=== PATIENT | male | born 1970 | race Caucasian/White ===

== ENCOUNTER 2018-08-03 10:09 | Emergency (ER) | payer OTHER ==
[~2018-08-03] VITALS: Ht 175.3 cm; Wt 86.2 kg
--- OUTSIDE RECORDS SUMMARY | ~2018-08-03 | XMS | Encounter Summary ---
Demographics + + + | Address | [address] | | | [place] [address] | + + + | Home Phone | | + + + | Preferred Language | Unknown | + + + | Marital Status | Single | + + + | Jain Affiliation | Unknown | + + + | Race | Unknown | + + + | Ethnic Group | Unknown | + + + Author + + + | Author | [facility] | | | and [place] | + + + | Organization | [facility] | | | and [place] | + + + | Address | Unknown | + + + | Phone | Unavailable | + + + Support + + +---------+ + | Name | Relationship | Address | Phone | + + +---------+ + | FaithJonathan | ECON | Unknown | | + + +---------+ + Care Team Providers + +------+ + | Care Motion Study Analyst Name | Role | Phone | + +------+ + | No Physician | PCP | Unavailable | + +------+ + Reason for Visit + + + | Reason | Comments | + + + | Pleuritic Chest Pain | | | (Adult) | | + + + Encounter Details +--------+ + + + + | Date | Type | Department | Care Team | Description | +--------+ + + + + | 05/06/ | Emergency | [facility] | Behzad Mcmillan | Cough in adult | | 2018 - | | [facility] | Brett Lee MD | patient (Primary Dx) | | | | CENTER [address] | [address] | | | 05/07/ | | [place] | [place] | | | 2017 | | [address] | [address] | | | | | [phone] | | | +--------+ + + + [...] + + + as of this encounter Last Filed Vital Signs + + + + | Vital Sign | Reading | Time Taken | + + + + | Blood Pressure | 128/65 | 05/07/2018 0000 PDT | + + + + | Pulse | 99 | 05/07/2018 PDT | + + + + | Temperature | 36.6 C (97.9 F) | 05/06/2018 2220 PDT | + + + + | Respiratory Rate | 12 | 05/07/2018 PDT | + + + + | Oxygen Saturation | 98% | 05/07/2018 PDT | + + + + | Inhaled Oxygen | - | - | | Concentration | | | + + + + | Weight | - | - | + + + + | Height | - | - | + + + + | Body Mass Index | - | - | + + + + in this encounter Discharge Instructions Behzad Mcmillan MD - 05/06/2018Please follow-up with your primary care zakiyai anAde Return for severe symptoms symptoms.in this encounter Medications at Time of Discharge + + + +---------+ + + | Medication | Sig. | Disp. | Refills | Start | End Date [...] | + + + +---------+ + + as of this encounter Plan of Treatment Not on fileas of this encounter Procedures + +--------+ + + + | Procedure Name | Priori | Date/Time | Associated Diagnosis | Comments | | | ty | | | | + +--------+ + + + | XR CHEST PA AND | STAT | 05/06/2018 | | Results for this | | LATERAL | | 2338 PDT | | procedure are in the | | | | | | results section. | + +--------+ + + + in this encounter Results XR Chest PA and Lateral (05/06/2018 2338) + + + | Narrative | Performed At | + + + | XR CHEST PA AND LATERAL 05/06/2018 11:38 PM HISTORY: Shortness of | [facility] | | breath. COMPARISON: None. Findings: Heart size is within | | | normal limits. Aorta is normal. Mediastinum is unremarkable. Central | | | pulmonary vasculature is normal. The bilateral lungs are clear with | | | no evidence for pleural effusion or pneumothorax. There is mild | | | spondylosis. IMPRESSION - No acute findings. Dictated and | | | Signed by: Deangelo Hernández MD Electronically signed: 05/07/2018 10:01 | | | PM | | + + + + + | Procedure Note | + + | Wolfgang, Rad Results In - 05/07/2018 2204 PDT XR CHEST PA AND LATERAL 05/06/2018 11:38 PM | | | | HISTORY: Shortness of breath. | | | | COMPARISON: None. | | | | Findings: | | Heart size is within normal limits. Aorta is normal. Mediastinum is | | unremarkable. Central pulmonary vasculature is normal. The bilateral lungs are | | clear with no evidence for pleural effusion or pneumothorax. There is mild | | spondylosis. | | | | IMPRESSION - | | No acute findings. | | | | Dictated and Signed by: Deangelo Hernández MD | | Electronically signed: 05/07/2018 10:01 PM | + + + +---------+ + + | Performing | Address | City/State/Zipcode | Phone Number | | Organization | | | | + +---------+ + + | [facility] | | | | + +---------+ + + in this encounter Visit Diagnoses + + | Diagnosis | + + | Cough in adult patient - Primary | + + Administered Medications + + + +---------+------+------+ | Medication Order | MAR | Action | Dose | Rate | Site | | | Action | Date | | | | + + + +---------+------+------+ | albuterol (PROVENTIL) 90 | Dispense | | 2 puffs | | | | mcg/puff inhaler (ED prepack) 2 | to Home | 8 23:58 | | | | | puff 2 puff, Inhalation, ONCE, | | PDT | | | | | 05/06/18 at 2350, For 1 dose, | | | | | | | Inhale 2 puffs every 6 hours as | | | | | | | directed. Shake Well. Dispense | | | | | | | for home use. | | | | | | + + + +---------+------+------+ +---+---+ | | | +---+---+ + +-------+ +--------+---+---+ | albuterol 2.5 mg/3 mL nebulizer | Given | | 2.5 mg | | | | solution 2.5 mg 2.5 mg, | | 8 23:08 | | | | | Nebulization, RT Once, Sat | | PDT | | | | | 05/06/18 at 2300, For 1 dose, RT | | | | | | | will administer. | | | | | | + +-------+ +--------+---+---+ +---+---+ | | | +---+---+ + +-------+ +-------+---+---+ | albuterol-ipratropium (DUONEB) | Given | | 3 mLs | | | | 2.5-0.5 mg/3 mL nebulizer | | 8 23:08 | | | | | solution 3 mL 3 mL, | | PDT | | | | | Nebulization, RT Once, Sat | | | | | | | 05/06/18 at 2300, For 1 dose | | | | | | + +-------+ +-------+---+---+ +---+---+ | | | +---+---+ + +-------+ +-------+---+---+ | dexamethasone (DECADRON) 10 | Given | | 10 mg | | | | mg/mL injection for oral use 10 | | 8 23:57 | | | | | mg 10 mg, Oral, ONCE, Sat | | PDT | | | | | 05/06/18 at 2350, For 1 dose, Use | | | | | | | dexamethasone 10 mg/mL vial for | | | | | | | inject for this oral dose | | | | | | + +-------+ +-------+---+---+ +---+---+ | | | +---+---+ in this encounter"
--- OUTSIDE RECORDS SUMMARY | ~2018-08-03 | XMS | Clinical Summary ---
Demographics + + + | Address | [address] | | | [place] [address] | + + + | Home Phone | | + + + | Preferred Language | Unknown | + + + | Marital Status | Single | + + + | Catholic Affiliation | Unknown | + + + | Race | Unknown | + + + | Ethnic Group | Unknown | + + + Author + + + | Author | [facility] | | | and [place] | + + + | Organization | [facility] | | | and [place] | + + + | Address | Unknown | + + + | Phone | Unavailable | + + + Support + + +---------+ + | Name | Relationship | Address | Phone | + + +---------+ + | Jonathan Cuevas | ECON | Unknown | | + + +---------+ + Care Team Providers + +------+ + | Care Hand Paint Mixer Name | Role | Phone | + +------+ + | No, Physician | PP | Unavailable | + +------+ + Allergies No Known Allergies Current Medications + + + +---------+------+------+-------+ | Prescription | Sig. | Disp. | [...] | + + + +---------+------+------+-------+ Active Problems Not on file Encounters +--------+ + + + + | Date | Type | Specialty | Care Team | Description | +--------+ + + + + | 05/06/ | Emergency | | Behzad Mcmillan | Cough in adult | | 2018 - | | | Brett Lee MD | patient (Primary Dx) | | | | | | | | 05/07/ | | | | | | 2017 | | | | | +--------+ + + + + from Last 3 Months Social History + +-------+ +--------+------+ | Tobacco [...] | Blood Pressure | 128/65 | 05/07/2018 PDT | + + + + | Pulse | 99 | 05/07/2018 PDT | + + + + | Temperature | 36.6 C (97.9 F) | 05/06/20180 PDT | + + + + | [...] Vaccine: Influenza | | | | | (#1) | 8 | | | + + + + [...] + + from Last 3 Months Results XR Chest PA and Lateral (05/06/20188) + + + | Narrative | Performed [...] + | Wolfgang, Rad Results In - 05/07/20182203 PDT XR CHEST PA AND LATERAL 05/06/2018 [...] | | | + +---------+ + + from Last 3 Months Insurance +-------+--------+ +------+-------+---------+ | Payer | Susani | Subscriber | Type | Phone | Address | | | t Plan | ID | | | | | | / | | | | | | | Group | | | | | +-------+--------+ +------+-------+---------+ | UMR | UMR | [id number] | PPO | | | | | PPO | | | | | +-------+--------+ +------+-------+---------+ + +--------+ +--------+ + + | Guarantor Name | Accoun | Relation to | Date | Phone | Billing Address | | | t Type | Patient | of | | | | | | | | | | + +--------+ +--------+ + + | FELIPE KEANE | Person | Self [birth year] Home: | [address] | | | al[birth year]Fam | | 1969 | [phone] | | | [place] | | | [phone] | [place] | | | | | | | [address] | + +--------+ +--------+ + +"
--- OUTSIDE RECORDS SUMMARY | ~2018-08-03 | XMS | Encounter Summary ---
Demographics + + + | Address | [address] | | | [place] [address] | + + + | Home Phone | | + + + | Preferred Language | Unknown | + + + | Marital Status | Single | + + + | Jehovah'S Witness Affiliation | Unknown | + + + | Race | Unknown | + + + | Ethnic Group | Unknown | + + + Author + + + | Author | [facility] | | | and [place] | + + + | Organization | [facility] | | | and [...] Team Providers + +------+ + | Care District Administrative Assistant Name | Role | Phone | + [...] + + | 05/06/ | Emergency | [facility] | Behzad Mcmillan | Cough in adult | | 2018 - | | [facility] | Brett Lee MD | patient (Primary Dx) | | | | CENTER [address] | [address] | | | 05/07/ | | [place] | [place] | | | 2017 | | [address] | [address] | | | | | [phone] | | | +--------+ + + + [...]
--- OUTSIDE RECORDS SUMMARY | ~2018-08-03 | XMS | Clinical Summary ---
Demographics + + + | Address | [address] | | | [place] [address] | + + + | Home Phone | | + + + | Preferred Language | Unknown | + + + | Marital Status | Single | + + + | Congregation Affiliation | Unknown | + + + | Race | Unknown | + + + | Ethnic Group | Unknown | + + + Author + + + | Author | [facility] | | | and [place] | + + + | Organization | [facility] | | | [...] Team Providers + +------+ + | Care Closer On Name | Role | Phone | + [...] +-------+--------+ +------+-------+---------+ | UMR | UMR | [id number] | PPO | | | | | [...] | | | | | | | [phone] | + +--------+ +--------+ + +"
--- OUTSIDE RECORDS SUMMARY | ~2018-08-03 | XMS | Clinical Summary ---
Demographics + + + | Address | [address] | | | [place] [address] | + + + | Home Phone | | + + + | Preferred Language | Unknown | + + + | Marital Status | Unknown | + + + | Yarsani Affiliation | Unknown | + + + | Race | Unknown | + + + | Ethnic Group | Unknown | + + + Author + + + | Author | [facility] | + + + | Organization | [facility] | + + + | Address | Unknown | + + + | Phone | Unavailable | + + + Support +--------+ +---------+ + | Name | Relationship | Address | Phone | +--------+ +---------+ + | No,One | ECON | Unknown | | +--------+ +---------+ + Care Team Providers + +------+ + | Care Director Teen Post Name | Role | Phone | + +------+ + | Liyah Weldon MD | PP | | + +------+ + Allergies No Known Allergies Current Medications + + +--------+---------+------+------+-------+ | Prescription | Sig. | Disp. | Refills | Star | End | Statu | | | | | | t | Date | s | | | | | | Date | | | + + +--------+---------+------+------+-------+ | fish oil omega-3 | Take 3 g by mouth | | | | | Activ | | fatty acids 1000 MG | daily. | | | | | e | | capsule | | | | | | | + + +--------+---------+------+------+-------+ | carvedilol (COREG) | Take 1 tablet by | 180 | 3 | 07/1 | | Activ | | 25 MG tablet | mouth 2 (two) times | tablet | | 7/20 | | e | | | daily. | | | 17 | | | + + +--------+---------+------+------+-------+ | lisinopril | Take 1 tablet by | 90 | 3 | 05/14 | | Activ | | (ZESTRIL) 10 MG | mouth daily. | tablet | | 7/20 | | e | | tablet | | | | 17 | | | + + +--------+---------+------+------+-------+ | spironolactone | Take 1 tablet by | 90 | 3 | 05/14 | | Activ | | (ALDACTONE) 25 MG | mouth daily. | tablet | | 7/20 | | e | | tablet | | | | 17 | | | + + +--------+---------+------+------+-------+ Active Problems + + + | Problem | Noted Date | + + + | Dilated cardiomyopathy [...] | | glu: 87 | + + Family History [...] + + | Father | | | [place] x 2, open heart surgery | | | | (Age | | | | | 64) | | + +------+ + + | Mother | | | DMII, Hyperlipiemia,CVA | | | | (Age | | | | | 72) | | + +------+ + + Social History + + + +--------+------+ | Tobacco Use | Types | Packs/Day | Years | Date | | | | | Used | | + + + +--------+------+ | Current Some Day | Cigarettes | 1 | 12 | | | Smoker | | | | | + + + +--------+------+ + +------+---+---+ | Smokeless Tobacco: | Chew [...] + + + | Blood Pressure | 128/66 | 05/30/2017 10:51 AM PDT | + + + + | Pulse | 78 | 05/30/2017 10:51 AM PDT | + + + + | Temperature | 36.9 C (98.4 F) | 12/12/2015 10:06 AM PST | + + + + | Respiratory Rate | 16 | 09/30/2016 1:35 PM PST | + + + + | Oxygen Saturation | 98% | 05/30/2017 10:51 AM PDT | + + + + | Inhaled Oxygen | - | - | | Concentration | | | + + + + | Weight | 89.9 kg (198 lb 3.2 | 05/30/2017 10:51 AM PDT | | | oz) | | + + + + | Height | 172.7 cm (5' 8") | 05/30/2017 10:51 AM PDT | + + + + | Body Mass Index | 30.14 | 05/30/2017 10:51 AM PDT | + + + + Plan [...] Not on filefrom Last 3 Months Insurance +---------+--------+ +------+-------+ + | Payer | Benefi | Subscriber | Type | Phone | Address | | | t Plan | ID | | | | | | / | | | | | | | Group | | | | | +---------+--------+ +------+-------+ + | PREMERA | PREMER | [id number] | | | [address] [address] | | | A BLUE | 3 | | | [place], [place] | | | CARD | | | | [phone] | +---------+--------+ +------+-------+ + + +--------+ +--------+ + + | Guarantor Name | Accoun | Relation to | Date | Phone | Billing Address | | | t Type | Patient | of | | | | | | | | | | + +--------+ +--------+ + + | FELIPE KEANE | Person | Self | [birth year] | Home: | [address] | | | al/Fam | | 1970 | [phone] [place], | | | [place] | | | [address] | [place] [phone] | + +--------+ +--------+ + +
--- OUTSIDE RECORDS SUMMARY | ~2018-08-03 | XMS | Clinical Summary ---
Demographics + + + | Address | [address] | | | [place] [address] | + + + | Home Phone | | + + + | Preferred Language | Unknown | + + + | Marital Status | Unknown | + + + | Islam Affiliation | Unknown | + + + | Race | Unknown | + + + | Ethnic Group | Unknown | + + + Author + + + | Author | [facility] | + + + | Organization | [facility] | + + + | Address | Unknown | + + + | Phone | Unavailable | + + + Support +--------+ +---------+ + | Name | Relationship | Address | Phone | +--------+ +---------+ + | No,One | ECON | Unknown | | +--------+ +---------+ + Care Team Providers + +------+ + | Care Agriculture Engineer Name | Role | Phone | [...] + + | Father | | | [place] x 2, open heart surgery | | [...] +------+-------+ + | PREMERA | PREMER | [id number] | | | [address] [address] | | | A BLUE | 3 | | | [place], [place] | | | CARD | | | | [phone] | +---------+--------+ +------+-------+ + + +--------+ +--------+ [...] [place] | | | [address] | [place] [address] | + +--------+ +--------+ + +
--- NOTE | 2018-08-03 21:10 | EKG ---
[facility] [address] [facility] [place], [place] [address] Signed Normal sinus rhythm Left bundle branch block Abnormal ECG No previous ECGs available Confirmed by FREDDIE SOLANO DO ([id number]) on 08/03/2018 9:10:47 PM Electronically Signed By: FREDDIE SOLANO DO 08/03/182109 PATIENT NAME: KEANEFELIPE LENNOX Electrocardiogram DATE OF : 68 PHYSICIAN: FREDDIE SOLANO DO REPORT #: [id number] REPORT IS CONFIDENTIAL AND NOT TO BE RELEASED WITHOUT AUTHORIZATION
== END 2018-08-03 11:10 | disposition short-term general hospital (02) ==
LOC: ED 10:09
DX: I63.9 Cerebral infarction, unspecified (principal); I20.0 Unstable angina; I11.0 Hypertensive heart disease with heart failure; I50.9 Heart failure, unspecified; F17.200 Nicotine dependence, unspecified, uncomplicated
CPT/HCPCS: 71045; 80053; 84484; 85025; 93005; 93010; 99285; G0480

== ENCOUNTER 2019-03-06 14:47 | Inpatient (IN) | payer OTHER ==
[~2019-03-06] VITALS: Ht 175.3 cm; Wt 92.9 kg
--- OUTSIDE RECORDS SUMMARY | ~2019-03-06 | XMS | Encounter Summary ---
Demographics + + + | Address | [address] | | | [place] [address] | + + + | Home Phone | | + + + | Preferred Language | Unknown | + + + | Marital Status | Unknown | + + + | Alevism Affiliation | Unknown | + + + | Race | Unknown | + + + | Ethnic Group | Unknown | + + + Author + + + | Author | [facility] | + + + | Organization | [facility] | + + + | Address | Unknown | + + + | Phone | Unavailable | + + + Support + + +---------+ + | Name | Relationship | Address | Phone | + + +---------+ + | Contact,No | ECON | Unknown | | + + +---------+ + Care Team Providers + +------+ + | Care Printing Estimator Name | Role | Phone | + +------+ + | Cassidy Khan MD | PCP | | + +------+ + Encounter Details +--------+ + + + + | Date | Type | Department | Care Team | Description | +--------+ + + + + | 01/16/ | Telephone | [facility] | Kim Landrum MA | | | 2018 | | Cardiology Tr[facility] | | | | | | [address] [facility] [address] | | | | | | [facility] [address] | | | | | | [place] [address] | | | | | | [phone] | | | +--------+ + + + + Social History + + + +--------+ + | Tobacco Use | Types | Packs/Day | Years | Date | | | | | Used | | + + + +--------+ + | Former Smoker | Cigarettes | 1 | 12 | Quit: 09/14/2018 | + + + +--------+ + + +------+---+---+ | Smokeless Tobacco: | Chew | | | | Former User | | | | + +------+---+---+ + + +---------+ + | Alcohol Use | Drinks/We | oz/Week | Comments | | | ek | | | + + +---------+ + | Yes | 24 Cans | 14.4 | beer | | | of beer | | | + + +---------+ + + + + | Sex Assigned at | Date Recorded | | | | + + + | Not on file | | + + + as of this encounter Plan of Treatment +--------+---------+ + + + | Date | Type | Specialty | Care Team | Description | +--------+---------+ + + + | 04/05/ | Office | Cardiology | Shelby Donato DO | | | 2018 | Visit | | [address] | | | | | | [place] | | | | | | [address] | | | | | | | | +--------+---------+ + + + as of this encounter Visit Diagnoses Not on filein this encounter"
--- OUTSIDE RECORDS SUMMARY | ~2019-03-06 | XMS | Clinical Summary ---
Demographics + + + | Address | [address] | | | [place] [address] | + + + | Home Phone | | + + + | Preferred Language | Unknown | + + + | Marital Status | Unknown | + + + | Roman Catholic Affiliation | Unknown | + + + | Race | Unknown | + + + | Ethnic Group | Unknown | + + + Author + + + | Author | [facility] [facility] | + + + | Organization | [facility] | + + + | Address | Unknown | + + + | Phone | Unavailable | + + + Support + + +---------+ + | Name | Relationship | Address | Phone | + + +---------+ + | Contact,No | ECON | Unknown | | + + +---------+ + Care Team Providers + +------+ + | Care Casing Machine Operator Name | Role | Phone | + +------+ + | Cassidy Khan MD | PP | | + +------+ + Allergies No Known Allergies Current Medications + + +--------+---------+------+------+-------+ | Prescription | Sig. | Disp. | Refills | Star | End | Statu | | | | | | t | Date | s | | | | | | Date | | | + + +--------+---------+------+------+-------+ | atorvastatin | Take 1 tablet by | 30 | 11 | 11/14 | 11/14 | Activ | | (LIPITOR) 10 MG | mouth nightly. | tablet | | 0/20 | 0/20 | e | | tablet | | | | 19 | 20 | | + + +--------+---------+------+------+-------+ | carvedilol (COREG) | Take 1 tablet by | 180 | 3 | 01/1 | 11/14 | Activ | | 25 MG tablet | mouth 2 (two) times | tablet | | 0/20 | 0/20 | e | | | daily. | | | 19 | 20 | | + + +--------+---------+------+------+-------+ | spironolactone | Take 0.5 tablets by | 45 | 3 | / | 11/14 | Activ | | (ALDACTONE) 25 MG | mouth daily. | tablet | | 0/20 | 0/20 | e | | tablet | | | | 19 | 20 | | + + +--------+---------+------+------+-------+ | lisinopril | Take 2 tablets by | 60 | 11 | 02/0 | 02/0 | Activ | | (ZESTRIL) 20 MG | mouth daily. | tablet | | /20 | 720 | e | | tablet | | | | 19 | 20 | | + + +--------+---------+------+------+-------+ | furosemide (LASIX) | Take 1 tablet by | 30 | 11 | 04/ | 04 | Activ | | 20 MG tablet | mouth daily. | tablet | | 1/20 | 0/20 | e | | | | | | 19 | 20 | | + + +--------+---------+------+------+-------+ | | Take 1 tablet by | 90 | 11 | / | 04/ | Activ | | isosorbide-hydrALAZI | mouth 3 (three) | tablet | | 12/03 | 0/20 | e | | NE (BIDIL) 20-37.5 | times daily. | | | 19 | 20 | | | MG per tablet | | | | | | | + + +--------+---------+------+------+-------+ Active Problems + + + | Problem | Noted Date | + + + | Chronic combined systolic and diastolic heart failure (HCC) | 11/24/2018 | + + + | Mixed hyperlipidemia | 11/23/2018 | + + + | TIA (transient ischemic attack) | 09/21/2018 | + + + | ETOH abuse | 09/21/2018 | + + + | Tobacco abuse | 09/21/2018 | + + + | Dilated cardiomyopathy (HCC) | 11/24/2015 | + + + + + | Last Assessment & Plan: Cardiomyopathy/4-chamber enlargement, | | LVEDd 63mm, LVEF 30%. 45yo WM, with a nonischemic | | dilated cardiomyopathy, history of heart failure. He continues | | to be relatively active, gainfully employed. He's doing | | relatively well, he does admit exertional shortness of breath and | | fatigue, but there is no edema, no orthopnea or PND. He is | | unaware of any chest discomfort or palpitations. He had been | | ordered an Echo but not done as he never received a call. Labs | | reviewed. Tolerating medications. Today we increased his | | carvedilol to 25 mg BID. Again we strongly encouraged him to | | abstain from alcohol and also to quit smoking . If there is no | | improvement in his LVEF, he may be a candidate for biventricular | | ICD, he does have a left bundle branch block and a prolonged | | QRS.Hx CABG: noHx PCI/stent: noHx Pacemaker/ICD: noLast Cath, | | 12/12/2015: coronaries NML, right dominant.Last Echo, 09/24/2015: | | LVEDd 63mm, LVEF 30%, bi-Atrial enlargement, mild RVE with | | impaired systolic function, mild MR, mild TR.Last Stress Test: | | naECG, 11/24/2015: sinus tachycardia, 115bpm, bi-Atrial | | enlargement, LBBB (QRS 156msec). | + + + + + | Essential hypertension | 11/24/2015 | + + + + + | Last Assessment & Plan: Hypertension, controlled, we'll be | | making changes in his medications for his cardiomyopathy. Labs | | reviewed with patient.Lab, 06/29/2016: K: 4.8, BUN/Cr: 10/0.9, | | glu: 87 | + + Encounters +--------+ + + + + | Date | Type | Specialty | Care Team | Description | +--------+ + + + + | 02/22/ | Office | | Shelby Donato DO | Essential | | 2019 | Visit | | | hypertension | | | | | | (Primary Dx); | | | | | | Dilated | | | | | | cardiomyopathy | | | | | | (HCC); ETOH abuse; | | | | | | Tobacco abuse; Mixed | | | | | | hyperlipidemia; | | | | | | Chronic combined | | | | | | systolic and | | | | | | diastolic heart | | | | | | failure (HCC); LBBB | | | | | | (left bundle branch | | | | | | block) | +--------+ + + + + | 01/18/ | Office | | Stephanie Hernandez | Dilated | | 2018 | Visit | | NITHIN Sanchez | cardiomyopathy (HCC) | | | | | | (Primary Dx); | | | | | | Chronic combined | | | | | | systolic and | | | | | | diastolic heart | | | | | | failure (HCC); | | | | | | Essential | | | | | | hypertension; Mixed | | | | | | hyperlipidemia; TIA | | | | | | (transient ischemic | | | | | | attack); ETOH abuse; | | | | | | Tobacco abuse | +--------+ + + + + | 01/16/ | Telephone | | Kim Landrum MA | | | 2018 | | | | | +--------+ + + + + | 01/01/ | Documentati | | Mary Lou Johnston | Labs Only (BMP) | | 2019 | on Only | | MANDI Santa | | +--------+ + + + + | 12/21/ | Office | | Stephanie Hernandez | Chronic combined | | 2019 | Visit | | NITHIN Sanchez | systolic and | | | | | | diastolic heart | | | | | | failure (HCC) | | | | | | (Primary Dx); | | | | | | Dilated | | | | | | cardiomyopathy | | | | | | (HCC); Essential | | | | | | hypertension; Mixed | | | | | | hyperlipidemia; TIA | | | | | | (transient ischemic | | | | | | attack); ETOH abuse; | | | | | | Tobacco abuse | +--------+ + + + + | 12/13/ | Telephone | | Kim Landrum MA | | | 2019 | | | | | +--------+ + + + + from Last 3 Months Family History + + +------+ + | Medical History | Relation | Name | Comments | + + +------+ + | Heart disease | Father | | | + + +------+ + | High cholesterol | Mother | | | + + +------+ + | Hypertension | Mother | | | + + +------+ + | Stroke | Mother | | | + + +------+ + + +------+ + + | Relation | Name | Status | Comments | + +------+ + + | Brother | | | | + +------+ + + | Father | | | MD x 2, open heart surgery | | | | (Age | | | | | 64) | | + +------+ + + | Mother | | | DMII, Hyperlipiemia,CVA | | | | (Age | | | | | 72) | | + +------+ + + Social History + + + +--------+ + | Tobacco Use | Types | Packs/Day | Years | Date | | | | | Used | | + + + +--------+ + | Former Smoker | Cigarettes | 1 | 12 | Quit: 09/14/2018 | + + + +--------+ + + +------+---+---+ | Smokeless Tobacco: | Chew | | | | Current User | | | | + +------+---+---+ + + | Tobacco Cessation: Counseling Given: Yes | + + + + +---------+ + | Alcohol Use [...] on file | | + + + Last Filed Vital Signs + + + + | Vital Sign | Reading | Time Taken | + + + + | Blood Pressure | 140/72 | 02/22/2019 2:48 PM PDT | + + + + | Pulse | 73 | 02/22/2019 2:48 PM PDT | + + + + | Temperature | 36.9 C (98.4 F) | 12/12/2015 10:06 AM PST | + + + + | Respiratory Rate | 18 | 01/18/2019 3:24 PM PST | + + + + | Oxygen Saturation | 97% | 02/22/2019 2:48 PM PDT | + + + + | Inhaled Oxygen | - | - | | Concentration | | | + + + + | Weight | 94.8 kg (209 lb) | 02/22/2019 2:48 PM PDT | + + + + | Height | 172.7 cm (5' 8") | 02/22/2019 2:48 PM PDT | + + + + | Body Mass Index | 31.78 | 02/22/2019 2:48 PM PDT | + + + + Plan of Treatment +--------+---------+ + + + | Date | Type | Specialty | Care Team | Description | +--------+---------+ + + + | 04/05/ | Office | | Shelby Donato DO | | | 2019 | Visit | | [address] | | | | | | [place] | | | | | | [address] | | | | | | | | +--------+---------+ + + + + + + + + | Health Maintenance | Due Date | Last Done | Comments | + + + + + | Vaccine: | | | | | Dtap/Tdap/Td (1 - | 8 | | | | Tdap) | | | | + + + + + | Vaccine: | | | | | Pneumococcal 19-64 | 8 | | | | (PPSV23 only) Medium | | | | | Risk (1 of 1 - | | | | | PPSV23) | | | | + + + + + | Vaccine: Influenza | | | | | (Season Ended) | 9 | | | + + + + + Procedures + +--------+ + + + | Procedure Name | Priori | Date/Time | Associated Diagnosis | Comments | | | ty | | | | + +--------+ + + + | EKG STANDARD 12 LEAD | Routin | 02/22/2019 | Essential | Results for this | | | e | 2:56 PM | hypertension | procedure are in the | | | | PDT | | results section. | + +--------+ + + + | BASIC METABOLIC | Routin | 12/28/2018 | | Results for this | | PANEL | e | 3:15 PM | | procedure are in the | | | | PST | | results section. | + +--------+ + + + from Last 3 Months Results EKG STANDARD 12 LEAD (02/22/2019 2:56 PM) + + + + + | Component | Value | Ref Range | Performed At | + + + + + | Ventricular Rate | 75 | BPM | [facility] | + + + + + | Atrial Rate | 75 | BPM | [facility] | + + + + + | P-R Interval | 166 | ms | [facility] | + + + + + | QRS Duration | 160 | ms | [facility] | + + + + + | Q-T Interval | 420 | ms | [facility] | + + + + + | QTC Calculation | 469 | ms | [facility] | | (Tory) | | | | + + + + + | Calculated P [place] | 39 | degrees | [facility] | + + + + + | Calculated R [place] | 63 | degrees | [facility] | + + + + + | Calculated T [place] | -130 | degrees | [facility] | + + + + + | Diagnosis | Please refer to | | [facility] | | | Providers office visit | | | | | note for Providers | | | | | Interpretation.Confirmed | | | | | by [facility] Read Only, | | | | | [facility] ([id number]), | | | | | desk editor Pepito Snyder | | | | | ([id number]) on 02/22/2019 | | | | | 3:18:23 PM | | | + + + + + + + + + + | Performing | Address | City/State/Zipcode | Phone Number | | Organization | | | | + + + + + | [facility] | [address] | [place] [address] | | + + + + + Basic metabolic panel (12/28/2018 3:15 PM) + +-------+ + + | Component | Value | Ref Range | Performed At | + +-------+ + + | GLUCOSE | 78 | 70 - 100 mg/dL | [facility] | | | | | [facility] | + +-------+ + + | BUN | 19 | 6 - 23 mg/dL | [facility] | | | | | [facility] | + +-------+ + + | CREATININE | 1.15 | 0.60 - 1.35 mg/dL | [facility] | | | | | [facility] | + +-------+ + + | BUN/CREAT | 16.5 | 6.0 - 28.6 | [facility] | | | | | [facility] | + +-------+ + + | CALCIUM | 9.4 | 8.5 - 10.3 mg/dL | [facility] | | | | | [facility] | + +-------+ + + | SODIUM | 135 | 132 - 143 mmol/L | [facility] | | | | | [facility] | + +-------+ + + | POTASSIUM | 4.5 | 3.6 - 5.1 mmol/L | [facility] | | | | | [facility] | + +-------+ + + | CHLORIDE | 101 | 95 - 112 mmol/L | [facility] | | | | | [facility] | + +-------+ + + | CO2 | 21 | 19 - 31 mmol/L | [facility] | | | | | [facility] | + +-------+ + + | ANION GAP AGAP | 17.5 | 7 - 21 mmol/L | [facility] | | | | | [facility] | + +-------+ + + | EGFR | 68 | 60 mg/dL | [facility] | | | | | LAB[facility]AT[facility] | + +-------+ + + + + | Specimen | + + | Blood | + + + + + + + | Performing | Address | City/State/Zipcode | Phone Number | | Organization | | | | + + + + + | [facility] | [address] | [place] [address] | | | LABORATORY | 13 | | | + + + + + from Last 3 Months Insurance + +--------+ +------+-------+---------+ | Payer | Benefi | Subscriber | Type | Phone | Address | | | t Plan | ID | | | | | | / | | | | | | | Group | | | | | + +--------+ +------+-------+---------+ | [employer] | UNITED | [id number] | | | | | | | | | | | | | HEALTH | | | | | | | CARE - | | | | | | | UMR | | | | | + +--------+ +------+-------+---------+ + +--------+ +--------+ + + | Guarantor Name | Accoun | Relation to | Date | Phone | Billing Address | | | t Type | Patient | of | | | | | | | | | | + +--------+ +--------+ + + | MARTINEZ KEANE | Person | Self [birth year] Home: | [address] | | | al/Fam | | 1970 | [phone] | [address] [place] | | | [place] | | [phone] | [phone] | + +--------+ +--------+ + +
--- OUTSIDE RECORDS SUMMARY | ~2019-03-06 | XMS | Encounter Summary ---
Demographics + + + | Address | [address] | | | [place] [address] | + + + | Home Phone | | + + + | Preferred Language | Unknown | + + + | Marital Status | Unknown | + + + | Zoroastrian Affiliation | Unknown | + + + | Race | Unknown | + + + | Ethnic Group | Unknown | + + + Author + + + | Author | [facility] [employer] [facility] | + + + | Organization | [facility] | + + + | Address | Unknown | + + + | Phone | Unavailable | + + + Support + + +---------+ + | Name | Relationship | Address | Phone | + + +---------+ + | Contact,No | ECON | Unknown | | + + +---------+ + Care Team Providers + +------+ + | Care Package Sorter Name | Role | Phone | + [...] | | | | | | [address] [facility] [address] | | | | | | [facility] [address] | | | | | | [place] [address] | | | | | | [phone] | | | +--------+ + + + [...] [place] | | | | | | [address] | | | | | | | | +--------+---------+ + + + as of this encounter Visit Diagnoses Not on filein this encounter"
--- OUTSIDE RECORDS SUMMARY | ~2019-03-06 | XMS | Clinical Summary ---
Demographics + + + | Address | [address] | | | [place] [address] | + + + | Home Phone | | + + + | Preferred Language | Unknown | + + + | Marital Status | Single | + + + | Faith Affiliation | Unknown | + + + | Race | Unknown | + + + | Ethnic Group | Unknown | + + + Author + + + | Author | [facility] | | | and [place] | + + + | Organization | [facility] | | | and [place] | + + + | Address | Unknown | + + + | Phone | Unavailable | + + + Care Team Providers + +------+ + | Care Stunt Woman Name | Role | Phone | + +------+ + | Mavis Physician | ROSA | Unavailable | + +------+ + Allergies No Known [...] lungs every 4 | Inhaler | | /20 | | e | | | hours [...] Noted Date | + + + | Left arm weakness | 08/03/2018 | + + + | Numbness and tingling in left arm | 08/03/2018 | + + + Social History + +-------+ [...] recent travel history available. | + + Last Filed Vital Signs + + + + | Vital Sign | Reading | Time Taken | + + + + | Blood Pressure | 154/92 | 08/03/2018 1217 PDT | + + + + | Pulse | 83 | 08/03/20181328 PDT | + + + + | Temperature | 36.6 C (97.9 F) | 05/06/20182219 PDT | + + + + | Respiratory Rate | 18 | 08/03/20181328 PDT | + + + + | Oxygen Saturation | 96% | 08/03/20181328 PDT | + + + + | Inhaled Oxygen | - | - | | Concentration | | | + + + + | Weight | 90.7 kg (200 lb) | 08/03/2018 1215 PDT | + + + + | Height | - | - | + + + + | Body Mass Index | - | - | + + + + Plan of Treatment + + + + + | Health Maintenance | Due Date | Last Done | Comments | + + + + + | Vaccine: | | | | | Dtap/Tdap/Td (1 - | 8 | | | | Tdap) | | | | + + + + + | Vaccine: Influenza | 09/01/201 | | | | (Season Ended) | 9 | | | + + + + + Results Not on filefrom Last 3 [...] +-------+--------+ +--------+-------+---------+------+ | UMR | UMR | [id number] | 11/14/19 | | | PPO | [...] Person | Self | [birth year] | [address] | | | taylor/Kristofer | | 1970 | [phone] | [address] [place] | | | [place] | | | [address] (Home) | [phone] | + +--------+ +--------+ + + Advance Directives Patient has advance care planning documents on file. For more information, please contact:[facility] [place] [address]"
--- OUTSIDE RECORDS SUMMARY | ~2019-03-06 | XMS | Encounter Summary ---
Demographics + + + | Address | [address] | | | [place] [address] | + + + | Home Phone | | + + + | Preferred Language | Unknown | + + + | Marital Status | Unknown | + + + | Taoism Affiliation | Unknown | + + + | Race | Unknown | + + + | Ethnic Group | Unknown | + + + Author + + + | Author | [facility] [employer] [facility] | + + + | Organization | [facility] | + + + | Address | Unknown | + + + | Phone | Unavailable | + + + Support + + +---------+ + | Name | Relationship | Address | Phone | + + +---------+ + | Contact,No | ECON | Unknown | | + + +---------+ + Care Team Providers + +------+ + | Care Size Maker Name | Role | Phone | + +------+ + | Liyah Weldon MD | PCP | | + +------+ + Encounter Details +--------+ + + + + | Date | Type | Department | Care Team | Description | +--------+ + + + + | 12/13/ | Telephone | [facility] | Kim Landrum MA | | | 2018 | | Cardiology [facility] | | | | | | [address] [facility] [address] | | | | | | [facility] [address] | | | | | | [place] [address] | | | | | | [phone] | | | +--------+ + + + [...] [place] | | | | | | [address] | | | | | | | | +--------+---------+ + + + as of this encounter Visit Diagnoses Not on filein this encounter"
--- OUTSIDE RECORDS SUMMARY | ~2019-03-06 | XMS | Encounter Summary ---
Demographics + + + | Address | [address] | | | [place] [address] | + + + | Home Phone | | + + + | Preferred Language | Unknown | + + + | Marital Status | Unknown | + + + | Evangelical Affiliation | Unknown | + + + | Race | Unknown | + + + | Ethnic Group | Unknown | + + + Author + + + | Author | [facility] [employer] [facility] | + + + | Organization | [facility] | + + + | Address | Unknown | + + + | Phone | Unavailable | + + + Support + + +---------+ + | Name | Relationship | Address | Phone | + + +---------+ + | Contact,No | ECON | Unknown | | + + +---------+ + Care Team Providers + +------+ + | Care Line Assembler Aircraft Name | Role | Phone | + [...] | | | | | | [address] [facility] [address] | | | | | | [facility] [address] | | | | | | [place] [address] | | | | | | [phone] | | | +--------+ + + + [...] [place] | | | | | | [address] | | | | | | | | +--------+---------+ + + + as of this encounter Visit Diagnoses Not on filein this encounter"
--- OUTSIDE RECORDS SUMMARY | ~2019-03-06 | XMS | Encounter Summary ---
Demographics + + + | Address | [address] | | | [place] [address] | + + + | Home Phone [...] + + + | Author | [email or web address] | + + + | Organization | [facility] | + + + | Address | Unknown | + + + | Phone | Unavailable | + + + Support + + +---------+ + | Name | Relationship | Address | Phone | + + +---------+ + | Contact,No | ECON | Unknown | | + + +---------+ + Care Team Providers + +------+ + | Care Horse Shoer Name | Role | Phone | + +------+ + | Cassidy Khan MD | PCP | | + +------+ + Reason for Visit + + + | Reason | Comments | + + + | Follow-up | 4 week | + + + Encounter Details +--------+---------+ + + + | Date | Type | Department | Care Team | Description | +--------+---------+ + + + | 01/18/ | Office | [facility] | Stephanie Hernandez | Dilated | | 2019 | Visit | Cardiology Riccardo | [address] | cardiomyopathy (HCC) | | | | [address] | [place] | (Primary Dx); | | | | [facility] [address] | [place] [address] | Chronic combined | | | | [place] [address] | [phone] | systolic and | | | | [phone] | | diastolic heart | | | | | | failure (HCC); | | | | | | Essential | | | | | | hypertension; Mixed | | | | | | hyperlipidemia; TIA | | | | | | (transient ischemic | | | | | | attack); ETOH abuse; | | | | | | Tobacco abuse | +--------+---------+ + + + Social History + + [...] + + + | Blood Pressure | 148/84 | 01/18/2019 3:24 PM PST | + + + + | Pulse | 77 | 01/18/2019 3:24 PM PST | + + + + | Temperature | - | - | + + + + | Respiratory Rate | 18 | 01/18/2019 3:24 PM PST | + + + + | Oxygen Saturation | 98% | 01/18/2019 3:24 PM PST | + + + + | Inhaled Oxygen | - | - | | Concentration | | | + + + + | Weight | 98.6 kg (217 lb 4.8 | 01/18/2019 3:24 PM PST | | | oz) | | + + + + | Height | 175.3 cm (5' 9") | 01/18/2019 3:24 PM PST | + + + + | Body Mass Index | 32.09 | 01/18/2019 3:24 PM PST | + + + + in this encounter Instructions Patient Instructions - Stephanie Hernandez ARNP - 01/18/2019 3:30 PM PSTI have increased your Lisinopril to 40 mg daily, so take two of 20 mg pills at once , or 20 mg twice a day i f feel it make you dizzy Continue to take spironolactone half of 25 mg pill , so 12.5 mg, and make sure cook pickled meat new prescription Continue to take Atorvastatin 10 mg at night for now Take carvedilol 25 mg twice a day as you have been Take Magnesium Oxide 250mg -400 mg and can buy over the counter for leg cramps and stop ta trevor potassium . I have ordered you fasting labs to be done at [facility] in 4 weeks, and you will see Dr. Fr smith February [address] Khan to find out what help is available that will work for you to help stop drinki ng in this encounter Progress Notes Stephanie Hernandez ARNP - 01/18/2019 3:30 PM PSTFormatting of this note may be differen t from the original. Date of visit: 01/18/2019 Primary Care Physician: Cassidy Khan CHIEF COMPLAINT: Chief Complaint Patient presents with Follow-up 4 week HISTORY OF PRESENT ILLNESS: Mr. Martinez Xiong is a 48-year-old man here today to follow-up on his response to lisinopril 4 0 mg which I had increased when I saw him last in 12/21/2018 for increased cardiomyopathy He is a previous patient of Dr. Oneal Rowe, now retired and was last seen by him in [facility] 2015. He has a history of nonischemic dilated cardiopathy cardiomyopathy and heart failure with low EF of 30 percent , hypertension, lipidemia, suffers from alcohol abuse, and is a current smoker. His last angiogram was in November 2015 and showed normal coronaries. His current and previous testing and procedures are detailed below. His previous hospitalizations are for transient ischemic attack in July 2018, alconbrett sissyalbert treated twice in urgent care in February 2018 for upper respiratory infection, and also randi ated at [facility] in the emergency room for cough and difficulty breathing in April 2018, an d notes previously reviewed. I have been working with him since September 2018 to optimize his medications for cardiomy opathy, have started him on atorvastatin for poorly controlled lipids, and have been encoura ging him to get help to quit drinking. Though he has done a good job on decreasing his drink ing, he is finding it difficult to quit on his own. He reports since he saw me last, he has not had any hospitalization or emergency room visit s, and now chewing tobacco , about a tin per week, instead of smoking, and has decreased alc ohol from 80 oz of 8% ABV beer daily to 40 oz of 8% ABV beer, which has increased since I sa w him last. He reports AA did not work for him in the past, and not sure about counseling for alcohol dependence. He finally brought his medication bottles to the clinic today, and I discovered that he i s still only taking lisinopril 20 mg daily, and not 40 mg daily, but is taking all of his ot her medications as ordered. He reports he has had no further signs or symptoms of transient ischemic attack or stroke since he saw me last, and denies any dizziness or lightheadedness, or syncope. He also den ies any chest pain or palpitations. 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 REVIEW OF SYSTEMS: Negative except for pertinent items noted in HPI. Constitutional: Denies fatigue or unexplained weight loss. Appetite is good. Weight is st able. Denies night sweats fevers or chills HENT: Denies nosebleeds. Denies hearing problems. Denies dysphagia Eyes: Denies visual disturbance or double vision. Denies history of cataracts or glaucoma or macular degeneration. Respiratory/Sleep:: Frequent URIs, intermittent cough, denies shortness of breath. Toxic l dennis exposure from smoking, and job as a operations welder Denies hemoptysis or excessive sputum produc tion. Denies snoring, orthopnea, PND. Cardiovascular: Denies chest pain and leg swelling, has palpitations if he has been drinkin g heavily Denies leg swelling. Denies history of rheumatic fever. Denies claudication . Gastrointestinal: Symptoms of gastroesophageal reflux disease, aggravated by smoking and he steven alcohol consumption . Denies nausea, vomiting, and blood in stool. Genitourinary: Denies hematuria. Denies history of benign prostatic hypertrophy Musculoskeletal: Bad left hip injured in high school , hand pain, Denies myalgias, back pa in Skin: Denies color change. Denies rash or lesions Neurological:TIA 07/2018 w/ left arm weakness and tingling( [place])-symptoms resolved . Denies history of stroke.Denies history of seizures. Denies dizziness, syncope and numbne ss. Denies focal motor or sensory deficits Hematological: Does not bruise/bleed easily. Denies history of cancer Endocrine: Denies diabetes or thyroid disease. Denies excessive thirst or hunger. Psychiatric/Behavioral: The patient denies any history of depression or anxiety or other ps ychiatric illness. Vaccines: current on flu vaccine: 11/2018 and tetanus . Not Current on pneumonia vaccine . Habits/Social : current Smoker 1/2 ppd x 12 years, now chewing tobacco 1 tin per week, . Previously chewed tobacco 17 years. . Drinks 1servings of caffeine daily . Denies illicit drug use. Drink (25 oz) of 8% ABV beer per day,used to drink 80 oz, Exercises with Active job , works as a operations welder , 8-10 hrs , 5 days per week, single . Outpatient Medications Prior to Visit Medication Sig Dispense Refill atorvastatin (LIPITOR) 10 MG tablet Take 1 tablet by mouth nightly. 30 tablet 11 carvedilol (COREG) 25 MG tablet Take 1 tablet by mouth 2 (two) times daily. 180 tablet 3 lisinopril (ZESTRIL) 20 MG tablet Take 2 tablets by mouth daily. 60 tablet 11 spironolactone (ALDACTONE) 25 MG tablet Take 0.5 tablets by mouth daily. 45 tablet 3 No facility-administered medications prior to visit. PHYSICAL EXAM: Wt Readings from Last 3 Encounters: 01/18/19 98.6 kg (217 lb 4.8 oz) 12/21/18 96.3 kg (212 lb 4.8 oz) 11/23/18 94.9 kg (209 lb 3.2 oz) Temp Readings from Last 3 Encounters: 12/12/15 98.4 F (36.9 C) (Temporal) BP Readings from Last 3 Encounters: 01/18/19 148/84 12/21/18 148/86 11/23/18 142/82 Pulse Readings from Last 3 Encounters: 01/18/19 77 12/21/18 75 11/23/18 76 GENERAL: Well developed, well nourished, in no distress. Appears approximately stated age . Face flushed HEENT: Normocephalic, atraumatic. EYES: PERRL, EOM normal. MOUTH: Oral mucosae moist, dentition adequate, no lesions noted NECK: No JVD, lymphadenopathy, thyromegaly. Carotid pulses are 2+ bilaterally without br uits LUNGS: Lungs clear to auscultation, no crackles ,no rales, rhonchi noted, respirations unl abored. HEART: Nondisplaced PMI, regular rate and rhythm, S1, S2 normal. 1/6 systolic murmur LLSB, no rubs or gallops noted.. ABDOMEN: Soft, nontender, no organomegaly, masses or bruits. Bowel sounds are normal in a ll 4 quadrants. The abdominal aortic pulsation is not palpable. EXTREMITIES: No edema. Radial pulses 2+ bilaterally. Femoral pulses are 2+ bilaterally wi thout bruits. DP and PT pulses are 2+ bilaterally. No clubbing. SKIN: Warm and dry, capillary refill is normal, no lesions. NEUROLOGIC: Awake, alert and oriented x 3. No focal motor or sensory deficits. PSYCHIATRIC: Appropriate, affect appears normal DATA: Blood tests: Lab Results Component Value Date WBC 5.36 12/12/2015 RBC 5.20 12/12/2015 HGB 15.7 12/12/2015 HCT 46.9 12/12/2015 PLT 274 12/12/2015 Lab Results Component Value Date NA 135 12/28/2018 K 4.5 12/28/2018 CL 101 12/28/2018 CO2 21 12/28/2018 ANIONGAP 17.5 12/28/2018 GLUF 78 12/28/2018 BUN 19 12/28/2018 CREATININE 1.15 12/28/2018 BCR 16.5 12/28/2018 CA 9.4 12/28/2018 EGFR 68 12/28/2018 Lab Results Component Value Date CHOL 158 11/28/2015 TRIG 55 11/28/2015 LDL 87 11/28/2015 GLUF 78 12/28/2018 No results found for: BNP, CKTOTAL, TSH, CRP No results found for: METF, NMETFX, TFNMFX, [id number], [id number], TOTEPI CARDIAC IMAGING/PROCEDURES: Last Cath, 12/12/2015: coronaries NML, right dominant. ECHO: Last Echo: 10/24/2018: ([facility]) sinus rhythm. Technically adequate study. EF 30 percent. Ma rkedly dilated LV. LV wall thickness normal. Mild diastolic dysfunction. Septal and inferi or wall akinesia. Regional wall motion abnormalities: basal anteroseptal - severely hypoki netic; mid anteroseptal - severely hypokinetic; basal inferoseptal - dyskinetic; mid infe roseptal - dyskinetic; basal inferior - akinetic; mid inferior - severely hypokinetic; l ateral - mildly hypokinetic; basal inferolateral - mildly hypokinetic; mid inferolateral - mildly hypokinetic; remaining left ventricular segments are moderately hypokinetic. Mi ld RVE, RV systolic function normal. Normal size atria. Aortic valve trileaflet, mild aort ic sclerosis without stenosis, trace AI. Mitral valve normal, mild to moderate MR, no lluu l valve prolapse. Trace TR. No pulmonary pressures secondary to poor TR signal. Pulmonic valve normal, no pericardial effusion. IVC small <1.5 cm, CVP 0-5. Aortic root, ascending aorta, and aortic arch are normal. No mass, no clot, no ASD, no VSD Echo: 06/03/2017: ([facility]): Sinus rhythm. Technically adequate study. EF 30-35 percent. Mild ly dilated LV, LV wall thickness normal, moderate to severe global hypokinesis of LV contrac tility. ( Akinetic anteroseptal and septal segments. Hypokinetic inferior and inferoseptal segments.) Mild diastolic dysfunction. RV normal in size and function. Moderate left atria l enlargement. RA WNL. Aortic valve trileaflet, mildly thickened, no significant aortic re gurgitation, no aortic stenosis. Mitral valve normal, trace MR. Tricuspid valve normal. N o pulmonary pressures due to absence of adequate TR jet. No pericardial or pleural effusion . IVC WNL, CVP 5-10. Aortic root, ascending aorta are within normal dimension Echo, 09/24/2015: LVEDd 63mm, LVEF 30%, bi-Atrial enlargement, mild RVE with impaired syst olic function, mild MR, mild TR. NON CARDIAC TESTING CTA head and Neck : 08/03/2018: [place] : No evidence of acute intracranial disease. Th e intracranial and cervical arterial systems are widely patent. Mild to moderate cerebral a trophy. Bronchial wall thickening and imaged lungs, potentially infectious or inflammatory. Scoliosis reversal of cervical lordosis and degenerative disc disease Chest x-ray: 08/03/2018: heart size WNL. Aorta normal.Mediastinum unremarkable. Central p ulmonary vasculature normal. Bilateral lungs clear with no evidence of pleural effusion or pneumothorax. Mild spondylosis. EKG/EVENT MONITOR EK2015: Sinus tachycardia, bi atrial enlargement, left bundle branch block, 66 bpm , WA 180 ms, QRS 166 ms, QTC 452 ms EK05/30: Normal sinus rhythm, chronic left bundle-branch block. Rate 66 bpm, WA 18 0 ms, QRS 166 ms, QTC 452 ms, tracing personally reviewed by me EK08/03/2018: ([place]): Normal sinus rhythm, stable left bundle branch block, low vo ltage QRS to limb leads, V5, V6. Rate 94 bpm, WA 172 ms, QRS 166 ms, QTC 510 ms, tracing pe rsonally reviewed by me EK09/21/2018: Normal sinus rhythm with PAC, stable left bundle branch block, prolonged QT interval Low voltage QRS to limb leads, V4, V5, V6. Rate 83 bpm, WA 170 ms, QRS 160 ms, Q TC 507 ms tracing personally reviewed by me, and similar morphology to previous EKG's LABS: Labs: 11/28: Cholesterol 158, triglycerides 55, HDL 60, LDL 87, VLDL 11, ratio 2.6, no n-HDL cholesterol 98, sodium 137, potassium 4.2, chloride 106, glucose 105, BUN 15, creatini ne 0.91, GFR 90, AST 33, ALT 46, alk phos 44, total bilirubin 0.4 Labs 2015: Sodium 132, potassium 4.8, chloride 100, glucose 87, BUN 10, creatinine 0. 85, GFR 97 Labs: 08/03/2018: Troponin I 0.01 INR 0.91, CMP: Sodium 132, potassium 3.9, chloride 99, CO2 19, glucose 106, BUN 9, creatinine 1.06, GFR >60, albumin 4.1, AST 71, ALT 111, alk phos 5 3,. CBC: WBC 7.5, RBC 4.11, hemoglobin 14, hematocrit 40.6, platelets 168 Labs: 09/27/2018:: Lipids: ( no statin) Cholesterol 225, triglycerides 116, HDL 53, LDL 149 , VLDL 23, ratio 4.2, non-HDL cholesterol 172. 11.5% 10 yr CVD risk BMP: sodium 137, potass ium 4.2, chloride 103, glucose 89, BUN 12, creatinine 0.85, GFR 96 magnesium 2 Labs: 12/28/2018: BMP: Sodium 135, potassium 4.5, chloride 101, glucose 78, BUN 19, creatini ne 1.15, GFR 68, BUN creatinine ratio 16.5 ASSESSMENT & PLAN: He was here today to follow-up on his response to lisinopril 40 mg,which I had increased when I saw him last in 12/21/2018 for increased cardiomyopathy He has problems as detailed below. I discovered today that he had not increased his lisinopril to 40 mg, but is still taking 20 mg daily, and I have asked him to increase his dose to 40 mg as previously discussed. He had been tolerating atorvastatin well one I saw him last, but is been having some leg cramps, and is wondering if related to atorvastatin. He had been taking idvx-hay-ckbiatj po tassium on his own for leg cramps, and I had advised him to stop doing this, as he is on lis inopril and spironolactone, and his potassium was 4.5 on labs drawn in December. His BMP is detailed above, and shows normal electrolytes and renal function with GFR of 6 8, but was performed on lisinopril 20 mg, and not 40 mg. I have advised him to take magnesium 250-400 mg daily for leg cramps. I have also ordere d a repeat CMP and lipid panel to be done in one month, and may need to stop his atorvastati n if liver enzymes are elevated, or if he is more symptomatic. I have asked for copies of t he labs to be sent to his PCP, Dr. Khan. He remains asymptomatic, and has good activity tolerance with his very physical job. His blood pressure is better controlled today now that he is back on his medications, but still mildly elevated. I have again increased his lisinopril to 40 mg daily for hypertension and cardiomyopathy , and continued carvedilol 25 mg bid for hypertension,heart failure, and cardiomyopathy,, a nd spironolactone 12.5 mg daily for heart failure and cardiomyopathy, and atorvastatin 10 mg daily for his hyperlipidemia. I have told him he can take lisinopril 20 mg bid, or 40 mg all at once. I have again encouraged him to get help to quit drinking alcohol, such as [facility], or make an appointment with his PCP Dr. Khan, to see what options are available to [facility] locally. He does not think AA works for him, so may benefit from counseling for alcohol dependenc e. 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 Given his low EF, and history of transient ischemic attack, he may benefit from being on anticoagulation, but I am reluctant to start this given his alcoholism, as he would be at a high risk of bleeding. He will see Dr. 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 1. Dilated cardiomyopathy (HCC) 2. Chronic combined systolic and diastolic heart failure (HCC) 3. Essential hypertension 4. Mixed hyperlipidemia 5. TIA (transient ischemic attack) 6. ETOH abuse 7. Tobacco abuse Orders Placed This Encounter Procedures Comprehensive metabolic panel Lipid panel The following portions of the patient's history were personally reviewed by me and updated as appropriate: EKG tracings, other specialty provider and PCP notes,any Hospital admission and discharge summaries, any ER records , current and previous cardiac testing and procedure reports and data, Allergies, current medications.labs. Medication bottles brought to the clinic today Family history, past medical history, past social history, past surgical history. Problem list. NITHIN Cook [facility] 01/18/2019in this encounter Plan of Treatment +--------+---------+ + + + | Date | Type | Specialty | Care Team | Description | +--------+---------+ + + + | 04/05/ | Office | Cardiology | Shelby Donato DO | | | 2018 | Visit | | [address] | | | | | | [place] | | | | | | [id number] | | | | | | | | +--------+---------+ + + + + +--------+ + + | Name | Priori | Associated Diagnoses | Order Schedule | | | ty | | | + +--------+ + + | Comprehensive metabolic panel | Routin | Essential | Expected: | | | e | hypertension Mixed | 02/18/2019, Expires: | | | | hyperlipidemia | 07/21/2020 | + +--------+ + + | Lipid panel | Routin | Mixed | Expected: | | | e | hyperlipidemia | 02/18/2019, Expires: | | | | | 07/21/2020 | + +--------+ + + as of this encounter Visit Diagnoses + + | Diagnosis | + + | Dilated cardiomyopathy (HCC) - Primary | + + | Other primary cardiomyopathies | + + | Chronic combined systolic and diastolic heart failure (HCC) | + + | Chronic combined systolic and diastolic heart failure | + + | Essential hypertension | + + | Unspecified essential hypertension | + + | Mixed hyperlipidemia | + + | TIA (transient ischemic attack) | + + | Unspecified transient cerebral ischemia | + + | ETOH abuse | + + | Alcohol abuse, unspecified | + + | Tobacco abuse | + + | Tobacco use disorder | + +
--- OUTSIDE RECORDS SUMMARY | ~2019-03-06 | XMS | Encounter Summary ---
Demographics + + + | Address | [address] | | | [place] [address] | + + + | Home Phone | | + + + | Preferred Language | Unknown | + + + | Marital Status | Unknown | + + + | Jehovah'S Witness Affiliation | Unknown | + + + | Race | Unknown | + + + | Ethnic Group | Unknown | + + + Author + + + | Author | [facility] | + + + | Organization | [facility] | + + + | Address | Unknown | + + + | Phone | Unavailable | + + + Support + + +---------+ + | Name | Relationship | Address | Phone | + + +---------+ + | Contact,No | ECON | Unknown | | + + +---------+ + Care Team Providers + +------+ + | Care Personnel Scheduler Name | Role | Phone | + +------+ + | Cassidy Khan MD | PCP | | + +------+ + Reason for Visit + + + | Reason | Comments | + + + | Establish Care | NEW PATIENT | + + + Encounter Details +--------+---------+ + + + | Date | Type | Department | Care Team | Description | +--------+---------+ + + + | 02/22/ | Office | [facility] | Shelby Donato DO | Essential | | 2019 | Visit | Cardiology Riccardo | [address] | hypertension | | | | [address] | [place] | (Primary Dx); | | | | [facility] [address] | [phone] | Dilated | | | | [place] [address] | | cardiomyopathy | | | | [phone] | | ([facility]); ETOH abuse; | | | | | [...] | | | | | block) | +--------+---------+ + + + Social History [...] + + + | Respiratory Rate | - | - | + + + + | Oxygen [...] PM PDT | + + + + in this encounter Progress Notes Shelby Donato DO - 02/22/2019 3:00 PM PDTFormatting of this note may be different from aric vásquez. [facility] Cardiology Cardiology Consult Note Reason for Consultation: establish care Requesting Physician: Liyah Weldon History Obtained From: patient HISTORY OF PRESENT ILLNESS: Cardiac Problem List 1. Nonischemic cardiomyopathy EF 30%- likely related to alcohol use -Angiogram in 2016 demonstrated normal coronaries 2. Hypertension 3. Hyperlipidemia 4. TIA 5. LBBB Non Cardiac Problem List 6. Tobacco habituation 7. Alcoholism The patient is a 48-year-old male with the above past medical histories who presents to the cardiology office to establish care. He was previously followed by Dr. Rowe and more recen mohiniy by Stephanie Mccrary. He has a history of nonischemic cardiomyopathy with an ejection fraction of 30% likely related to heavy alcohol use. The patient had an angiogram in 2016 w [facility] demonstrated normal epicardial coronary vessels. He also has a history of a left bundl e branch block, hypertension, hyperlipidemia. He was last seen by Stephanie Sanchez on 01/18/2019, at that time his lisinopril was increased to 40 mg by mouth daily. He was encouraged to stop d rinking alcohol. Since his last visit, he has been doing okay. He tolerated the increased dose of lisinopri l well. 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 Over the last week, he has noticed some intermittent lower extremity swelling. It does not occur every day. Last Tuesday, he reports that his legs and feet got so swollen t hat he almost had to leave work. He denies any shortness of breath or orthopnea. He contin ues to drink alcohol daily 40 ounces of an 8% ABV beer daily. He was previously drinking 80 ounces per day. He denies any recent episodes of palpitations. About 3 weeks ago, he expe rienced an episode of presyncope. He was walking from his living room to his kitchen to get a drink and suddenly fell to the floor. He denies losing consciousness but reports that he felt dizzy for about 20 minutes afterwards. He denied any palpitations or chest pains duri ng this episode. Review of Systems Constitutional: Negative for fatigue. HENT: Negative for nosebleeds. Eyes: Negative for visual disturbance. Respiratory: Negative for cough and shortness of breath. Cardiovascular: see HPI Gastrointestinal: Negative for nausea, vomiting, abdominal pain and blood in stool. Genitourinary: Negative for hematuria or dysuria. Musculoskeletal: Negative for myalgias, back pain and arthralgias. Skin: Negative for color change. Neurological: Negative for syncope and numbness. Hematological: Does not bruise/bleed easily. Psychiatric/Behavioral: The patient is not nervous/anxious. PAST MEDICAL & SURGICAL HISTORY Past Medical History Diagnosis Date Cardiomyopathy (HCC) CHF (congestive heart failure) (HCC) Hypertension Past Surgical History Procedure Laterality Date ANGIOGRAM VASECTOMY WISDOM TOOTH EXTRACTION MEDICATIONS Home Medications Outpatient Encounter Prescriptions as of 02/22/2019 Medication Sig Dispense Refill atorvastatin (LIPITOR) 10 MG tablet Take 1 tablet by mouth nightly. 30 tablet 11 carvedilol (COREG) 25 MG tablet Take 1 tablet by mouth 2 (two) times daily. 180 tablet 3 lisinopril (ZESTRIL) 20 MG tablet Take 2 tablets by mouth daily. 60 tablet 11 spironolactone (ALDACTONE) 25 MG tablet Take 0.5 tablets by mouth daily. 45 tablet 3 furosemide (LASIX) 20 MG tablet Take 1 tablet by mouth daily. 30 tablet 11 isosorbide-hydrALAZINE (BIDIL) 20-37.5 MG per tablet Take 1 tablet by mouth 3 (three) t imes daily. 90 tablet 11 No facility-administered encounter medications on file as of 02/22/2019. 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 Social History Main Topics Smoking status: Former Smoker Packs/day: 1.00 Years: 12.00 Types: Cigarettes Quit date: 09/14/2018 Smokeless tobacco: Current User Types: Chew Alcohol use 14.4 oz/week 24 Cans of beer per week Comment: beer Drug use: No Comment: marijuana, meth,cocaine Sexual activity: Not on file Other Topics Concern Not on file Social History Narrative No narrative on file PHYSICAL EXAM Vital Signs: BP 140/72 (BP Location: Left upper arm, Patient Position: Sitting) | Pulse 73 | Ht 1.727 m (5' 8") | Wt 94.8 kg (209 lb) | SpO2 97% | BMI 31.78 kg/m Physical Exam GENERAL: Well developed, well nourished, in no distress. Appears approximately stated age . HEENT: Normocephalic, atraumatic. EYES: PERRL, sclerae anicteric, no xanthelsasmas NECK: No JVD, lymphadenopathy, thyromegaly, bruits. Carotid pulses are 2+ bilaterally LUNGS: Clear bilaterally, with no rales, rhonchi or wheezing noted, respirations unlabored HEART: Nondisplaced PMI, regular rate and rhythm, S1, S2 normal. No murmurs, rubs or gall ops noted. ABDOMEN: Soft, nontender, no organomegaly, masses or bruits. Bowel sounds are normal in a ll 4 quadrants. EXTREMITIES: No edema. Radial pulses 2+ bilaterally. DP and PT pulses are 2+ bilaterally. SKIN: Warm and dry, capillary refill is normal, no lesions. NEUROLOGIC: Awake, alert and oriented x 3. No focal motor deficits. PSYCHIATRIC: Appropriate, affect appears normal DATA Results for MARTINEZ KEANE ( ) as of 02/22/2019 15:01 Ref. Range 12/28/2018 15:15 SODIUM Latest Ref Range: 132 - 143 mmol/L 135 POTASSIUM Latest Ref Range: 3.6 - 5.1 mmol/L 4.5 CHLORIDE Latest Ref Range: 95 - 112 mmol/L 101 CO2 Latest Ref Range: 19 - 31 mmol/L 21 ANION GAP AGAP Latest Ref Range: 7 - 21 mmol/L 17.5 GLUCOSE Latest Ref Range: 70 - 100 mg/dL 78 BUN Latest Ref Range: 6 - 23 mg/dL 19 CREATININE Latest Ref Range: 0.60 - 1.35 mg/dL 1.15 BUN/CREAT Latest Ref Range: 6.0 - 28.6 16.5 CALCIUM Latest Ref Range: 8.5 - 10.3 mg/dL 9.4 EGFR Latest Ref Range: 60 mg/dL 68 Labs: 08/03/2018: Troponin I 0.01 INR 0.91, [...] 12, creatinine 0.85, GFR 96 magnesium 2 EKG: EK2015: Sinus tachycardia, bi atrial enlargement, left bundle branch block, 66 bpm , CA 180 ms, QRS 166 ms, QTC 452 ms EK05/30: Normal sinus rhythm, chronic left bundle-branch block. Rate 66 bpm, CA 18 0 ms, QRS 166 ms, QTC 452 ms, tracing personally reviewed by me EK08/03/2018: (Coirne Pool): Normal sinus rhythm, stable left bundle branch block, low vo ltage QRS to limb leads, V5, V6. Rate 94 bpm, CA 172 ms, QRS 166 ms, QTC 510 ms, tracing pe rsonally reviewed by me EK09/21/2018: Normal sinus rhythm with PAC, stable left bundle branch block, prolonged QT interval Low voltage QRS to limb leads, V4, V5, V6. Rate 83 bpm, CA 170 ms, QRS 160 ms, Q TC 507 ms tracing personally reviewed by me, and similar morphology to previous EKG's Last Echo: Last Echo: 10/24/2018: ([facility]) sinus rhythm. Technically adequate study. EF 30 percent. Ma rkedly dilated LV. LV wall thickness normal. Mild diastolic dysfunction. Septal and inferi or wall akinesia. Echo: 06/03/2017: ([facility]): Sinus rhythm. Technically adequate study. EF 30-35 percent. Mild ly dilated LV, LV wall thickness normal, moderate to severe global hypokinesis of LV contrac tility. ( Akinetic anteroseptal and septal segments. Hypokinetic inferior and inferoseptal segments. Echo, 09/24/2015: LVEDd 63mm, LVEF 30%, bi-Atrial enlargement, mild RVE with impaired systo lic function, mild MR, mild TR. Last stress test: Last cath: Last Cath, 12/12/2015: coronaries NML, right dominant. Carotid US: AAA screening: Lower extremity US: OTHERS: ASSESSMENT & PLAN 1. Nonischemic cardiomyopathy EF 30%- likely related to alcohol use -Angiogram in 2016 demonstrated normal coronaries 2. Hypertension 3. Hyperlipidemia 4. TIA 5. LBBB 6. Tobacco habituation 7. Alcoholism -The patient is a 48-year-old male who presents to establish care for the above past medica l histories. He has a history of nonischemic cardiomyopathy likely alcohol related. His ej ection fraction is 30%. Ischemic evaluation with angiography in 2016 demonstrated normal co ronaries. He also has an underlying left bundle branch block which may in part be contribut ing to his depressed ejection fraction. We discussed at length that alcohol is cardiotoxic a nd that he needs to stop drinking to give his heart the best chance at recovery. 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 He is unsure if his insurance will cover new medications such as Entresto. - Continue lisinopril 40mg po daily, spironolactone 12.5mg po daily, carvedilol 25mg po bid - Add lasix 20mg po PRN LE swelling - Add isosorbide/hydralazine 20/37.5mg po tid - Continue lipitor 10mg po daily - Follow up in 4 weeks Thank you for allowing me to participate in the care of this patient. Primary Care Physician: Cassidy Donato DO 02/22/2019in this encounter Plan of Treatment +--------+---------+ + + + | Date | Type | Specialty | Care Team | Description | +--------+---------+ + + + | 04/05/ | Office | Cardiology | Shelby Donato DO | | | 2018 | Visit | | [address] | | | | | | [place] | | | | | | [id number] | | | | | | | | +--------+---------+ + + + as of this encounter Procedures + +--------+ [...] + + + in this encounter Results EK STANDARD 12 LEAD (02/22/2019 2:56 PM) + + + + + | Component | Value | Ref Range | Performed At | + + + + + | Ventricular Rate | 75 | BPM | [facility] | + + + + + [...] | ms | [facility] | | (Bezet) | | | | + + + + + | Calculated P [place] | 39 | degrees | [facility] | + + + + + | Calculated R [place] | 63 | degrees | [facility] | + + + + + | Calculated T [place] | -130 | degrees | [facility] | + + + + + | Diagnosis | Please refer to | | [facility] | | | Providers office visit | | | | | note for Providers | | | | | Interpretation.Confirmed | | | | | by [facility] [place] Read Only, | | | | | [facility] [place] ([id number]), | | | | | editor managing newspaper Pepito Snyder | | | | | ([id number]) on 02/22/2019 | | | | | 3:18:23 PM | | | + + + + + + + + + + | Performing | Address | City/State/Zipcode | Phone Number | | Organization | | | | + + + + + | [facility] | [address] | [place] [address] | | + + + + + in this encounter Visit Diagnoses + + | Diagnosis | + + | Essential hypertension - Primary | + + | Unspecified essential hypertension | + + | Dilated cardiomyopathy (HCC) | + + | Other primary cardiomyopathies | + + | ETOH abuse | + + | Alcohol abuse, unspecified | + + | Tobacco abuse | + + | Tobacco use disorder | + + | Mixed hyperlipidemia | + + | Chronic combined systolic and diastolic heart failure (HCC) | + + | Chronic combined systolic and diastolic heart failure | + + | LBBB (left bundle branch block) | + + | Other left bundle branch block | + +
--- OUTSIDE RECORDS SUMMARY | ~2019-03-06 | XMS | Clinical Summary ---
Demographics + + + | Address | [address] | | | [place] [address] | + + + | Home Phone | | + + + | Preferred Language | Unknown | + + + | Marital Status | Unknown | + + + | Cheondoism Affiliation | Unknown | + + + | Race | Unknown | + + + | Ethnic Group | Unknown | + + + Author + + + | Author | [facility] | + + + | Organization | [facility] | + + + | Address | Unknown | + + + | Phone | Unavailable | + + + Support + + +---------+ + | Name | Relationship | Address | Phone | + + +---------+ + | Contact,No | ECON | Unknown | | + + +---------+ + Care Team Providers + +------+ + | Care Superintendent Schools Name | Role | Phone | + [...] + + | Father | | | CT x 2, open heart surgery | | [...] | 2019 | Visit | | [address] | | | | | | [place] | | | | | | [address] | | | | | | | [...] + + + + | Calculated P [place] | 39 | degrees | [facility] | + + + + + | Calculated R [place] | 63 | degrees | [facility] | + + + + + | Calculated T [place] | -130 | degrees | [facility] | + + + + + | Diagnosis | Please refer to | | [facility] | | | Providers office visit | | | | | note for Providers | | | | | Interpretation.Confirmed | | | | | by [facility] [place] Read Only, | | | | | [facility] [place] ([id number]), | | | | | digital editor Pepito Snyder | | | | | ([id number]) on 02/22/2019 | | | | | 3:18:23 PM | | | + + + + + + + + + + | Performing | Address | City/State/Zipcode | Phone Number | | Organization | | | | + + + + + | [facility] | [address] | [place] [address] | | + + + + + [...] | [address] | [place] [address] | | | LABORATORY | 13 | [...] +------+-------+---------+ | [employer] | [place] | [phone] | | | | | | | [...] | adore | | | [phone] | [phone] | + +--------+ +--------+ + +
--- OUTSIDE RECORDS SUMMARY | ~2019-03-06 | XMS | Encounter Summary ---
Demographics + + + | Address | [address] | | | [place] [address] | + + + | Home Phone [...] + + + | Author | [employer] | + + + | Organization | [facility] | + + + | Address | Unknown | + + + | Phone | Unavailable | + + + Support + + +---------+ + | Name | Relationship | Address | Phone | + + +---------+ + | Contact,No | ECON | Unknown | | + + +---------+ + Care Team Providers + +------+ + | Care Supervisor Packing Room Name | Role | Phone | + +------+ + | Cassidy Khan MD | PCP | | + +------+ + Reason for Visit + + + | Reason | Comments | + + + | Follow-up | 1 month | + + + Encounter Details +--------+---------+ + + + | Date | Type | Department | Care Team | Description | +--------+---------+ + + + | 12/21/ | Office | [facility] | Stephanie Hernandez | Chronic combined | | 2019 | Visit | Cardiology Riccardo | NITHIN Sanchez [address] | systolic and | | | | [address] | Josefina Powell F | diastolic heart | | | | [address] | [place] [address] | failure (HCC) | | | | [place] [address] | [phone] | (Primary Dx); | | | | [phone] | | Dilated | | | | [...] + + + | Blood Pressure | 148/86 | 12/21/2018 2:36 PM PST | + + + + | Pulse | 75 | 12/21/2018 2:36 PM PST | + + + + | Temperature | - | - | + + + + | Respiratory Rate | 18 | 12/21/2018 2:36 PM PST | + + + + | Oxygen Saturation | 98% | 12/21/2018 2:36 PM PST | + + + + | Inhaled Oxygen | - | - | | Concentration | | | + + + + | Weight | 96.3 kg (212 lb 4.8 | 12/21/2018 2:36 PM PST | | | oz) | | + + + + | Height | 175.3 cm (5' 9") | 12/21/2018 2:36 PM PST | + + + + | Body Mass Index | 31.35 | 12/21/2018 2:36 PM PST | + + + + in this encounter Instructions Patient Instructions - Stephanie Hernandez ARNP - 12/21/2018 2:30 PM PSTAlways bring you r medication bottles to all clinic visits I need to see If you are on the new medications I ordered for you Get labs done today or tomorrow I have increased your Lisinopril to 40 mg daily, so take two 20 mg pills Continue to work on decreasing drinking , and see what options available to help see me back in 1 month Call us 1 week before to see what you need to remember for appointment in this encounter Progress Notes Stephanie Hernandez ARNP - 12/21/2018 2:30 PM PSTFormatting of this note may be differen t from the original. Date of visit: 12/22/2018 Primary Care Physician: Cassidy Khan CHIEF COMPLAINT: Chief Complaint Patient presents with Follow-up 1 month HISTORY OF PRESENT ILLNESS: Mr. Martinez Xiong is a 48-year-old man here today to follow-up on his response to lisinopril 2 0 mg, and atorvastatin which I had started when I saw him last in November 23. He is a previous patient of Dr. Oneal Rowe, now retired and was last seen by him in [facility]. When I saw him last 09/21/2018, it was to follow-up after he was admitted for transient is chemic attack in [place]. He has a history of nonischemic dilated cardiopathy cardiomyopathy and heart failure with low EF of 30 percent , hypertension, lipidemia, suffers from alcohol abuse, and is a current smoker.His last angiogram was in November 2015 and showed normal coronaries. His current and previous testing and procedures are detailed below. His previous hospitalizations are for transient ischemic attack in July 2018, monica hernandez treated twice in urgent care in February 2018 for upper respiratory infection, and also randi ated at [place] in the emergency room for cough and difficulty breathing in April 2018, an d notes previously reviewed. I saw him last on November 23, 2018 when I followed up with him about his Echo which show ed ongoing cardiomyopathy, and I suggested he establish with a primary care provider, gerardo orourke his lisinopril to 20 mg daily for his cardiomyopathy, started him on atorvastatin 10 mg d aily for his hyperlipidemia was encouraged him to get help to stop drinking. He reports since he saw me last, he has not had any hospitalization or emergency room visit s, and now chewing tobacco , about a tin per week, instead of smoking, and has decreased alc ohol from 80 oz of 8% ABV beer daily to one 25 oz bottle of 8% ABV, and 1 lite beer. He reports AA did not work for him in the past, and not sure about counseling for alcohol dependence. He reports he tolerated lisinopril 20 mg daily, and Atorvastatin 10 mg daily without any s robin effects. 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 He reports he has had no further signs or symptoms of transient ischemic attack or stroke since he saw me last, and denies any dizziness or lightheadedness, or syncope. He also den ies any chest pain or palpitations. He did not get the labs done that I had ordered to check renal function with increased dos e of lisinopril, and again did not bring medication bottles to the clinic, but verified with pharmacy dispensing records. He reports that he is taking all of his medications as ordere d He has now established with new PCP, Dr.Gwen Khan, and reports he did bring his medication bottles in to her. 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 [...] exposure from smoking, and job as a welder [employer] Denies hemoptysis or excessive sputum produc tion. [...] 07/2018 w/ left arm weakness and tingling( [place])-symptoms resolved . Denies history of stroke.Denies history of seizures. Denies dizziness, syncope and numbne ss. Denies focal motor or sensory deficits Hematological: Does not bruise/bleed easily. Denies history of cancer Endocrine: Denies diabetes or thyroid disease. Denies excessive thirst or hunger. Psychiatric/Behavioral: The patient denies any history of depression or anxiety or other ps ychiatric illness. Vaccines: current on flu vaccine: 11/2018m and tetnus . Not Current on pneumonia vaccine . Habits/Social : current Smoker 1/2 ppd x 12 years, now chewing tobacco 1 tin per week, . Previously chewed tobacco 17 years. . Drinks 1servings of caffeine daily . Denies illicit drug use. Drink (25 oz) of 8% ABV beer per day,used to drink 80 oz, Exercises with Active job , works as a welder [employer] , 8-10 hrs , 5 days per week, single . Outpatient Medications Prior to Visit Medication Sig Dispense Refill atorvastatin (LIPITOR) 10 MG tablet Take 1 tablet by mouth nightly. 30 tablet 11 carvedilol (COREG) 25 MG tablet Take 1 tablet by mouth 2 (two) times daily. 180 tablet 3 spironolactone (ALDACTONE) 25 MG tablet Take 0.5 tablets by mouth daily. 45 tablet 3 lisinopril (ZESTRIL) 20 MG tablet Take 1 tablet by mouth daily. 90 tablet 3 No facility-administered medications prior to visit. PHYSICAL EXAM: Wt Readings from Last 3 Encounters: 12/21/18 96.3 kg (212 lb 4.8 oz) 11/23/18 94.9 kg (209 lb 3.2 oz) 09/21/18 95.3 kg (210 lb 3.2 oz) Temp Readings from Last 3 Encounters: 12/12/15 98.4 F (36.9 C) (Temporal) BP Readings from Last 3 Encounters: 12/21/18 148/86 11/23/18 142/82 09/21/18 160/90 Pulse Readings from Last 3 Encounters: 12/21/18 75 11/23/18 76 09/21/18 83 GENERAL: Well developed, well nourished, in no [...] 12/12/2015 Lab Results Component Value Date NA 134 (L) 12/12/2015 K 4.5 12/12/2015 CL 101 12/12/2015 CO2 22 (L) 12/12/2015 ANIONGAP 15 12/12/2015 GLUF 91 12/12/2015 BUN 15 12/12/2015 CREATININE 1.0 12/12/2015 BCR 15 12/12/2015 CA 8.7 12/12/2015 EGFR >60 12/12/2015 Lab Results Component Value Date CHOL 158 11/28/2015 TRIG 55 11/28/2015 LDL 87 11/28/2015 GLUF 91 12/12/2015 No results found for: BNP, CKTOTAL, TSH, CRP No results found for: METF, NMETFX, TFNMFX, [id number], [id number], TOTEPI CARDIAC IMAGING/PROCEDURES: Last Cath, 12/12/2015: coronaries [...] valve normal, mild to moderate MR, no lulu l valve prolapse. Trace TR. No pulmonary [...] TESTING CTA head and Neck : 08/03/2018: [place] : No evidence of acute intracranial disease. [...] left bundle branch block, 66 bpm , CT 180 ms, QRS 166 ms, QTC 452 ms EK05/30: Normal sinus rhythm, chronic left bundle-branch block. Rate 66 bpm, CT 18 0 ms, QRS 166 ms, QTC 452 ms, tracing personally reviewed by me EK08/03/2018: ([place]): Normal sinus rhythm, stable left bundle branch block, low vo ltage QRS to limb leads, V5, V6. Rate 94 bpm, CT 172 ms, QRS 166 ms, QTC 510 ms, tracing pe rsonally reviewed by me EK09/21/2018: Normal sinus rhythm with PAC, stable left bundle branch block, prolonged QT interval Low voltage QRS to limb leads, V4, V5, V6. Rate 83 bpm, CT 170 ms, QRS 160 ms, Q TC [...] hematocrit 40.6, platelets 168 Labs: 09/27/2018:: Lipids: Cholesterol 225, triglycerides 116, HDL 53, LDL 149, VLDL 23, ra leanna 4.2, non-HDL cholesterol 172. 11.5% 10 yr CVD risk BMP: sodium 137, potassium 4.2, chlo ride 103, glucose 89, BUN 12, creatinine 0.85, GFR 96 magnesium 2 ASSESSMENT & PLAN: He was here today to follow-up on his response to lisinopril 20 mg, and atorvastatin whic h I had started when I saw him last in November 23 for increased cardiomyopathy and hyperlipi demia. He has problems as detailed below. He has tolerated both lisinopril and atorvastatin well, and remains asymptomatic, and has good activity tolerance with his very physical job. His blood pressure is better controlle d today now that he is back on his medications, but still mildly elevated. I have increased his lisinopril to 40 mg daily for hypertension and cardiomyopathy, and c ontinued carvedilol 25 mg bid for hypertension,heart failure, and cardiomyopathy,, and spir onolactone 12.5 mg daily for heart failure and cardiomyopathy, and atorvastatin 10 mg rafael y for his hyperlipidemia. I have told him he can start with 30 mg daily of lisinopril for 1 week , and then increase to 40 mg, but he prefers to just take two 20 mg pills, as does not like splitting pills, an d just bites them in half. I have suggested a pill splitter or a knife as a better option fo r him. I have again encouraged him to get help to quit drinking alcohol, such as [facility], or to contact his insurance company for programs that they cover to help with substan ce abuse. He does not think AA works for him, so may benefit from counseling for alcohol de pendence. I will likely refer him to electrophysiology once optimized on medications if EF still lo w, to see if he may be a candidate for EKG MONITOR-D, as he has wide QRS of 160 ms. Given his low EF, and history of transient ischemic attack, he may benefit from being on anticoagulation, but I am reluctant to start this given his alcoholism, as he would be at a high risk of bleeding. I have asked he get BMP I previously ordered done today or tomorrow to evaluate his farida al function and potassium with increased dose of lisinopril and being on spironolactone. I will follow-up with him in one month, and then he will see Dr. Shelby Donato to jhonny cohn with her as his primary geographic information systems manager in February. I have again asked him to bring his medications to all future clinic visits. 1. Chronic combined systolic and diastolic heart failure (HCC) 2. Dilated cardiomyopathy (HCC) 3. Essential hypertension 4. Mixed hyperlipidemia 5. TIA (transient ischemic attack) 6. ETOH abuse 7. Tobacco abuse No orders of the defined types were placed in this encounter. The following portions of the patient's history were personally reviewed by me and updated as appropriate: EKG tracings, other specialty provider and PCP notes,any Hospital admission and discharge summaries, any ER records , current and previous cardiac testing and procedure reports and data, Allergies, current medications.labs Family history, past medical history, past social history, past surgical history. Problem list. NITHIN Cook [facility] Cardiology 12/22/2018in this encounter Plan of Treatment +--------+---------+ + + + | Date | Type | Specialty | Care Team | Description | +--------+---------+ + + + | 04/05/ | Office | Cardiology | Shelby Donato DO | | | 2019 | Visit | | [address] | | | | | | [place] [facility] | | | | | | [address] | | | | | | | | +--------+---------+ + + + as of this encounter Visit Diagnoses + + | Diagnosis | + + | Chronic combined systolic and diastolic heart failure (HCC) - Primary | + + | Chronic combined systolic and diastolic heart failure | + + | Dilated cardiomyopathy (HCC) | + + | Other primary cardiomyopathies | + + | Essential hypertension | [...]
--- OUTSIDE RECORDS SUMMARY | ~2019-03-06 | XMS | Encounter Summary ---
Demographics + + + | Address | [address] | | | [place] [address] | + + + | Home Phone | | + + + | Preferred Language | Unknown | + + + | Marital Status | Unknown | + + + | Pentecostal Affiliation | Unknown | + + + | Race | Unknown | + + + | Ethnic Group | Unknown | + + + Author + + + | Author | [employer] | + + + | Organization | [facility] | + + + | Address | Unknown | + + + | Phone | Unavailable | + + + Support + + +---------+ + | Name | Relationship | Address | Phone | + + +---------+ + | Contact,No | ECON | Unknown | | + + +---------+ + Care Team Providers + +------+ + | Care Hemming And Tacking Machine Operator Name | Role | Phone | + +------+ + | Liyah Weldon MD | PCP | | + +------+ + Encounter Details +--------+ + + + + | Date | Type | Department | Care Team | Description | +--------+ + + + + | 12/13/ | Telephone | [facility] | Kim Landrum MA | | | 2018 | | Cardiology Trisha | | | | | | [address] [facility] [address] | | | | | | [facility] [address] | | | | | | [place] [address] | | | | | | [phone] | | | +--------+ + + + [...] [place] | | | | | | [address] | | | | | | | | +--------+---------+ + + + as of this encounter Visit Diagnoses Not on filein this encounter"
--- OUTSIDE RECORDS SUMMARY | ~2019-03-06 | XMS | Clinical Summary ---
Demographics + + + | Address | [address] | | | [place] [address] | + + + | Home Phone | | + + + | Preferred Language | Unknown | + + + | Marital Status | Unknown | + + + | Scientology Affiliation | Unknown | + + + | Race | Unknown | + + + | Ethnic Group | Unknown | + + + Author + + + | Author | [employer] | + + + | Organization | [facility] | + + + | Address | Unknown | + + + | Phone | Unavailable | + + + Support + + +---------+ + | Name | Relationship | Address | Phone | + + +---------+ + | Contact,No | ECON | Unknown | | + + +---------+ + Care Team Providers + +------+ + | Care Slime Plant Operator Name | Role | Phone | [...] + + | Father | | | [place] x 2, open heart surgery | | [...] [place] | | | | | | [address] | | | | | | | [...] + + + + | Calculated P [place] | 39 | degrees | [facility] | + + + + + | Calculated R [place] | 63 | degrees | [facility] | + + + + + | Calculated T [place] | -130 | degrees | [facility] | + + + + + | Diagnosis | Please refer to | | [facility] E[facility] | | | Providers office visit | | | | | note for Providers | | | | | Interpretation.Confirmed | | | | | by [facility] [employer] Read Only, | | | | | [facility] Josefina ([id number]), | | | | | communications editor Pepito Snyder | | | | | ([phone]) on 02/22/2019 | | | | | 3:18:23 PM | | | + + + + + + + + + + | Performing | Address | City/State/Zipcode | Phone Number | | Organization | | | | + + + + + | [facility] | [address] | [place] [address] | | + + + + + [...] | [address] | [place] [address] | | | LABORATORY | 13 | [...] +------+-------+---------+ | [facility] | [place] | [id number] | | | | | | | [...] | adore | | | [address] | [address] | + +--------+ +--------+ + +
--- OUTSIDE RECORDS SUMMARY | ~2019-03-06 | XMS | Encounter Summary ---
Demographics + + + | Address | [address] | | | [place] [address] | + + + | Home Phone | | + + + | Preferred Language | Unknown | + + + | Marital Status | Unknown | + + + | Rastafarian Affiliation | Unknown | + + + | Race | Unknown | + + + | Ethnic Group | Unknown | + + + Author + + + | Author | [employer] | + + + | Organization | [facility] | + + + | Address | Unknown | + + + | Phone | Unavailable | + + + Support + + +---------+ + | Name | Relationship | Address | Phone | + + +---------+ + | Contact,No | ECON | Unknown | | + + +---------+ + Care Team Providers + +------+ + | Care Ore Miner Name | Role | Phone | + [...] | (Primary Dx); | | | | [facility] [address] | [place] [address] | Chronic combined | | | | [place] [address] | [phone] | systolic and | | | | [phone] | | diastolic heart | | | [...] , so 12.5 mg, and make sure picker / packer new prescription Continue to take Atorvastatin 10 mg at night for now Take carvedilol 25 mg twice a day as you have been Take Magnesium Oxide 250mg -400 mg and can buy over the counter for leg cramps and stop ta trevor potassium . I have ordered you fasting labs to be done at [facility] in 4 weeks, and you will see [...] and was last seen by him in [facility] 2015. 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 [...] left bundle branch block, 66 bpm , IN 180 ms, QRS 166 ms, QTC 452 ms EK05/30: Normal sinus rhythm, chronic left bundle-branch block. Rate 66 bpm, IN 18 0 ms, QRS 166 ms, QTC 452 ms, tracing personally reviewed by me EK08/03/2018: ([place]): Normal sinus rhythm, stable left bundle branch block, low vo ltage QRS to limb leads, V5, V6. Rate 94 bpm, IN 172 ms, QRS 166 ms, QTC 510 ms, tracing pe rsonally reviewed by me EK09/21/2018: Normal sinus rhythm with PAC, stable left bundle branch block, prolonged QT interval Low voltage QRS to limb leads, V4, V5, V6. Rate 83 bpm, IN 170 ms, QRS 160 ms, Q TC [...] related to atorvastatin. He had been taking ywho-hyn-gjxftfs po tassium on his own for leg [...] to see what options are available to [facility] locally. He does not think AA works for him, so may benefit from counseling for alcohol dependenc e. I will likely refer him to electrophysiology once optimized on medications if EF still lo w, to see if he may be a candidate for SENIOR ELECTRICAL DESIGNER-D, as he has wide QRS of 160 ms. Given his low EF, and history of transient ischemic attack, he may benefit from being on anticoagulation, but I am reluctant to start this given his alcoholism, as he would be at a high risk of bleeding. He will see Dr. Shelby Donato February 22 to establish with her as his primary java programmer analyst [place], I have reminded him to [...] past surgical history. Problem list. NITHIN Cook [facility] Cardiology 01/18/2019in this encounter Plan of Treatment +--------+---------+ + + + | Date | Type | Specialty | Care Team | Description | +--------+---------+ + + + | 04/05/ | Office | Cardiology | Shelby Donato DO | | | 2018 | Visit | | [address] | | | | | | [place] | | | | | | [id number] | | | | | | | [...]
--- OUTSIDE RECORDS SUMMARY | ~2019-03-06 | XMS | Encounter Summary ---
Demographics + + + | Address | [address] | | | [place] [address] | + + + | Home Phone | | + + + | Preferred Language | Unknown | + + + | Marital Status | Unknown | + + + | Pentecostalism Affiliation | Unknown | + + + | Race | Unknown | + + + | Ethnic Group | Unknown | + + + Author + + + | Author | [facility] | + + + | Organization | [facility] | + + + | Address | Unknown | + + + | Phone | Unavailable | + + + Support + + +---------+ + | Name | Relationship | Address | Phone | + + +---------+ + | Contact,No | ECON | Unknown | | + + +---------+ + Care Team Providers + +------+ + | Care Shot Lighter Name | Role | Phone | + [...] | (Primary Dx); | | | | [facility] [address] | [id number] | Dilated | | | | [place] [address] | | cardiomyopathy | | | | [phone] | | ([facility]); ETOH abuse; | | | | | [...] note may be different from aric vásquez. [facility] Cardiology Consult Note Reason for Consultation: [...] patient had an angiogram in 2016 w [facility] demonstrated normal epicardial coronary vessels. He also [...] well. 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 Rate 66 bpm, PA 18 0 ms, QRS 166 ms, QTC 452 ms, tracing personally reviewed by me EK08/03/2018: ([place]): Normal sinus rhythm, stable left bundle branch block, low vo ltage QRS to limb leads, V5, V6. Rate 94 bpm, PA 172 ms, QRS 166 ms, QTC 510 ms, tracing pe rsonally reviewed by me EK09/21/2018: Normal sinus rhythm with PAC, stable left bundle branch block, prolonged QT interval Low voltage QRS to limb leads, V4, V5, V6. Rate 83 bpm, PA 170 ms, QRS 160 ms, Q TC [...] will refer to EP for consideration of PRODUCTION OR PLANT ENGINEER. He is unsure if his insurance will [...] [place] | | | | | | [id number] | | | | | | | [...] + + + + | Calculated P [place] | 39 | degrees | [facility] | + + + + + | Calculated R [place] | 63 | degrees | [facility] | + + + + + | Calculated T [place] | -130 | degrees | [facility] | + + + + + | Diagnosis | Please refer to | | [facility] | | | Providers office visit | | | | | note for Providers | | | | | Interpretation.Confirmed | | | | | by [facility] [place] Read Only, | | | | | [facility] Joesfina ([id number]), | | | | | editor magazine Pepito Snyder | | | | | ([id number]) on 02/22/2019 | | | | | 3:18:23 PM | | | + + + + + + + + + + | Performing | Address | City/State/Zipcode | Phone Number | | Organization | | | | + + + + + | [facility] | [address] | [place] [address] | | + + + + + [...]
--- OUTSIDE RECORDS SUMMARY | ~2019-03-06 | XMS | Encounter Summary ---
Demographics + + + | Address | [address] | | | [place] [address] | + + + | Home Phone [...] + + + | Author | [employer] | + + + | Organization | [facility] | + + + | Address | Unknown | + + + | Phone | Unavailable | + + + Support + + +---------+ + | Name | Relationship | Address | Phone | + + +---------+ + | Contact,No | ECON | Unknown | | + + +---------+ + Care Team Providers + +------+ + | Care Cullet Trucker Name | Role | Phone | + [...] | | | [address] | [place] [address] | failure (HCC) | | | | [place] [address] | [phone] | (Primary Dx); | | | | [phone] | | Dilated | | | | [...] and was last seen by him in [facility]. When I saw him last 09/21/2018, it was to follow-up after he was admitted for transient is chemic attack in [place]. He has a history of nonischemic dilated [...] respiratory infection, and also randi ated at [place] in the emergency room for cough and difficulty breathing in April 2018, an d notes previously reviewed. 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 [...] 07/2018 w/ left arm weakness and tingling( [place])-symptoms resolved . 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 [...] left bundle branch block, 66 bpm , LA 180 ms, QRS 166 ms, QTC 452 ms EK05/30: Normal sinus rhythm, chronic left bundle-branch block. Rate 66 bpm, LA 18 0 ms, QRS 166 ms, QTC 452 ms, tracing personally reviewed by me EK08/03/2018: ([place]): Normal sinus rhythm, stable left bundle branch block, low vo ltage QRS to limb leads, V5, V6. Rate 94 bpm, LA 172 ms, QRS 166 ms, QTC 510 ms, tracing pe rsonally reviewed by me EK09/21/2018: Normal sinus rhythm with PAC, stable left bundle branch block, prolonged QT interval Low voltage QRS to limb leads, V4, V5, V6. Rate 83 bpm, LA 170 ms, QRS 160 ms, Q TC [...] if he may be a candidate for PILOT PLANT TECHNICIAN-D, as he has wide QRS of 160 [...] jhonny cohn with her as his primary water operator in February. I have again asked him [...] past surgical history. Problem list. NITHIN Cook [facility] Cardiology 12/22/2018in this encounter Plan of Treatment +--------+---------+ + + + | Date | Type | Specialty | Care Team | Description | +--------+---------+ + + + | 04/05/ | Office | Cardiology | Shelby Donato DO | | | 2019 | Visit | | [address] | | | | | | [place] [facility] | | | | | | [address] | | | | | | | [...]
--- OUTSIDE RECORDS SUMMARY | ~2019-03-06 | XMS | Encounter Summary ---
Demographics + + + | Address | [address] | | | [place] [address] | + + + | Home Phone | | + + + | Preferred Language | Unknown | + + + | Marital Status | Unknown | + + + | Shinto Affiliation | Unknown | + + + | Race | Unknown | + + + | Ethnic Group | Unknown | + + + Author + + + | Author | [employer] | + + + | Organization | [facility] | + + + | Address | Unknown | + + + | Phone | Unavailable | + + + Support + + +---------+ + | Name | Relationship | Address | Phone | + + +---------+ + | Contact,No | ECON | Unknown | | + + +---------+ + Care Team Providers + +------+ + | Care Deputy Clerk Name | Role | Phone | + [...] | | | [address] | [place] [address] | failure (HCC) | | | | [place] [address] | [phone] | (Primary Dx); | | | | [phone] | | Dilated | | | | [...] and was last seen by him in [facility]2015. When I saw him last 09/21/2018, it was to follow-up after he was admitted for transient is chemic attack in [place]. 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 [...] 07/2018 w/ left arm weakness and tingling( [place])-symptoms resolved . 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 [...] left bundle branch block, 66 bpm , [place] 180 ms, QRS 166 ms, QTC 452 ms EK05/30: Normal sinus rhythm, chronic left bundle-branch block. Rate 66 bpm, VT 18 0 ms, QRS 166 ms, QTC 452 ms, tracing personally reviewed by me EK08/03/2018: ([place]): Normal sinus rhythm, stable left bundle branch block, low vo ltage QRS to limb leads, V5, V6. Rate 94 bpm, VT 172 ms, QRS 166 ms, QTC 510 ms, tracing pe rsonally reviewed by me EK09/21/2018: Normal sinus rhythm with PAC, stable left bundle branch block, prolonged QT interval Low voltage QRS to limb leads, V4, V5, V6. Rate 83 bpm, VT 170 ms, QRS 160 ms, Q TC [...] if he may be a candidate for PATENT CLERK-D, as he has wide QRS of 160 [...] jhonny cohn with her as his primary coffee sampler in February. I have again asked him [...] past surgical history. Problem list. NITHIN Cook [facility] Cardiology 12/22/2018in this encounter Plan of Treatment +--------+---------+ + + + | Date | Type | Specialty | Care Team | Description | +--------+---------+ + + + | 04/05/ | Office | Cardiology | Shelby Donato DO | | | 2019 | Visit | | [address] | | | | | | [place] [facility] | | | | | | [address] | | | | | | | [...]
--- OUTSIDE RECORDS SUMMARY | ~2019-03-06 | XMS | Clinical Summary ---
Demographics + + + | Address | [address] | | | [place] [address] | + + + | Home Phone | | + + + | Preferred Language | Unknown | + + + | Marital Status | Single | + + + | Jain Affiliation | Unknown | + + + | Race | Unknown | + + + | Ethnic Group | Unknown | + + + Author + + + | Author | [facility] | | | and [place] | + + + | Organization | [facility] | | | and [place] | + + + | Address | Unknown | + + + | Phone | Unavailable | + + + Care Team Providers + +------+ + | Care Director Medical Affairs Name | Role | Phone | + [...] +-------+--------+ +--------+-------+---------+------+ | UMR | UMR | [id number] | 11/14/19 | | | PPO | [...] [place] | | | 5 (Home) | [address] | + +--------+ +--------+ + + Advance Directives Patient has advance care planning documents on file. For more information, please contact:[facility]umberto [facility] [address]"
--- OUTSIDE RECORDS SUMMARY | ~2019-03-06 | XMS | Encounter Summary ---
Demographics + + + | Address | [address] | | | [place] [address] | + + + | Home Phone | | + + + | Preferred Language | Unknown | + + + | Marital Status | Unknown | + + + | Nondenominational Affiliation | Unknown | + + + | Race | Unknown | + + + | Ethnic Group | Unknown | + + + Author + + + | Author | [facility] [facility] | + + + | Organization | [facility] | + + + | Address | Unknown | + + + | Phone | Unavailable | + + + Support + + +---------+ + | Name | Relationship | Address | Phone | + + +---------+ + | Contact,No | ECON | Unknown | | + + +---------+ + Care Team Providers + +------+ + | Care International Trade Manager Name | Role | Phone | [...] | (Primary Dx); | | | | [facility] [address] | [id number] | Dilated | | | | [place] [address] | | cardiomyopathy | | | | [phone] | | ([facility]); ETOH abuse; | | | [...] note may be different from aric vásquez. [facility] Cardiology Cardiology Consult Note Reason for [...] patient had an angiogram in 2016 w [facility] demonstrated normal epicardial coronary vessels. He also [...] well. 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 Rate 66 bpm, WI 18 0 ms, QRS 166 ms, QTC 452 ms, tracing personally reviewed by me EK08/03/2018: ([place]): Normal sinus rhythm, stable left bundle branch block, low vo ltage QRS to limb leads, V5, V6. Rate 94 bpm, WI 172 ms, QRS 166 ms, QTC 510 ms, tracing pe rsonally reviewed by me EK09/21/2018: Normal sinus rhythm with PAC, stable left bundle branch block, prolonged QT interval Low voltage QRS to limb leads, V4, V5, V6. Rate 83 bpm, WI 170 ms, QRS 160 ms, Q TC [...] will refer to EP for consideration of FISHER POUND NET OR TRAP. He is unsure if his insurance will [...] [place] | | | | | | [phone] | | | | | | | [...] + + + + | Calculated P [place] | 39 | degrees | [facility] | + + + + + | Calculated R [place] | 63 | degrees | [facility] | + + + + + | Calculated T [place] | -130 | degrees | [facility] | + + + + + | Diagnosis | Please refer to | | [facility] E[facility] | | | Providers office visit | | | | | note for Providers | | | | | Interpretation.Confirmed | | | | | by [facility] [place] Read Only, | | | | | [facility] [place] ([id number]), | | | | | art editor Pepito Snyder | | | | | ([id number]) on 02/22/2019 | | | | | 3:18:23 PM | | | + + + + + + + + + + | Performing | Address | City/State/Zipcode | Phone Number | | Organization | | | | + + + + + | [facility] | [address] | [place] [address] | | + + + + + [...]
--- OUTSIDE RECORDS SUMMARY | ~2019-03-06 | XMS | Encounter Summary ---
Demographics + + + | Address | [address] | | | [place] [address] | + + + | Home Phone | | + + + | Preferred Language | Unknown | + + + | Marital Status | Unknown | + + + | Episcopalian Affiliation | Unknown | + + + | Race | Unknown | + + + | Ethnic Group | Unknown | + + + Author + + + | Author | [employer] | + + + | Organization | [facility] | + + + | Address | Unknown | + + + | Phone | Unavailable | + + + Support + + +---------+ + | Name | Relationship | Address | Phone | + + +---------+ + | Contact,No | ECON | Unknown | | + + +---------+ + Care Team Providers + +------+ + | Care Stitcher Special Machine Name | Role | Phone | + +------+ + | Cassidy Khan MD | PCP | | + +------+ + Reason for Visit + + + | Reason | Comments | + + + | Labs Only | BMP | + + + Encounter Details +--------+ + + + + | Date | Type | Department | Care Team | Description | +--------+ + + + + | 01/01/ | Documentati | [facility] [place] | Mary Lou Johnston | Labs Only (BMP) | | 2019 | on Only | Cardiology Lora Santa [place] | | | | | [address] | | | | | | [place] | | | | | | [address] | | | | | | [phone] | | | +--------+ + + + [...] | 2019 | Visit | | [address] | | | | | | [place] | | | | | | [id number] | | | | | | | [...] + + + in this encounter Results Basic metabolic panel (12/28/2018 3:15 PM) + [...] [facility] | [address] | [place] [address] | | | LABORATORY | 13 | | | + + + + + in this encounter Visit Diagnoses Not on filein this encounter"
--- OUTSIDE RECORDS SUMMARY | ~2019-03-06 | XMS | Encounter Summary ---
Demographics + + + | Address | [address] | | | [place] [address] | + + + | Home Phone | | + + + | Preferred Language | Unknown | + + + | Marital Status | Unknown | + + + | Denominational Affiliation | Unknown | + + + | Race | Unknown | + + + | Ethnic Group | Unknown | + + + Author + + + | Author | [facility] [employer] [facility] | + + + | Organization | [facility] | + + + | Address | Unknown | + + + | Phone | Unavailable | + + + Support + + +---------+ + | Name | Relationship | Address | Phone | + + +---------+ + | Contact,No | ECON | Unknown | | + + +---------+ + Care Team Providers + +------+ + | Care Global Coordinator Name | Role | Phone | + [...] + | 01/01/ | Documentati | [facility] [place] | Mary Lou Johnston | Labs Only (BMP) | | 2019 | on Only | Cardiology Lora [place] | | | | | [address] | | | | | | [place] | | | | | | [address] | | | | | | [phone] | | | +--------+ + + + [...] [place] | | | | | | [id number] | | | | | | | [...] | [address] | [place] [address] | | | LABORATORY | 13 | | | + + + + + in this encounter Visit Diagnoses Not on filein this encounter"
--- OUTSIDE RECORDS SUMMARY | ~2019-03-06 | XMS | Encounter Summary ---
Demographics + + + | Address | [address] | | | [place] [address] | + + + | Home Phone | | + + + | Preferred Language | Unknown | + + + | Marital Status | Unknown | + + + | Anabaptism Affiliation | Unknown | + + + | Race | Unknown | + + + | Ethnic Group | Unknown | + + + Author + + + | Author | [employer] | + + + | Organization | [facility] | + + + | Address | Unknown | + + + | Phone | Unavailable | + + + Support + + +---------+ + | Name | Relationship | Address | Phone | + + +---------+ + | Contact,No | ECON | Unknown | | + + +---------+ + Care Team Providers + +------+ + | Care Smoke Chaser Name | Role | Phone | + [...] | (Primary Dx); | | | | [facility] [address] | [place] [address] | Chronic combined | | | | [place] [address] | [phone] | systolic and | | | | [phone] | | diastolic heart | | | [...] , so 12.5 mg, and 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 I have ordered you fasting labs to be done at [facility] in 4 weeks, and you will see Dr. Fr simth February [address] Khan to find [...] and was last seen by him in [facility] 2015. 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 [...] left bundle branch block, 66 bpm , [place] 180 ms, QRS 166 ms, QTC 452 ms EK05/30: Normal sinus rhythm, chronic left bundle-branch block. Rate 66 bpm, CO 18 0 ms, QRS 166 ms, QTC 452 ms, tracing personally reviewed by me EK08/03/2018: ([place]): Normal sinus rhythm, stable left bundle branch block, low vo ltage QRS to limb leads, V5, V6. Rate 94 bpm, CO 172 ms, QRS 166 ms, QTC 510 ms, tracing pe rsonally reviewed by me EK09/21/2018: Normal sinus rhythm with PAC, stable left bundle branch block, prolonged QT interval Low voltage QRS to limb leads, V4, V5, V6. Rate 83 bpm, CO 170 ms, QRS 160 ms, Q TC [...] related to atorvastatin. He had been taking egeg-brx-wiluxvu po tassium on his own for leg [...] to see what options are available to [facility] locally. He does not think AA works for him, so may benefit from counseling for alcohol dependenc e. I will likely refer him to electrophysiology once optimized on medications if EF still lo w, to see if he may be a candidate for PUFF IRON OPERATOR-D, as he has wide QRS of 160 ms. Given his low EF, and history of transient ischemic attack, he may benefit from being on anticoagulation, but I am reluctant to start this given his alcoholism, as he would be at a high risk of bleeding. He will see Dr. Shelby Donato February 22 to establish with her as his primary internet marketing director francesco [place], I have reminded him to [...] past surgical history. Problem list. NITHIN Cook [facility] Cardiology 01/18/2019in this encounter Plan of Treatment +--------+---------+ + + + | Date | Type | Specialty | Care Team | Description | +--------+---------+ + + + | 04/05/ | Office | Cardiology | Shelby Donato DO | | | 2018 | Visit | | [address] | | | | | | [place] | | | | | | [id number] | | | | | | | [...]
--- OUTSIDE RECORDS SUMMARY | ~2019-03-06 | XMS | Clinical Summary ---
Demographics + + + | Address | [address] | | | [place] [address] | + + + | Home Phone | | + + + | Preferred Language | Unknown | + + + | Marital Status | Single | + + + | Moravian Affiliation | Unknown | + + + | Race | Unknown | + + + | Ethnic Group | Unknown | + + + Author + + + | Author | [facility] | | | and [place] | + + + | Organization | [facility] | | | and [place] | + + + | Address | Unknown | + + + | Phone | Unavailable | + + + Care Team Providers + +------+ + | Care Metal Fabricator Welder Name | Role | Phone | [...] +-------+--------+ +--------+-------+---------+------+ | UMR | UMR | [id number] | 11/14/19 | | | PPO | [...] [place] | | | 5 (Home) | [address] | + +--------+ +--------+ + + Advance Directives Patient has advance care planning documents on file. For more information, please contact:[facility] [address]"
--- OUTSIDE RECORDS SUMMARY | ~2019-03-06 | XMS | Encounter Summary ---
Demographics + + + | Address | [address] | | | [place] [address] | + + + | Home Phone | | + + + | Preferred Language | Unknown | + + + | Marital Status | Unknown | + + + | Sikh Affiliation | Unknown | + + + | Race | Unknown | + + + | Ethnic Group | Unknown | + + + Author + + + | Author | [facility] [employer] | + + + | Organization | [facility] | + + + | Address | Unknown | + + + | Phone | Unavailable | + + + Support + + +---------+ + | Name | Relationship | Address | Phone | + + +---------+ + | Contact,No | ECON | Unknown | | + + +---------+ + Care Team Providers + +------+ + | Care Electric Blasting Cap Assembler Name | Role | Phone | + +------+ + | Liyah Weldon MD | PCP | | + +------+ + Encounter Details +--------+ + + + + | Date | Type | Department | Care Team | Description | +--------+ + + + + | 12/13/ | Telephone | [facility] [place] | Kim Landrum MA | | | 2018 | | Cardiology Trisha | | | | | | [address] [facility] [address] | | | | | | [facility] [address] | | | | | | [place] [address] | | | | | | [phone] | | | +--------+ + + + [...] [place] | | | | | | [address] | | | | | | | | +--------+---------+ + + + as of this encounter Visit Diagnoses Not on filein this encounter"
--- OUTSIDE RECORDS SUMMARY | ~2019-03-06 | XMS | Encounter Summary ---
Demographics + + + | Address | [address] | | | [place] [address] | + + + | Home Phone | | + + + | Preferred Language | Unknown | + + + | Marital Status | Unknown | + + + | Scientologist Affiliation | Unknown | + + + | Race | Unknown | + + + | Ethnic Group | Unknown | + + + Author + + + | Author | [facility] [employer] [facility] | + + + | Organization | [facility] | + + + | Address | Unknown | + + + | Phone | Unavailable | + + + Support + + +---------+ + | Name | Relationship | Address | Phone | + + +---------+ + | Contact,No | ECON | Unknown | | + + +---------+ + Care Team Providers + +------+ + | Care Data Services Developer Name | Role | Phone | [...] + | 01/01/ | Documentati | [facility] [place] | Mary Lou Johnston | Labs Only (BMP) | | 2019 | on Only | Cardiology Lora Santa MA | | | | | [address] | | | | | | [place] | | | | | | [address] | | | | | | [phone] | | | +--------+ + + + [...] [place] | | | | | | [address] | | | | | | | [...] | [address] | [place] [address] | | | LABORATORY | 13 | | | + + + + + in this encounter Visit Diagnoses Not on filein this encounter"
--- NOTE | 2019-03-06 17:20 | NUR ---
DR. YANEZ IN ROOM WITH PATIENT PERFORMING ADMISSION ASSESSMENT.
--- NOTE | 2019-03-06 18:52 | NUR ---
1705 - PATIENT ARRIVED TO UNIT VIA STRETCHER. PT ASKS "AM I IN [place]?" DR. YANEZ IN ROOM FOR ADMISSION ASSESSMENT. PT BLEEDING SLIGHTLY FROM CHIN LACERATION AND IS CLEANED WITH A HANDTOWEL. PT's STANDING WEIGHT IS 204.8 LBS. PATIENT WOBBLY AND UNSTEADY ON FEET WHEN GETTING WEIGHED, 2 PERSON STANDBY ASSIST. PATIENT REQUESTS NICOTINE PATCH AND IS LATER PROVIDED WITH ONE. 181 - DAUGHTER AND SISTER IN ROOM WITH PATIENT. ORTHOSTATIC HYPOTENSION TEST COMPLETE AND MEDICATIONS ADMINISTERED. FLUID RESTRICTION OF [address] AND PATIENT VERBALIZED COMPLIANCE WITH THIS ORDER. 184 - NICOTINE PATCH PLACED. DINNER IS DELIVERED AND PATIENT IS SITTING UP IN BED. PT CONVERSING WITH DAUGHTER AND SISTER IN ROOM. NS RUNNING AT 50MLS/HR. PATIENT DENIES ANY FURTHER NEEDS AT THIS TIME, CALL LIGHT WITHIN REACH.
--- NOTE | 2019-03-06 19:30 | NUR ---
RECEIVED REPORT AT 1900, FOUND PT IN BED WITH FAMILY AT BEDSIDE. PT SEEMED TO BE IN GOOD SPIRITS AND HAS NO NEEDS OR CONCERNS AT THIS TIME.
--- NOTE | 2019-03-06 20:32 | NUR ---
V/S OVERALL ARE WDL. ALL LOBES ARE CLEAR. ABD SOUNDS ARE PRESENT BUT ABDOMEN IS FIRM TO TOUCH BUT NON-TENDER. PT IS AAOX4, NO PERIPHERAL EDEMA WAS NOTED. LACERATION ON CHIN IS STILL BLEEDING. THERE ARE NUMEROUS BRUISES AND SRABES ALL OVER THE BODY. PT ALSO NEEDS A BATH. CIWA AT 1999 WAS A 1. WILL CNTINUE TO MONITOR.
--- NOTE | 2019-03-06 21:00 | NUR ---
LAB JUST CALLED FOR CRITICAL LAB VALUE, NA+ = 104, CL- = 68. MD YANEZ IS CURRENTLY HERE IN THE CCU AND HAS BEEN NOTIFIED.
--- NOTE | 2019-03-06 21:30 | NUR ---
ASSISTED PT WITH A BED BATH. BLEEDING AT CHIN LACERATION HAS STOPPED. BED ALARM IS ON SINCE PT DID GET OUT OF BED TO USE BSC WITHOUT CALLING.
--- NOTE | 2019-03-06 21:38 | EKG ---
[facility] [address] [facility] [place] [address] Signed Normal sinus rhythm Rightward axis Left bundle branch block Abnormal ECG When compared with ECG of 03-AUG-2018 10:15, Questionable change in QRS axis T wave inversion now evident in Inferior leads Confirmed by ABEL YANEZ MD ([id number]) on 03/06/2019 9:38:43 PM Electronically Signed By: ABEL YANEZ MD 03/06/19 2138 PATIENT NAME: FELIPE KEANE LENNOX Electrocardiogram DATE OF : 68 PHYSICIAN: ABEL YANEZ MD REPORT #: [id number] REPORT IS CONFIDENTIAL AND NOT TO BE RELEASED WITHOUT AUTHORIZATION
--- NOTE | 2019-03-06 23:05 | NUR ---
CIWA WAS DONE AT 2300 SINCE PT WAS TALKING TO HIMSELF IN THE ROOM. PT STATED TO ME THAT HE WAS SEEING PEOPLE. PT ALSO HAS TREMORS THAT CAN BE FELT BUT NOT SEEN. CIWA SCORE WAS A 5.
--- NOTE | 2019-03-07 00:05 | NUR ---
CIWA AT THIS TIME IS AN 8. 1MG IV ATIVAN WAS GIVEN. PT HAS NAUSEA, RESTLESSNESS, VISUAL AND AUDITOY HALLUCINATIONS AND TREMORS THAT CAN BE FELT. 4MG IV ZOFRAN WAS ALSO GIVEN. ALL LOBES ARE CLEAR, PT IS AAOX4, ABD SOUNDS PRESENT, NO PERIPHERAL EDEMA NOTED, V/S WDL OVERALL, URINE OUTPUT IS ADEQUATE. BED ALARM ON. NO NEW CONCERNS FROM A ASSESSMENT STANDPOINT FOUND AT THIS TIME OTHER THAN THE INCREASE IN CIWA SCORE.
--- NOTE | 2019-03-07 00:34 | NUR ---
ANOTHER DOSE OF 1MG IV ATIVAN WAS GIVEN. PT IS TRYING TO TAKE THE BED APART. PT IS VERY RESTLESS WITH VISUAL AND AUDITORY HALLUCINATIONS.
--- NOTE | 2019-03-07 01:05 | NUR ---
CIWA AT 0100 WAS A 14. SO FAR HAS RECEIVED 1MG IV ATIVAN X3. NO EFFECT NOTED SO FAR.
--- NOTE | 2019-03-07 02:34 | NUR ---
AT 0200 CIWA WAS A 17. PT WAS SEVERELY RESTLESS. IN PART HIS RESTLESSNESS WAS DUE TO HAVING TO VOID I BELIEVE. ONCE PT VOIDED, HE SETTLED DOWN SOME. WAITING ON LAB RESULTS AND WILL CONTINUE TO MONITOR. V/S ARE WDL.
--- NOTE | 2019-03-07 03:00 | NUR ---
AT 0246 CRITICAL LABS WERE RECEIVED, NA+ =108. MD YANEZ WAS CALLED AT 0300. I WAITED FOR THE K+ TO RESULT BEFORE CALLING HIM. MD YANEZ ORDERED TO HOLD IV FLUIDS FOR NOW, LIBRIUM Q6HRS WAS INCREASED TO 100MG /DOSE, A ONE TIME DOSE OF 50MG LIBRIUM PO IS NOW TO BE GIVEN. PT AT THIS TIME IS SLEEPING. WILL DO ANOTHER CIWA WHEN NEW ORDERS ARE VERYFIED.
--- NOTE | 2019-03-07 03:35 | NUR ---
PT AT THIS TIME IS TOO SEDATED TO SWALLOW ANYTHING. V/S ARE WDL SO FAR.
--- NOTE | 2019-03-07 04:09 | NUR ---
AT THIS TIME CIWA IS A 0. PT IS VERY SEDATED. SO FAR I HAVE NOT BEEN ABLE TO GIVE THE ONE TIME DOSE OF LIBRIUM ORDERED. PT DOES NOT REALLY FOLLOW COMMMAND AT THIS TIME. V/S ARE STILL WDL.
--- NOTE | 2019-03-07 05:22 | NUR ---
AT 1999 CIWA WAS A 0. FAMILY WAS AT BEDSIDE AND PT APPEARED IN GOOD SPIRITS. ALL LOBES WERE CLEAR, ABD SOUNDS WERE PRESENT, ABD IS FIRM BUT NON-TENDER TO TOUCH. NO PERIPHERAL EDEMA WAS NOTED AND PT WAS AAO X4. CRITICAL LAB VALUES WERE RECEIVED AT 2146 FOR NA+ = 105, MD YANEZ WAS MADE AWARE. V/S WDL. AT 2300 CIWA WAS A 5. V/S STILL WERE WDL. AT 0000 CIWA WAS AN 8 AND 1MG IV ATIVAN WAS GIVEN. AT 0100 CIWA WAS A 14 AND ATIVAN WAS GIVEN AGAIN. V/S WERE WDL, ALL LOBES WERE CLEAR, PT AT THAT TIME WAS STILL AAOX3 TO PLACE, SELF, YEAR. AT 0200 CIWA WAS A 17, PT WAS GIVEN ANOTHER DOSE OF ATIVAN BUT HIS VISUAL/AUDITORY HALLUCINATIONS BECAME MODERATE TO SEVERE. PT HAD ALSO MODERATE TREMORS AND WAS VERY RESTLESS AND NOT REALLY DIRECTABLE. PT RECEIVED SO FAR A TOTAL OF 4[place] 0242 AND THEN HE FELL ASLEEP. AT 0246 LAB CALLED WITH CRITICAL LAB FOR NA+ =108. MD YANEZ WAS INFORMED. AT THIS TIME HE WAS ALSO INFORMED OF THE CIWA SCORE AND THE ATIVAN GIVEN. MD YANEZ GAVE ORDERS TO HOLD IV FLUIDS, TO GIVE A ONE TIME DOSE OF LIBRIUM PO 50MG AND TO INCREASE HIS SCHEDULED LIBRIUM TO 100MG Q6HRS. PT SINCE HIS LAST DOSE OF ATIVAN HAS REMAINED VERY SEDATED AND I WAS NOT ABLE TO GIVE THE ORDERED ONE TIME DOSE OF LIBRIUM. PT AT THIS TIME IS NOT ABLE TO FOLLOW COMMANDS AND I DO NOT BELIEVE THAT HE COULD SWALLOW ANYTHING SINCE FALLING ASLEEP. V/S OVERALL HAVE REMAINED WDL. PT HAD A BED BATH AT 2230 WITH NEW GOWN AND LINEN CHANGE. PT HAS ALSO BEEN COMPLAINING OF PAIN IN HIS RIGHT ELBOW FROM HIS FALL. PRN TYLENOL WAS GIVEN FOR THAT. CHIN LACERATION HAS STOPPED BLEEDING. PT HAD ONE EPISODE OF NAUSEA WHEN HIS CIWAS SCORE STARTED TO CLIMB AND PRN ZOFRAN 4MG IV WAS GIVEN. IF PT REMAINS SEDATED, ORTHSTATIC V/S WILL HAVE TO BE DONE ON DAY SHIFT. WILL CONTINUE TO MONITOR.
--- NOTE | 2019-03-07 06:56 | NUR ---
CALLED MD YANEZ FOR AN UPDATE. I WAS UNABLE TO REACH HIM.
--- NOTE | 2019-03-07 07:45 | NUR ---
AT THIS TIME PT BECAME RESTLESS, ATTEMPTING TO GET OUT OF BED. THIS RN AND LISA ADLER ASSISTED PT TO BEDSIDE COMMODE PT STATED HE NEEDED TO URINATE. WHILE UP, ASSESSMENT COMPLETED. LUNGS ARE CLEAR THROUGHOUT. ROOM AIR. PT IS DISORIENTED TO PLACE, TIME, DATE BUT KNOWS HE "FELL BUYING ALCOHOL." DENIES N/V. DENIES SOB. STATES HIS RIGHT ELBOW FEELS SORE. FULL BED BATH COMPLETED AND LINENS CHANGED. PT URINATED 425 CC DIDI URINE. NSR ON CONTINUOUS TELE. FIRM, OBESE ABDOMEN. ACTIVE BOWEL SOUNDS. FLATUS PRESENT. PT STRONG IN HIS FEET BUT UNCOORDINATED AND UNSTEADY- HEAVY 2 PERSON ASSIST FOR SAFETY. PT IS IRRITABLE, STATES STAFF IS TRYING TO HURT HIM- HE CALMS DOWN EASILY AT THIS TIME WITH THERAPEUTIC COMMUNICATION, EMOTIONAL SUPPORT, REORIENTATION AND DISTRACTION WITH CONVERSATION. PT ASSISTED BACK TO BED WHERE HE IMMEDIATELY DOSED OFF INTO SLEEP. HIS VSS. GENERALIZED BRUISING ON BODY. FACIAL LACERATIONS ARE SCABBED, DRY AND WNL. PT NOW ASLEEP IN HIS BED. BED ALARM IN PLACE. LISA ADLER REMAINS AT THE BEDSIDE. CALL LIGHT WITHIN REACH. WILL CONTINUE TO MONITOR CLOSELY.
--- NOTE | 2019-03-07 09:05 | NUR ---
DR. YANEZ NOTIFIED OF CRITICAL LAB NA 110.
--- NOTE | 2019-03-07 09:15 | NUR ---
PT ASSISTED WITH REPOSITIONING IN BED PER HIS REQUEST. STILL DROWSY BUT PT WAS ABLE TO WAKE UP ENOUGH TO TAKE HIS LIBRIUM. HE REMAINS RESTING IN BED. SITTER AT THE BEDSIDE. CALL LIGHT WITHIN REACH AND SAFETY PRECAUTIONS CONTINUED. WILL CONTINUE TO MONITOR.
--- NOTE | 2019-03-07 10:05 | NUR ---
PT ASSISTED TO COMMODE WITH 2 ASSIST. 550 CC URINE VOIDED. BP WAS TAKEN WHILE PT SITTING UP- WNL AT 120/48 (65). PT REMAINS VERY UNSTEADY AND UNCOORDINATED UP ON HIS FEET. ASSISTED BACK TO BED AND RESTING WITH HIS EYES CLOSED. HE'S CALM. HIS BOSS MARTHA HAS JUST ARRIVED AT THE BEDSIDE TO VISIT AND SEE PT. MARTHA MENTIONS TO THIS RN THE PT'S DAUGHTER MIGHT BE VISITING TODAY OR TOMORROW- APPARENTLY PER MARTHA THIS DAUGHTER AND THE PT "HAVEN'T BEEN ON SPEAKING TERMS FOR A WHILE."
--- NOTE | 2019-03-07 11:02 | NUR ---
1200 ML D5% BOLUS HAS FINISHED AT THIS TIME. CHARTED INTAKE. PT RESTLESS IN BED AT THIS TIME BUT CALMED DOWN WITH REPOSITIONING TO HIS LEFT SIDE. PT DENIES ANY NEEDS. SITTER REMAINS AT BEDSIDE. CALL LIGHT WITHIN REACH. WILL RETURN TO MONITOR.
--- NOTE | 2019-03-07 11:10 | NUR ---
X2 PA TO AND FROM COMMODE AT THIS TIME. 575 CLEAR, LIGHT YELLOW/DILUTED URINE COMPARED TO THIS MORNING'S DIDI COLOR. PT BACK IN BED RESTING WITH EYES CLOSED. SITTER AT BEDSIDE. WILL CONTINUE TO MONITOR.
--- NOTE | 2019-03-07 12:29 | NUR ---
X2 PA TO BEDSIDE COMMODE. ASSESSMENT COMPLETED. NO CHANGE TO PHYSICAL ASSESSMENT. PT IS, HOWEVER, MORE CALM AND COOPERATIVE AT THIS TIME. HE'S NOT AGITATED OR RESTLESS. HE CONTINUES TO BE IMPULSIVE THOUGH, AND SITTER AT THE BEDSIDE NEEDS CONTINUING FOR SAFETY. REMAINS DROWSY. REMAINS DISORIENTED AND CONFUSED. PIV IN LEFT ARM SALINE LOCKED AND KCHLOR INFUSING INTO RIGHT HAND. HE DENIES ANY N/V OR SOB. C/O RIGHT ELBOW PAIN INTERMITTENTLY. PT BACK IN BED LAYING ON HIS LEFT SIDE. CALL LIGHT WITHIN REACH. SAFETY PRECAUTIONS CONTINUE AND IN PLACE. WILL CONTINUE TO MONITOR.
[2019-03-07] MEDS ORDERED: ATORVASTATIN CA10 MG PO (14:00)
[2019-03-07] MEDS ORDERED: CARVEDILOL25 MG PO (14:00)
--- NOTE | 2019-03-07 14:00 | NUR ---
X2 PA TO COMMODE; BACK TO BED. SCHEDULED VALIUM DOSE GIVEN AT THIS TIME. PT'S ORDERED PIV 20 MEQ KCHLOR HAS FINISHED INFUSING- PT IS NOW SALINE LOCKED IN BOTH PIV'S. PT DENIES ANY NEEDS AND IS RESTING AGAIN WITH EYES CLOSED. CALL LIGHT WITHIN REACH. SITTER AT BEDSIDE. 1400 LAB DRAW SHORTLY. WILL CONTINUE TO MONITOR.
[2019-03-07] MEDS ORDERED: FUROSEMIDE20 MG PO (14:01)
[2019-03-07] MEDS ORDERED: SPIRONOLACTONE25 MG PO (14:01)
[2019-03-07] MEDS ORDERED: LISINOPRIL10 MG PO (14:02)
[2019-03-07] MEDS ORDERED: BIDIL TABLET1 EACH PO (14:03)
--- NOTE | 2019-03-07 14:10 | NUR ---
Medications [facility]
--- NOTE | 2019-03-07 15:23 | NUR ---
PT IS ASLEEP IN HIS BED; VS AND CONDITION STABLE ON CONTINUOUS MONITORING; CHEST RISING AND FALLING APPROPRIATELY WITH ADEQUATE O2 SATS. SITTER AT HIS SIDE. CALL LIGHT WITHIN REACH. WILL CONTINUE TO MONITOR.
--- NOTE | 2019-03-07 15:35 | NUR ---
NOTIFIED DR. YANEZ AT THIS TIME OF PT'S CRITIC LAB NA 114
--- NOTE | 2019-03-07 16:55 | NUR ---
ASSESSMENT COMPLETED. PT CONTINUES TO BE CALM AND COOPERATIVE. STILL DROWSY, BUT VALIUM APPEARS TO HAVE HELPED THE PT WITH RESTLESSNESS. 1ST OF 3 D5% BAG INFUSING AT THIS TIME. PT CONINUES TO GET UP TO COMMODE WITH X2 PERSON ASSIST. SEE CHARTED I/O. CALL LIGHT WITHIN REACH. DESMOPRESSIN INFUSED. WILL CONINUE TO MONITOR.
--- NOTE | 2019-03-07 18:28 | NUR ---
2ND OF 3 D5% BAG HAS FINISHED INFUSING. 3RD BAG INIT[address]ATED. DR. YANEZ UPDATED ON PT'S AFTERNOON AND CONDITION. PT CALM AND RESTING IN BED
--- NOTE | 2019-03-07 19:15 | NUR ---
TYLENOL GIVEN FOR PT'S CONTINUOUS C/O RIGHT ELBOW PAIN. PT IS AWAKE AND ALERT SO SWALLOWING TYLENOL NOT A WORRY. NO ISSUES WITH SWALLOWING PILL. WILL CONTINUE TO MONITOR AND FOLLOW UP ON PAIN.
--- NOTE | 2019-03-07 19:45 | NUR ---
DR. YANEZ INFORMED OF 3 L D5% ALL INFUSED AND PT SALINE LOCKED. PER DR. YANEZ, LEAVE SALINE LOCKED, SEE WHAT 2000 LABS ARE, REASSESSMENT OF PLAN WILL THEN OCCUR.
--- NOTE | 2019-03-07 20:00 | NUR ---
REPORT RECEIVED, PT RESTING IN BED, AWAKE, AOX4, APPROPRIATE, PT ON RA, NO C/O SOB/CP, NO C/O PAIN JUST GENERAL SORENESS, PT'S IV'S SL, FLUSHED, LAB IN ROOM NOW, ASSESSMENT COMPLETE, PT'S LS CLEAR, BT ACTIVE, PT HAS LACERATION ON FOREHEAD AND CHIN THAT APPEARS TO BE SCABBING OVER, NO DRAINAGE, CALL LIGHT WITHIN REACH. BED ALARM ON. FALL PRECAUTIONS IN PLACE.
--- NOTE | 2019-03-07 20:35 | NUR ---
EVENING MEDS ADMINISTERED, PT AOX4, APPROPRIATE, VSS, ON RA, O2 SAT 97%, HR 77, RR 14, PT RESTING IN BED WATCHING TV, PT NOTED TO HAVE PRODUCTIVE COUGH OF THICK WHITE SPUTUM, PT ASSISTED WITH CLEARING SPUTUM WITH SUCTION, PT TOLERATED WELL, PT'S IV SL, CALL LIGHT WITHIN REACH. FALL PRECAUTIONS IN PLACE. BED ALARM ON.
--- NOTE | 2019-03-07 20:45 | NUR ---
PT'S LABS BACK, PT'S SODIUM LEVEL 107, DR. YANEZ NOTIFIED BY MARLEEN MOORE, NO NEW ORDERS.
--- NOTE | 2019-03-07 21:04 | NUR ---
PT UP TO BSC WITH 2 PERSON ASSIST, PT IMPULSIVE AT TIMES WITH AMBULATION AND UNSTEADY ON FEET, PT BACK TO BED, NO FURTHER NEEDS AT THIS TIME, CALL LIGHT WITHIN REACH. BED ALARM ON, FALL PRECAUTIONS IN PLACE.
--- NOTE | 2019-03-07 21:44 | NUR ---
PT RESTING IN BED, EYES CLOSED, BREATHS EVEN, UNLABORED, NO REQUESTS AT THIS TIME, ON RA, NO SIGNS OF DISTRESS OR AGITATION, VSS, CALL LIGHT WITHIN REACH. FALL PRECAUTIONS IN PLACE. BED ALARM ON.
--- NOTE | 2019-03-07 23:02 | NUR ---
PT RESTING IN BED, EYES CLOSED, BREATHS EVEN, UNLABORED, NO SIGNS OF DISTRESS OR AGITATION, CALL LIGHT WITHIN REACH, FALL PRECAUTIONS IN PLACE, BED ALARM ON, PT'S VSS, ON RA.
--- NOTE | 2019-03-08 00:04 | NUR ---
PT RESTING IN BED, EYES CLOSED, BREATHS EVEN, UNLABORED, VSS, ON RA, CALL LIGHT WITHIN REACH, FALL PRECAUTIONS IN PLACE. BED ALARM ON.
--- NOTE | 2019-03-08 02:07 | NUR ---
IN ROOM TO ADMINISTER SCHEDULED DIAZEPAM, PT AWAKES TO VOICE, ALERT, ORIENTED TO PERSON, PLACE, EVENT, DISORIENTED TO TIME. PT DENIES ANY NEEDS AT THIS TIME, CALL LIGHT WITHIN REACH. FALL PRECAUTIONS IN PLACE. BED ALARM ON.
--- NOTE | 2019-03-08 03:00 | NUR ---
PT UP TO VOID IN BSC WITH 2 PERSON ASSIST, PT DENIES SOB/CP, ON RA, VSS, PT ORIENTED TO PERSON, PLACE, AND EVENT, REMAINS DISORIENTED TO TIME, PT VOIDED 175 MLS OF DARK YELLOW URINE, PT BACK TO BED WITH 2 PERSON ASSIST, NO FURTHER REQUESTS, CALL LIGHT WITHIN REACH. FALL PRECAUTIONS IN PLACE, BED ALARM ON.
--- NOTE | 2019-03-08 03:44 | NUR ---
DR. YANEZ NOTIFIED OF PT'S SODIUM LAB VALUE OF 108, NO NEW ORDERS, DR. YANEZ ALSO NOTIFIED OF PT'S LOW URINE OUTPUT, NO NEW ORDERS,
--- NOTE | 2019-03-08 05:00 | NUR ---
PT RESTING IN BED, NO NEEDS AT THIS TIME, VSS, ON RA, NO C/O SOB/CP, NO SIGNS OF RESTLESNESS OR AGITATION, PT ALERT, ORIENTED TO PERSON PLACE, EVENT, DISORIENTED TO TIME/DATE, CIWA SCORE OF 1, PT REMAINS NPO, ORAL SWABS GIVEN PER PT'S REQUEST, FALL PRECAUTIONS IN PLACE, BED ALARM ON, CALL LIGHT WITHIN REACH.
--- NOTE | 2019-03-08 06:21 | NUR ---
PT RESTING IN BED, AOX3, DISORIENTEDT TO TIME/DATE, PT DROWSY BUT EASILY AROUSABLE, SPEACH IS MORE CLEAR, PT DENIES ANY NEEDS AT THIS TIME, CALL LIGHT WITHIN REACH. FALL PRECAUTIONS IN PLACE. NO SIGNS OF RESTLESNESS OR AGITATION. CIWA SCORE OF 1.
--- NOTE | 2019-03-08 06:55 | NUR ---
DR. YANEZ NOTIFIED OF PT'S SODIUM LAB LEVEL OF 107, NO NEW ORDERS.
--- NOTE | 2019-03-08 08:36 | NUR ---
PT AWAKENS WITH EASE, IS FOLLOWING DIRECTIONS, TALKED ABOUT STOP DRINKING AND SMOKING. PT MARY WAS HERE THIS AM AND HE IS GOING TO TALK WITH THE HR DEPARTMENT ABOUT WHAT KIND OF SERVICES ARE AVAILABLE FOR TREATMENT WITH THE INSURANCE THE PT HAS.
--- NOTE | 2019-03-08 08:38 | NUR ---
ETOH TREATMENT: PT IS WILLING TO GO TO OUTPATIENT TREATMENT SO THAT HE CAN REMAIN EMPLOYED. HIS EMPLOYER IS GOING TO HELP WITH INSURANCE AND TALK WITH THE HR DEPARTMENT ABOUT WHAT KIND OF SERVICES THEY ARE COVERED FOR.
--- NOTE | 2019-03-08 10:02 | NUR ---
PT ABLE TO FEED SELF HIS JELLO AND DRINK SOME COFFEE. PT IS COOPERATIVE WITH HOSPITAL ROUTINE AT THIS TIME. PLANING TO GET PT UP IN THE CHAIR.
--- NOTE | 2019-03-08 11:19 | NUR ---
PT IS UP IN THE CHAIR DOING WELL.
--- NOTE | 2019-03-08 11:30 | NUR ---
PT BACK TO BED AT THIS TIME, DID WELL WITH AMBULATION, LUNCH ORDER FOR PT CLEAR LIQUID TRAY.
--- NOTE | 2019-03-08 11:54 | NUR ---
IN TO SPEAK WITH PT, INITIAL CASE MANAGEMENT ASSESSMENT COMPLETE.
--- NOTE | 2019-03-08 13:15 | NUR ---
PT UP TO BS COMMODE AT THIS TIME. HE HAS NOT VOIDED THIS AM.
--- NOTE | 2019-03-08 15:31 | NUR ---
MAC FROM WORK CAME INTO VISIT AT THIS TIME. PT WAS ASLEEP.
--- NOTE | 2019-03-08 17:43 | NUR ---
PT AWAKED FOR DINNER OF CLEAR LIQUIDS, PT ABLE TO MOVE ABOUT IN BED ON HIS OWN. REPOSITIONED FOR DINNER.
--- NOTE | 2019-03-08 18:08 | NUR ---
pt sitting up in bed watching the [employer] on tv and contioues to drink his clear liquid tray.
--- NOTE | 2019-03-08 18:48 | NUR ---
PT UP TO THE BEDSIDE COMMODE UNSTEADY ON FEET BUT IS ABLE TO MOVE WITH ONE PERSON ASSISTANCE. LINE CHANGES DUE TO PT WAS INCONTENT OF URINE.
--- NOTE | 2019-03-08 19:35 | NUR ---
REPORT RECEIVED, PT RESTING IN BED, EYES CLOSED, BREATHS EVEN, UNLABORED, NO REQUESTS AT THIS TIME, CALL LIGHT WITHIN REACH, FALL PRECAUTIONS IN PLACE. BED ALARM ON. PT'S VSS, ON RA, O2 SAT 95%.
--- NOTE | 2019-03-08 20:41 | NUR ---
EVENING MEDS ADMINISTERED, PT TOLERATED WELL, PT ALERT, ORIENTED TO PERSON, PLACE, EVENT, DISORIENTED TO DATE/TIME, PT EASY TO AROUSE, HR 90'S, ON RA, O2 SAT 95%, BP 119/59, RR 12, PT'S CIWA SCORE OF 1, NO NOTICABLE TREMORS, NO C/O HEADACHE OR NAUSEA, PT DENIES PAIN, PT'S LS CLEAR, CDB ENCOURAGED, PT TOLERATING CLEAR LIQUIDS WELL. PT UP TO VOID TO BSC, PT'S HR DID BECOME TACHY WITH MANEUVERING TO EDGE OF BED AND PIVOTING TO BSC, 2 PERSON ASSIST, USED, PT VOIDED 525 MLS OF CLEAR YELLOW URINE. PT BACK TO BED NOW, VSS, ON RA, NO REQUESTS AT THIS TIME, CALL LIGHT WITHIN REACH, FALL PRECAUTIONS IN PLACE. BED ALARM ON.
--- NOTE | 2019-03-08 22:18 | NUR ---
PT UP TO BSC WITH 2 PERSON ASSIST, PT VOIDED 500 MLS OF CLEAR YELLOW URINE, PT DENIES ANY NEEDS AT THIS TIME, CALL LIGHT WITHIN REACH. FALL PRECAUTIONS IN PLACE. BED ALARM ON.
--- NOTE | 2019-03-08 23:25 | NUR ---
PT RESTING IN BED, EYES CLOSED, BREATHS EVEN, UNLABORED, NO REQUESTS AT THIS TIME, CALL LIGHT WITHIN REACH. VSS, HR 82, ON RA, NO C/O SOB/CP, O2 SAT 96%, RR12, FALL PRECAUTIONS IN PLACE, CALL LIGHT WITHIN REACH. BED ALARM ON.
--- NOTE | 2019-03-09 00:16 | NUR ---
PT UP TO BSC WITH 2 PERSON ASSIST, PT VOIDED 300 MLS OF CLEAR YELLOW URINE, PT DENIES FURTHER NEEDS AT THIS TIME, CALL LIGHT WITHIN REACH, FALL PRECAUTIONS IN PLACE. BED ALARM ON. LAB IN ROOM.
--- NOTE | 2019-03-09 01:16 | NUR ---
PT RESTING IN BED, EYES CLOSED, BREATHS EVEN, UNLABORED, ON RA, VSS, NO REQUESTS AT THIS TIME, CALL LIGHT WITHIN REACH. FALL PRECAUTIONS IN PLACE. BED ALARM ON.
--- NOTE | 2019-03-09 02:00 | NUR ---
SCHEDULED MED GIVEN, PT EASILY AROUSABLE BY VOICE, ALERT AND ORIENTED TO PERSON, PLACE, AND EVENT, PT'S VSS, ON RA, DENIES NEEDS AT THIS TIME. CALL LIGHT WITHIN REACH. BED ALARM ON.
--- NOTE | 2019-03-09 03:00 | NUR ---
PT AWAKE, RESTING IN BED, DENIES ANY NEEDS AT THIS TIME, CALL LIGHT WITHIN REACH. BED ALARM ON. VSS
--- NOTE | 2019-03-09 04:00 | NUR ---
PT UP TO BSC WITH 2 PERSON ASSIST, TOLERATED WELL, NO REQUESTS AT THIS TIME, PT'S VSS, ON RA, PT ALERT, ORIENTED TO PERSON, PLACE AND EVENT, DISORIENTED TO TIME, CIWA SCORE OF 1, CALL LIGHT WITHIN REACH. BED ALARM ON.
--- NOTE | 2019-03-09 05:23 | NUR ---
PT RESTING IN BED, EYES CLOSED, BREATHS EVEN, UNLABORED, NO REQUESTS AT THIS TIME, CALL LIGHT WITHIN REACH. BED ALARM ON. VSS
--- NOTE | 2019-03-09 06:10 | NUR ---
Patients vitals were set to be taken q 4 hrs.
--- NOTE | 2019-03-09 06:28 | NUR ---
DR. PAUL NOTIFIED OF PT'S SODIUM LEVEL OF 113, NO NEW ORDERS. PT RESTING IN BED, EYES CLOSED, BREATHS EVEN, UNLABORED, VSS, CALL LIGHT WITHIN REACH. BED ALARM ON.
--- NOTE | 2019-03-09 09:08 | NUR ---
TRIED TO DRINK HIS COFFEE AND SPILLED ALL OVER HIMSELF AND HIS LINENS. UP TO CHAIR, CHANGED LINENS AND GOWN. BACK TO BED. TOLERATED WELL, HAS SOME WEAKNESS.
--- NOTE | 2019-03-09 11:08 | NUR ---
PT UP TO CHAIR FROM BED WITH STANDBY ASSIST. PT ABLE TO BRUSH TEETH ON HIS OWN. PT GOWN CHANGED. A&D OINTMENT OINTMENT APPLIED TO ABRASIONS ON HIS FACE. PT SITTING IN CHAIR WITH CHAIR ALARM ON, CALL LIGHT WITHIN REACH, PT REQUESTED AND WAS GIVEN MORE JUICE.
--- NOTE | 2019-03-09 14:03 | NUR ---
PT UP TO BEDSIDE COMMODE WITH STAND BY ASSIST ONLY. PT IMPULSIVE, NOT ABLE TO USE CALL LIGHT APPROPRIATLY. PT ONLY ABLE TO VOID AND PASS FLATUS. PT BACK TO BED, COOPERATIVE.
--- NOTE | 2019-03-09 16:20 | NUR ---
IV SITES INTACT, NO REDNESS OR SWELLING NOTED, FLUSH EASILY. PT DENIES PAIN AT EITHER IV SITE. PT DROWSY, HOWEVER COOPERATIVE AND ABLE TO ANSWER QUESTIONS EASILY. PT DENIES PAIN, NAUSEA, AND SOB AT THIS TIME.
--- NOTE | 2019-03-09 18:26 | NUR ---
THE NURSE AND I SET HIM UP FOR DINNER. PATIENT IS EATING.
--- NOTE | 2019-03-09 19:01 | NUR ---
PT HAD A MOSTLY UNEVENTFUL DAY. PT UP TO BEDSIDE COMMODE MULTIPLE TIMES TO VOID LARGE AMOUNTS. PT COOPERATIVE, OCCASIONALLY IMPULSIVE, BED ALARM OR CHAIR ALARM ON PT AT ALL TIMES. PTUSES CALL LIGHT SOMETIMES. PT ABLE TO EAT MOST OF HIS MEALS ON HIS OWN. PT TAKING PO FLUIDS WELL. PT HAS HAD A FLAT AFFECT AND HAS BEEN DROWSY MOST OF THE DAY. A&D OINTMENT APPLIED TO SCABS ON PT FACE. PT REMAINS ON ROOM AIR.
--- NOTE | 2019-03-09 19:46 | NUR ---
REPORT RC'D FROM DAY SHIFT NURSE. REPORTS PT LESS DROWSY, CIWA SCORE 1, AND TOELRATING FULL LIQUID DIET. PT CURRENTLY RESTING IN BED, BED ALARM OM.
--- NOTE | 2019-03-09 20:00 | NUR ---
PT RESTING IN BED WATCHING TV. FULL ASSESSMENT TO BE COMPLETED. BED ALARM ON.
--- NOTE | 2019-03-09 21:00 | NUR ---
PT AAOX4, DROWSY, SLOW TO RESPOND, CIWA SCORE 1. SINUS RHYTHM ON MONITOR, PERPHERIAL PULSE PALPABLE +2, NO EDEMA. LUNGS KENISHA IN BUL, CLEAR BUT DIM IN BLL, ON ROOM AIR. ABD FIRM, BOWEL TONES ACTIVE, DENIES NAUSEA. VOIDING QS. IV SITE FLUSHED, PATENT, WNL, SALINE LOCKED. PT CONTINUES TO HAVE BRUSING OVER BILATERAL ARMS AND LEGS. LACERATIONS TO FACE UNCHANGED, DRY/CRUSTY, OPEN TO AIR. DENIES PAIN. DENIES TACILE, AUDITORY, OR VISUAL HALLUCINATIONS. DENIES HEADACHE. EDUCATION PROVIDED ON SAFETY, FALL PREVENTION, MEDICATION, AND PLAN OF CARE, PT UNINTERESTED, UNABLE TO ASSESS TEACHING. DENIES OTHER NEEDS. CALL LIGHT WITHIN REACH. BED ALARM ON.
--- NOTE | 2019-03-09 21:45 | NUR ---
BED ALARM ALARMING, PT ATTEMPTING TO GET OUT OF BED STATING "I'VE GOT TO PEE." PT SBA TO BSC, GAIT STEADY, SBA BACK TO BED. REINFORCED SAFETY, FALL PREVENTION, AND USING CALL LIGHT. BED ALARM ON.
--- NOTE | 2019-03-09 23:00 | NUR ---
PT RESTING IN BED WITH EYES CLOSED, RESPIRATIONS EVEN AND UNLABORED. BED ALARM ON.
--- NOTE | 2019-03-10 01:34 | NUR ---
Patient had to use the restroom so MARLEEN Regalado and myself assisted him. it took a while but he resulted with 200 of urine.
--- NOTE | 2019-03-10 01:50 | NUR ---
NO ACUTE CHANGES
--- NOTE | 2019-03-10 02:30 | NUR ---
GARCIA'D VALIUM HELD. PT RESTING SOUNDLY, NO AGGITATION, NO RESTLESSNESS. WILL CONTINUE TO MONITOR.
--- NOTE | 2019-03-10 03:00 | NUR ---
PT REMAINS RESTFULL WITH NO SIGN OF AGGITATION OR RESTLESSNESS. BED ALARM ON.
--- NOTE | 2019-03-10 05:00 | NUR ---
PT MORE ALERT, CIWA SCORE 0. NO OTHER ACUTE CAHNGES.
--- NOTE | 2019-03-10 06:00 | NUR ---
BED ALARM ALARMING, PT NEEDING TO USING RESTROOM, SBA BSC, ASSISTED BACK TO BED. PT ALERT AND ORIENTED, AFFECT FLAT, RESPONDING APPROPRIATELY. CIWA O, PT ABLE TO ADD AND RECALL EVENTS. NO AGGITATION NOTED. EDUCATION PROVIDED ON SAFETY AND FALL PREVENTION. PT ABLE TO DEMONSTRATE CALL LIGHT USE. DENIES OTHER NEEDS. CALL LIGHT WITHIN REACH,.
--- NOTE | 2019-03-10 07:30 | NUR ---
REPORT RECEIVED FROM OFFCOMING RN- VISUAL CHECK OF PT COMPLETED; HE'S ASLEEP IN BED. VSS ON CONTINUOUS MONITOR AND CHEST RISING/FALLING APPROPRIATELY. WILL RETURN SOON FOR MEDS AND ASSESSMENT. CALL LIGHT WITHIN REACH AND BED ALARM IN PLACE.
--- NOTE | 2019-03-10 08:25 | NUR ---
THIS RN WAS STAND BY ASSIST PT AMBULATED TO RECLINER FROM THE BED. PT WAS STRONG ON HIS FEET, A LITTLE UNSTEADY. ASSESSMENT COMPLETED. PT IS A/O X4, FLAT, BUT COOPERATIVE. ROOM AIR. RIGHT LUNG LOBES EXPIRATORY WHEEZING; LEFT LOBES CLEAR. EDUCATED TO KEEP COUGHING/DEEP BREATHING. IS COMPLETED AT THIS TIME. PT DENIES ANY PAIN, N/V OR SOB. ACTIVE BOWEL SOUNDS. DENIES THE NEED TO USE THE RESTROOM AT THIS TIME. SALINE LOCKED- BOTH IV'S WNL. SR/ST ON CONTINUOUS TELE MONITORING. PT'S BEEN SWITCHED TO PO LIBRIUM AT THIS TIME FROM HIS IV VALIUM. PT SITS UP IN HIS CHAIR READY FOR BREAKFAST, SWALLOWED PILLS WIHOUT ISSUES. HE DENIES ANY FURTHER NEEDS. CHAIR ALARM WAS PUT IN PLACE FOR HISTORY OF IMPULSIVENESS IN THIS HOSPITAL STAY. CALL LIGHT IN HIS LAP. WILL CONTINUE TO CLOSELY MONITOR. UPDATED PT ON HIS PLAN TO TRANSFER TO M/S UNIT TODAY.
--- NOTE | 2019-03-10 09:30 | NUR ---
PT STILL SITTING UP IN RECLINER WATCHING TV. HE HAS FINISHED HIS BREAKFAST TRAY OF FULL LIQUIDS (CREAM OF WHEAT, YOGURT, AND OJ). DENIES ANY NEEDS. CALL LIGHT IN PLACE AND BED ALARM REMAINS ON. WILL CONTINUE TO MONITOR.
--- NOTE | 2019-03-10 10:00 | NUR ---
PT SITTING UP WATCHING TV IN HIS RECLINER. HE REMAINS CALM, COOPERATIVE. DENIES ANY NEEDS AND DENIES ANY PAIN. CALL LIGHT WITHIN REACH, CHAIR ALARM IN PLACE. WILL CONTINUE TO MONITOR.
--- NOTE | 2019-03-10 11:05 | NUR ---
PT ASSISTED X1 PERSON ASSIST TO TOILET AND BACK TO RECLINER. PT UNSTEADY AND UNCOORDINATED ON HIS FEET. URINATED 450 CC. ASSITED BACK TO THE RECLINER AND DENIES ANY FURTHER NEEDS. CHAIR ALARM IN PLACE AND CALL LIGHT IN HAND. WILL CONTINUE TO MONITOR.
--- NOTE | 2019-03-10 11:25 | NUR ---
PT WORKING WITH PHYSICAL THERAPY AT THIS TIME
--- NOTE | 2019-03-10 11:50 | NUR ---
REPORT GIVEN TO RECEIVING MARLEEN TRAYLOR. PT TAKEN VIA RECLINER WITH ALL BELONGINGS TO ROOM 120 ON M/S AT THIS TIME. P VS AND CONDITION STABLE PRIOR TO DC. TRANSFER COMPLETE.
--- NOTE | 2019-03-10 15:53 | NUR ---
REMOVED IV IN L AC AND R HAND. PLACED 18G IN L FA WITH ONE ATTEMPT. OLD DRESSINGS WERE DIFFICULT TO REMOVE. SKIN UNDER DRESSINGS WERE RED AND INFLAMED.
--- NOTE | 2019-03-10 18:41 | NUR ---
PT UP IN CHAIR MOST OF THE DAY. TOLERATING FULL LIQUID DIET WELL. IV SITES ROTATED. SKIN UNDER IV SITES WAS RED AND IRRITATED. VOIDING WELL. NO BM.
--- NOTE | 2019-03-10 21:04 | NUR ---
COOP WITH ASSESSMENT, IN BED, HEALING SCRATCHES AND BRUISED AREAS OVER LEFT SIDE OF FACE AND BODY. BED ALARM ON
--- NOTE | 2019-03-10 21:53 | NUR ---
ALARM WENT OFF, THIS BUSINESS ACCOUNT SPECIALIST WENT IN THE ROOM PATIENT WAS SITTING BY THE BED. ASSISTED PATIENT TO USE THE BATHROOM WITH WALKER. PATIENT STATED CAN'T GO BUT VOIDED. PATIENT IS BACK IN BED. BED ALARM ON. GAVE CRANBERRY JUICE PER PATIENT'S REQUEST.
--- NOTE | 2019-03-10 22:39 | NUR ---
OFFICIAL COURT REPORTER ROUNDING COMPLETE. PT RESTING IN BED AWAKE. PT AGREES THAT HE CANNOT SLEEP. DENIES NEEDS AT THIS TIME. CALL LIGHT IN REACH. ROOM IN VIEW OF RN STATION. WHITEBOARD UPDATED.
--- NOTE | 2019-03-10 23:03 | NUR ---
BED ALARM WENT OFF. ASSISTED PATIENT TO THE BATHROOM USING WALKER AND BACK TO BED. BED ALARM ON.
--- NOTE | 2019-03-10 23:45 | NUR ---
RESTING, NO DISTRESS, BED ALARM ON. CALL LIGHT AT BEDSIDE
--- NOTE | 2019-03-11 01:49 | NUR ---
RESTING, EYES CLOSED. IN BED, BED ALARM ON, CALL LIGHT AT BEDSIDE
--- NOTE | 2019-03-11 05:28 | NUR ---
CURRENTLY IN BED RESTING. NO RESP DISTRESS. SCABS AND BRUISING OVER L SIDE OF FACE AND BODY IN DIFFERENT STAGES OF HEALING. LOW CIWA SCORES. NO ETOH WITHDRAWAL SX. GETTING LIBRIUM ATC SCHEDULED PER MDS ORDERS. UP TO BR WITH 1PA AND FWW, WEAK AND UNSTEADY GAIT, TOLERATED WELL. ON ROOM AIR BED/CHAIR ALARM ON DUE TO PTS INPULSIVITY. CALL LIGHT AT BEDSIDE AND TOLERATING FUL LIQUID DIET WELL, NO N/V
--- NOTE | 2019-03-11 07:39 | NUR ---
BEDSIDE REPORT.. PT RESTING IN BED ALERT, NO DISTRESS NOTED. PT VERBALIZE WITH STAFF APPROPRIATE AT THIS TIME
--- NOTE | 2019-03-11 09:17 | NUR ---
PT STOOD FROM CHAIR, CHAIR ALARM SOUNDED, PT AMBULATED TO BED QUIUCKLY BEFORE THIS RN FROM NURSES STATION TO PT ROOM. PT STABLE ON FEET AT THIS TIME.
--- NOTE | 2019-03-11 11:53 | NUR ---
PT IS RESTING IN BED NO DISTRESS NOTED. EYES CLOSED RR EVEN AT 16 BPM, PT APPEARS TO BE SLEEPING.
--- NOTE | 2019-03-11 13:36 | NUR ---
PT UP TO BATHROOM ONE PERSON STANDBY ASSIST WITH FWW. PT FIRMLY REFUSED TAKING A SHOWER TODAY, HE SAID, "TOMORROW WILL BE SOON ENOUGH"
--- NOTE | 2019-03-11 14:34 | NUR ---
BEDSIDE REPORT FROM [facility] FOR THIS PT ARRIVED TO ROOM 121. PT ALERT TO NAME, AND ORIENTED TO NAME/SELF ONLY.
--- NOTE | 2019-03-11 16:40 | NUR ---
ASKED PATIENT IF HE WOULD LIKE TO TAKE A SHOWER AND HE SAID NOT TODAY. I DID CHANGE IS GOWN. HE HAS BEEN SITTING UP IN HIS CHAIR FOR MEALS. RIGHT NOW IS LAYING IN BED WATCHING TV.
--- NOTE | 2019-03-11 17:46 | NUR ---
pt up in recliner eating dinner, chair alarm on
--- NOTE | 2019-03-11 20:16 | NUR ---
UP TO BR, VOIDED, REQUIRES 1PA, TOLERATED WELL, IMPROVED GAIT. BACK TO BED. SCABBED AREAS IN FACE, LOWER BACK AND BRUISING L SIDED OF BODY INDIFFERENT STAGES OF HEALING, DRY. COOP WITH ASSESSMENT. BED ALARM ON. NO C/O PAIN , SOB OR ETOH WITHDRAWAL ISSUES.
--- NOTE | 2019-03-11 22:56 | NUR ---
V/S AND I&O DONE AND RECORDED. CRANBERRY JUICE GIVEN PER PATIENT'S REQUEST. CALL LIGHT AND SIDE TABLE WITHIN REACH. BED ALARM ON.
--- NOTE | 2019-03-12 00:53 | NUR ---
RESTING, EYES CLOSED, CALL BED ALRM ON, CALL LIGHT AT BEDSIDE
--- NOTE | 2019-03-12 03:37 | NUR ---
PATIENT CALLED. 1 PA TO THE BATHROOM AND BACK TO BED. CRANBERRY JUICE GIVEN PER PATIENT'S REQUEST. BED ALARM ON.
--- NOTE | 2019-03-12 05:56 | NUR ---
CURRENTLY RESTING, EYES CLOSED, BED AND CHAIR ALARM DUE TO IMPULSIVENESS, FALL RISK. TOLERATING FULL LIQUIDS WELL, UP TO B WITH 1PA AND FWW. IMPROVED SPEECH, FOLLOWING INSTRUCTIONS WELL, IMPROVED MENTALITY. CALL LIGHT AT BEDSIDE
--- NOTE | 2019-03-12 06:43 | NUR ---
RESTING, EYES CLOSED. BED ALARM ON. CALL LIGHT AT BEDSIDE
--- NOTE | 2019-03-12 07:39 | NUR ---
RECIEVED BEDSIDE REPORT FROM RUBENS HAWLEY. PT AWAKE AND ALERT IN BED. PT MORE INTERACTIVE THAN HE WAS TUESDAY. PT ANSWERS QUESTIONS APROPRIATELY. TOLERATES FULL LIQUID DIET WELL.
--- NOTE | 2019-03-12 08:02 | NUR ---
AM CARE COMPLETED. PT IN CHAIR.
--- NOTE | 2019-03-12 10:15 | NUR ---
CARE CONFERENCE SPOKE WITH PATIENT IN ROOM. DR PAUL, PATIENTS BOSGordy AND PHYSICAL THERAPY ALL IN ON DISCUSSION ON POSSIBLE DISCHARGE PLANS. PATIENT IS ORIENTED X3 ALTHOUGH HE ADMITS NOT REMEMBERING MUCH OF HOSPITALIZATION. HE IS SLOW IN RESPONSES AT TIMES, DR PAUL STATES SHE IS GOING TO CHANGE SOME SCHEDULED MEDS TO PRN NEEDS TO HELP CLEAR MENTATION. PATIENT WISHES TO RETURN HOME, DOES NOT WANT TO GO TO SNF FOR REHAB STAY. PHYSICAL THERAPY STATES HE IS ABLE TO AMBULATE AND DO STAIR GOALS AND THEY WILL DISCHARGE HIM FROM INPATIENT NEED MOST LIKELY TODAY OR TOMORROW. DISCUSSED WITH PATIENT IF HE IS PLANNING ON CONTINUED SOBRIETY, HE STATES HE MEANS TO QUIT ALCOHOL AND CIGARETTES. DISCUSSED THAT WE CAN GET HIM EVALUATED WITH [facility] AND THEY CAN HELP HIM WITH OUTPATIENT FOLLOW UP ON THIS. HE IS IN AGREEMENT. PATIENT STATES HE LIVES ALONE IN APARTMENT, HAS ABOUT 13 STEPS INTO IT. HE STATES HE HAS NEVER NEEDED DME FOR AMBULATION. HE WANTS TO RETURN TO HIS OWN HOME AT DISCHARGE. HE STATES I CAN CALL HIS DAUGHTER ANETTE [phone] WHO LIVES IN [place] TO SEE IF SHE CAN HELP HIM WITH SOME SHOPPING AND CHECKING WITH HIM AT HOME. HE IS AGREEABLE TO CHW OR HH FOLLOW UP. DR PAUL DID DISCUSS WITH HIM THAT SOMEONE SHOULD REMOVE ALL ALCOHOL AND CIGARETTES FROM HIS APARTMENT BEFORE OR WHEN HE GETS HOME. HE WANTS TO SEE IF HIS DAUGHTER CAN HELP HIM WITH THIS. WILVER HERNANDEZ BROUGHT IN [facility] PAPERWORK AND THIS WAS GIVEN TO CHARGE NURSE AND WILL BE DONE BY DR PAUL. WILL CONTINUE TO FOLLOW.
--- NOTE | 2019-03-12 10:34 | NUR ---
PT AMBULATED WITH PHYSCIAL THERAPY. PT TOLERATED STAIRS WELL. PT ASKED FOR JUICE, WHICH WAS GIVEN. CASE MANAGEMENT IN ROOM ASSESSING PT.
--- NOTE | 2019-03-12 11:26 | NUR ---
CHW CONTACTED BRENNA NEWBERRY AT [facility] [phone]. DISCUSSED PATIENT. BRENNA STATED SHE WOULD HAVE SOMEONE FROM [facility] COME TO THE HOSPITAL AND DO AN ASSESSMENT WITH PATIENT FOR SERVICES TODAY 03/12/19. THEY WILL CALL CHW BEFORE ASSESSMENT AND THEN CALL CHW AFTER THE ASSESSMENT FOR FOLLOW UP TREATMENT INFORMATION.
--- NOTE | 2019-03-12 11:27 | NUR ---
CHW REVIEWED ECW- PATIENT ESTABLISHED CARE WITH PCP DR MONTENEGRO IN NOVEMBER. NEXT FOLLOW UP APT FOR PATIENT IS IN APRIL WITH PROVIDER.
--- NOTE | 2019-03-12 12:04 | NUR ---
MESSAGE LEFT ON JAMAR DA SILVA VOICEMAIL AT [phone] FOR CALLBACK.
--- NOTE | 2019-03-12 12:15 | NUR ---
SPOKE WITH DAUGHTER ANETTE [phone]. DISCUSSED THAT PATIENT ASKED I CALL HER AND FAMILY TO SEE IF THEY CAN POSSIBLY HELP WITH DISCHARGE TO HOME, HELPING HIM CLEAN UP HOUSE OF ALCOHOL AND MAYBE GETTING FOOD FROM STORE FOR HIM. DISCUSSED POSSIBLE DISCHARGE TO HOME TOMORROW OR NEXT DAY. UPDATED HER ON PATIENTS REQUEST TO SEEK A&D SERVICES FOR TREATMENT OPTIONS. ANETTE STATES SHE IS WORKING TWO JOBS AND DOES NOT THINK SHE CAN COME BUT THAT SHE WILL CALL HIS SISTER, HER AUNT DANIEL SHE DOES NOT WORK AND THEY WILL SEE WHAT THEY CAN DO.
--- NOTE | 2019-03-12 13:47 | NUR ---
PT SITTING IN CHAIR, TV ON. HE WAS FINISHING UP LUNCH-SLOW TO RESPOND, BUT ANSWERS SEEM TO BE ON POINT. PLEASANT, RATHER ENGAGED IN TV. EXTENDED A BLESSING, WILL CONTINUE TO FOLLOW NEEDED
--- NOTE | 2019-03-12 14:38 | NUR ---
PATIENT IN BED RESTING WITH EYES CLOSED. FRESH WATER GIVEN. CALL LIGHT IN REACH. NO FURTHER NEEDS AT THIS TIME.
--- NOTE | 2019-03-12 14:49 | NUR ---
RECEIVED PHONE CALL FROM PATIENTS SISTER DANIEL KEANE [phone]. SHE HAS SPOKEN WITH HER NEICE AND SHE STATES SHE IS NOT SURE SHE IS ABLE TO HELP HIM GO HOME. SHE STATES THEY ALL LOVE HIM, BUT HIS ETOH ABUSE HAS CAUSED PROBLEMS FOR THEM ALL AND THEY WANT HIM TO RECEIVE HELP, BUT THEY ARE UNSURE THEY CAN HELP. DISCUSSED WHAT THE PLANS ARE. SHE STATES THEY CAN POSSIBLY GO GET GROCERIES AND TAKE THEM TO HIM. BUT SHE IS UNSURE THEY WANT TO GO REMOVE ALCOHOL OR BE RESPONSIBLE FOR HIM OTHERWISE. SHE STATES SHE WANTS TO THINK ABOUT THIS AND TALK WITH FAMILY AGAIN. GAVE HER THE CASE MANAGEMENT PHONE LINE TO CALL IN THE MORNING TO LET US KNOW IF THEY CAN HELP OR IF WE NEED TO FIND OTHER OPTIONS TO GET HIM HOME. SHE STATES THEY WILL CALL BY 10AM IF THEY PLAN TO HELP WITH DISCHARGE. QUESTIONS ANSWERED.
--- NOTE | 2019-03-12 14:51 | NUR ---
PT RESTING COMFORTABLY IN BED. STATES HE HAS NO NEEDS AT THIS TIME. HEADACHE FROM EARLIER TODAY IS RESOLVED.
--- NOTE | 2019-03-12 15:44 | NUR ---
SKY, DIESEL ENGINE MECHANIC APPRENTICE, STATED THAT A&D WILL BE HERE ABOUT 8-8:30AM ON 03/12/19. PT'S SISTER HAS BEEN CONTACTED AND WILL THINK ABOUT ASSISTING HIM IN RECOVERY. HIS SISTER WILL CALL BACK TOMORROW.
--- NOTE | 2019-03-12 17:15 | NUR ---
PT HAS MULTIPLE VISITORS IN ROOM AT THIS TIME. PT APPEARS COMFORTABLE. PT HAS REFUSED A SHOWER. RN AND ARMAMENT REPAIRER HAVE APPROCHED MULTIPLE TIMES. PT VOIDING WELL.
--- NOTE | 2019-03-12 18:05 | NUR ---
PT CONTIUNES TO REFUSE SHOWER, MULTIPLE RN AND MUD MIXER HELPER ATTEMPTS TO GET HIM IN SHOWER TODAY. PT MENTATION CONTIUES TO CLEAR, ALERT AND AWAKE MOST OF SHIFT. CAN USE CALL LIGHT APROPRIATELY. CHAIR AND BED ALARM FOR SAFETY, CAN BE IMPULSIVE. PT VOIDING AND STOOLING. TOLERATING REGULAR DIET WELL. TOLERATING DECREASE IN LIBIRUM WELL.
--- NOTE | 2019-03-12 18:40 | NUR ---
PT DID AGREE TO A SHOWER WITH THE RN. PT SHOWERED MOSTLY INDEPENDENTLY. LINENS CHANGED. GOWN CHANGED. PT REQUESTED JUICE WHICH WAS GIVEN. PT TOLERATED WELL.
--- NOTE | 2019-03-12 19:40 | NUR ---
BEDSIDE REPORT RECEIVED FROM MARLEEN BRENNAN. PT RESTING IN BED ON TELEPHONE. BED ALARM ON. PT DENIES ANY REQUESTS AT THIS TIME. CALL LIGHT IN REACH.
--- NOTE | 2019-03-12 21:00 | NUR ---
PT COMPLAINED OF HEADACHE. MED WITH TYLENOL 500 MG. PT THANKED THIS NURSE. PLEASANT AND COOPERATIVE.
--- NOTE | 2019-03-12 22:07 | NUR ---
PT ASSESSMENT COMPLETE. AWAKENS TO VOICE. ORIENTED TO PERSON, , LOCATION. CALL LIGHT IN REACH, BED ALARM ON. PT DENIES REQUESTS AT THIS TIME.
--- NOTE | 2019-03-12 22:16 | NUR ---
BED ALARM SOUNDING, SBA TO RESTROOM WITH FWW FOR VOID. PT USING CALL LIGHT IN RESTROOM. BACK IN BED. BED ALARM ON. CALL LIGHT IN REACH.
--- NOTE | 2019-03-12 23:49 | NUR ---
CHECKED ON PT, RESTING WITH EYES CLOSED, VISIBLE CHEST RISE. BED ALARM ON.
--- NOTE | 2019-03-13 00:10 | NUR ---
V/S AND I&O DONE AND CHARTED.
--- NOTE | 2019-03-13 02:30 | NUR ---
CHECKED ON PT, AWAKE WATCHING TV. NO REQUESTS AT THIS TIME. BED ALARM ON.
--- NOTE | 2019-03-13 03:54 | NUR ---
PT BED ALARM SOUNDING. FOUND PT IN BATHROOM, ALARM LESS THAN 30 SECONDS SOUNDING. REMINDED PT TO USE CALL LIGHT WHEN DONE. STAYED NEAR PT WATCHING FROM AFAR, PT GOT UP STARTED TO WALK BACK TO BED, THEN PULLED CALL LIGHT. ASSISTED TO BED, REQUESTED CRANBERRY JUICE, RECEIVED. BED ALARM ON, CALL LIGHT WITHIN REACH.
--- NOTE | 2019-03-13 06:01 | NUR ---
BED ALARM SOUNDING, SBA WITH FWW TO RESTROOM FOR VOID AND BACK TO BED. PT ASSESSMENT COMPLETE. ORIENTED TO ALL AT THIS TIME. BED ALARM ON. CALL LIGHT IN REACH. CRANBERRY JUICE PROVIDED REQUESTED.
--- NOTE | 2019-03-13 07:25 | NUR ---
BEDSIDE HANDOFF REPORT RECEIVED FROM CIVIL PROJECT ENGINEER RN. PT NALLELY ALEGRIA CHAIR, CHAIR AL IN PLACE. PT DENIES OTHER NEEDS AT THIS TIME.
--- NOTE | 2019-03-13 08:15 | NUR ---
PT ASSISTED TO CHIAR FROM BATHROOM, SBA WITH FWW, CHAIR ALARM ON. PT ON ROOM AIR, LUNG SOUNDS CLEAR. PT ALERT/ORIENTED, FLAT AFFECT, SLOW TO RESPOND. PT DENIES PAIN. BOWEL TONES ACTIVE, DENIES NAUSEA, BM TODAY. CMS INTACT, WITHOUT EDEMA, PULSES STRONG. PT SALINE LCOKED, IV FLUSHED, PATENT. PT DENIES NEEDS AT THIS TIME, DISCUSSED PLAN OF CARE FOR THE DAY.
--- NOTE | 2019-03-13 08:55 | NUR ---
SPOKE WITH TWO STAFF MEMBERS FROM [facility] WHO HAVE MET WITH PATIENT IN ROOM. THEY STATE THEY WILL BE WORKING WITH HIM FOLLOWING DISCHARGE HIS REQUEST FOR TREATMENT FOR ALCOHOL ABUSE.
--- NOTE | 2019-03-13 09:30 | NUR ---
CONFERENCE CALL WITH MYSELF, ORQUIDEA HAWLEY AND PATIENTS SISTER DANIEL. SHE STATES THAT SHE WILL NOT BE ABLE TO TAKE PATIENT HOME AT DISCHARGE. SHE STATES SHE WILL POSSIBLY HELP HIM LATER BY GETTING GROCERIES OR FOOD, BUT SHE DOES NOT FEEL SHE CAN HELP HIM WITH CLEANING OUT HIS PLACE OR DISPOSING OF ALCOHOL. DISCUSSED THAT WE WILL WORK ON ALTERNATIVE PLAN.
--- NOTE | 2019-03-13 11:30 | NUR ---
SPOKE WITH RORO VALENTIN AND RORO JONAS WHO ARE PLANNING ON GOING TO PATIENTS HOME ON DISCHARGE DAY TO MAKE SURE HE HAS RESOURCES AND GETS HOME SAFELY. THEY HAVE SPOKEN WITH [facility] WHO WILL ALSO MEET THEM THERE AND WILL HELP PATIENT WITH HIS WISHES TO REMOVE ETOH FROM HOME. THEY AGREE TO MEET AT 1145 TOMORROW (03-14-19) FOR PLANNED DISCHARGE TIME. STAFF UPDATED. DR PAUL UPDATED. SHE IS AGREEABLE THAT PATIENT SHOULD BE ABLE TO DISCHARGE TOMORROW.
--- NOTE | 2019-03-13 12:00 | NUR ---
SPOKE WITH PATIENT IN ROOM. DISCUSSED DISCHARGE PLAN FOR PROBABLE TOMORROW. DISCUSSED THAT HIS SISTER IS UNABLE TO TAKE HIM HOME, BUT THAT SHE WILL CONTACT HIM ABOUT HELPING GET GROCERIES. DISCUSSED THAT IF HE CAN GET A RIDE FROM FRIENDS OR WE WILL USE A CARERIDE AND HE CAN DISCHARGE HOME BETWEEN 11-11:30 TOMORROW 03/14/19 AND THAT THE TWO CHW'S AND THE TWO A&D COUNSELORS WILL MEET HIM AT HIS HOME AT 1145 TO HELP HIM MAKE SURE HE HAS WHAT HE NEEDS. PATIENT STATES "THANK YOU FOR ALL THE HELP". PATIENT STATES "I JUST WANT TO MAKE SURE THE ALCOHOL IS OUT AND I CAN GET UP THE STAIRS OK". PATIENT STATES HIS BOSS IS GOING TO BE CHECKING IN ON HIM ALSO. WE DISCUSSED THAT DR PAUL IS FILLING OUT THE [place] PAPERWORK HIS BOSS BROUGHT. PATIENT DENIES ANY OTHER QUESTIONS AT THIS TIME. I ALSO AGAIN TOLD HIM TO KEEP THE CONTACT INFORMATION FOR THE CHW'S AND HE CAN CALL THEM WITH ANY ISSUES OR QUESTIONS AFTER DISCHARGE. WE ALSO DISCUSSED THAT THEY CAN HELP WITH TRANSPORTATION TO ANY APPOINTMENTS OR TREATMENT. HE STATES UNDERSTANDING. STAFF UPDATED.
[2019-03-13] MEDS ORDERED: NICOTINE1 EAC1 TD (13:33)
[2019-03-13] MEDS ORDERED: SPIRONOLACTONE25 MG PO (13:33)
[2019-03-13] MEDS ORDERED: LISINOPRIL2.5 MG PO (13:34)
--- NOTE | 2019-03-13 13:36 | NUR ---
I SEEM TO ALWAYS CATCH PT EATING LUNCH. HE IS SITTING IN CHAIR FINISHING AND WATCHING TV. HE STATED LUNCH TASTED GOOD AND THAT HE SLEPT OK. ALL RESPONSES ARE SLOW, BUT ON POINT. I EXTENDED A BLESSING, WILL FOLLOW NEEDED
--- NOTE | 2019-03-13 14:04 | NUR ---
PATIENT UP TO BATHROOM AND THEN TO BED, 1PA FWW. FRESH WATER GIVEN. CALL LIGHT IN REACH. NO FURTHER NEEDS AT THIS TIME.
--- NOTE | 2019-03-13 14:14 | NUR ---
PT RESTING IN BED. PT ON ROOM AIR, LUNG SOUNDS CLEAR. CMS INTACT. PT DENIES PAIN. NO ACUTE CHANGES. PT DENIES OTHER NEEDS AT THIS TIME.
--- NOTE | 2019-03-13 18:05 | NUR ---
PT ASSISTED TO BATHROOM, SBA WITH FWW. PT TO PULL CALL LIGHT WHEN READY TO RETURN TO BED.
--- NOTE | 2019-03-13 18:18 | NUR ---
PATIENT IN BED WATCHING TV. FRESH WATER GIVEN. CALL LIGHT IN REACH. NO FURTHER NEEDS AT THIS TIME.
--- NOTE | 2019-03-13 18:38 | NUR ---
PT HAD UNEVENTFUL DAY. PT WITH FLAT AFFECT, CALLED APPROPRIATELY, IMPULSIVE AT TIMES, BED/CHAIR ALARM. PT DISORIENTED TO DATE. PT ON ROOM AIR, LUNG SOUNDS CLEAR. PT TOLERATING REGULAR DIET, GOOD APPETITE. SBA WITH FWW. SALINE LOCKED. ALCOHOL REHAB MET WITH PT TO PLAN OUTPATIENT TRAETMENT. PLAN FOR DC TOMORROW.
--- NOTE | 2019-03-13 19:30 | NUR ---
PATIENT UP TO THE BATHROOM 1PA WITH WALKER.
--- NOTE | 2019-03-13 21:17 | NUR ---
PT CALLED, NEEDED TO USE BATHROOM. SBA, ENCOURAGED PT TO BRUSH TEETH, WHICH HE DID INDEPENDENTLY. INDEPENDENTLY INTO BED, VITALS DONE AND I/O'S. CALL LIGHT WITHIN REACH.
--- NOTE | 2019-03-13 22:49 | NUR ---
AROUND 1900 ASSISTED PATIENT TO THE BATHROOM AND BACK TO BED USING WALKER. BED ALARM ON. CRANBERRY JUICE GIVEN PER PATIENT'S REQUEST.
--- NOTE | 2019-03-13 22:49 | NUR ---
PATIENT RESTING EYES CLOSED, RESPIRATIONS REGULAR AND EVEN JOANNE RATE OF 16.
--- NOTE | 2019-03-14 00:23 | NUR ---
PATIENT SITTING IN BED WATCHING TV AT THIS TIME.
--- NOTE | 2019-03-14 02:58 | NUR ---
PATIENT JUST GOT BACK INTO BED AFTER 1PSBA TO THE BATHROOM WITH FWW.
--- NOTE | 2019-03-14 05:00 | NUR ---
PATIENT UP TO THE BATHROOM MANY TIMES LAST NIGHT. RESTED ON AND OFF THROUGH THE NIGHT. PATIENT HAS HAD NO COMPLAINTS AND HAS HAD NO PAIN. IV FLUSHES WELL. NOTHING MORE TO REPORT.
--- NOTE | 2019-03-14 07:15 | NUR ---
BEDSIDE HANDOFF REPORT RECEIVED FROM MEDICAL CLAIMS ASSISTANT. PT SITTING IN CHAIR. PT DENIES NEEDS AT THIS TIME. DISCUSSED PLAN FOR DISCHARGE TODAY.
--- NOTE | 2019-03-14 07:46 | NUR ---
PATIENT SITTING UP IN BEDSIDE RECLINER, PATIENT REFUSED AM CARE AND STATED HE ALREADY CLEANED UP IN THE BATHROOM THIS MORNING. PATIENT CALL LIGHT IN REACH, CHAIR ALARM ON. NO OTHER NEEDS AT THIS TIME.
--- NOTE | 2019-03-14 08:54 | NUR ---
THIS READING RECOVERY TEACHER ASSISTED PATIENT BACK TO BEDSIDE RECLINER FROM BATHROOM. PATIENT PERFORMED ORAL CARE AT SINK AND WASHED HANDS AND FACE. PATIENT DRESSED IN CLEAN GOWN, AND HAS A CHAIR ALARM ON. PATIENT REFUSED A SHOWER AND BED BATH, STATING HE HAD ONE YESTERDAY. PATIENT CALL LIGHT IN REACH. NO OTHER NEEDS AT THIS TIME.
--- NOTE | 2019-03-14 09:30 | NUR ---
PT BEDING ASSISTED TO CHAIR WITH NURSE AIDE FROM BATHROOM. PT ON ROOM AIR, LUNG SOUNDS CLEAR. PT WITH GOOD APPETITE, TOLERATING REGUALR DIET, BOWEL TONES ACTIVE. VSS. CMS INTACT, WITHOTU EDEMA, PULSES STRONG. PT ALERT/ORIENTED, FLAT AFFECT. DISCUSSED PLAN FOR DISCHARGE AT 1130. PT DENIES OTHER NEEDS AT THIS TIME.
--- NOTE | 2019-03-14 09:55 | NUR ---
CARE CONFERENCE SPOKE WITH PATIENT IN ROOM WITH DR SOLANO AND ORQUIDEA HAWLEY. DISCUSSION COVERED DISCHARGE PLAN FOR TODAY, MEDICATIONS BEING ORDERED, PLAN TO GET HOME SAFELY, PLAN FOR [facility] WORKERS AND A&D STAFF TO MEET PATIENT AT HOME AFTER DISCHARGE TO HELP WITH RESOURCES AND FURTHER PLAN. QUESTIONS ANSWERED. PATIENT STATES UNDERSTANDING AND "THANK YOU FOR ALL THE HELP".
--- NOTE | 2019-03-14 11:01 | NUR ---
THIS VIBRATING SCREEN OPERATOR ASSISTED PATIENT TO GET DRESSED IN CLOTHES FROM HOME, PATIENT BACK IN BEDSIDE RECLINER WAITING FOR DISCHARGE INSTRUCTIONS. CALL LIGHT IN REACH, BED ALARM ON, NO OTHER NEEDS AT THIS TIME.
[2019-03-14] MEDS ORDERED: SPIRONOLACTONE25 MG PO (11:57)
[2019-03-14] MEDS ORDERED: FUROSEMIDE20 MG PO (11:57)
[2019-03-14] MEDS ORDERED: ATORVASTATIN CA10 MG PO (11:57)
--- NOTE | 2019-03-14 12:36 | NUR ---
PT DRESSED, SITTING IN CHAIR WATCHING TV. PT HAD A BIG SMILE, MORE ALERT TODAY. SAID YOLIS BEFORE I COULD TO HIM. PT TO BE DC'D TODAY. WILL FOLLOW NEEDED
--- NOTE | 2019-03-14 13:00 | NUR ---
RECEIVED A CALL FROM RORO JONAS WHO WAS AT PATIENTS HOME. PATIENT DID NOT HAVE RX FILLED STATING TO HER THAT HE CANNOT AFFORD COST. CALLED DR SOLANO TO REQUEST FILL AT HOSPITAL FOR A MONTH SUPPLY SO PATIENT CAN GET HIS FINANCES RE-ESTABLISHED. RX BEING FILLED BY PHARMACY AND RORO JONAS WILL CEO & CO FOUNDER AND DELIVER TO PATIENT THIS AFTERNOON. SHE ALSO STATED A&D COUNSELORS AT HIS HOME ALSO.
== END 2019-03-14 11:10 | disposition home or self-care (01) | DRG 641 ==
LOC: ED 14:47 → CCU 16:20 → MS 16:20
PROVIDERS: ADMIT Internal Medicine
DX: E87.1 Hypo-osmolality and hyponatremia (principal); F10.231 Alcohol dependence with withdrawal delirium; I42.6 Alcoholic cardiomyopathy; I13.0 Hypertensive heart and chronic kidney disease with heart failure and stage 1 through stage 4 chronic kidney disease, or unspecified chronic kidney disease; E86.1 Hypovolemia; K29.20 Alcoholic gastritis without bleeding; F17.210 Nicotine dependence, cigarettes, uncomplicated; N18.3 Chronic kidney disease, stage 3 (moderate); I50.9 Heart failure, unspecified; E78.5 Hyperlipidemia, unspecified; E87.6 Hypokalemia; E05.80 Other thyrotoxicosis without thyrotoxic crisis or storm; D72.829 Elevated white blood cell count, unspecified; S01.81XA Laceration without foreign body of other part of head, initial encounter; W18.30XA Fall on same level, unspecified, initial encounter; Y92.512 Supermarket, store or market as the place of occurrence of the external cause; Z79.899 Other long term (current) drug therapy
CPT/HCPCS: 12011; 36415; 70450; 71045; 72125; 73080; 80048; 80053; 81001; 82607; 82728; 82746; 83540; 83690; 83735; 83880; 83930; 83935; 84133; 84300; 84439; 84443; 84466; 84550; 85025; 90471; 90715; 93005; 93010; 94760; 97110; 97116; 97162; 97165; 99285-25; 99406; C9113; G0480; J1650; J2060; J2405; J2597; J3360; J3411; J3475; J3480; J7030; J7060; J7070

== ENCOUNTER 2020-04-19 08:14 | Inpatient (IN) | payer OTHER ==
[~2020-04-19] VITALS: Ht 175.3 cm; Wt 91.2 kg
--- OUTSIDE RECORDS SUMMARY | ~2020-04-19 | XMS | Encounter Summary ---
Demographics + + + | Address | [address] | | | [place] [address] | + + + | Home Phone | | + + + | Preferred Language | Unknown | + + + | Marital Status | Single | + + + | Protestant Affiliation | Unknown | + + + | Race | Unknown | + + + | Ethnic Group | Unknown | + + + Author + + + | Author | [facility] | | | and [place] | + + + | Organization | [facility] | | | and [place] | + + + | Address | Unknown | + + + | Phone | Unavailable | + + + Care Team Providers + +------+ + | Care Mobile Application Developer Name | Role | Phone | + +------+ + | No, Physician | PCP | Unavailable | + +------+ + Encounter Details +--------+ + + + + | Date | Type | Department | Care Team | Description | +--------+ + + + + | 12/28/ | Orders Only | [facility] | Conversion | | | 2019 | | [facility]ARDIOLOGY [place] | Transaction, | | | | | [address] | Provider Unknown | | | | | [place] | [phone] | | | | | [address] | | | | | | [phone] | | | +--------+ + + + + Social History + +-------+ +--------+------+ | Tobacco Use | Types | Packs/Day | Years | Date | | | | | Used | | + +-------+ +--------+------+ | Former Smoker | | | | | + +-------+ +--------+------+ + +---+---+---+ | Smokeless Tobacco: | | | | | Current User | | | | + +---+---+---+ + + +---------+ + | Alcohol Use | Drinks/Week | oz/Week | Comments | + + +---------+ + | Yes | | | daily ETOH | + + +---------+ + + + + | Sex Assigned at | Date Recorded | | | | + + + | Not on file | | + + + + + + + | Job Start Date | Occupation | Industry | + + + + | Not on file | Not on file | Not on file | + + + + + + + + | Travel History | Travel Start | Travel End | + + + + + + | No recent travel history available. | + + documented as of this encounter Plan of Treatment Not on filedocumented as of this encounter Procedures + +--------+ + + + | Procedure Name | Priori | Date/Time | Associated Diagnosis | Comments | | | ty | | | | + +--------+ + + + | BASIC METABOLIC | Routin | 12/28/2018 | | Results for this | | PANEL | e | 3:15 PM | | procedure are in the | | | | PST | | results section. | + +--------+ + + + documented in this encounter Results Basic Metabolic Panel (12/28/2018 3:15 PM PST) + +-------+ + + + | Component | Value | Ref Range | Performed | Pathologist | | | | | At | Signature | + +-------+ + + + | Glucose, | 78 | 70 - 100 mg/dL | EXTERNAL | | | Fasting | | | LAB | | + +-------+ + + + | BUN | 19 | 6 - 23 mg/dL | EXTERNAL | | | | | | LAB | | + +-------+ + + + | Creatinine | 1.15 | 0.60 - 1.35 | EXTERNAL | | | | | mg/dL | LAB | | + +-------+ + + + | BUN/Creatin | 16.5 | 6.0 - 28.6 | EXTERNAL | | | ine Ratio | | | LAB | | + +-------+ + + + | Calcium | 9.4 | 8.5 - 10.3 | EXTERNAL | | | | | mg/dL | LAB | | + +-------+ + + + | Na | 135 | 132 - 143 | EXTERNAL | | | | | mmol/L | LAB | | + +-------+ + + + | K | 4.5 | 3.6 - 5.1 | EXTERNAL | | | | | mmol/L | LAB | | + +-------+ + + + | Cl | 101 | 95 - 112 mmol/L | EXTERNAL | | | | | | LAB | | + +-------+ + + + | CO2 | 21 | 19 - 31 mmol/L | EXTERNAL | | | | | | LAB | | + +-------+ + + + | Anion Gap | 17.5 | 7 - 21 mmol/L | EXTERNAL | | | | | | LAB | | + +-------+ + + + | Estimated | 68 | 60 mg/dL | EXTERNAL | | | GFR | | | LAB | | + +-------+ + + + + + | Specimen | + + | Blood specimen | | (specimen) | + + + +---------+ + + | Performing | Address | City/State/Zipcode | Phone Number | | Organization | | | | + +---------+ + + | EXTERNAL LAB | | | | + +---------+ + + documented in this encounter Visit Diagnoses Not on filedocumented in this encounter"
--- OUTSIDE RECORDS SUMMARY | ~2020-04-19 | XMS | Encounter Summary ---
Demographics + + + | Address | [address] | | | [place] [address] | + + + | Home Phone | | + + + | Preferred Language | Unknown | + + + | Marital Status | Single | + + + | Episcopalian Affiliation | Unknown | + + + | Race | Unknown | + + + | Ethnic Group | Unknown | + + + Author + + + | Author | [facility] | | | and [place] | + + + | Organization | [facility] | | | and [place] | + + + | Address | Unknown | + + + | Phone | Unavailable | + + + Care Team Providers + +------+ + | Care Freight Engineer Name | Role | Phone | + [...] [address] | | | | | [place], [place] | [place] [address] | | | | | [address] | [phone] | | | | | [phone] | | | +--------+ + + + [...] function | | | is normal. 4. Umyh-ne-feuqwino mitral regurgitation is present. 5. | | [...] function is normal. | | | 4. Wkxf-eh-qngkbsyu mitral regurgitation is present. 5. There are | | | several changes noted in comparison to the previous echocardiographic | | | study, done 06/09/17. FINDINGS -------- ECG rhythm: Sinus rhythm. | | | Study: A 2-dimensional transthoracic echocardiogram with m-mode, | | | spectral and color flow Doppler was perfomed at [facility]. Study: This was | | | a [...] | mitral valve is normal. Mitral Valve: Zhkp-kv-iksuolbx mitral | | | regurgitation is present. [...] 0.91 | | | m/s MV Dec [place]: 3.53 m/s2 MV DecT: 205.32 ms MV E Henry: | | | 0.72 m/s MV E/A Ratio: 0.79 MV PHT: 59.54 ms MVA By PHT: | | | 3.69 cm2 Septal e': 0.04 m/s Septal E/e': 15.15 Lateral e': | | | 0.03 m/s Lateral E/e': 21.69 RAP: 5 mmHg RVSP: 22.41 | | | mmHg TR maxP.41 mmHg TR Vmax: 2.08 m/s Dog Food Shredder Operator: | | | DH Authenticated by: ETIENNE GEORGES MD Report Date/Time: -- | | | [id number] | | + + + + + | Procedure Note | + + | Javier Goss Conversion - 07/05/2019 4:35 PM PDT Patient Name: Benita Xiong of : | | 1970 Performing Physician: ETIENNE GEORGES, | | INDICATIONS C | | ardiomyopathy CONCLUSIONS 1. The left ventricle is markedly dilated. Overall | | left ventricular systolic function is moderate-severely impaired, with an EF of 30%.2. | | The diastolic filling pattern indicates impaired relaxation consistent with mild | | dysfunction (Grade I).3. The right ventricle is mildly enlarged, but right ventricular | | systolic function is normal.4. Rter-ai-owdjjmvf mitral regurgitation is present. 5. | | There are several changes noted in comparison to the previous echocardiographic study, | | done 06/09/17. FINDINGS--------ECG rhythm: Sinus rhythm.Study: A 2-dimensional | | transthoracic echocardiogram with m-mode, spectral and color flow Doppler was perfomed | | at [facility].Study: This was a technically adequate study.Left Ventricle: [...] Valve: The mitral valve is normal.Mitral Valve: Lzrl-wn-mergxikz | | mitral regurgitation is present. There [...] cmLVPWd: 1.10 | | cmLVOT Area: 3.96 [id number] Diam: 2.24 cm%FS: 16.22 %EF(Teich): 33.17 | [...] (A-L): 25.30 ml/m2LAAs | | A2C: 17.73 [id number] A-L A2C: 56.19 mlLALs A2C: 4.75 cmLAAs A4C: 16.27 [id number] | | A-L A4C: 48.06 mlLALs A4C: 4.67 cmRAAs: 15.74 ts4OXYRI A-L: 44.83 mlRAESV MOD: | | 43.21 mlRALs: 4.69 cmTAPSE: 2.70 cmAV maxP.79 mmHgAV meanP.61 mmHgAV | | Vmax: 1.39 m/Indra Vmean: 1.01 m/Indra VTI: 28.31 cmAVA Vmax: 2.86 cm2AVA (VTI): | | 2.58 on4IVDR Vmax: 0.00 cm2/m2AVAI (VTI): 0.00 cm2/m2LVOT maxP.05 mmHgLVOT | | meanP.18 mmHgLVSI Dopp: 35.31 ml/m2LVSV Dopp: 73.10 mlLVOT Vmax: 1.00 | | m/sLVOT Vmean: 0.68 m/sLVOT VTI: 18.42 cmMV A Henry: 0.91 m/sMV Dec [place]: 3.53 | | m/s2MV DecT: 205.32 msMV E [place]: 0.72 m/sMV E/A Ratio: 0.79MV PHT: 59.54 msMVA By | | PHT: 3.69 gj3Czhumt e': 0.04 m/sSeptal E/e': 15.15Lateral e': 0.03 m/sLateral | | E/e': 21.69RAP: 5 mmHgRVSP: 22.41 mmHgTR maxP.41 mmHgTR Vmax: 2.08 m/s | | Dog Food Shredder Operator: DHAuthenticated by: Pema ELLISON Date/Time: -- | | [id number] IMPRESSION: 1. The left ventricle is markedly dilated. Overall | | left ventricular systolic function is moderate-severely impaired, with an EF of 30%.2. | | The diastolic filling pattern indicates impaired relaxation consistent with mild | | dysfunction (Grade I).3. The right ventricle is mildly enlarged, but right ventricular | | systolic function is normal.4. Qmto-tl-efewfcdp mitral regurgitation is present. 5. | | [...] A Henry: 0.91 m/s | |MV Dec [place]: 3.53 m/s2 | |MV DecT: 205.32 ms [...] |TR Vmax: 2.08 m/s | | | |Dog Food Shredder Operator: | |Authenticated by: ETIENNE GEORGES MD | |Report Date/Time: -- [id number] | | | |IMPRESSION: | |1. The left ventricle is markedly dilated. Overall left ventricular systolic function is m oderate-severely impaired, with an EF of 30%. | |2. The diastolic filling pattern indicates impaired relaxation consistent with mild dysfunc tion (Grade I). | |3. The right ventricle is mildly enlarged, but right ventricular systolic function is krish l. | |4. Kgen-qy-qzmwdpwq mitral regurgitation is present. 5. There are several changes noted in comparison to the previous echocardiographic study, done 06/09/17. | + + documented in this encounter Visit Diagnoses Not on filedocumented in this encounter"
--- OUTSIDE RECORDS SUMMARY | ~2020-04-19 | XMS | Encounter Summary ---
Demographics + + + | Address | [address] | | | [place] [address] | + + + | Home Phone | | + + + | Preferred Language | Unknown | + + + | Marital Status | Single | + + + | Adventist Affiliation | Unknown | + + + | Race | Unknown | + + + | Ethnic Group | Unknown | + + + Author + + + | Author | [facility] | | | and [place] | + + + | Organization | [facility] | | | and [place] | + + + | Address | Unknown | + + + | Phone | Unavailable | + + + Care Team Providers + +------+ + | Care Material Control Supervisor Name | Role | Phone | + +------+ + PCP | Unavailable | + +------+ + Encounter Details +--------+ + + + + | Date | Type | Department | Care Team | Description | +--------+ + + + + | 12/12/ | Hospital | [facility] | Conversion | Cardiomyopathy, | | 2016 | Encounter | [facility] | Transaction, | dilated (HCC) | | | | CLINICAL DECISION | Provider Unknown | | | | | [address] [facility] | [phone] | | | | | [place], [place] | | | | | | [address] | Oneal Rowe | | | | | [phone] | MD [address] | | | | | | [address] | | | | | | [place] [address] | | | | | | [phone] | | | | | | | [...] by Maria Guadalupe Wang RN at 12/12/15 1536 Author: Maria Guadalupe Wang RN Service: (none) Author Type: Registered Nurse Filed: 12/12/15 1537 Date of Service: 12/12/15 1536 Status: Signed Program Manager Slp: Maria Guadalupe Wang RN (Registered Nurse) Pt discharged home via private vehicle with family. Signed and stated understanding of dis charge instructions. All belongings with patient upon discharge. Tele notified and IV dc'd . onver sterling Transaction, Provider Unknown - 12/12/2015 2:30 PM PST Nurse Progress Note by Maria Guadalupe Wang RN at 12/12/15 5068 Author: Maria Guadalupe Wang RN Service: (none) Author Type: Registered Nurse Filed: 12/12/15 9286 Date of Service: 12/12/15 1430 Status: Signed Program Manager Slp: Maria Guadalupe Gentry Ceresco, RN (Registered Nurse) Pt has ambulated, voided, and eaten. Site and vitals remain stable. docume nted in this encounter Plan of Treatment Not [...] | | | | | performed at [facility] | | | | | | [facility];[place] | | | | | | [address] | | | | + + + + + + + + | Specimen | + + | Blood specimen | | (specimen) | + + + +---------+ + + | Performing | Address | City/State/Zipcode | Phone Number | | Organization | | | | + +---------+ + + | EXTERNAL LAB | | | | + +---------+ + + External Lab: CBC (12/12/2015 10:05 AM PST) + + + + + + | Component | Value | Ref Range | Performed | Pathologist | | | | | At | Signature | + + + + + + | WBC | 5.36Comment: Testing | 3.80 - 11.00 | EXTERNAL | | | | performed at [facility];[address] | K/uL | LAB | | | | [address];[place] | | | | | | [address] | | | | + + + + + + | Red Blood | 5.20Comment: Testing | 4.20 - 5.70 | EXTERNAL | | | Cells | performed at [facility];[address] | M/uL | LAB | | | Counted | [address];[place] | | | | | | [address] | | | | + + + + + + | Hemoglobin | 15.7Comment: Testing | 13.2 - 17.0 | EXTERNAL | | | | performed at [facility];888 | g/dL | LAB | | | | [address];[place] | | | | | | [address] | | | | + + + + + + | Hematocrit, | 46.9Comment: Testing | 39.0 - 50.0 % | EXTERNAL | | | POC | performed at [facility];[address] | | LAB | | | | [address];[place] | | | | | | [address] | | | | + + + + + + | MCV | 90.2Comment: Testing | 80.0 - 100.0 fl | EXTERNAL | | | | performed at [facility];[address] | | LAB | | | | [address];[place] | | | | | | [address] | | | | + + + + + + | MCH | 30.1Comment: Testing | 27.0 - 34.0 pg | EXTERNAL | | | | performed at [facility];[address] | | LAB | | | | [address];[place] | | | | | | [address] | | | | + + + + + + | MCHC | 33.4Comment: Testing | 32.0 - 35.5 | EXTERNAL | | | | performed at [facility];888 | g/dL | LAB | | | | [address];[place] | | | | | | [address] | | | | + + + + + + | RDW-CV | 51.2Comment: Testing | 37 - 53 fl | EXTERNAL | | | | performed at [facility];[address] | | LAB | | | | [address];[place] | | | | | | [address] | | | | + + + + + + | Platelet | 274Comment: Testing | 150 - 400 K/uL | EXTERNAL | | | Count | performed at [facility];[address] | | LAB | | | Plasma | [address];[place] | | | | | | [address] | | | | + + + + + + | MPV | 8.1Comment: Testing | fl | EXTERNAL | | | | performed at [facility];[address] | | LAB | | | | [address];[place] | | | | | | [address] | | | | + + + + + + | Differentia | AUTOMATEDComment: | | EXTERNAL | | | l Type | Testing performed at | | LAB | | | | [facility];[address];[place] [address] | | | | + + + + + + | % Segmented | 52.00Comment: Testing | % | EXTERNAL | | | | performed at [facility];[address] | | LAB | | | Neutrophils | [address];[place] | | | | | | [address] | | | | + + + + + + | % | 33.39Comment: Testing | % | EXTERNAL | | | Lymphocytes | performed at [facility];[address] | | LAB | | | | [address];[place] | | | | | | [address] | | | | + + + + + + | % Monocytes | 12.40Comment: Testing | % | EXTERNAL | | | | performed at [facility];[address] | | LAB | | | | [address];[place] | | | | | | [address] | | | | + + + + + + | % | 1.11Comment: Testing | % | EXTERNAL | | | Eosinophils | performed at [facility];[address] | | LAB | | | | [address];[place] | | | | | | [address] | | | | + + + + + + | % Basophils | 1.10Comment: Testing | % | EXTERNAL | | | | performed at [facility];[address] | | LAB | | | | [address];[place] | | | | | | [address] | | | | + + + + + + | Absolute | 2.79Comment: Testing | 1.90 - 7.40 | EXTERNAL | | | Segmented | performed at [facility];[address] | K/uL | LAB | | | Neutrophils | [address];[place] | | | | | | [address] | | | | + + + + + + | Absolute | 1.79Comment: Testing | 1.00 - 3.90 | EXTERNAL | | | Lymphocytes | performed at [facility];[address] | K/uL | LAB | | | | [address];[place] | | | | | | [address] | | | | + + + + + + | Absolute | 0.67Comment: Testing | 0.00 - 0.80 | EXTERNAL | | | Monocytes | performed at [facility];[address] | K/uL | LAB | | | | [address];[place] | | | | | | [address] | | | | + + + + + + | Absolute | 0.06Comment: Testing | 0.00 - 0.50 | EXTERNAL | | | Eosinophils | performed at [facility];[address] | K/uL | LAB | | | | [address];[place] | | | | | | [address] | | | | + + + + + + | Absolute | 0.06Comment: Testing | 0.00 - 0.10 | EXTERNAL | | | Basophils | performed at [facility];[address] | K/uL | LAB | | | | [address];[place], [place] | | | | | | [address] | | | | + + + [...] EXTERNAL | | | | performed at [facility];888 | mmol/L | LAB | | | | [address];[place] | | | | | | [address] | | | | + + + + + + | K | 4.5Comment: Testing | 3.5 - 4.9 | EXTERNAL | | | | performed at [facility];888 | mmol/L | LAB | | | | [address];[place] | | | | | | [address] | | | | + + + + + + | Cl | 101Comment: Testing | 99 - 109 mmol/L | EXTERNAL | | | | performed at [facility];[address] | | LAB | | | | [address];[place] | | | | | | [address] | | | | + + + + + + | CO2 | 22 (L)Comment: Testing | 23 - 32 mmol/L | EXTERNAL | | | | performed at [facility];[address] | | LAB | | | | [address];[place] | | | | | | [address] | | | | + + + + + + | Anion Gap | 15Comment: Testing | 5 - 20 mmol/L | EXTERNAL | | | | performed at [facility];[address] | | LAB | | | | [address];[place] | | | | | | [address] | | | | + + + + + + | Glucose, | 91Comment: Testing | 65 - 99 mg/dL | EXTERNAL | | | Fasting | performed at [facility];[address] | | LAB | | | | [address];[place] | | | | | | [address] | | | | + + + + + + | BUN | 15Comment: Testing | 8 - 25 mg/dL | EXTERNAL | | | | performed at [facility];[address] | | LAB | | | | [address];[place] | | | | | | [address] | | | | + + + + + + | Creatinine | 1.0Comment: Testing | 0.70 - 1.30 | EXTERNAL | | | | performed at [facility];888 | mg/dL | LAB | | | | [address];[place] | | | | | | [address] | | | | + + + + + + | BUN/Creatin | 15Comment: Testing | | EXTERNAL | | | ine Ratio | performed at [facility];[address] | | LAB | | | | [address];[place] | | | | | | [address] | | | | + + + + + + | Calcium | 8.7Comment: Testing | 8.5 - 10.5 | EXTERNAL | | | | performed at [facility];888 | mg/dL | LAB | | | | [address];[place], [place] | | | | | | [address] | | | | + + + [...] | | | | | | at [facility];[address] [place] | | | | [address];[place] [address] | | | | + + + [...]
--- OUTSIDE RECORDS SUMMARY | ~2020-04-19 | XMS | Clinical Summary ---
Demographics + + + | Address | [address] | | | [place] [address] | + + + | Home Phone | | + + + | Preferred Language | Unknown | + + + | Marital Status | Single | + + + | Yazdanism Affiliation | Unknown | + + + | Race | Unknown | + + + | Ethnic Group | Unknown | + + + Author + + + | Author | [facility] | | | and [place] | + + + | Organization | [facility] | | | and [place] | + + + | Address | Unknown | + + + | Phone | Unavailable | + + + Care Team Providers + +------+ + | Care Soap Worker Name | Role | Phone | + [...] + + | Father | | | [place] x 2, open heart surgery | | [...] | | | Dtap/Tdap/Td (1 - | 0 | | | | Tdap) | | | | + + + + + | Colorectal Cancer | | | | | Screening | 9 | | | | (Colonoscopy) | | | | + + + + + | Vaccine: Zoster (1 | | | | | of 2) | 9 | | | + + + + + | Vaccine: Influenza | | | | | (Season Ended) | 0 | | | + + + + [...] +-------+--------+ +--------+-------+---------+------+ | UMR | UMR | [id number] | 11/14/19 | | | PPO | [...] | [address] | | | al/Fam | | 1970 | [phone] | [address] [place], | | | [place] | | | [address] (Home) | [place] [address] | + +--------+ +--------+ + + Advance Directives + + + + + | Type | Date Recorded | Patient | Explanation | | | | Transfer Operator | | + + + + + | Power of | | | | | Otologist | | | | + + + + + | Advance | 08/03/2018 12:41 | | | | Directive | PM | | | + + + + +
--- OUTSIDE RECORDS SUMMARY | ~2020-04-19 | XMS | Encounter Summary ---
Demographics + + + | Address | [address] | | | [place] [address] | + + + | Home Phone | | + + + | Preferred Language | Unknown | + + + | Marital Status | Single | + + + | Protestant Affiliation | Unknown | + + + | Race | Unknown | + + + | Ethnic Group | Unknown | + + + Author + + + | Author | [facility] | | | and [place] | + + + | Organization | [facility] | | | and [place] | + + + | Address | Unknown | + + + | Phone | Unavailable | + + + Care Team Providers + +------+ + | Care Egg Caser Name | Role | Phone | + [...] | | | | CENTER [address] | [facility] | unspecified type | | | | [place] | [place] [address] | (Primary Dx); Left | | | | [address] | [phone] | arm weakness; | | | | [phone] | | Numbness and | | | [...] sent through Care Everywhere.TIA: Transient Ischemic Attack (Barb[place])documented in this encounter Medications at Time of [...] Jasiel Armstrong - 08/03/2018 12:23 PM PDT [facility] Telestroke Consultation Note This exam was conducted via a secure 128-bit AES encrypted bi-directional video session. All times are in [place] Standard Time (PST) unless specified. "You have chosen to receive care through the use of telemedicine. Telemedicine enables [facility] care providers at different locations to provide safe, effective and convenient care thro ugh the use of technology. As with any health care service, there are risks associated with the use of telemedicine, including equipment failure, poor image resolution and information assurance officer issues." "Do you understand the risks and [...] attending ER physician, Dr. 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 | [address] | [place] | [phone] | | [facility] | | [address] | | | - LABORATORY | | [...] ST. | [address] | [place] | [phone] | | [facility] | | [address] | | | - LABORATORY | | [...] ST. | [address] | [place] | [phone] | | [facility] | | [address] | | | - LABORATORY | | [...] + | [facility] | [address] | [place] | [phone] | | [facility] | | [address] | | | - LABORATORY | | [...] | | | | | mmol/L | [facility] | | | | | | MEDICAL | | | | | | CENTER - | | | | | | LABORATORY | | + + + + + + | K | 3.9 | 3.5 - 5.1 | [facility] | | | | | mmol/L | [facility] | | | | [...] | | | | | mg/dL | [facility] | | | | | | MEDICAL | | | | | | CENTER - | | | | | | LABORATORY | | + + + + + + | eGFR if not | >60Comment: GLOMERULAR | >=60 | [facility] | | | | FILTRATION | mL/min/1.73m2 | [facility] | | | [place] | RATE,ESTIMATED | | MEDICAL | | | | mL/min/1.84x7Eico than | | CENTER - | | [...] | | | | | mg/dL | [facility] | | | | | | [facility] | | | | | | CENTER - | | | | | | LABORATORY | | + + + + + + | Albumin | 4.1 | 3.2 - 5.0 g/dL | [facility] | | | | | | [facility] | | | | | | [facility] | | | | | | CENTER - | | | | | | LABORATORY | | + + + + + + | Bilirubin | 1.4Comment: This is an | 0.1 - 1.5 mg/dL | [facility] | | | Total | appended report. These | | ST. [...] | | | Protein | | | [facility] | | | | | | MEDICAL | | | | | | CENTER - | | | | | | LABORATORY | | + + + + + + | AST | 71 (H)Comment: This is | 10 - 42 U/L | [facility] | | | | an appended report. | | [facility] | | | | These results have [...] | an appended report. | | [facility] | | | | These results have [...] + | [facility] | [address] | [place] | [phone] | | [facility] | | [address] | | | - LABORATORY | | [...] | | | | M/uL | [facility] | | | | | | MEDICAL | | | | | | CENTER - | | | | | | LABORATORY | | + + + + + + | Hemoglobin | 14.0 | 13.5 - 18.0 | [facility] | | | | | g/dL | [facility] | | | | [...] | | | Eosinophils | | | [facility] | | | | | | MEDICAL | | | | | | CENTER - | | | | | | LABORATORY | | + + + + + + | % Basophils | 0.6 | 0.0 - 1.0 % | [facility] | | | | | | [facility] | | | | | | MEDICAL | | | | | | CENTER - | | | | | | LABORATORY | | + + + + + + | Absolute | 5.40 | 1.80 - 8.50 | [facility] | | | Neutrophils | | K/uL | [facility] | | | | | | MEDICAL | | | | | | CENTER - | | | | | | LABORATORY | | + + + + + + | Absolute | 1.20 | 0.60 - 3.20 | [facility] | | | Lymphocytes | | K/uL | [facility] | | | | | | MEDICAL | | | | | | CENTER - | | | | | | LABORATORY | | + + + + + + | Absolute | 0.90 | 0.00 - 1.00 | [facility] | | | Monocytes | | K/uL | [facility] | [...] + | [facility] | [address] | [place] | [phone] | | [facility] | | [address] | | | - LABORATORY | | [...] performed from the aortic arch through the [place] | | | [place]. Multiplanar reformations [...] 1220 hours. Dictated and Signed by: Ortega Roach MD Electronically signed: 08/03/2018 12:19 PM | | [...] performed from the aortic arch through the [place].Multiplanar reformations and | | three-dimensional [...] | | | | ANDER PRUITT MD ([id number]) | | | | | | on [...] (H) | 70 - 109 mg/dL | [facility] | | | POC | | | [facility] | | [...] + | [facility] | [address] | [place] | [phone] | | [facility] | | [address] | | | - LABORATORY | | [...] mg | | | | Oral, ONCE, [facility] 08/03/18 at 1355, | | 18 1:58 [...]
--- OUTSIDE RECORDS SUMMARY | ~2020-04-19 | XMS | Clinical Summary ---
Demographics + + + | Address | [address] | | | [place] [address] | + + + | Home Phone | | + + + | Preferred Language | Unknown | + + + | Marital Status | Single | + + + | Sabianism Affiliation | Unknown | + + + | Race | Unknown | + + + | Ethnic Group | Unknown | + + + Author + + + | Author | [facility] | | | and [place] | + + + | Organization | [facility] | | | and [place] | + + + | Address | Unknown | + + + | Phone | Unavailable | + + + Care Team Providers + +------+ + | Care Commissioner Of Conciliation Name | Role | Phone | + +------+ + | Casisdy Khan MD | PCP | | + [...] + + | Father | | | [place] x 2, open heart surgery | | [...] +-------+--------+ +--------+-------+---------+------+ | UMR | UMR | [id number] | 11/14/19 | | | PPO | [...] | | | 5 (Home) | [place] [address] | + +--------+ +--------+ + + Advance Directives + + + + + | Type | Date Recorded | Patient | Explanation | | | | Fitness Centre Manager | | + + + + + | Power of | | | | | Commercial Baking Teacher | | | | + + + + + | Advance | 08/03/2018 12:41 | | | | Directive | PM | | | + + + + +
--- OUTSIDE RECORDS SUMMARY | ~2020-04-19 | XMS | Encounter Summary ---
Demographics + + + | Address | [address] | | | [place] [address] | + + + | Home Phone | | + + + | Preferred Language | Unknown | + + + | Marital Status | Single | + + + | Synagogue Affiliation | Unknown | + + + | Race | Unknown | + + + | Ethnic Group | Unknown | + + + Author + + + | Author | [facility] | | | and [place] | + + + | Organization | [facility] | | | and [place] | + + + | Address | Unknown | + + + | Phone | Unavailable | + + + Care Team Providers + +------+ + | Care Institution Librarian Name | Role | Phone | + +------+ + PCP | Unavailable | + +------+ + Encounter Details +--------+ + + + + | Date | Type | Department | Care Team | Description | +--------+ + + + + | 12/12/ | Hospital | [facility] | Conversion | Cardiomyopathy, | | 2016 | Encounter | [facility] | Transaction, | dilated (HCC) | | | | CLINICAL DECISION | Provider Unknown | | | | | [address] [facility] | [phone] | | | | | [place], [place] | | | | | | [address] | Oneal Rowe | | | | | [phone] | MD [address] | | | | | | [address] | | | | | | [place] [address] | | | | | | [phone] | | | | | | | [...] Date of Service: 12/12/15 1536 Status: Signed Laborer Filter Plant: Maria Guadalupe Wang RN (Registered Nurse) Pt discharged home via private vehicle with family. Signed and stated understanding of dis charge instructions. All belongings with patient upon discharge. Tele notified and IV dc'd . onver sterling Transaction, Provider Unknown - 12/12/2015 2:30 PM PST Nurse Progress Note by Maria Guadalupe Wang RN at 12/12/15 1409 Author: Maria Guadalupe Wang RN Service: (none) Author Type: Registered Nurse Filed: 12/12/15 3925 Date of Service: 12/12/15 1430 Status: Signed Laborer Filter Plant: Maria Guadalupe Gentry [place], RN (Registered Nurse) Pt has ambulated, voided, [...] | | | | | performed at [facility] [place] | | | | | | [facility];[place] | | | | | | [address] | | | | + + + [...] EXTERNAL | | | | performed at [facility] [place] | K/uL | LAB | | | | [place] [address];[place] | | | | | | [address] | | | | + + + + + + | Red Blood | 5.20Comment: Testing | 4.20 - 5.70 | EXTERNAL | | | Cells | performed at [facility] [place] | M/uL | LAB | | | Counted | [address];[place] | | | | | | [address] | | | | + + + + + + | Hemoglobin | 15.7Comment: Testing | 13.2 - 17.0 | EXTERNAL | | | | performed at [facility] [place] | g/dL | LAB | | | | [address];[place] | | | | | | [address] | | | | + + + + + + | Hematocrit, | 46.9Comment: Testing | 39.0 - 50.0 % | EXTERNAL | | | POC | performed at [facility] [place] | | LAB | | | | [address];[place] | | | | | | [address] | | | | + + + + + + | MCV | 90.2Comment: Testing | 80.0 - 100.0 fl | EXTERNAL | | | | performed at [facility] [place] | | LAB | | | | [address];[place] | | | | | | [address] | | | | + + + + + + | MCH | 30.1Comment: Testing | 27.0 - 34.0 pg | EXTERNAL | | | | performed at [facility] [place] | | LAB | | | | [address];[place] | | | | | | [address] | | | | + + + + + + | MCHC | 33.4Comment: Testing | 32.0 - 35.5 | EXTERNAL | | | | performed at [facility] [place] | g/dL | LAB | | | | [address];[place] | | | | | | [address] | | | | + + + + + + | RDW-CV | 51.2Comment: Testing | 37 - 53 fl | EXTERNAL | | | | performed at [facility] [place];[address] | | LAB | | | | [address];[place] | | | | | | [address] | | | | + + + + + + | Platelet | 274Comment: Testing | 150 - 400 K/uL | EXTERNAL | | | Count | performed at [facility] [place] | | LAB | | | Plasma | [address];[place] | | | | | | [address] | | | | + + + + + + | MPV | 8.1Comment: Testing | fl | EXTERNAL | | | | performed at [facility] [place] | | LAB | | | | [address];[place] | | | | | | [address] | | | | + + + + + + | Differentia | AUTOMATEDComment: | | EXTERNAL | | | l Type | Testing performed at | | LAB | | | | [facility] [place];[address] [place] [address];[place] [address] | | | | + + + + + + | % Segmented | 52.00Comment: Testing | % | EXTERNAL | | | | performed at [facility] [place] | | LAB | | | Neutrophils | [address];[place] | | | | | | [address] | | | | + + + + + + | % | 33.39Comment: Testing | % | EXTERNAL | | | Lymphocytes | performed at [facility] [place];[address] | | LAB | | | | [address];[place] | | | | | | [address] | | | | + + + + + + | % Monocytes | 12.40Comment: Testing | % | EXTERNAL | | | | performed at [facility] [place] | | LAB | | | | [address];[place] | | | | | | [address] | | | | + + + + + + | % | 1.11Comment: Testing | % | EXTERNAL | | | Eosinophils | performed at [facility] [place];[address] | | LAB | | | | [address];[place] | | | | | | [address] | | | | + + + + + + | % Basophils | 1.10Comment: Testing | % | EXTERNAL | | | | performed at [facility] [place] | | LAB | | | | [address];[place] | | | | | | [address] | | | | + + + + + + | Absolute | 2.79Comment: Testing | 1.90 - 7.40 | EXTERNAL | | | Segmented | performed at [facility] [place] | K/uL | LAB | | | Neutrophils | [address];[place] | | | | | | [address] | | | | + + + + + + | Absolute | 1.79Comment: Testing | 1.00 - 3.90 | EXTERNAL | | | Lymphocytes | performed at [facility] [place] | K/uL | LAB | | | | [address];[place] | | | | | | [address] | | | | + + + + + + | Absolute | 0.67Comment: Testing | 0.00 - 0.80 | EXTERNAL | | | Monocytes | performed at [facility] [place] | K/uL | LAB | | | | [address];[place] | | | | | | [address] | | | | + + + + + + | Absolute | 0.06Comment: Testing | 0.00 - 0.50 | EXTERNAL | | | Eosinophils | performed at [facility] [place] | K/uL | LAB | | | | [address];[place] | | | | | | [address] | | | | + + + + + + | Absolute | 0.06Comment: Testing | 0.00 - 0.10 | EXTERNAL | | | Basophils | performed at [facility] [place] | K/uL | LAB | | | | [address];[place], [place] | | | | | | [address] | | | | + + + [...] EXTERNAL | | | | performed at [facility] [place] | mmol/L | LAB | | | | [address];[place] | | | | | | [address] | | | | + + + + + + | K | 4.5Comment: Testing | 3.5 - 4.9 | EXTERNAL | | | | performed at [facility] [place] | mmol/L | LAB | | | | [address];[place] | | | | | | [address] | | | | + + + + + + | Cl | 101Comment: Testing | 99 - 109 mmol/L | EXTERNAL | | | | performed at [facility] [place];[address] | | LAB | | | | [address];[place] | | | | | | [address] | | | | + + + + + + | CO2 | 22 (L)Comment: Testing | 23 - 32 mmol/L | EXTERNAL | | | | performed at [facility] [place] | | LAB | | | | [address];[place] | | | | | | [address] | | | | + + + + + + | Anion Gap | 15Comment: Testing | 5 - 20 mmol/L | EXTERNAL | | | | performed at [facility] [place] | | LAB | | | | [address];[place] | | | | | | [address] | | | | + + + + + + | Glucose, | 91Comment: Testing | 65 - 99 mg/dL | EXTERNAL | | | Fasting | performed at [facility] [place];[address] | | LAB | | | | [address];[place] | | | | | | [address] | | | | + + + + + + | BUN | 15Comment: Testing | 8 - 25 mg/dL | EXTERNAL | | | | performed at [facility] [place] | | LAB | | | | [address];[place] | | | | | | [address] | | | | + + + + + + | Creatinine | 1.0Comment: Testing | 0.70 - 1.30 | EXTERNAL | | | | performed at [facility] [place] | mg/dL | LAB | | | | [address];[place] | | | | | | [address] | | | | + + + + + + | BUN/Creatin | 15Comment: Testing | | EXTERNAL | | | ine Ratio | performed at [facility] [place];[address] | | LAB | | | | [address];[place] | | | | | | [address] | | | | + + + + + + | Calcium | 8.7Comment: Testing | 8.5 - 10.5 | EXTERNAL | | | | performed at [facility] [place] | mg/dL | LAB | | | | [address];[place], [place] | | | | | | [address] | | | | + + + [...] | | | | | | at [facility] [place];[address] [place] | | | | [address];[place] [address] | | | | + + + [...]
--- OUTSIDE RECORDS SUMMARY | ~2020-04-19 | XMS | Encounter Summary ---
Demographics + + + | Address | [address] | | | [place] [address] | + + + | Home Phone | | + + + | Preferred Language | Unknown | + + + | Marital Status | Single | + + + | Mu-Ism Affiliation | Unknown | + + + | Race | Unknown | + + + | Ethnic Group | Unknown | + + + Author + + + | Author | [facility] | | | and [place] | + + + | Organization | [facility] | | | and [place] | + + + | Address | Unknown | + + + | Phone | Unavailable | + + + Care Team Providers + +------+ + | Care Watch Crystal Cutter Name | Role | Phone | + +------+ + | No, Physician | PCP | Unavailable | + +------+ + Encounter Details +--------+ + + + + | Date | Type | Department | Care Team | Description | +--------+ + + + + | 12/28/ | Orders Only | [facility] | Conversion | | | 2019 | | CARDIOLOGY [place] | Transaction, | | | | | [address] | Provider Unknown | | | | | [place] | [id number] | | | | | [address] | | | | | | [phone] | | | +--------+ + + + [...]
--- OUTSIDE RECORDS SUMMARY | ~2020-04-19 | XMS | Clinical Summary ---
Demographics + + + | Address | [address] | | | [place] [address] | + + + | Home Phone [...] + | Author | [facility] | | | and [place] | + + + | Organization | [facility] | | | and [place] | + + + | Address | Unknown | + + + | Phone | Unavailable | + + + Care Team Providers + +------+ + | Care Lithograph Press Operator Tinware Name | Role | Phone | + [...] + + | Father | | | [place] x 2, open heart surgery | | [...] +-------+--------+ +--------+-------+---------+------+ | UMR | UMR | [id number] | 11/14/19 | | | PPO | [...] | | | 5 (Home) | [place] [address] | + +--------+ +--------+ + + Advance Directives + + + + + | Type | Date Recorded | Patient | Explanation | | | | Numerical Control Machine Tool Operator | | + + + + + | Power of | | | | | Civil Preparedness Training Officer | | | | + + + + + | Advance | 08/03/2018 12:41 | | | | Directive | PM | | | + + + + +
--- OUTSIDE RECORDS SUMMARY | ~2020-04-19 | XMS | Encounter Summary ---
Demographics + + + | Address | [address] | | | [place] [address] | + + + | Home Phone | | + + + | Preferred Language | Unknown | + + + | Marital Status | Single | + + + | Scientologist Affiliation | Unknown | + + + | Race | Unknown | + + + | Ethnic Group | Unknown | + + + Author + + + | Author | [facility] | | | and [place] | + + + | Organization | [facility] | | | and [place] | + + + | Address | Unknown | + + + | Phone | Unavailable | + + + Care Team Providers + +------+ + | Care Test Borer Helper Name | Role | Phone | + +------+ + | Cassidy Khan MD | PCP | | + +------+ + Encounter Details +--------+ + + + + | Date | Type | Department | Care Team | Description | +--------+ + + + + | 12/12/ | Orders Only | [facility] | Oneal Rowe | | | 2015 | | CARDIOLOGY [place] | MD [address] | | | | | [address] | [facility] | | | | | [place], [place] | [place] [address] | | | | | [address] | [phone] | | | | | [phone] | | | +--------+ + + + [...] | + +--------+ + + + | CV CARDIAC PROCEDURE | Routin | 12/12/2015 | | Results for this | | | e | 11:43 AM | | procedure are in the | | | | PST | | results section. | + +--------+ + + + documented in this encounter Results CV CARDIAC PROCEDURE (12/12/2015 11:43 AM PST) + + | Specimen | + + | | + + + + + | Narrative | Performed At | + + + | | | | | | | DATE OF SERVICE December 12, 2015 REFERRING PHYSICIAN Oneal | | | DO Liyah Rowe MD INDICATIONS New onset acute systolic heart | | | failure in this patient found to have a dilated cardiomyopathy, | | | ejection 30% on recent echocardiography, 4-chamber enlargement, | | | essential hypertension, and alcoholism. PROCEDURE 1. Left heart | | | catheterization. 2. Selective bilateral coronary angiography via | | | right radial artery approach. DESCRIPTION OF PROCEDURE After | | | informed consent was obtained, the patient was brought to the cardiac | | | catheterization laboratory and prepped and draped in sterile | | | fashion. He was given Versed 2 mg and fentanyl 50 mcg IV for moderate | | | anesthesia/sedation. Due to anxiety, both of these doses were | | | repeated. The right radial area was infiltrated with 1 mL of 2% | | | Xylocaine for local anesthesia. Using Seldinger technique, a 5-Malay | | | hydrophilic introducer sheath was inserted into the right radial | | | artery. The radial artery "cocktail" (verapamil 2 mg, heparin 2000 | | | units and nitroglycerin 200 mcg) was administered through the | | | introducer sheath side port. With the use of a 260 cm 0.035-inch | | | J-tipped guidewire for catheter advanced under direct fluoroscopic | | | visualization, a 5-Malay multipurpose catheter was advanced to the | | | aortic root. The patient was noted to be hypotensive and IV fluids | | | were started. The sedation was reversed with Romazicon 0.2 mg and | | | Narcan 0.4 mg. The multipurpose catheter was then used to perform | | | selective angiography of both [place] coronary systems, in multiple | | | views, in standard fashion. The guidewire was reinserted, and the | | | catheter was placed across the aortic valve into the left ventricle. | | | Following pressure measurements, the catheter was withdrawn across | | | the aortic valve, with pressures measured, and then removed over the | | | guidewire. As a recent echocardiogram had shown his dilated | | | cardiomyopathy, a left ventricular cineangiogram was not performed. | | | There were no complications, other than for the hypotension, and | | | the patient actually tolerated the procedure quite well, with no | | | complaints, alert and oriented x3. ESTIMATED BLOOD LOSS Less | | | than 10 mL TOTAL CONTRAST 30 mL RESULTS HEMODYNAMICS 1. | | | Left ventricular systolic pressure initially measured 71, | | | end-diastolic pressure 2. 2. On pullback, central aortic pressure | | | measured 66/39, with a mean pressure of 47 mmHg. CORONARY | | | ARTERIES 1. Left main: This is a large vessel, with no evidence of | | | disease. It arises from the left coronary cusp in normal form. It | | | trifurcates at its distal end. 2. Left anterior descending: This is | | | a large, type 2 vessel, which reaches the apex, where it has its | | | terminal bifurcation. It is smoothly tapering and free of disease. | | | There are numerous septal guitar maker branches which are normal in | | | appearance. The first diagonal branch is a large vessel, with no | | | evidence of disease. The second diagonal branch is small in caliber, | | | and also free of disease. 3. Ramus intermedius: This is a small, dual | | | vessel system, with 2 small ramus branches, which are free of | | | disease. 4. Left circumflex: This is a large, nondominant vessel, | | | which is free of disease. It gives rise to a large first obtuse | | | marginal branch, and a medium size second obtuse marginal branch, | | | which are both normal in appearance. 5. Right coronary artery: This | | | is a large, dominant vessel arising from the right coronary cusp. It | | | is free of disease. It gives rise to medium sized posterolateral | | | ventricular and posterior descending arteries, which are both free of | | | disease. CONCLUSIONS 1. No angiographic evidence of coronary | | | artery disease. 2. Nonischemic dilated cardiomyopathy, likely on the | | | basis of chronic alcohol abuse. He has been instructed to stop | | | drinking. 3. Hypotension occurred in reaction to sedation, which has | | | improved with IV fluids, Romazicon, and Narcan. RECOMMENDATIONS | | | Alcohol cessation, standard medical therapy for dilated | | | cardiomyopathy. Read by ETIENNE PULIDO MD 12/12/2015 11:52 A | | | | | + + + + + | Procedure Note | + + | Javier Goss - 07/06/2019 10:22 AM PDT | | | | DATE OF SERVICE | | December 12, 2015 | | | | REFERRING PHYSICIAN | | Oneal Rowe DO | | Liyah Weldon MD | | | | INDICATIONS | | New onset acute systolic heart failure in this patient found to have a | | dilated cardiomyopathy, ejection 30% on recent echocardiography, 4-chamber | | enlargement, essential hypertension, and alcoholism. | | | | PROCEDURE | | 1. Left heart catheterization. | | 2. Selective bilateral coronary angiography via right radial artery | | approach. | | | | DESCRIPTION OF PROCEDURE | | After informed consent was obtained, the patient was brought to the | | cardiac catheterization laboratory and prepped and draped in sterile | | fashion. He was given Versed 2 mg and fentanyl 50 mcg IV for moderate | | anesthesia/sedation. Due to anxiety, both of these doses were repeated. | | The right radial area was infiltrated with 1 mL of 2% Xylocaine for local | | anesthesia. Using Seldinger technique, a 5-Malay hydrophilic introducer | | sheath was inserted into the right radial artery. The radial artery | | "cocktail" (verapamil 2 mg, heparin 2000 units and nitroglycerin 200 mcg) | | was administered through the introducer sheath side port. | | | | With the use of a 260 cm 0.035-inch J-tipped guidewire for catheter | | advanced under direct fluoroscopic visualization, a 5-Malay multipurpose | | catheter was advanced to the aortic root. The patient was noted to be | | hypotensive and IV fluids were started. The sedation was reversed with | | Romazicon 0.2 mg and Narcan 0.4 mg. The multipurpose catheter was then | | used to perform selective angiography of both [place] coronary systems, in | | multiple views, in standard fashion. | | | | The guidewire was reinserted, and the catheter was placed across the | | aortic valve into the left ventricle. Following pressure measurements, the | | catheter was withdrawn across the aortic valve, with pressures measured, | | and then removed over the guidewire. As a recent echocardiogram had shown | | his dilated cardiomyopathy, a left ventricular cineangiogram was not | | performed. | | | | There were no complications, other than for the hypotension, and the | | patient actually tolerated the procedure quite well, with no complaints, | | alert and oriented x3. | | | | ESTIMATED BLOOD LOSS | | Less than 10 mL | | | | TOTAL CONTRAST | | 30 mL | | | | RESULTS | | HEMODYNAMICS | | 1. Left ventricular systolic pressure initially measured 71, end-diastolic | | pressure 2. | | 2. On pullback, central aortic pressure measured 66/39, with a mean | | pressure of 47 mmHg. | | | | CORONARY ARTERIES | | 1. Left main: This is a large vessel, with no evidence of disease. It | | arises from the left coronary cusp in normal form. It trifurcates at | | its distal end. | | 2. Left anterior descending: This is a large, type 2 vessel, which reaches | | the apex, where it has its terminal bifurcation. It is smoothly | | tapering and free of disease. There are numerous septal guitar maker branches | | which are normal in appearance. The first diagonal branch is a | | large vessel, with no evidence of disease. The second diagonal branch | | is small in caliber, and also free of disease. | | 3. Ramus intermedius: This is a small, dual vessel system, with 2 small | | ramus branches, which are free of disease. | | 4. Left circumflex: This is a large, nondominant vessel, which is free of | | disease. It gives rise to a large first obtuse marginal branch, and a | | medium size second obtuse marginal branch, which are both normal in | | appearance. | | 5. Right coronary artery: This is a large, dominant vessel arising from | | the right coronary cusp. It is free of disease. It gives rise to medium | | sized posterolateral ventricular and posterior descending arteries, | | which are both free of disease. | | | | CONCLUSIONS | | 1. No angiographic evidence of coronary artery disease. | | 2. Nonischemic dilated cardiomyopathy, likely on the basis of chronic | | alcohol abuse. He has been instructed to stop drinking. | | 3. Hypotension occurred in reaction to sedation, which has improved with | | IV fluids, Romazicon, and Narcan. | | | | RECOMMENDATIONS | | Alcohol cessation, standard medical therapy for dilated cardiomyopathy. | | | | Read by ETIENNE PULIDO MD 12/12/2015 11:52 A | | | | | + + documented in this encounter Visit Diagnoses Not on filedocumented in this encounter
--- OUTSIDE RECORDS SUMMARY | ~2020-04-19 | XMS | Encounter Summary ---
Demographics + + + | Address | [address] | | | [place] [address] | + + + | Home Phone | | + + + | Preferred Language | Unknown | + + + | Marital Status | Single | + + + | Protestant Affiliation | Unknown | + + + | Race | Unknown | + + + | Ethnic Group | Unknown | + + + Author + + + | Author | [facility] | | | and [place] | + + + | Organization | [facility] | | | and [place] | + + + | Address | Unknown | + + + | Phone | Unavailable | + + + Care Team Providers + +------+ + | Care Customer Services Supervisor Name | Role | Phone | + +------+ + | Cassidy Khan MD | PCP | | + +------+ + Encounter Details +--------+ + + + + | Date | Type | Department | Care Team | Description | +--------+ + + + + | 12/12/ | Orders Only | [facility] | Oneal Rowe | | | 2015 | | CARDIOLOGY [place] | MD [address] | | | | | [address] | [facility] | | | | | [place], [place] | [place] [address] | | | | | [address] | [phone] | | | | | [phone] | | | +--------+ + + + [...] for local anesthesia. Using Seldinger technique, a 5-English | | | hydrophilic introducer sheath was [...] direct fluoroscopic | | | visualization, a 5-English multipurpose catheter was advanced to the | | | aortic root. The patient was noted to be hypotensive and IV fluids | | | were started. The sedation was reversed with Romazicon 0.2 mg and | | | Narcan 0.4 mg. The multipurpose catheter was then used to perform | | | selective angiography of both [place] coronary systems, in multiple | | | [...] | | | There are numerous septal border measurer and cutter branches which are normal in | | [...] | | anesthesia. Using Seldinger technique, a 5-English hydrophilic introducer | | sheath was inserted into the right radial artery. The radial artery | | "cocktail" (verapamil 2 mg, heparin 2000 units and nitroglycerin 200 mcg) | | was administered through the introducer sheath side port. | | | | With the use of a 260 cm 0.035-inch J-tipped guidewire for catheter | | advanced under direct fluoroscopic visualization, a 5-English multipurpose | | catheter was advanced to the aortic root. The patient was noted to be | | hypotensive and IV fluids were started. The sedation was reversed with | | Romazicon 0.2 mg and Narcan 0.4 mg. The multipurpose catheter was then | | used to perform selective angiography of both [place] coronary systems, in | | multiple views, [...] free of disease. There are numerous septal border measurer and cutter branches | | which are normal in [...]
--- OUTSIDE RECORDS SUMMARY | ~2020-04-19 | XMS | Encounter Summary ---
Demographics + + + | Address | [address] | | | [place] [address] | + + + | Home Phone | | + + + | Preferred Language | Unknown | + + + | Marital Status | Single | + + + | Judaism Affiliation | Unknown | + + + | Race | Unknown | + + + | Ethnic Group | Unknown | + + + Author + + + | Author | [facility] | | | and [place] | + + + | Organization | [facility] | | | and [place] | + + + | Address | Unknown | + + + | Phone | Unavailable | + + + Care Team Providers + +------+ + | Care Awnings Mechanic Name | Role | Phone | + [...] + + | 05/06/ | Emergency | [facility] | Behzad Mcmillan | Cough in adult | | 2018 - | | [facility] | Brett Lee MD | patient (Primary Dx) | | | | CENTER [address] | [address] | | | 05/07/ | | [place] | [place] | | | 2018 | | [address] | [address] | | | | | [phone] | | | +--------+ + + + [...] | Blood Pressure | 128/65 | 05/07/2018 12:00 AM | | | | | PDT | | + + + + + | Pulse | 99 | 05/07/2018 12:00 AM | | | | | PDT | | + + + + + | Temperature | 36.6 C (97.9 F) | 05/06/2018 10:20 PM | | | | | PDT | | + + + + + | Respiratory Rate | 12 | 05/07/2018 12:00 AM | | | | | PDT | | + + + + + | Oxygen Saturation | 98% | 05/07/2018 12:00 AM | | | | | PDT | | + + + + + | Inhaled Oxygen | - | - | | | Concentration | | | | + + + + + | Weight | - | - | | + + + + + | Height | - | - | | + + + + + | Body Mass Index | - | - | | + + + + + documented in this encounter Discharge Instructions Instructions Behzad Mcmillan MD - 05/06/2018Please follow-up with your primary care physician. Return for severe symptoms symptoms. documented in this encounter Medications at Time of [...] for this | | LATERAL | | 11:38 PM | | procedure are in the | | | | PDT | | results section. | + +--------+ + + + documented in this encounter Results XR Chest PA and Lateral (05/06/2018 11:38 PM PDT) + + | Specimen | [...] | Wolfgang, Rad Results In - 05/07/2018 10:04 PM PDT XR CHEST PA AND LATERAL 05/06/2018 11:38 | | PMHISTORY: Shortness of breath.COMPARISON: None.Findings:Heart size is within normal | | limits. Aorta is normal. Mediastinum isunremarkable. Central pulmonary vasculature is | | normal. The bilateral lungs areclear with no evidence for pleural effusion or | | pneumothorax. There is mildspondylosis.IMPRESSION -No acute findings.Dictated and Signed | | by: Deangelo Hernández MD Electronically signed: 05/07/2018 10:01 PM | |Findings: | |Heart size is within normal limits. Aorta is normal. Mediastinum is | |unremarkable. Central pulmonary vasculature is normal. The bilateral lungs are | |clear with no evidence for pleural effusion or pneumothorax. There is mild | |spondylosis. | | | |IMPRESSION - | |No acute findings. | | | |Dictated and Signed by: Deangelo Hernández MD | [...] adult patient - Primary | + + documented in this encounter Administered Medications + + + +---------+------+------+ | Medication Order | MAR | Action | Dose | Rate | Site | | | Action | Date | | | | + + + +---------+------+------+ | albuterol (PROVENTIL) 90 | Dispense | 05/06/20 | 2 puffs | | | | mcg/puff inhaler (ED prepack) 2 | to Home | 18 11:58 | | | | | puff 2 puff, Inhalation, ONCE, | | PM PDT | | | | | 05/06/18 at 2350, For 1 dose, | | | | | | | Inhale 2 puffs every 6 hours as | | | | | | | directed. Shake Well. Dispense | | | | | | | for home use., | | | | | | + + + +---------+------+------+ +---+---+ | | | +---+---+ + +-------+ +--------+---+---+ | albuterol 2.5 mg/3 mL nebulizer | Given | 05/06/20 | 2.5 mg | | | | solution 2.5 mg 2.5 mg, | | 18 11:08 | | | | | Nebulization, RT Once, Sat | | PM PDT | | | | | 05/06/18 at 2300, For 1 dose, RT | | | | | | | will administer., | | | | | | + +-------+ +--------+---+---+ +---+---+ | | | +---+---+ + +-------+ +-------+---+---+ | albuterol-ipratropium (DUONEB) | Given | 05/06/20 | 3 mLs | | | | 2.5-0.5 mg/3 mL nebulizer | | 18 11:08 | | | | | solution 3 mL 3 mL, | | PM PDT | | | | | Nebulization, RT Once, Sat | | | | | | | 05/06/18 at 2300, For 1 dose | | | | | | + +-------+ +-------+---+---+ +---+---+ | | | +---+---+ + +-------+ +-------+---+---+ | dexamethasone (DECADRON) 10 | Given | 05/06/20 | 10 mg | | | | mg/mL injection for oral use 10 | | 18 11:57 | | | | | mg 10 mg, Oral, ONCE, Sat | | PM PDT | | | | | 05/06/18 at 2350, For 1 dose, Use | | | | | | | dexamethasone 10 mg/mL vial for | | | | | | | inject for this oral dose, | | | | | | + +-------+ +-------+---+---+ +---+---+ | | | +---+---+ documented in this encounter"
--- OUTSIDE RECORDS SUMMARY | ~2020-04-19 | XMS | Encounter Summary ---
Demographics + + + | Address | [address] | | | [place] [address] | + + + | Home Phone | | + + + | Preferred Language | Unknown | + + + | Marital Status | Single | + + + | Buddhist Affiliation | Unknown | + + + | Race | Unknown | + + + | Ethnic Group | Unknown | + + + Author + + + | Author | [facility] | | | and [place] | + + + | Organization | [facility] | | | and [place] | + + + | Address | Unknown | + + + | Phone | Unavailable | + + + Care Team Providers + +------+ + | Care Gaming Dealer Name | Role | Phone | + [...] [address] | | | | | [place], [place] | [place] [address] | | | | | [address] | [phone] | | | | | [phone] | | | +--------+ + + + [...] function | | | is normal. 4. Ixiv-qd-xhnzxkwu mitral regurgitation is present. 5. | | [...] function is normal. | | | 4. Rjwp-cj-lrgurtuu mitral regurgitation is present. 5. There are | | | several changes noted in comparison to the previous echocardiographic | | | study, done 06/09/17. FINDINGS -------- ECG rhythm: Sinus rhythm. | | | Study: A 2-dimensional transthoracic echocardiogram with m-mode, | | | spectral and color flow Doppler was perfomed at [facility]. Study: This was | | | a [...] | mitral valve is normal. Mitral Valve: Geqw-nv-zxtscyao mitral | | | regurgitation is present. [...] 0.91 | | | m/s MV Dec [place]: 3.53 m/s2 MV DecT: 205.32 ms MV E Henry: | | | 0.72 m/s MV E/A Ratio: 0.79 MV PHT: 59.54 ms MVA By PHT: | | | 3.69 cm2 Septal e': 0.04 m/s Septal E/e': 15.15 Lateral e': | | | 0.03 m/s Lateral E/e': 21.69 RAP: 5 mmHg RVSP: 22.41 | | | mmHg TR maxP.41 mmHg TR Vmax: 2.08 m/s Bunk Assembler: | | | DH Authenticated by: ETIENNE GEORGES MD Report Date/Time: -- | | | [id number] | | + + + + + [...] ventricular | | systolic function is normal.4. Nntp-zc-wicweltf mitral regurgitation is present. 5. | | There are several changes noted in comparison to the previous echocardiographic study, | | done 06/09/17. FINDINGS--------ECG rhythm: Sinus rhythm.Study: A 2-dimensional | | transthoracic echocardiogram with m-mode, spectral and color flow Doppler was perfomed | | at [facility].Study: This was a technically adequate study.Left Ventricle: [...] Valve: The mitral valve is normal.Mitral Valve: Bsjt-km-piqjjher | | mitral regurgitation is present. There [...] cmLVPWd: 1.10 | | cmLVOT Area: 3.96 [id number] Diam: 2.24 cm%FS: 16.22 %EF(Teich): 33.17 | [...] (A-L): 25.30 ml/m2LAAs | | A2C: 17.73 [id number] A-L A2C: 56.19 mlLALs A2C: 4.75 cmLAAs A4C: 16.27 [id number] | | A-L A4C: 48.06 mlLALs A4C: 4.67 cmRAAs: 15.74 [id number] A-L: 44.83 mlRAESV MOD: | | 43.21 mlRALs: 4.69 cmTAPSE: 2.70 cmAV maxP.79 mmHgAV meanP.61 mmHgAV | | Vmax: 1.39 m/Indra Vmean: 1.01 m/Indra VTI: 28.31 cmAVA Vmax: 2.86 cm2AVA (VTI): | | 2.58 [id number] Vmax: 0.00 cm2/m2AVAI (VTI): 0.00 cm2/m2LVOT maxP.05 mmHgLVOT | | meanP.18 mmHgLVSI Dopp: 35.31 ml/m2LVSV Dopp: 73.10 mlLVOT Vmax: 1.00 | | m/sLVOT Vmean: 0.68 m/sLVOT VTI: 18.42 cmMV A Henry: 0.91 m/sMV Dec [place]: 3.53 | | m/s2MV DecT: 205.32 msMV E Henry: 0.72 m/sMV E/A Ratio: 0.79MV PHT: 59.54 msMVA By | | PHT: 3.69 hu8Gewatf e': 0.04 m/sSeptal E/e': 15.15Lateral e': 0.03 m/sLateral | | E/e': 21.69RAP: 5 mmHgRVSP: 22.41 mmHgTR maxP.41 mmHgTR Vmax: 2.08 m/s | | Bunk Assembler: DHAuthenticated by: Pema ELLISON Date/Time: -- | | [id number] IMPRESSION: 1. The left ventricle is markedly dilated. Overall | | left ventricular systolic function is moderate-severely impaired, with an EF of 30%.2. | | The diastolic filling pattern indicates impaired relaxation consistent with mild | | dysfunction (Grade I).3. The right ventricle is mildly enlarged, but right ventricular | | systolic function is normal.4. Lsyh-si-eestymof mitral regurgitation is present. 5. | | [...] A [place]: 0.91 m/s | |MV Dec [place]: 3.53 m/s2 | |MV DecT: 205.32 ms [...] |TR Vmax: 2.08 m/s | | | |Bunk Assembler: | |Authenticated by: ETIENNE GEORGES MD | |Report Date/Time: -- [id number] | | | |IMPRESSION: | |1. The left ventricle is markedly dilated. Overall left ventricular systolic function is m oderate-severely impaired, with an EF of 30%. | |2. The diastolic filling pattern indicates impaired relaxation consistent with mild dysfunc tion (Grade I). | |3. The right ventricle is mildly enlarged, but right ventricular systolic function is krish l. | |4. Jwnl-yh-txkfttid mitral regurgitation is present. 5. There are several changes noted in comparison to the previous echocardiographic study, done 06/09/17. | + + documented in this encounter Visit Diagnoses Not on filedocumented in this encounter"
--- OUTSIDE RECORDS SUMMARY | ~2020-04-19 | XMS | Encounter Summary ---
Demographics + + + | Address | [address] | | | [place] [address] | + + + | Home Phone | | + + + | Preferred Language | Unknown | + + + | Marital Status | Single | + + + | Jew Affiliation | Unknown | + + + | Race | Unknown | + + + | Ethnic Group | Unknown | + + + Author + + + | Author | [facility] | | | and [place] | + + + | Organization | [facility] | | | and [place] | + + + | Address | Unknown | + + + | Phone | Unavailable | + + + Care Team Providers + +------+ + | Care Rugby League Footballer Name | Role | Phone | + +------+ + | No, Physician | PCP | Unavailable | + +------+ + Encounter Details +--------+ + + + + | Date | Type | Department | Care Team | Description | +--------+ + + + + | 12/28/ | Orders Only | [facility] | Conversion | | | 2019 | | CARDIOLOGY [place] | Transaction, | | | | | [address] | Provider Unknown | | | | | [place] | [phone] | | | | | [address] | | | | | | [phone] | | | +--------+ + + + [...]
--- OUTSIDE RECORDS SUMMARY | ~2020-04-19 | XMS | Encounter Summary ---
Demographics + + + | Address | [address] | | | [place] [address] | + + + | Home Phone | | + + + | Preferred Language | Unknown | + + + | Marital Status | Single | + + + | Zoroastrian Affiliation | Unknown | + + + | Race | Unknown | + + + | Ethnic Group | Unknown | + + + Author + + + | Author | [facility] | | | and [place] | + + + | Organization | [facility] | | | and [place] | + + + | Address | Unknown | + + + | Phone | Unavailable | + + + Care Team Providers + +------+ + | Care Cat Skinner Name | Role | Phone | + +------+ + | Cassidy Khan MD | PCP | | + +------+ + Encounter Details +--------+ + + + + | Date | Type | Department | Care Team | Description | +--------+ + + + + | 06/03/ | Orders Only | [facility] | Stephanie Hernandez | | | 2017 | | [address] | | | | | [address] | [address] | | | | | [place], [place] | [place] [address] | | | | | [address] | [phone] | | | | | [phone] | | | +--------+ + + + [...] + | ECHO INTERPRETATION | Routin | 06/03/2017 | | Results for this | | OF OUTSIDE FILMS | e | 7:14 AM | | procedure are in the | | | | PDT | | results section. | + +--------+ + + + documented in this encounter Results ECHO Interpretation of Outside Films (06/03/2017 7:14 AM PDT) + + | Specimen | + + | | + + + + + | Impressions | Performed At | + + + | 1. The left ventricle is mildly dilated, normal wall thickness and | | | moderately impaired systolic function EF 30-35%. Akinetic | | | anteroseptal, septal; hypokinetic inferior and inferoseptal segments. | | | 2. The diastolic filling pattern indicates impaired relaxation | | | consistent with mild dysfunction (Grade I). 3. The right ventricle is | | | normal in size. 4. Pulmonary artery systolic pressure could not be | | | assessed due to the absence of adequate TR jet. 5. There is no | | | pericardial effusion. | | + + + + + + | Narrative | Performed At | + + + | Patient Name: Martinez Xiong Date of : 1970 | | | Performing Physician: John Rea | | | | | | ------REPORT ADDENDED------ INDICATIONS Ischemic | | | cardiomyopathy CONCLUSIONS 1. The left ventricle is | | | mildly dilated, normal wall thickness and moderately impaired systolic | | | function EF 30-35%. Akinetic anteroseptal, septal; hypokinetic | | | inferior and inferoseptal segments. 2. The diastolic filling pattern | | | indicates impaired relaxation consistent with mild dysfunction (Grade | | | I). 3. The right ventricle is normal in size. 4. Pulmonary artery | | | systolic pressure could not be assessed due to the absence of adequate | | | TR jet. 5. There is no pericardial effusion. FINDINGS -------- | | | ECG rhythm: Sinus rhythm. Study: A 2-dimensional transthoracic | | | echocardiogram with m-mode, spectral and color flow Doppler was | | | perfomed. Study: This was a technically adequate study. Left | | | Ventricle: Overall left ventricular systolic function is | | | moderate-severely impaired with, an EF between 30 - 35 %. Left | | | Ventricle: The left ventricle is mildly dilated. Left Ventricle: Left | | | ventricular wall thickness is normal. Left Ventricle: There is | | | moderate to severe global hypokinesis of LV contractility. Left | | | Ventricle: The diastolic filling pattern indicates impaired relaxation | | | consistent with mild dysfunction (Grade I). Akinetic anteroseptal and | | | septal segments. Hypokinetic inferior and inferoseptal segments. | | | Right Ventricle: The right ventricle is normal in size. Right | | | Ventricle: The right ventricular systolic function is normal. Left | | | Atrium: The left atrium is moderately dilated. Right Atrium: The | | | right atrium is normal in size. Aortic Valve: Aortic valve is | | | trileaflet and is mildly thickened. Aortic Valve: There is no | | | evidence of significant aortic regurgitation. Aortic Valve: There is | | | no evidence of aortic stenosis. Mitral Valve: The mitral valve is | | | normal. Mitral Valve: There is trace mitral regurgitation. Tricuspid | | | Valve: The tricuspid valve appears structurally normal. Tricuspid | | | Valve: Pulmonary artery systolic pressure could not be assessed due to | | | the absence of adequate TR jet. Pulmonic Valve: The pulmonic valve | | | was not well visualized. Pericardium: There is no pericardial | | | effusion. Pericardium: No pleural effusion seen. IVC/Hepatic Veins: | | | The IVC is normal size (1.5-2.5cm) and collapses >50% with sniff, | | | consistent with central venous pressures of 5-10mmHg. Aorta: The | | | aortic root, ascending aorta are within normal dimensions. | | | MEASUREMENTS Ao asc: 3.18 cm Ao Diam: 3.56 cm | | | Ao sinus: 3.[address] junct: 2.96 cm IVC: 1.57 cm LA | | | Diam: 3.97 cm LA Major: 5.28 cm EDV(Teich): 176.48 ml | | | IVSd: 0.94 cm LVIDd: 5.94 cm LVPWd: 0.90 cm LVOT Area: | | | 3.86 cm2 LVOT Diam: 2.21 cm %FS: 5.98 % EF(Teich): 13.19 % | | | ESV(Teich): 153.19 ml LVIDs: 5.59 cm SV(Teich): 23.29 ml | | | RA Major: 4.90 cm RV Major: 7.80 cm RVIDd: 2.72 cm LVEF | | | MOD A2C: 37.42 % SV MOD A2C: 74.60 ml LVEF MOD A4C: 26.62 % | | | SV MOD A4C: 50.52 ml EF Biplane: 32.31 % LVEDV MOD BP: | | | 195.80 ml LVESV MOD BP: 132.52 ml LVEDV MOD A2C: 199.36 ml | | | LVLd A2C: 9.53 cm LVEDV MOD A4C: 189.78 ml LVLd A4C: 9.69 | | | cm LVESV MOD A2C: 124.76 ml LVLs A2C: 8.51 cm LVESV MOD A4C: | | | 139.26 ml LVLs A4C: 8.64 cm LAESV(A-L): 83.38 ml LAESV | | | Index (A-L): 40.67 ml/m2 LAAs A2C: 18.45 cm2 LAESV A-L A2C: | | | 57.80 ml LALs A2C: 5.00 cm LAAs A4C: 26.61 cm2 LAESV A-L | | | A4C: 95.55 ml LALs A4C: 6.29 cm RAAs: 17.13 cm2 RAESV A-L: | | | 46.89 ml RAESV MOD: 45.03 ml RALs: 5.31 cm TAPSE: 2.60 | | | cm AV maxP.02 mmHg AV meanP.45 mmHg AV Vmax: | | | 1.58 m/s AV Vmean: 1.12 m/s AV VTI: 28.27 cm FADI Vmax: | | | 2.87 cm2 FADI (VTI): 2.94 cm2 AVAI Vmax: 0.00 cm2/m2 AVAI | | | (VTI): 0.00 cm2/m2 LVOT maxP.55 mmHg LVOT meanP.25 | | | mmHg LVSI Dopp: 40.55 ml/m2 LVSV Dopp: 83.13 ml LVOT Vmax: | | | 1.17 m/s LVOT Vmean: 0.84 m/s LVOT VTI: 21.49 cm MV A Henry: | | | 0.88 m/s MV DecT: 179.30 ms MV E Henry: 0.66 m/s MV E/A | | | Ratio: 0.75 MV PHT: 51.99 ms MVA By PHT: 4.23 cm2 Septal | | | e': 0.03 m/s Septal E/e': 17.18 Lateral e': 0.09 m/s | | | Lateral E/e': 7.38 RV S': 0.12 m/s TR maxP.41 mmHg TR | | | Vmax: 1.16 m/s Wood Cutter: LI Authenticated by: John | | | Rosinakingfisher Report Date/Time: 06-06-2017 19:16:57 | | + + + + + | Procedure Note | + + | Wolfgang, Rad Conversion - 07/05/2019 7:27 PM PDT Patient Name: Benita Xiong of : | | 1970 Performing Physician: John | | [facility] ------REPORT | | ADDENDED------INDICATIONS Ischemic cardiomyopathy CONCLUSIONS 1. The | | left ventricle is mildly dilated, normal wall thickness and moderately impaired | | systolic function EF 30-35%. Akinetic anteroseptal, septal; hypokinetic inferior and | | inferoseptal segments.2. The diastolic filling pattern indicates impaired relaxation | | consistent with mild dysfunction (Grade I).3. The right ventricle is normal in size.4. | | Pulmonary artery systolic pressure could not be assessed due to the absence of adequate | | TR jet.5. There is no pericardial effusion. FINDINGS--------ECG rhythm: Sinus | | rhythm.Study: A 2-dimensional transthoracic echocardiogram with m-mode, spectral and | | color flow Doppler was perfomed.Study: This was a technically adequate study.Left | | Ventricle: Overall left ventricular systolic function is moderate-severely impaired | | with, an EF between 30 - 35 %.Left Ventricle: The left ventricle is mildly dilated.Left | | Ventricle: Left ventricular wall thickness is normal.Left Ventricle: There is moderate | | to severe global hypokinesis of LV contractility.Left Ventricle: The diastolic filling | | pattern indicates impaired relaxation consistent with mild dysfunction (Grade I). | | Akinetic anteroseptal and septal segments. Hypokinetic inferior and inferoseptal | | segments.Right Ventricle: The right ventricle is normal in size.Right Ventricle: The | | right ventricular systolic function is normal.Left Atrium: The left atrium is moderately | | dilated.Right Atrium: The right atrium is normal in size.Aortic Valve: Aortic valve is | | trileaflet and is mildly thickened.Aortic Valve: There is no evidence of significant | | aortic regurgitation.Aortic Valve: There is no evidence of aortic stenosis.Mitral Valve: | | The mitral valve is normal.Mitral Valve: There is trace mitral regurgitation.Tricuspid | | Valve: The tricuspid valve appears structurally normal.Tricuspid Valve: Pulmonary artery | | systolic pressure could not be assessed due to the absence of adequate TR jet.Pulmonic | | Valve: The pulmonic valve was not well visualized.Pericardium: There is no pericardial | | effusion.Pericardium: No pleural effusion seen.IVC/Hepatic Veins: The IVC is normal size | | (1.5-2.5cm) and collapses >50% with sniff, consistent with central venous pressures of | | 5-10mmHg.Aorta: The aortic root, ascending aorta are within normal dimensions. | | MEASUREMENTS Ao asc: 3.18 cmAo Diam: 3.56 cmAo sinus: 3.[address] | | junct: 2.96 cmIVC: 1.57 cmLA Diam: 3.97 cmLA Major: 5.28 cmEDV(Teich): 176.48 | | mlIVSd: 0.94 cmLVIDd: 5.94 cmLVPWd: 0.90 cmLVOT Area: 3.86 [id number] Diam: 2.21 | | cm%FS: 5.98 %EF(Teich): 13.19 %ESV(Teich): 153.19 mlLVIDs: 5.59 cmSV(Teich): | | 23.29 mlRA Major: 4.90 cmRV Major: 7.80 cmRVIDd: 2.72 cmLVEF MOD A2C: 37.42 %SV | | MOD A2C: 74.60 mlLVEF MOD A4C: 26.62 %SV MOD A4C: 50.52 mlEF Biplane: 32.31 | | %LVEDV MOD BP: 195.80 mlLVESV MOD BP: 132.52 mlLVEDV MOD A2C: 199.36 mlLVLd A2C: | | 9.53 cmLVEDV MOD A4C: 189.78 mlLVLd A4C: 9.69 cmLVESV MOD A2C: 124.76 mlLVLs A2C: | | 8.51 cmLVESV MOD A4C: 139.26 mlLVLs A4C: 8.64 cmLAESV(A-L): 83.38 mlLAESV Index | | (A-L): 40.67 ml/m2LAAs A2C: 18.45 [id number] A-L A2C: 57.80 mlLALs A2C: 5.00 | | cmLAAs A4C: 26.61 vs7UCITP A-L A4C: 95.55 mlLALs A4C: 6.29 cmRAAs: 17.13 | | [id number] A-L: 46.89 mlRAESV MOD: 45.03 mlRALs: 5.31 cmTAPSE: 2.60 cmAV maxPG: | | 10.02 mmHgAV meanP.45 mmHgAV Vmax: 1.58 m/Indra Vmean: 1.12 m/Indra VTI: 28.27 | | cmAVA Vmax: 2.87 cm2AVA (VTI): 2.94 [id number] Vmax: 0.00 cm2/m2AVAI (VTI): 0.00 | | cm2/m2LVOT maxP.55 mmHgLVOT meanP.25 mmHgLVSI Dopp: 40.55 ml/m2LVSV Dopp: | | 83.13 mlLVOT Vmax: 1.17 m/sLVOT Vmean: 0.84 m/sLVOT VTI: 21.49 cmMV A Henry: | | 0.88 m/sMV DecT: 179.30 msMV E Henry: 0.66 m/sMV E/A Ratio: 0.75MV PHT: 51.99 | | msMVA By PHT: 4.23 sd7Kxptes e': 0.03 m/sSeptal E/e': 17.18Lateral e': 0.09 | | m/sLateral E/e': 7.38RV S': 0.12 m/sTR maxP.41 mmHgTR Vmax: 1.16 m/s | | Wood Cutter: DHAuthenticated by: John Toussaintort Date/Time: 06-06-2017 19:16:57 | | IMPRESSION: 1. The left ventricle is mildly dilated, normal wall thickness and | | moderately impaired systolic function EF 30-35%. Akinetic anteroseptal, septal; | | hypokinetic inferior and inferoseptal segments.2. The diastolic filling pattern | | indicates impaired relaxation consistent with mild dysfunction (Grade I).3. The right | | ventricle is normal in size.4. Pulmonary artery systolic pressure could not be assessed | | due to the absence of adequate TR jet.5. There is no pericardial effusion. | |LA Diam: 3.97 cm | |LA Major: 5.28 cm | |EDV(Teich): 176.48 ml | |IVSd: 0.94 cm | |LVIDd: 5.94 cm | |LVPWd: 0.90 cm | |LVOT Area: 3.86 cm2 | |LVOT Diam: 2.21 cm | |%FS: 5.98 % | |EF(Teich): 13.19 % | |ESV(Teich): 153.19 ml | |LVIDs: 5.59 cm | |SV(Teich): 23.29 ml | |RA Major: 4.90 cm | |RV Major: 7.80 cm | |RVIDd: 2.72 cm | |LVEF MOD A2C: 37.42 % | |SV MOD A2C: 74.60 ml | |LVEF MOD A4C: 26.62 % | |SV MOD A4C: 50.52 ml | |EF Biplane: 32.31 % | |LVEDV MOD BP: 195.80 ml | |LVESV MOD BP: 132.52 ml | |LVEDV MOD A2C: 199.36 ml | |LVLd A2C: 9.53 cm | |LVEDV MOD A4C: 189.78 ml | |LVLd A4C: 9.69 cm | |LVESV MOD A2C: 124.76 ml | |LVLs A2C: 8.51 cm | |LVESV MOD A4C: 139.26 ml | |LVLs A4C: 8.64 cm | |LAESV(A-L): 83.38 ml | |LAESV Index (A-L): 40.67 ml/m2 | |LAAs A2C: 18.45 cm2 | |LAESV A-L A2C: 57.80 ml | |LALs A2C: 5.00 cm | |LAAs A4C: 26.61 cm2 | |LAESV A-L A4C: 95.55 ml | |LALs A4C: 6.29 cm | |RAAs: 17.13 cm2 | |RAESV A-L: 46.89 ml | |RAESV MOD: 45.03 ml | |RALs: 5.31 cm | |TAPSE: 2.60 cm | |AV maxP.02 mmHg | |AV meanP.45 mmHg | |AV Vmax: 1.58 m/s | |AV Vmean: 1.12 m/s | |AV VTI: 28.27 cm | |FADI Vmax: 2.87 cm2 | |FADI (VTI): 2.94 cm2 | |AVAI Vmax: 0.00 cm2/m2 | |AVAI (VTI): 0.00 cm2/m2 | |LVOT maxP.55 mmHg | |LVOT meanP.25 mmHg | |LVSI Dopp: 40.55 ml/m2 | |LVSV Dopp: 83.13 ml | |LVOT Vmax: 1.17 m/s | |LVOT Vmean: 0.84 m/s | |LVOT VTI: 21.49 cm | |MV A Henry: 0.88 m/s | |MV DecT: 179.30 ms | |MV E Henry: 0.66 m/s | |MV E/A Ratio: 0.75 | |MV PHT: 51.99 ms | |MVA By PHT: 4.23 cm2 | |Septal e': 0.03 m/s | |Septal E/e': 17.18 | |Lateral e': 0.09 m/s | |Lateral E/e': 7.38 | |RV S': 0.12 m/s | |TR maxP.41 mmHg | |TR Vmax: 1.16 m/s | | | |Wood Cutter: LI | |Authenticated by: John Rea | |Report Date/Time: 06-06-2017 19:16:57 | | | |IMPRESSION: | |1. The left ventricle is mildly dilated, normal wall thickness and moderately impaired syst olic function EF 30-35%. Akinetic anteroseptal, septal; hypokinetic inferior and inferosepta l segments. | |2. The diastolic filling pattern indicates impaired relaxation consistent with mild dysfunc tion (Grade I). | |3. The right ventricle is normal in size. | |4. Pulmonary artery systolic pressure could not be assessed due to the absence of adequate TR jet. | |5. There is no pericardial effusion. | + + documented in this encounter Visit Diagnoses Not on filedocumented in this encounter"
--- OUTSIDE RECORDS SUMMARY | ~2020-04-19 | XMS | Encounter Summary ---
Demographics + + + | Address | [address] | | | [place] [address] | + + + | Home Phone | | + + + | Preferred Language | Unknown | + + + | Marital Status | Single | + + + | Yazidism Affiliation | Unknown | + + + | Race | Unknown | + + + | Ethnic Group | Unknown | + + + Author + + + | Author | [facility] | | | and [place] | + + + | Organization | [facility] | | | and [place] | + + + | Address | Unknown | + + + | Phone | Unavailable | + + + Care Team Providers + +------+ + | Care Military Technology Manager Name | Role | Phone | + +------+ + | Cassidy Khan MD | PCP | | + +------+ + Encounter Details +--------+ + + + + | Date | Type | Department | Care Team | Description | +--------+ + + + + | 11/28/ | Orders Only | [facility] | Oneal Rowe | | | 2015 | | [facility] [place] | MD [address] | | | | | [address] | [address] [facility] | | | | | [place], [place] | [place] [address] | | | | | [address] | [phone] | | | | | [phone] | | | +--------+ + + + [...] | + +--------+ + + + | LIPID PANEL | Routin | 11/28/2015 | | Results for this | | | e | 9:21 AM | | procedure are in the | | | | PST | | results section. | + +--------+ + + + | COMPREHENSIVE | Routin | 11/28/2015 | | Results for this | | METABOLIC PANEL | e | 9:21 AM | | procedure are in the | | | | PST | | results section. | + +--------+ + + + documented in this encounter Results Lipid Panel (11/28/2015 9:21 AM PST) + +-------+ + + + | Component | Value | Ref Range | Performed | Pathologist | | | | | At | Signature | + +-------+ + + + | Cholesterol | 158 | 200 mg/dL | EXTERNAL | | | | | | LAB | | + +-------+ + + + | Triglycerid | 55 | 30 - 150 mg/dL | EXTERNAL | | | es | | | LAB | | + +-------+ + + + | HDL | 59.9 | 40 mg/dl | EXTERNAL | | | | | | LAB | | + +-------+ + + + | LDL, | 87 | 100 mg/dL | EXTERNAL | | | Calculated | | | LAB | | + +-------+ + + + | LDl/HDL | | | EXTERNAL | | | Ratio | | | LAB | | + +-------+ + + + | Chol/HDL | 2.6 | 4.97 | EXTERNAL | | | Ratio | | | LAB | | + +-------+ + + + | VLDL | 11 | 4 - 40 mg/dL | EXTERNAL | | | | | | LAB | | + +-------+ + + + | Non HDL | 98 | 130 | EXTERNAL | | | Chol. | | | LAB | | | (LDL+VLDL) | | | | | + +-------+ + + + + + | Specimen | + + | Blood specimen | | (specimen) | + + + +---------+ + + | Performing | Address | City/State/Zipcode | Phone Number | | Organization | | | | + +---------+ + + | EXTERNAL LAB | | | | + +---------+ + + Comprehensive Metabolic Panel (11/28/2015 9:21 AM PST) + +---------+ + + + | Component | Value | Ref Range | Performed | Pathologist | | | | | At | Signature | + +---------+ + + + | Glucose, | 105 (A) | 70 - 100 mg/dL | EXTERNAL | | | Fasting | | | LAB | | + +---------+ + + + | BUN | 15 | 6 - 23 mg/dL | EXTERNAL | | | | | | LAB | | + +---------+ + + + | Creatinine | 0.91 | 0.60 - 1.35 | EXTERNAL | | | | | mg/dL | LAB | | + +---------+ + + + | BUN/Creatin | 16.5 | 6.0 - 28.6 | EXTERNAL | | | ine Ratio | | | LAB | | + +---------+ + + + | Calcium | 9.1 | 8.4 - 10.2 | EXTERNAL | | | | | mg/dL | LAB | | + +---------+ + + + | Protein, | 6.3 | 6.0 - 8.0 g/dL | EXTERNAL | | | Total | | | LAB | | + +---------+ + + + | Albumin | 4.2 | 3.5 - 5.0 | EXTERNAL | | | | | | LAB | | + +---------+ + + + | Globulin | 2.1 | 1.8 - 3.5 | EXTERNAL | | | | | | LAB | | + +---------+ + + + | A/G Ratio | 2.0 | 1.1 - 2.4 | EXTERNAL | | | | | | LAB | | + +---------+ + + + | Bilirubin | 0.4 | 0.0 - 1.2 mg/dL | EXTERNAL | | | Total | | | LAB | | + +---------+ + + + | ALP, | 44 | 30 - 128 | EXTERNAL | | | External | | | LAB | | + +---------+ + + + | ALT | 46 | 7 - 52 U/L | EXTERNAL | | | | | | LAB | | + +---------+ + + + | AST | 33 | 13 - 39 U/L | EXTERNAL | | | | | | LAB | | + +---------+ + + + | Na | 137 | 132 - 143 | EXTERNAL | | | | | mmol/L | LAB | | + +---------+ + + + | K | 4.2 | 3.6 - 5.1 | EXTERNAL | | | | | mmol/L | LAB | | + +---------+ + + + | Cl | 105 | 95 - 112 mmol/L | EXTERNAL | | | | | | LAB | | + +---------+ + + + | CO2 | 19 | 19 - 31 mmol/L | EXTERNAL | | | | | | LAB | | + +---------+ + + + | Anion Gap | 17.2 | 7 - 21 mmol/L | EXTERNAL | | | | | | LAB | | + +---------+ + + + | Estimated | 90 | 60 mg/dL | EXTERNAL | | | GFR | | | LAB | | + +---------+ + + + [...]
--- OUTSIDE RECORDS SUMMARY | ~2020-04-19 | XMS | Encounter Summary ---
Demographics + + + | Address | [address] | | | [place] [address] | + + + | Home Phone | | + + + | Preferred Language | Unknown | + + + | Marital Status | Single | + + + | Gnosticism Affiliation | Unknown | + + + | Race | Unknown | + + + | Ethnic Group | Unknown | + + + Author + + + | Author | [facility] | | | and [place] | + + + | Organization | [facility] | | | and [place] | + + + | Address | Unknown | + + + | Phone | Unavailable | + + + Care Team Providers + +------+ + | Care Lan Manager Name | Role | Phone | [...] | | | | CENTER [address] | [facility] | unspecified type | | | | [place] | [place] [address] | (Primary Dx); Left | | | | [address] | [phone] | arm weakness; | | | | [phone] | | Numbness and | | | [...] sent through Care Everywhere.TIA: Transient Ischemic Attack ([place])documented in this encounter Medications at Time of [...] Jasiel Armstrong - 08/03/2018 12:23 PM PDT [facility] [place] [facility] Telestroke Consultation Note This exam was conducted via a secure 128-bit AES encrypted bi-directional video session. All times are in [place] Standard Time (PST) unless specified. "You have chosen to receive care through the use of telemedicine. Telemedicine enables [facility] care providers at different locations to provide safe, effective and convenient care thro ugh the use of technology. As with any health care service, there are risks associated with the use of telemedicine, including equipment failure, poor image resolution and information technology account manager issues." "Do you understand the risks [...] attending ER physician, Dr. 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 | [place] | [phone] | | [facility] | | [address] | | | - LABORATORY | | [...] [address] | [place] | [phone] | | [facility] | | [address] | | | - LABORATORY | | [...] [address] | [place] | [phone] | | [facility] | | [address] | | | - LABORATORY | | [...] + | [facility] | [address] | [place] | [phone] | | [facility] | | [address] | | | - LABORATORY | | [...] mL/min/1.73m2 | [facility] | | | KYRGYZ | RATE,ESTIMATED | | MEDICAL | | | | mL/min/1.73r0Ousd than | | CENTER - | | [...] + | [facility] | [address] | [place] | [phone] | | [facility] | | [address] | | | - LABORATORY | | [...] | | | | g/dL | [facility] | | | | | | MEDICAL [...] + | [facility] | [address] | [place] | [phone] | | [facility] | | [address] | | | - LABORATORY | | [...] performed from the aortic arch through the wrangell of | | | [place]. Multiplanar reformations [...] performed from the aortic arch through the wrangell of [place].Multiplanar reformations and | | three-dimensional [...] | | | | ANDER PRUITT MD ([id number]) | | | | | | on [...] + | [facility] | [address] | [place] | [phone] | | [facility] | | [address] | | | - LABORATORY | | [...] mg | | | | Oral, ONCE, [facility] 08/03/18 at 1355, | | 18 1:58 [...]
--- OUTSIDE RECORDS SUMMARY | ~2020-04-19 | XMS | Encounter Summary ---
Demographics + + + | Address | [address] | | | [place] [address] | + + + | Home Phone | | + + + | Preferred Language | Unknown | + + + | Marital Status | Single | + + + | Hoahaoism Affiliation | Unknown | + + + | Race | Unknown | + + + | Ethnic Group | Unknown | + + + Author + + + | Author | [facility] | | | and [place] | + + + | Organization | [facility] | | | and [place] | + + + | Address | Unknown | + + + | Phone | Unavailable | + + + Care Team Providers + +------+ + | Care Drop Count Associate Name | Role | Phone | + +------+ + | No, Physician | PCP | Unavailable | + +------+ + Encounter Details +--------+ + + + + | Date | Type | Department | Care Team | Description | +--------+ + + + + | 06/19/ | Orders Only | [facility] | Provider, | Dilated | | 2019 | | SYSTEM GENERIC OP | [address] | cardiomyopathy | | | | CONVERSION [address] | [address] | (HCC); Transient | | | | [address] [place], [place] | [place] [address] | cerebral ischemic | | | | [address] | | attack; Essential | | | | [phone] | | (primary) | | | | [...]
--- OUTSIDE RECORDS SUMMARY | ~2020-04-19 | XMS | Encounter Summary ---
Demographics + + + | Address | [address] | | | [place] [address] | + + + | Home Phone | | + + + | Preferred Language | Unknown | + + + | Marital Status | Single | + + + | Orthodoxy Affiliation | Unknown | + + + | Race | Unknown | + + + | Ethnic Group | Unknown | + + + Author + + + | Author | [facility] | | | and [place] | + + + | Organization | [facility] | | | and [place] | + + + | Address | Unknown | + + + | Phone | Unavailable | + + + Care Team Providers + +------+ + | Care Medical Insurance Coder Name | Role | Phone | + [...] JOSEFINA REID | | | | | [place], [place] | [place] [address] | | | | | [address] | [phone] | | | | | [phone] | | | +--------+ + + + [...] TR | | | Vmax: 1.16 m/s Food Assembler: LI Authenticated by: John | | | Rosinathomas Report Date/Time: 06-06-2017 19:16:57 | | + + + + + | Procedure Note | + + | Wolfgang, Rad Conversion - 07/05/2019 7:27 PM PDT Patient Name: Benita Xiong of : | | 1970 Performing Physician: John | | [facility] ------REPORT | | ADDENDED------INDICATIONS Ischemic cardiomyopathy [...] cmLVIDd: 5.94 cmLVPWd: 0.90 cmLVOT Area: 3.86 [id number] Diam: 2.21 | | cm%FS: 5.98 %EF(Teich): [...] | | (A-L): 40.67 ml/m2LAAs A2C: 18.45 qu1AIXJB A-L A2C: 57.80 mlLALs A2C: 5.00 | | cmLAAs A4C: 26.61 yx6CSVYM A-L A4C: 95.55 mlLALs A4C: 6.29 cmRAAs: 17.13 | | em9SWWAC A-L: 46.89 mlRAESV MOD: 45.03 mlRALs: 5.31 cmTAPSE: 2.60 cmAV maxPG: | | 10.02 mmHgAV meanP.45 mmHgAV Vmax: 1.58 m/Indra Vmean: 1.12 m/Indra VTI: 28.27 | | cmAVA Vmax: 2.87 cm2AVA (VTI): 2.94 ia1IAQT Vmax: 0.00 cm2/m2AVAI (VTI): 0.00 | | cm2/m2LVOT maxP.55 mmHgLVOT meanP.25 mmHgLVSI Dopp: 40.55 ml/m2LVSV Dopp: | | 83.13 mlLVOT Vmax: 1.17 m/sLVOT Vmean: 0.84 m/sLVOT VTI: 21.49 cmMV A Henry: | | 0.88 m/sMV DecT: 179.30 msMV E Henry: 0.66 m/sMV E/A Ratio: 0.75MV PHT: 51.99 | | msMVA By PHT: 4.23 de6Xcfpkb e': 0.03 m/sSeptal E/e': 17.18Lateral e': 0.09 | | m/sLateral E/e': 7.38RV S': 0.12 m/sTR maxP.41 mmHgTR Vmax: 1.16 m/s | | Food Assembler: DHAuthenticated by: John Toussaintort Date/Time: 06-06-2017 19:16:57 [...] |TR Vmax: 1.16 m/s | | | |Food Assembler: LI | |Authenticated by: John Rea | [...]
--- OUTSIDE RECORDS SUMMARY | ~2020-04-19 | XMS | Encounter Summary ---
Demographics + + + | Address | [address] | | | [place] [address] | + + + | Home Phone | | + + + | Preferred Language | Unknown | + + + | Marital Status | Single | + + + | Advent Affiliation | Unknown | + + + | Race | Unknown | + + + | Ethnic Group | Unknown | + + + Author + + + | Author | [facility] | | | and [place] | + + + | Organization | [facility] | | | and [place] | + + + | Address | Unknown | + + + | Phone | Unavailable | + + + Care Team Providers + +------+ + | Care Wood Borer Name | Role | Phone | + [...] + + | 05/06/ | Emergency | [facility] | Behzad Mcmillan | Cough in adult | | 2018 - | | [facility] | Brett Lee MD | patient (Primary Dx) | | | | CENTER [address] | [address] | | | 05/07/ | | [place] | [place] | | | 2018 | | [address] | [address] | | | | | [phone] | | | +--------+ + + + [...]
--- OUTSIDE RECORDS SUMMARY | ~2020-04-19 | XMS | Encounter Summary ---
Demographics + + + | Address | [address] | | | [place] [address] | + + + | Home Phone [...] Author + + + | Author | [facility] | | | and [place] | + + + | Organization | [facility] | | | and [place] | + + + | Address | Unknown | + + + | Phone | Unavailable | + + + Care Team Providers + +------+ + | Care Life Teacher Name | Role | Phone | + +------+ + | No, Physician | PCP | Unavailable | + +------+ + Encounter Details +--------+ + + + + | Date | Type | Department | Care Team | Description | +--------+ + + + + | 06/19/ | Orders Only | [facility] | Provider, | Dilated | | 2019 | | SYSTEM GENERIC OP | MD [address] | cardiomyopathy | | | | CONVERSION [address] | [address] | (HCC); Transient | | | | [address] [place], [place] | [place] [address] | cerebral ischemic | | | | [address] | | attack; Essential | | | | [phone] | | (primary) | | | | [...]
--- OUTSIDE RECORDS SUMMARY | ~2020-04-19 | XMS | Encounter Summary ---
Demographics + + + | Address | [address] | | | [place] [address] | + + + | Home Phone | | + + + | Preferred Language | Unknown | + + + | Marital Status | Single | + + + | Mosque Affiliation | Unknown | + + + | Race | Unknown | + + + | Ethnic Group | Unknown | + + + Author + + + | Author | [facility] | | | and [place] | + + + | Organization | [facility] | | | and [place] | + + + | Address | Unknown | + + + | Phone | Unavailable | + + + Care Team Providers + +------+ + | Care Needle Molder Name | Role | Phone | + +------+ + PCP | Unavailable | + +------+ + Encounter Details +--------+ + + + + | Date | Type | Department | Care Team | Description | +--------+ + + + + | 12/12/ | Hospital | [facility] | Conversion | Cardiomyopathy, | | 2016 | Encounter | [facility] | Transaction, | dilated (HCC) | | | | CLINICAL DECISION | Provider Unknown | | | | | [address] [facility] | [phone] | | | | | [place], [place] | | | | | | [address] | Oneal Rowe | | | | | [phone] | MD [address] | | | | | | [address] | | | | | | [place] [address] | | | | | | [phone] | | | | | | | [...] Date of Service: 12/12/15 1536 Status: Signed Neck Fitter: Maria Guadalupe Wang RN (Registered Nurse) Pt discharged home via private vehicle with family. Signed and stated understanding of dis charge instructions. All belongings with patient upon discharge. Tele notified and IV dc'd . onver sterling Transaction, Provider Unknown - 12/12/2015 2:30 PM PST Nurse Progress Note by Maira Guadalupe Wang RN at 12/12/15 6612 Author: Maria Guadalupe Wang RN Service: (none) Author Type: Registered Nurse Filed: 12/12/15 2741 Date of Service: 12/12/15 1430 Status: Signed Neck Fitter: Maria Guadalupe Gentry [place], RN (Registered Nurse) Pt has ambulated, voided, [...] | | | | | performed at [facility] | | | | | | [facility];[place] | | | | | | [address] | | | | + + + [...] EXTERNAL | | | | performed at [facility];[address] | K/uL | LAB | | | | [address];[place] | | | | | | [address] | | | | + + + + + + | Red Blood | 5.20Comment: Testing | 4.20 - 5.70 | EXTERNAL | | | Cells | performed at [facility];[address] | M/uL | LAB | | | Counted | [place] [address];[place] | | | | | | [address] | | | | + + + + + + | Hemoglobin | 15.7Comment: Testing | 13.2 - 17.0 | EXTERNAL | | | | performed at [facility];[address] | g/dL | LAB | | | | [address];[place] | | | | | | [address] | | | | + + + + + + | Hematocrit, | 46.9Comment: Testing | 39.0 - 50.0 % | EXTERNAL | | | POC | performed at [facility];[address] | | LAB | | | | [address];[place] | | | | | | [address] | | | | + + + + + + | MCV | 90.2Comment: Testing | 80.0 - 100.0 fl | EXTERNAL | | | | performed at [facility];[address] | | LAB | | | | [address];[place] | | | | | | [address] | | | | + + + + + + | MCH | 30.1Comment: Testing | 27.0 - 34.0 pg | EXTERNAL | | | | performed at [facility];[address] | | LAB | | | | [address];[place] | | | | | | [address] | | | | + + + + + + | MCHC | 33.4Comment: Testing | 32.0 - 35.5 | EXTERNAL | | | | performed at [facility];888 | g/dL | LAB | | | | [address];[place] | | | | | | [address] | | | | + + + + + + | RDW-CV | 51.2Comment: Testing | 37 - 53 fl | EXTERNAL | | | | performed at [facility];[address] | | LAB | | | | [address];[place] | | | | | | [address] | | | | + + + + + + | Platelet | 274Comment: Testing | 150 - 400 K/uL | EXTERNAL | | | Count | performed at [facility];[address] | | LAB | | | Plasma | [address];[place] | | | | | | [address] | | | | + + + + + + | MPV | 8.1Comment: Testing | fl | EXTERNAL | | | | performed at [facility];[address] | | LAB | | | | [address];[place] | | | | | | [address] | | | | + + + + + + | Differentia | AUTOMATEDComment: | | EXTERNAL | | | l Type | Testing performed at | | LAB | | | | [facility];[address];[place] [address] | | | | + + + + + + | % Segmented | 52.00Comment: Testing | % | EXTERNAL | | | | performed at [facility];[address] | | LAB | | | Neutrophils | [address];[place] | | | | | | [address] | | | | + + + + + + | % | 33.39Comment: Testing | % | EXTERNAL | | | Lymphocytes | performed at [facility];[address] | | LAB | | | | [address];[place] | | | | | | [address] | | | | + + + + + + | % Monocytes | 12.40Comment: Testing | % | EXTERNAL | | | | performed at [facility];[address] | | LAB | | | | [address];[place] | | | | | | [address] | | | | + + + + + + | % | 1.11Comment: Testing | % | EXTERNAL | | | Eosinophils | performed at [facility];[address] | | LAB | | | | [address];[place] | | | | | | [address] | | | | + + + + + + | % Basophils | 1.10Comment: Testing | % | EXTERNAL | | | | performed at [facility];[address] | | LAB | | | | [address];[place] | | | | | | [address] | | | | + + + + + + | Absolute | 2.79Comment: Testing | 1.90 - 7.40 | EXTERNAL | | | Segmented | performed at [facility];[address] | K/uL | LAB | | | Neutrophils | [address];[place] | | | | | | [address] | | | | + + + + + + | Absolute | 1.79Comment: Testing | 1.00 - 3.90 | EXTERNAL | | | Lymphocytes | performed at [facility];[address] | K/uL | LAB | | | | [address];[place] | | | | | | [address] | | | | + + + + + + | Absolute | 0.67Comment: Testing | 0.00 - 0.80 | EXTERNAL | | | Monocytes | performed at [facility];[address] | K/uL | LAB | | | | [address];[place] | | | | | | [address] | | | | + + + + + + | Absolute | 0.06Comment: Testing | 0.00 - 0.50 | EXTERNAL | | | Eosinophils | performed at [facility];[address] | K/uL | LAB | | | | [address];[place] | | | | | | [address] | | | | + + + + + + | Absolute | 0.06Comment: Testing | 0.00 - 0.10 | EXTERNAL | | | Basophils | performed at [facility];[address] | K/uL | LAB | | | | [address];[place], [place] | | | | | | [address] | | | | + + + [...] EXTERNAL | | | | performed at [facility];[address] | mmol/L | LAB | | | | [address];[place] | | | | | | [address] | | | | + + + + + + | K | 4.5Comment: Testing | 3.5 - 4.9 | EXTERNAL | | | | performed at [facility];[address] | mmol/L | LAB | | | | [address];[place] | | | | | | [address] | | | | + + + + + + | Cl | 101Comment: Testing | 99 - 109 mmol/L | EXTERNAL | | | | performed at [facility];[address] | | LAB | | | | [address];[place] | | | | | | [address] | | | | + + + + + + | CO2 | 22 (L)Comment: Testing | 23 - 32 mmol/L | EXTERNAL | | | | performed at [facility];[address] | | LAB | | | | [address];[place] | | | | | | [address] | | | | + + + + + + | Anion Gap | 15Comment: Testing | 5 - 20 mmol/L | EXTERNAL | | | | performed at [facility];[address] | | LAB | | | | [address];[place] | | | | | | [address] | | | | + + + + + + | Glucose, | 91Comment: Testing | 65 - 99 mg/dL | EXTERNAL | | | Fasting | performed at [facility];[address] | | LAB | | | | [address];[place] | | | | | | [address] | | | | + + + + + + | BUN | 15Comment: Testing | 8 - 25 mg/dL | EXTERNAL | | | | performed at [facility];[address] | | LAB | | | | [address];[place] | | | | | | [address] | | | | + + + + + + | Creatinine | 1.0Comment: Testing | 0.70 - 1.30 | EXTERNAL | | | | performed at [facility];888 | mg/dL | LAB | | | | [address];[place] | | | | | | [address] | | | | + + + + + + | BUN/Creatin | 15Comment: Testing | | EXTERNAL | | | ine Ratio | performed at [facility];[address] | | LAB | | | | [address];[place] | | | | | | [address] | | | | + + + + + + | Calcium | 8.7Comment: Testing | 8.5 - 10.5 | EXTERNAL | | | | performed at [facility];[address] | mg/dL | LAB | | | | [address];[place], [place] | | | | | | [address] | | | | + + + [...] | | | | | | at [facility];[address] [place] | | | | [address];[place] [address] | | | | + + + [...]
--- OUTSIDE RECORDS SUMMARY | ~2020-04-19 | XMS | Encounter Summary ---
Demographics + + + | Address | [address] | | | [place] [address] | + + + | Home Phone | | + + + | Preferred Language | Unknown | + + + | Marital Status | Single | + + + | Worship Affiliation | Unknown | + + + | Race | Unknown | + + + | Ethnic Group | Unknown | + + + Author + + + | Author | [facility] | | | and [place] | + + + | Organization | [facility] | | | and [place] | + + + | Address | Unknown | + + + | Phone | Unavailable | + + + Care Team Providers + +------+ + | Care Reverberatory Skimmer Name | Role | Phone | + +------+ + | Cassidy Khan MD | PCP | | + +------+ + Encounter Details +--------+ + + + + | Date | Type | Department | Care Team | Description | +--------+ + + + + | 11/28/ | Orders Only | [facility] | Oneal Rowe | | | 2015 | | CARDIOLOGY CICERO | MD [address] | | | | | [address] | Barbara [address] [facility] | | | | | [place], [place] | [place] [address] | | | | | [address] | [phone] | | | | | [phone] | | | +--------+ + + + [...]
--- OUTSIDE RECORDS SUMMARY | ~2020-04-19 | XMS | Encounter Summary ---
Demographics + + + | Address | [address] | | | [place] [address] | + + + | Home Phone | | + + + | Preferred Language | Unknown | + + + | Marital Status | Single | + + + | Hinduism Affiliation | Unknown | + + + | Race | Unknown | + + + | Ethnic Group | Unknown | + + + Author + + + | Author | [facility] | | | and [place] | + + + | Organization | [facility] | | | and [place] | + + + | Address | Unknown | + + + | Phone | Unavailable | + + + Care Team Providers + +------+ + | Care Cisco Certified Internetwork Expert Name | Role | Phone | + +------+ + | No, Physician | PCP | Unavailable | + +------+ + Encounter Details +--------+ + + + + | Date | Type | Department | Care Team | Description | +--------+ + + + + | 06/19/ | Orders Only | [facility] | Provider, | Dilated | | 2019 | | SYSTEM GENERIC OP | [address] | cardiomyopathy | | | | CONVERSION [address] | [address] | (HCC); Transient | | | | [address] [place], [place] | [place] [address] | cerebral ischemic | | | | [address] | | attack; Essential | | | | [phone] | | (primary) | | | | [...]
--- OUTSIDE RECORDS SUMMARY | ~2020-04-19 | XMS | Encounter Summary ---
Demographics + + + | Address | [address] | | | [place] [address] | + + + | Home Phone | | + + + | Preferred Language | Unknown | + + + | Marital Status | Single | + + + | Holiness Affiliation | Unknown | + + + | Race | Unknown | + + + | Ethnic Group | Unknown | + + + Author + + + | Author | [facility] | | | and [place] | + + + | Organization | [facility] | | | and [place] | + + + | Address | Unknown | + + + | Phone | Unavailable | + + + Care Team Providers + +------+ + | Care Morgue Technician Name | Role | Phone | [...] JOSEFINA REID | | | | | [place], [place] | [place] [address] | | | | | [address] | [phone] | | | | | [phone] | | | +--------+ + + + [...] function | | | is normal. 4. Dqcx-vo-qowtjgzk mitral regurgitation is present. 5. | | [...] function is normal. | | | 4. Xshm-vf-xamdekeh mitral regurgitation is present. 5. There are | | | several changes noted in comparison to the previous echocardiographic | | | study, done 06/09/17. FINDINGS -------- ECG rhythm: Sinus rhythm. | | | Study: A 2-dimensional transthoracic echocardiogram with m-mode, | | | spectral and color flow Doppler was perfomed at [facility]. Study: This was | | | [...] | mitral valve is normal. Mitral Valve: Yhsw-sx-ncwtnkha mitral | | | regurgitation is present. [...] 0.91 | | | m/s MV Dec Cuming: 3.53 m/s2 MV DecT: 205.32 ms MV E Henry: | | | 0.72 m/s MV E/A Ratio: 0.79 MV PHT: 59.54 ms MVA By PHT: | | | 3.69 cm2 Septal e': 0.04 m/s Septal E/e': 15.15 Lateral e': | | | 0.03 m/s Lateral E/e': 21.69 RAP: 5 mmHg RVSP: 22.41 | | | mmHg TR maxP.41 mmHg TR Vmax: 2.08 m/s Tare Worker: | | | DH Authenticated by: ETIENNE GEORGES MD Report Date/Time: -- | | | [id number] | | + + + + + [...] ventricular | | systolic function is normal.4. Zwlr-yu-hqktoino mitral regurgitation is present. 5. | | There are several changes noted in comparison to the previous echocardiographic study, | | done 06/09/17. FINDINGS--------ECG rhythm: Sinus rhythm.Study: A 2-dimensional | | transthoracic echocardiogram with m-mode, spectral and color flow Doppler was perfomed | | at [facility].Study: This was a technically adequate study.Left [...] Valve: The mitral valve is normal.Mitral Valve: Qrws-cm-soidfndt | | mitral regurgitation is present. There [...] cmLVPWd: 1.10 | | cmLVOT Area: 3.96 qa7KCTC Diam: 2.24 cm%FS: 16.22 %EF(Teich): 33.17 | [...] (A-L): 25.30 ml/m2LAAs | | A2C: 17.73 ku0ANGWX A-L A2C: 56.19 mlLALs A2C: 4.75 cmLAAs A4C: 16.27 wy0ORKUB | | A-L A4C: 48.06 mlLALs A4C: 4.67 cmRAAs: 15.74 ul8YBRYJ A-L: 44.83 mlRAESV MOD: | | 43.21 mlRALs: 4.69 cmTAPSE: 2.70 cmAV maxP.79 mmHgAV meanP.61 mmHgAV | | Vmax: 1.39 m/Indra Vmean: 1.01 m/Indra VTI: 28.31 cmAVA Vmax: 2.86 cm2AVA (VTI): | | 2.58 hg2TTHN Vmax: 0.00 cm2/m2AVAI (VTI): 0.00 cm2/m2LVOT maxP.05 mmHgLVOT | | meanP.18 mmHgLVSI Dopp: 35.31 ml/m2LVSV Dopp: 73.10 mlLVOT Vmax: 1.00 | | m/sLVOT Vmean: 0.68 m/sLVOT VTI: 18.42 cmMV A Henry: 0.91 m/sMV Dec Cuming: 3.53 | | m/s2MV DecT: 205.32 msMV E Henry: 0.72 m/sMV E/A Ratio: 0.79MV PHT: 59.54 msMVA By | | PHT: 3.69 ba0Mqbgsq e': 0.04 m/sSeptal E/e': 15.15Lateral e': 0.03 m/sLateral | | E/e': 21.69RAP: 5 mmHgRVSP: 22.41 mmHgTR maxP.41 mmHgTR Vmax: 2.08 m/s | | Tare Worker: DHAuthenticated by: Pema ELLISON Date/Time: -- | | [id number]:26 IMPRESSION: 1. The left ventricle is markedly dilated. Overall | | left ventricular systolic function is moderate-severely impaired, with an EF of 30%.2. | | The diastolic filling pattern indicates impaired relaxation consistent with mild | | dysfunction (Grade I).3. The right ventricle is mildly enlarged, but right ventricular | | systolic function is normal.4. Dlva-ve-ibblpfgc mitral regurgitation is present. 5. | | [...] A Henry: 0.91 m/s | |MV Dec Cuming: 3.53 m/s2 | |MV DecT: 205.32 ms [...] |TR Vmax: 2.08 m/s | | | |Tare Worker: | |Authenticated by: ETIENNE GEORGES MD | |Report Date/Time: -- [id number] | | | |IMPRESSION: | |1. The left ventricle is markedly dilated. Overall left ventricular systolic function is m oderate-severely impaired, with an EF of 30%. | |2. The diastolic filling pattern indicates impaired relaxation consistent with mild dysfunc tion (Grade I). | |3. The right ventricle is mildly enlarged, but right ventricular systolic function is krish l. | |4. Btxz-cs-tzctyidy mitral regurgitation is present. 5. There are several changes noted in comparison to the previous echocardiographic study, done 06/09/17. | + + documented in this encounter Visit Diagnoses Not on filedocumented in this encounter"
--- OUTSIDE RECORDS SUMMARY | ~2020-04-19 | XMS | Encounter Summary ---
Demographics + + + | Address | [address] | | | [place] [address] | + + + | Home Phone | | + + + | Preferred Language | Unknown | + + + | Marital Status | Single | + + + | Yazdanism Affiliation | Unknown | + + + | Race | Unknown | + + + | Ethnic Group | Unknown | + + + Author + + + | Author | [facility] | | | and [place] | + + + | Organization | [facility] | | | and [place] | + + + | Address | Unknown | + + + | Phone | Unavailable | + + + Care Team Providers + +------+ + | Care Fence Rider Name | Role | Phone | + [...] [place]A REID | | | | | [place], [place] | [place] [address] | | | | | [address] | [phone] | | | | | [phone] | | | +--------+ + + + [...] TR | | | Vmax: 1.16 m/s Network Announcer: LI Authenticated by: John | | | Rosinacurran Report Date/Time: 06-06-2017 19:16:57 | | + + + + + | Procedure Note | + + | Wolfgang, Rad Conversion - 07/05/2019 7:27 PM PDT Patient Name: Benita Xiong of : | | 1970 Performing Physician: John | | [facility] ------REPORT | | ADDENDED------INDICATIONS Ischemic cardiomyopathy [...] cmLVIDd: 5.94 cmLVPWd: 0.90 cmLVOT Area: 3.86 pz8KDRF Diam: 2.21 | | cm%FS: 5.98 %EF(Teich): [...] | | (A-L): 40.67 ml/m2LAAs A2C: 18.45 cy2ODXFA A-L A2C: 57.80 mlLALs A2C: 5.00 | | cmLAAs A4C: 26.61 [id number] A-L A4C: 95.55 mlLALs A4C: 6.29 cmRAAs: 17.13 | | oh0GBPBY A-L: 46.89 mlRAESV MOD: 45.03 mlRALs: 5.31 cmTAPSE: 2.60 cmAV maxPG: | | 10.02 mmHgAV meanP.45 mmHgAV Vmax: 1.58 m/Indra Vmean: 1.12 m/Indra VTI: 28.27 | | cmAVA Vmax: 2.87 cm2AVA (VTI): 2.94 zx6BLZZ Vmax: 0.00 cm2/m2AVAI (VTI): 0.00 | | cm2/m2LVOT maxP.55 mmHgLVOT meanP.25 mmHgLVSI Dopp: 40.55 ml/m2LVSV Dopp: | | 83.13 mlLVOT Vmax: 1.17 m/sLVOT Vmean: 0.84 m/sLVOT VTI: 21.49 cmMV A Henry: | | 0.88 m/sMV DecT: 179.30 msMV E Henry: 0.66 m/sMV E/A Ratio: 0.75MV PHT: 51.99 | | msMVA By PHT: 4.23 ds1Wuxzrr e': 0.03 m/sSeptal E/e': 17.18Lateral e': 0.09 | | m/sLateral E/e': 7.38RV S': 0.12 m/sTR maxP.41 mmHgTR Vmax: 1.16 m/s | | Network Announcer: DHAuthenticated by: John Toussaintort Date/Time: 06-06-2017 19:16:57 [...] |TR Vmax: 1.16 m/s | | | |Network Announcer: LI | |Authenticated by: John Rea | [...]
--- OUTSIDE RECORDS SUMMARY | ~2020-04-19 | XMS | Encounter Summary ---
Demographics + + + | Address | [address] | | | [place] [address] | + + + | Home Phone | | + + + | Preferred Language | Unknown | + + + | Marital Status | Single | + + + | Taoist Affiliation | Unknown | + + + | Race | Unknown | + + + | Ethnic Group | Unknown | + + + Author + + + | Author | [facility] | | | and [place] | + + + | Organization | [facility] | | | and [place] | + + + | Address | Unknown | + + + | Phone | Unavailable | + + + Care Team Providers + +------+ + | Care Crane Service Technician Name | Role | Phone | [...] + + | 05/06/ | Emergency | [facility] | Behzad Mcmillan | Cough in adult | | 2018 - | | [facility] | Brett Lee MD | patient (Primary Dx) | | | | CENTER [address] | [address] | | | 05/07/ | | [place] | [place] | | | 2018 | | [address] | [id number] | | | | | [phone] | | | +--------+ + + + [...] Dictated and | | | Signed by: Daengelo Hernández MD Electronically signed: 05/07/2018 10:01 | [...]
--- OUTSIDE RECORDS SUMMARY | ~2020-04-19 | XMS | Encounter Summary ---
Demographics + + + | Address | [address] | | | [place] [address] | + + + | Home Phone [...] [facility] | | | and [place] | + + + | Organization | [facility] | | | and [place] | + + + | Address | Unknown | + + + | Phone | Unavailable | + + + Care Team Providers + +------+ + | Care Acid Tank Liner Name | Role | Phone | + +------+ + | Cassidy Khan MD | PCP | | + +------+ + Encounter Details +--------+ + + + + | Date | Type | Department | Care Team | Description | +--------+ + + + + | 11/28/ | Orders Only | [facility] | Oneal Rowe | | | 2015 | | CARDIOLOGY [place] | MD [address] | | | | | [address] | [facility] | | | | | [place], [place] | [place] [address] | | | | | [address] | [phone] | | | | | [phone] | | | +--------+ + + + [...]
--- OUTSIDE RECORDS SUMMARY | ~2020-04-19 | XMS | Encounter Summary ---
Demographics + + + | Address | [address] | | | [place] [address] | + + + | Home Phone | | + + + | Preferred Language | Unknown | + + + | Marital Status | Single | + + + | Mormon Affiliation | Unknown | + + + | Race | Unknown | + + + | Ethnic Group | Unknown | + + + Author + + + | Author | [facility] | | | and [place] | + + + | Organization | [facility] | | | and [place] | + + + | Address | Unknown | + + + | Phone | Unavailable | + + + Care Team Providers + +------+ + | Care Death Surveys Coder Name | Role | Phone | [...] | | | | CENTER [address] | [facility] | unspecified type | | | | [place] | [place] [address] | (Primary Dx); Left | | | | [address] | [phone] | arm weakness; | | | | [phone] | | Numbness and | | | [...] sent through Care Everywhere.TIA: Transient Ischemic Attack (Trinidadian)documented in this encounter Medications at Time of [...] Jasiel Armstrong - 08/03/2018 12:23 PM PDT [facility] Telestroke Consultation Note This exam was conducted via a secure 128-bit AES encrypted bi-directional video session. All times are in [place] Standard Time (PST) unless specified. "You have chosen to receive care through the use of telemedicine. Telemedicine enables [facility] care providers at different locations to provide safe, effective and convenient care thro ugh the use of technology. As with any health care service, there are risks associated with the use of telemedicine, including equipment failure, poor image resolution and health information technician issues." "Do you understand the risks and [...] attending ER physician, Dr. 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 | [place] | [phone] | | [facility] | | [address] | | | - LABORATORY | | [...] [address] | [place] | [phone] | | [facility] | | [address] | | | - LABORATORY | | [...] [address] | [place] | [phone] | | [facility] | | [address] | | | - LABORATORY | | [...] + | [facility] | [address] | [place] | [phone] | | [facility] | | [address] | | | - LABORATORY | | [...] mL/min/1.73m2 | [facility] | | | [place] | RATE,ESTIMATED | | MEDICAL | | | | mL/min/1.83d2Zfrm than | | CENTER - | | [...] + | [facility] | [address] | [place] | [phone] | | [facility] | | [address] | | | - LABORATORY | | [...] + | [facility] | [address] | [place] | [phone] | | [facility] | | [address] | | | - LABORATORY | | [...] performed from the aortic arch through the [place] of | | | [place]. Multiplanar reformations [...] performed from the aortic arch through the [place].Multiplanar reformations and | | three-dimensional [...] | | | |Dictated and Signed by: rOtega Roach MD | | Electronically signed: 08/03/2018 [...] | | | | ANDER PRUITT MD ([id number]) | | | | | | on [...] + | [facility] | [address] | [place] | [phone] | | [facility] | | [address] | | | - LABORATORY | | [...] mg | | | | Oral, ONCE, [facility] 08/03/18 at 1355, | | 18 [...]
--- OUTSIDE RECORDS SUMMARY | ~2020-04-19 | XMS | Encounter Summary ---
Demographics + + + | Address | [address] | | | [place] [address] | + + + | Home Phone | | + + + | Preferred Language | Unknown | + + + | Marital Status | Single | + + + | Gnosticist Affiliation | Unknown | + + + | Race | Unknown | + + + | Ethnic Group | Unknown | + + + Author + + + | Author | [facility] | | | and [place] | + + + | Organization | [facility] | | | and [place] | + + + | Address | Unknown | + + + | Phone | Unavailable | + + + Care Team Providers + +------+ + | Care Tabulating Supervisor Name | Role | Phone | + +------+ + | Cassidy Khan MD | PCP | | + +------+ + Encounter Details +--------+ + + + + | Date | Type | Department | Care Team | Description | +--------+ + + + + | 12/12/ | Orders Only | [facility] | Oneal Rowe | | | 2015 | | CARDIOLOGY [place] | MD [address] | | | | | [address] | [facility] | | | | | [place], [place] | [place] [address] | | | | | [address] | [phone] | | | | | [phone] | | | +--------+ + + + [...] for local anesthesia. Using Seldinger technique, a 5-Setswana | | | hydrophilic introducer sheath was [...] direct fluoroscopic | | | visualization, a 5-Setswana multipurpose catheter was advanced to the | | | aortic root. The patient was noted to be hypotensive and IV fluids | | | were started. The sedation was reversed with Romazicon 0.2 mg and | | | Narcan 0.4 mg. The multipurpose catheter was then used to perform | | | selective angiography of both [place] coronary systems, in multiple | | | [...] | | | There are numerous septal exploration driller branches which are normal in | | [...] | | anesthesia. Using Seldinger technique, a 5-Setswana hydrophilic introducer | | sheath was inserted into the right radial artery. The radial artery | | "cocktail" (verapamil 2 mg, heparin 2000 units and nitroglycerin 200 mcg) | | was administered through the introducer sheath side port. | | | | With the use of a 260 cm 0.035-inch J-tipped guidewire for catheter | | advanced under direct fluoroscopic visualization, a 5-Setswana multipurpose | | catheter was advanced to the aortic root. The patient was noted to be | | hypotensive and IV fluids were started. The sedation was reversed with | | Romazicon 0.2 mg and Narcan 0.4 mg. The multipurpose catheter was then | | used to perform selective angiography of both [place] coronary systems, in | | multiple views, [...] free of disease. There are numerous septal exploration driller branches | | which are normal in [...]
[~2020-04-19 08:14] MED LIST: ATORVASTATIN CA10 MG PO; BIDIL TABLET1 EACH PO; CARVEDILOL25 MG PO; FUROSEMIDE20 MG PO; LISINOPRIL10 MG PO; LISINOPRIL2.5 MG PO; NICOTINE1 EAC1 TD; SPIRONOLACTONE25 MG PO
--- OUTSIDE RECORDS SUMMARY | 2020-04-19 08:16 | XMS ---
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 Care History Medical/Surgical 03/12/2019 [facility] - PATIENT ESTABLISHED CARE WITH DR MONTENEGRO ON 12/12/18. NEXT FOLLOW UP APT IS ON 05/10/2019. - Patient is currently established with [facility]. If patient is seen in the ED during business hours. Please contact CHWs at [facility]. Care Recommendation: This patient has had 5 or more Emergency Department visits in the last 12 months.\T\nbsp; Patient requires education on the scope and purpose of the ED as an acute care provider not a Primary Care Provider and should not be utilized for chronic conditions.\T\nbsp; These are guidelines and the provider should exercise clinical judgment when providing care. E.D. VISIT COUNT (12 MO.) 1 [facility] TOTAL 1 NOTE: Visits indicate total known visits. ED/UCC VISIT TRACKING (12 MO.) 04/19/2020 08:15 [facility] TYPE: Emergency COMPLAINT: - LEG PAIN, NON INJ INPATIENT VISIT TRACKING (12 MO.) No inpatient visits to display in this time frame [email or web address]
[2020-04-19] MEDS ORDERED: CARVEDILOL25 MG PO (08:27)
[2020-04-19] MEDS ORDERED: LISINOPRIL20 MG PO (14:22)
--- NOTE | 2020-04-19 15:33 | NUR ---
1520: PT ARRIVED TO THE ROOM. TELE PLACED AND HE IS NOTED TO BE IN SVT AT 130-165. VITAL SIGNS CHECKED AND MD CALLED. EKG ORDERED. 1533: RT AND DR PAUL TO THE PT'S ROOM. LUNG SOUNDS COARSE, PT DENIES SOB OR CP.
--- NOTE | 2020-04-19 15:48 | NUR ---
IV LOPRESSOR GIVEN ORDERED.
--- NOTE | 2020-04-19 15:50 | NUR ---
PT STATES HE HAS TO HAVE A BM NOW AND CAN'T WAIT. PT GIVEN A BED CHI AND HE HAD A MED SIZED SOFT GREEN STOOL. PT REMAINS SHAKY WITH JERKY MOVEMENTS WHICH HE STATES IS NORMAL FOR HIM.
--- NOTE | 2020-04-19 16:27 | NUR ---
TELE APPEARS TO BE ST AT 102 WITH A BBB AT THIS TIME. THE PT CONTINUES TO DENY ANY CP OR SOB AND ANY OTHER PROBLEMS OTHER THAN HIS LEGS REMAINING WEAK WHICH HE STATES IS WHY HE IS HERE. PT ORDERING DINNER AT THIS TIME. SEE ASSESSMENT.
--- NOTE | 2020-04-19 16:41 | NUR ---
MED REC COMPLETE
--- NOTE | 2020-04-19 17:10 | NUR ---
PATIENT LISTED CONTACT MARTHA HASSAN CALLED FOR PATIENT UPDATE, LET US KNOW THAT PATIENT WAS DRINKING HEAVILY UP TO [address] PAUL NOTIFIED.
--- NOTE | 2020-04-19 17:12 | NUR ---
Pt resting in his bed with no new complaints.
--- NOTE | 2020-04-19 18:02 | NUR ---
Pt continues to denie any sob or cp, he only voices concerns about his legs being weak. Pt states he at times has small amout of blood noted when he wipes which was noted after having had a bm this evening. He states that he has hemorrhoids. Tele st at 109 at this time.
--- NOTE | 2020-04-19 19:35 | NUR ---
REPORT RECEIVED FROM DAY SHIFT RN. PT LYING IN BED ALERT AND ORIENTED. FRESH WATER PROVIDED. 50 ML CONCENTRATED URINE EMPTIED FROM URINAL. IVF INFUSING. DENIES NEEDS AT THIS TIME. WHITE BOARD UPDATED. CALL LIGHT IN REACH. BED ALARM FOR SAFETY.
--- NOTE | 2020-04-19 19:44 | EKG ---
[facility] [address] [facility] [place], [place] [address] Signed Poor data quality, interpretation may be adversely affected Sinus tachycardia Left bundle branch block Abnormal ECG No previous ECGs available Confirmed by PACO PAUL MD ([id number]) on 04/19/2020 7:43:58 PM Electronically Signed By: PACO PAUL MD 04/19/20 1944 PATIENT NAME: FELIPE KEANE LENNOX Electrocardiogram DATE OF : 68 PHYSICIAN: PACO PAUL MD REPORT #: [id number] REPORT IS CONFIDENTIAL AND NOT TO BE RELEASED WITHOUT AUTHORIZATION
--- NOTE | 2020-04-19 19:45 | EKG ---
[facility] [address] [facility] [place], [place] [address] Signed Sinus tachycardia Left bundle branch block Abnormal ECG Confirmed by PACO PAUL MD ([id number]) on 04/19/2020 7:45:26 PM Electronically Signed By: PACO PAUL MD 04/19/20 1945 PATIENT NAME: FELIPE KEANE LENNOX Electrocardiogram DATE OF : 68 PHYSICIAN: PACO PAUL MD REPORT #: [id number] REPORT IS CONFIDENTIAL AND NOT TO BE RELEASED WITHOUT AUTHORIZATION
--- NOTE | 2020-04-19 19:53 | NUR ---
[employer] PILOT ROUNDING NOTE. PT FOUND TO BE PULLING AT TELE. ELECTRODES REPLACED. PT APOLOGETIC. DENIES NEEDS. CALL LIGHT IN REACH. ROOM IN VIEW OF RN STATION. WHITE BOARD UDPATED.
--- NOTE | 2020-04-19 21:26 | NUR ---
PERMISSION OBTAINED FROM PT TO UPDATE HIS FRIEND SARAH. PT'S MAC EXPRESSES CONCERN THAT PT MAY SOON A RESULT OF ETOH USE. HE ASKS THAT WE TALK TO PT ABOUT TREATMENT. DATA RECOVERY PLANNER TALKED WITH PT AFTER PHONE CALL, TOLD PT THAT HIS FRIENDS ARE VERY CONCERNED FOR HIS WELLBEING. HE STATES THAT HE THINKS HE IS DONE DRINKING NOW. HE IS CONSIDERING GOING TO TREATMENT. HE IS CONCERNED THAT HIS LEGS AREN'T WORKING AND THIS WILL LEAD TO HIM BEING HOMELESS. PRIMARY RN IN TO PT'S ROOM FOR [facility] ADMINISRATION. PT DENIES FURTHER NEEDS FROM THIS DATA RECOVERY PLANNER. CALL LACHELLE IN REACH. ROOM IN VIEW OF RN STATION.
--- NOTE | 2020-04-19 21:30 | NUR ---
EVENING ASSESSMENT COMPLETE. SCHEDULED MEDS GIVEN WITHOUT ISSUE. TELE #8 ST, HR 102. IVF INFUSING. PT DENIES CP OR SOB. NO C/O PAIN OR NAUSEA. PT EXPRESSES CONCERN R/T BLE WEAKNESS. REMINDED PT TO USE NURSE CALL LIGHT IF NEEDING TO GET OUT OF BED. CRANBERRY JUICE AND FRESH WATER PROVIDED. BED ALARM ON FOR SAFETY. PT IN VIEW OR NURSES STATION.
--- NOTE | 2020-04-19 23:10 | NUR ---
CIWA SCORE OF 9. PT MEDICATED PER EMAR.
--- NOTE | 2020-04-20 00:06 | NUR ---
PT TO BSC WITH 1PA TO HAVE MED GREEN LOOSE BM. JEAN-PAUL CARE DONE. BACK TO BED, ALPHONSE FAIR. GAIT WEAK AND UNSTEADY. PROVIDED PT WITH FWW.
--- NOTE | 2020-04-20 01:00 | NUR ---
VS AND I&O COMPLETE. PRN GIVEN FOR BACK PAIN. NO FURTHER NEEDS. BED ALARM ON. CALL LIGHT IN REACH.
--- NOTE | 2020-04-20 01:34 | NUR ---
PT UP ON SIDE OF BED, BED ALARM SOUNDING. UP TO BSC WITH 2PA AND FWW TO HAVE BM. GAIT WEAK. PT ABLE TO DO OWN JEAN-PAUL CARE. BACK TO BED, ALPHONSE WELL. BED ALARM ON.
--- NOTE | 2020-04-20 02:57 | NUR ---
CIWA SCORE 9. PT ASKING FOR SOMETHING TO HELP "CALM DOWN". MILD TREMORS, AGITATION, AND SWEATING NOTED. PT DENIES SANDOVAL OR NAUSEA. PRN ADMINISTERED PER EMAR.
--- NOTE | 2020-04-20 04:28 | NUR ---
SPOKE WITH DR. PAUL REGARDING PT INCREASED AGITATION, AGGRESSION, AND TREMORS. NEW ORDERS RECEIVED, VERIFIED WITH READ BACK METHOD.
--- NOTE | 2020-04-20 05:43 | NUR ---
DR. PAUL NOTIFIED OF PTS CONTINUED INCREASED AGITATION. NEW ORDERS RECEIVED. VERIFIED WITH READ BACK METHOD.
--- NOTE | 2020-04-20 05:58 | NUR ---
NOTIFIED DR. PAUL THAT PTS AGITATION AND TREMORS HAVE BEEN UNCHANGED SINCE LAST PRN WAS GIVEN. REPORTED PTS VITAL SIGNS HAVE INCREASED, HR 120-140'S, BP ALSO ELEVATED. NEW TELEPHONE ORDERS RECEIVED FOR PRN MED WELL TRANSFER TO CCU.
--- NOTE | 2020-04-20 06:14 | NUR ---
PT AGITATED, CONFUSED, PICKING AT THINGS IN AIR. TRANSPORTED TO CCU VIA BED PER MD ORDER. ALL BELONGINGS PACKED WITH PT.
--- NOTE | 2020-04-20 06:38 | NUR ---
PATIENT ARRIVED TO THE UNIT WITH CONTRACTOR BROOMCORN THRESHING VIA BED AT 0615. PATIENT IS DISORIENTED AND NOT FOLLOWING INSTRUCTIONS. HR ELEVATED 145, BP ELEVATED. CIWA 19. 1 MG PRN ATIVAN PROVIDED PER ORDER. ENVIRONMENTAL PLANNING ENGINEER 1:1. NOTIFIED AND NEW ORDERS PLACED. ER SECURITY CALLED.
--- NOTE | 2020-04-20 06:58 | NUR ---
5 MG LOPRESSOR GIVEN PER ORDER, HR 150S. PATIENT CIWA 23, WITH HALLUCINATIONS AND VERY AGITATED. MANUAL LATHE MACHINIST 1:1 AND SECURITY AT BEDSIDE. PATIENT ATTEMPTED TO PULL OUT HER RIGHT HAND IV SITE, AREA REDRESSED.
--- NOTE | 2020-04-20 07:26 | NUR ---
MD NOTIFED OF PATIENT'S ONGOING AGITATIONS AND ELEVATED HR. NEW ORDERS RECIEVED. PATIENT CONTINUES TO REQUIRE 1:1 AND SECURITY AT BEDSIDE. MD IN TO SEE PATIENT.
--- NOTE | 2020-04-20 08:10 | NUR ---
AT APPROXIMATLY 0805 PT DESATS TO 74% WHILE SLEEPING ON ROOM AIR. PT APPEARS TO POSSIBLY HAVE UNDIAGNOSED SLEEP APENIA. PT RECOVERED QUICKLY WHEN WOKEN UP, BLOW BY O2 PROVIDED FOR LESS THAN 2 MIN AT 15 L. HOB ELEVATED SLIGHTLY AND PILLOWS REMOVED. PT O2 SATS BACK UP TO UPPER 90%.
--- NOTE | 2020-04-20 08:36 | NUR ---
PT GIVEN 2 MG IV ATIVAN FOR INCREASED AGITATION, PICKING AT THE AIR, TALKING TO INANIMATE OBJECTS, DIAPHORESIS. SEE CIWA ASSESSMENT.
--- NOTE | 2020-04-20 09:10 | NUR ---
PT CONVINCED TO TAKE PILLS WITH PUDDING AND SIPS OF WATER, PT SITTING ALL THE WAY UP IN BED TO TAKE MEDS. PT VERY CONFUSED, HAS DIFFICULTY FOLLOWING DIRECTIONS, HOWEVER WAS ABLE TO SWALLOW PILLS.
--- NOTE | 2020-04-20 10:55 | NUR ---
PT INCONTINENT OF LARGE AMOUNT OF URINE. ATTENDS AND ANNA PAD SOAKED. JEAN-PAUL CARES DONE, CLEAN ATTENDS AND ANNA PAD IN PLACE. PT ABLE TO SETTLE EASILY AFTER THE JEAN-PAUL CARES. PT COOPERATIVE WITH ROLLING FROM SIDE TO SIDE DURING CHANGING.
--- NOTE | 2020-04-20 12:04 | NUR ---
AT ABOUT 1130 PT INCONTINENT OF LARGE AMOUNT OF URINE INTO ATTENDS. CHANGED ATTENDS AND DID JEAN-PAUL CARE. PT HAVING DIFFICULTY FOLLOWING DIRECTIONS WITH THIS ATTEND CHANGE. PT SPEECH IS MOSTLY GARBLED, HOWEVER WAS ABLE TO COMMUNICATE THAT HIS BACK WAS PAINFUL "THIS DAMN BED". PT POSITIONED ON HIS SIDE WITH PILLOWS BEHIND BACK AND UNDER HEAD TO SUPPORT A MORE COMFORTABLE POSITION. PT GIVEN WARM BLANKETS. PT ALSO GIVEN 4 MG IV ATIVAN FOR A CIWA SCORE OF 18. ONCE PT TUCKED IN AND AFTER ATIVAN HE WAS ABLE TO SETTLE QUICKLY AND FALL BACK TO SLEEP. VITALS ARE WNL, HR IS 80'S-90'S. IV SITES ARE INTACT, NO REDNESS OR SWELLING NOTED AT EITHER SITE, FLUSHES AND FLUIDS INFUSE EASILY.
--- NOTE | 2020-04-20 12:35 | NUR ---
PT BECAME RESTLESS AT THIS TIME. WHEN THIS RN ENTERED NOTICED PT HAD BEEN INCONTIENT OF URINE. PT CLEANED UP CHANGED ATTENDS AND CHECK PAD. PT THEN STATED THAT HE HAD TO PEE. HO RN ASSISSTED PT TO USE URINAL AT THIS TIME. PT THEN COVERED UP, PT THEN BEGAN TRYING TO TAKE OFF SHEET AGAIN BECOMING MORE AGITATED AND TYRING TO PUT HSI LEGS OVER THE BED RAILS. THIS RN GAVE PT 2MG OF ATIVAN. PT COVERED UP AND APPEARS TO BE GOING BACK TO SLEEP, RESPIRATIONS NOTED AND O2 SATS HOLEDING GREATER THAN 90% ON ROOM AIR
--- NOTE | 2020-04-20 13:00 | NUR ---
PT FEET COVERED IN SHAVING CREAM, WRAPPED IN HOT WET HAND TOWEL, THEN WRAPPED IN BLUE ANNA. WILL LET SIT FOR ONE HOUR IF PT CAN ALPHONSE.
--- NOTE | 2020-04-20 13:49 | NUR ---
PT GIVEN 5 MG IV HALDOL FOR INCREASED AGITATION, UNWILLING/UNABLE TO FOLLOW DIRECTIONS, MULTIPLE ATTEMPTS TO GET OUT OF BED. PT REPOSITIONED IN BED FOR COMFORT, BED ALARM IS ON. VITALS ARE WNL IF PT NOT UPSET; OTHERWISE PT HAS ELEVATED HR, HOWEVER HR RESOLVES QUICKLY WHEN CALM.
--- NOTE | 2020-04-20 16:15 | NUR ---
WRAPS REMOVED FROM PT FEET. BOTH FEET CLEANED EXTENSIVELY WITH WARM SOAPY WASH CLOTHS. BILAT LOW LEGS, TRUNK, BELLY, AND NECK WASHED WITH WARM SOAPY WATER. PT ALPHONSE WELL.
--- NOTE | 2020-04-20 16:45 | NUR ---
PT ASSISTED IN USING URINAL BY RN, PT ABLE TO VOID 100 ML CONCENTRATE URINE. PT THEN WASHES HANDS WITH A WARM SOAPY WASHCLOTH. PT THEN ABLE TO DRINK MOST OF A HIGH PROTIEN ENSURE WHILE SITTING ALL THE WAY UP IN BED. PT COVERED WITH A WARM BLANKET, HE ALMOST IMMEDIATLY WENT BACK TO SLEEP.
--- NOTE | 2020-04-20 17:55 | NUR ---
TWO PERSON ASSIST TO STAND AT THE BEDSIDE TO ATTEMPT TO VOID. PT NOT ABLE TO VOID, HAS SOME LOOSE STOOL INSTEAD. PT TWO PERSON TRANSFER TO COMMODE THEN ABLE TO HAVE MEDIMUM SIZE MUCOID BROWN/GREEN STOOL, VERY FOUL IN ODOR. PT STANDS FOR JEAN-PAUL CARE WITH TWO PERSON ASSIST, NOT ABLE TO ALPHONSE LONG. BACK TO BED WITH CLEAN ATTEND IN PLACE. PT ASSISTED PER REQUEST TO DRINK SOME JUICE.
--- NOTE | 2020-04-20 19:45 | NUR ---
SHIFT REPORT RECEIVED. PATIENT APPEARS TO BE RESTING AT THIS TIME. O2 SAT 86% ON ROOM AIR, 1L NC PLACED. O2 SAT IMPROVED.
--- NOTE | 2020-04-20 20:35 | NUR ---
Helped pt to bedside comode, pt back in bed, RN assisted.
--- NOTE | 2020-04-20 20:45 | NUR ---
PATIENT CIWA 20. RECENT ATIVAN GIVEN AT 1930. PATIENT IS RESTLESS WITH ELEVATED HR. PRN HALDOL PROVIDED. PARTIAL BED BATH PROVIDED. PATIENT TOLERATED MODERATELY WELL. VS STABLE. PATIENT DENIES NEED TO VOID. LUNG SOUNDS ARE CLEAR. IV FLUIDS PER ORDER, SITE WNL.
--- NOTE | 2020-04-20 21:45 | NUR ---
PATIENT OUT OF BED WITHOUT CALLING FOR ASSIST. PATIENT INCONTINENT OF LOOSE STOOL. 2PA TO BSC. PATIENT HAD MEDIUM LOOSE STOOL AND MIXED WITH URINE. PATIENT CLEANED AND BARRIER CREAM APPLIED IN GROIN AREA. NEW ATTENDS. PATIENT BACK TO BED WITH 3PA. PATIENT DOES NOT FOLLOW DIRECTIONS WELL. BED ALARM ACTIVE. ENCOURAGED PATIENT TO USE CALL LIGHT.
--- NOTE | 2020-04-20 22:15 | NUR ---
PATIENT APPEARS TO BE SLEEPING SOUNDLY. SCHEDULED ATIVAN PROVIDED. IV SITE WNL. VS STABLE.
--- NOTE | 2020-04-21 02:00 | NUR ---
PATIENT ATTEMPTING TO GET OUT OF BED WITHOUT CALLING. PATIENT THEN ASSISTED WITH 2 STAFF UP TO [facility]. PATIENT HAD SMALL INCONTINENT URINE, PLUS 200 ML. ASSISTED PATIENT WITH JEAN-PAUL CARE AND NEW ATTEND. PATIENT RETURNED TO BED. CARDIAC LEADS REPLACED DUE TO PATIENT PULLING AT THEM. SCHEDULED MEDS GIVEN. BED ALARM ACTIVE.
--- NOTE | 2020-04-21 04:15 | NUR ---
PATIENT UP TO BSC WITH 2 PERSON ASSIST. PATIENT VOIDED AND RETURNED TO BED. PATIENT IS ORIENTED TO HIS SURROUNDINGS, BUT NOT EVENT OR DATE. ASSISTED PATIENT BACK INTO BED, NEW ATTENDS IN PLACE. VS STABLE.
--- NOTE | 2020-04-21 06:15 | NUR ---
PATIENT PROVIDED WITH SCHEDULED MEDS. CIWA 9. PATIENT DISORIENTED BUT CALM. FOLLOWS SIMPLE DIRECTIONS. VS STABLE.
--- NOTE | 2020-04-21 07:34 | NUR ---
REPORT RECIEVED FROM RN. PT APPEARS TO BE RESTING WITH EYES CLOSED. HR 96.
--- NOTE | 2020-04-21 08:21 | NUR ---
ADMINSTERED MORNING MEDS. PT AWAKE AND ORIENTED TO ALL BUT DATE. DENIES PAIN. ORDERED BREAKFAST. VOIDED 250 IN URINAL. SLIGHLY SHAKY.
--- NOTE | 2020-04-21 08:40 | NUR ---
PT UP TO BSC WITH 1 P PIVOT. UNABLE TO STAND UP STRAIGHT. STATES HIS LEGS ARE WEAK. DECLINED GOWN. JUST HAS DEPENDS ON.
--- NOTE | 2020-04-21 09:30 | NUR ---
SPOKE WITH PATIENT IN ROOM. PATIENT HAD EYES CLOSED, BUT OPENED THEM TO NAME. PATIENT ORIENTED. PATIENT STATES HE LIVES ALONE, HAS OVER 20 [address]AIRS TO APARTMENT. IS EMPLOYED, DRIVES. HE STATES HE WILL RETURN HOME AT DISCHARGE. HE DENIES NEEDING FINANCIAL HELP WITH COST OF MEDICATIONS, FOOD OR UTILITIES. HE STATES THAT "RIGHT NOW I JUST NEED MY LEGS TO WORK, CAN YOU GET ME NEW LEGS?". DISCUSSED THAT WE WON'T DISCHARGE HIM WHILE HE IS SICK AND WILL BE HAVING PT/OT SEE HIM EVENTUALLY. CM WILL CONTINUE TO FOLLOW.
--- NOTE | 2020-04-21 09:37 | NUR ---
PT SITTING UP IN CHAIR EATING BREAKFAST. BED ALARM ON
--- NOTE | 2020-04-21 10:07 | NUR ---
EMPTIED URINAL. PT FEET SHAKING IN BED BUT STATES THAT IS NORMAL MOVEMENT FOR HIM. DENIES SEEING OR HEARING ANYTHING UNUSUAL.
--- NOTE | 2020-04-21 11:21 | NUR ---
ASSISTED PT UP TO BSC FOR SMALL VOID. DID BED BATH WITH WIPES AND SHOWER CAP. PT STILL DIRTY BUT REFUSED SHOWER FOR TODAY.
--- NOTE | 2020-04-21 12:14 | NUR ---
pt up to bedside commode for bm. back to bed, vs stable. ordered lunch.
--- NOTE | 2020-04-21 14:18 | NUR ---
ASSISTED DUST OPERATOR GIANNA WITH AMBULATING PT IN MILES. DID MUCH BETTER THAN EXPECTED. BACK TO BED AND FELL ASLEEP IMMEDIETLY
--- NOTE | 2020-04-21 16:16 | NUR ---
PT CALLED TO USE URINAL. CIWA IS A 2. DENIES ANY S\S OF DETOXING. DENIES HEADACHE. CALLS APPROPRIATLY.
--- NOTE | 2020-04-21 18:47 | NUR ---
PT SITTING UPRIGHT IN BED. WATCHING TV AND DOZING OFF. DENIES CONCERNS OR NEEDS ATT. CALL LIGHT IN REACH.
--- NOTE | 2020-04-21 20:10 | NUR ---
SITTING AT EDGE OF BED, NEEDING TO GET UP TO VOID. ASSISTED TO BSC AND PT VOIDED AND WAS ALREADY INC. LENEN CHANGED. USES WALKER AND REQUIRES 1 PERSON ASSIST. IS WEAK AND SL UNSTEADY ON FEET. IS ESS ORIENTED BUT FORGETFUL AND SL IMPULSIVE, REMINDED TO CALL AND GIVEN CALL LIGHT. BED ALARM ON. ATIVAN HELD, SCHEDULED LIBRUIM PO GIVEN FOR ETOH WITHDRAWL. TAKING JUICE. PT CONCERNED ABOUT BEING ABLE TO WALK WITH STRENGTH AGAIN, REASURRED THAT HE WAS MAKING PROGRESS.
--- NOTE | 2020-04-21 22:11 | NUR ---
HAS BEEN WATCHING TV, USING URINAL APPRORPIATLY. NOW HAS HOB DEC, EYES CLOSED.
--- NOTE | 2020-04-21 23:13 | NUR ---
GETTING OUT OF BED ON OWN. NEEDING TO VOID, ASSISTED TO BSC, PT VOIDED AND SMEAR STOOL. REQUIRING LESS ASSISTANCE BUT STILL NEEDS 1 PERSON AND INSTRUCTIONS TO GET BACK TO BED. TAKING PO FLUIDS WELL. WHEN GETTING PT PULLED LAC SL OUT.
--- NOTE | 2020-04-22 00:32 | NUR ---
SLEEPING SOUNDLY, SATS DEC TO 70, 02 2L NC APPLIED WITHOUT PT AWAKENING. SATS 98%
--- NOTE | 2020-04-22 01:23 | NUR ---
ASSISTED TO BSC TO VOID. WHEN FIRST AWAKENS IS DISORIENTED. REORIENTS EASILY.
--- NOTE | 2020-04-22 02:15 | NUR ---
AWAKENED FOR LIBRIUM. COOPERATIVE. DENIES NEED TO VOID AT THIS TIME. BACK TO SLEEP.
--- NOTE | 2020-04-22 04:16 | NUR ---
STARTING TO GET OOB. ASSISTED TO BSC TO VOID WITH ONE PERSON ASSIST. BACK TO SLEEP WITH IN MINUTES OF BEING BACK IN BED. 02 OFF AT THIS TIME.
--- NOTE | 2020-04-22 05:44 | NUR ---
CONT TO SLEEP AT THIS TIME.
--- NOTE | 2020-04-22 06:10 | NUR ---
UP TO BSC WITH ONE PERSON STANDBY ASSIST. DOES START TO GET UP ON OWN BUT FOLLOWS DIRECTION WELL. REQUESTING JUICE.
--- NOTE | 2020-04-22 07:30 | NUR ---
REPORT RECIEVED. IN BED, IS AWARE OF PLACE AND TIME. NO S/S OF W/D AT THIS TIME.
--- NOTE | 2020-04-22 08:30 | NUR ---
ASSESSMENT DONE. MEDICATIONS GIVEN. VERY COOPERATIVE. DR. PAUL HERE TO SEE PATIENT.
--- NOTE | 2020-04-22 10:00 | NUR ---
HAS BEEN TO BR SEVERAL TIME TO VOID AND HAVE FORMED STOOLS. USING WALKER FOR AMBULATION TO BR. IS FAIRLY STABLE ON FEET. TELE # 3 APPLIED. NO DISTRESS NOTED.
--- NOTE | 2020-04-22 11:31 | NUR ---
RESTING IN BED. TELE #3 ON. WILL BE TRANSFERRED TO MED-SURG TODAY. LACTOLOSE PO GIVEN EARLIER. HAS BEE COOPERATIVE,
--- NOTE | 2020-04-22 12:55 | NUR ---
REPORT TO MED-SURG. PATIENT AMBULATED TO ROOM 123 FROM 129, USING WALKER ACCOMP BY RN. TOLERATED AMBULATION WELL.
--- NOTE | 2020-04-22 13:33 | NUR ---
PT TRANSFERED TO 123. AMBULATED WITH SBA AND FWW. ON RA. TELE [address] HR 116 WITH AMBULATION. VITALS TAKEN AND STABLE. ORIENTED TO ROOM. ASSESSMENT COMPLETED. HR DOEN TO 83 WHILE AT REST. CALL LIGHT IN REACH. BED ALARM ON.
--- NOTE | 2020-04-22 13:43 | NUR ---
PATIENT RESTING IN BED. VITAL SIGNS DONE BY RN. I&O DONE. CALL LIGHT WITHIN REACH. NO OTHER NEEDS AT THIS TIME
--- NOTE | 2020-04-22 14:00 | NUR ---
PATIENT RESTING IN BED. PATIENT REFUSED TO TAKE A SHOWER TODAY, HE SAYS THAT HE WOULD LIKE TO TAKE A SHOWER TOMORROW. BED ALARM ON. CALL LIGHT WITHIN REACH. NO OTHER NEEDS AT THIS TIME
--- NOTE | 2020-04-22 16:00 | NUR ---
Spoke with Martinez. He states he live in an apartment with 19 steps. Pt has detoxed in the past and [facility] assisted him by removing his alcohol from his home. Pt. plans on dc to his apartment on discharge. Will discuss Peer to Peer support with tomorrow.
--- NOTE | 2020-04-22 16:05 | NUR ---
OUT AMBULATING HALLS WITH PHYSICAL THERAPY.
--- NOTE | 2020-04-22 18:15 | NUR ---
PATIENT SITTING UP IN BED. VITAL SIGNS AND I&O DONE. CALL LIGHT WITHIN REACH. BED ALARM ON. NO OTHER NEEDS AT THIS TIME
--- NOTE | 2020-04-22 18:31 | NUR ---
TRANSFER FRO CCU TODAY. WALKED MAR CCU ROOM TO MED SURG ROOM. ALSO WALKED 1 LAP WITH PHYSICAL THERAPY. VOIDING WELL. 4 BMS TODAY. BED ALARM FOR SAFETY. TYLENOL GIVEN FOR CALF PAIN AFTER THERAPY. TELE 3. TACHY TO 115 WHILE AMBULATING. 80'S WTIH REST. EATING/DRINKING WELL.
--- NOTE | 2020-04-22 22:22 | NUR ---
PATIENT HAS BEEN UP TO THE BATHROOM TO VOID OVER THREE TIMES WITH 1PA SINCE THEBEINING OF THE SHIFT. BED ALARM ON AND CALL LIGHT IN REACH. PATIENTHAS BEEN TOLD TO CALL BEFORE HE TRIES TO ET UP OR ANY THING.
--- NOTE | 2020-04-22 22:45 | NUR ---
ALARM SOUNDING. PT IN BATHROOM, WITH STRETCHED IV LINE PULLING ON IV. REMINDED PT TO USE CALL LIGHT, HE STATES HE JUST CAN'T REMEMBER TO CALL. IV PATENT. AWARE OF WHICH LIGHTS TO PUSH TO CALL FOR HELP. VOIDED, WELL BM
--- NOTE | 2020-04-23 00:02 | NUR ---
PATIENT RESTING QUIETLY ON HIS RIGHT SIDE, EYES CLOSED, RESPIRATIONS REGULAR AND EVEN, CALL LIGHT IN REACH AND BED ALARM ON.
--- NOTE | 2020-04-23 00:39 | NUR ---
BED ALARM WENT OFF. PATIENT IS UP TO THE BATHROOM. PATIENT IS BACK IN BED. BED ALARM ON FOR SAFETY.
--- NOTE | 2020-04-23 02:07 | NUR ---
PATIENT UP TO THE BATHROOM AND BACK TO BED AND HE GOT HIS 2 AM MEDS. BED ALARM ON.
--- NOTE | 2020-04-23 03:08 | NUR ---
PATIENT GOT UP AGAIN WITHOUT CALLING AND SET OFF THE BED ALARM, WONDERING AROUND THE ROOM TRYING TO FIND THE BATHROOM. HELPED HIM TO THE RESTROOM 1PA AND GAVE HIM HIS WALK . PATIENT USED WALKER TO GET BACK TO BED. BED ALARM BACK ON.
--- NOTE | 2020-04-23 04:20 | NUR ---
PATIENT HAS RESTED ON AND OFF THROUGH THE NIGHT.PATIENT HAS BEEN VOIDING WELL, BUT CONTINUES TO GET OUT OF BED AND SETTING OF HIS BED ALARM. HE NEVER CALLS FOR HELP OR USES HIS WALKER UNLES YOU PUT IT IN FRONT OF HIM. AT THIS TIME HE IS RESTING QUIETLY ON HIS RIGHT SIDE WITH HIS EYES CLOSED AND RESPIRATIONS ARE REGULAR AND EVEN AND CALL LIHT IN REACH.
--- NOTE | 2020-04-23 06:27 | NUR ---
PATIENT HAS FINALLY USED HIS CALL LIGHT THE LAST 2 TIMES, ONCE TO USE THE REST ROOM AND ONCE TO GET A REFILL ON HIS PO FLUIDS. PATIENT WAS PRAISED FOR HIS PROGRESS. CALL LIGHT IN REACH.
--- NOTE | 2020-04-23 07:19 | NUR ---
RECEIVED REPORT FROM LINDA HAWLEY. PT SITTING UP IN BED AND PLACED HIS CALL LIGHT ON STATING THAT HE NEEDED TO GO TO THE BATHROOM. PTS BED ALRAM ON. DISCUSSED WITH PT THE IMPORTANCE OF USING HIS CALL LIGHT APPROPRIATELY
--- NOTE | 2020-04-23 08:29 | NUR ---
PT CALLED FROM BATHROOM AND WAS ALREADY BACK IN BED. HE ATE ALL OF HIS BREAKFAST AND HAD A SMALL BM AND HAD 100 VOID. FILLED HIS COFFEE CUP. CALL LIGHT IN REACH.
--- NOTE | 2020-04-23 09:03 | NUR ---
PATIENT RESTING IN BED. PATIENT GOES TO USE THE BATHROOM. PATIENT USES WALKER. ONE PERSON ASSISTING. LINENS CHANGED. PATIENT REFUSED TO TAKE A SHOWER AND HAVE A BEDBATH TODAY. PATIENT BACKS TO BED. VITAL SIGNS AND I&O DONE. BED ALARM ON. CALL LIGHT WITHIN REACH. NO OTHER NEEDS AT THIS TIME
--- NOTE | 2020-04-23 10:10 | NUR ---
Spoke with Martinez. He continues to believe he is here for leg pain. Does not remember DT's. Declines Peer to Peer support. Has been working with PT using a walker and Dr. Rangel with write an RX. Pt would like to use [facility] for his DME. Informed I will fax to [facility] when Rx is completed. Pt has 19 [address] into his apartment and states he will call his landlord to assist him when he goes home for safety.
--- NOTE | 2020-04-23 11:35 | NUR ---
CALL LIGHT ANSWERED. PATIENT RESTING IN BED. PATIENT GOES TO USE THE BATHROOM. PATIENT USES WALKER. ONE PERSON ASSISTING. PATIENT BACKS TO BED. PATIENT'S LUNCH ORDERED. CALL LIGHT WITHIN REACH. NO OTHER NEEDS AT THIS TIME
[2020-04-23] MEDS ORDERED: CARVEDILOL25 MG PO (12:35)
[2020-04-23] MEDS ORDERED: ULTRA-LIGHT RO1 EACH MISC (12:38)
--- NOTE | 2020-04-23 13:06 | NUR ---
PT ALERT, ORIENTED AND SITTING UP IN BED WATCHING TV. PT SEEMED TO BE ALITTLE UNCOMFORTABLE I FIRST ENTERED . PT SOON SEEMED TO RELAX AND JOINED IN CONVERSATION. PT EXPRESSED CONCERN THAT HE IS NOT READY FOR DC. PT STATED, "MY LEGS JUST AREN'T WORKING YET".P.T. HAS BEEN IN,PT DOESN'T WANT TO REGRESS. HE REQUESTED PRAYER, LEFT A G.POST AND EXPRESSED HIS CONCERNS TO HIS RN KENDRA
--- NOTE | 2020-04-23 13:10 | NUR ---
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 Given [employer] digital scale for home use. Discussed how to weigh daily/ when to notify PCP. Symptom management: Addressed monitoring and reporting changes in weight or symptoms utilizing Zones form Diet: Recommend limited sodium diet due to heart failure. Patient will require further education and assistance with this on an outpatient basis. Medication routine: Denies missed medications. Importance of QD adherence emphasized. Patient accepted a 7 day pill box for home use. Advanced directive: Not discussed at this initial visit Recommendations prior to discharge: Document ambulation oxygen saturations prior to discharge Absence of orthostatic hypotension. Discharge weight less than admit weight. Discharge BNP less than admit (as per [facility] Heart Failure DC Bundle) Barriers to self-care include: Alcohol abuse. Patient states when his son he had a difficult time coping. "I just fell of the earth". Teaching materials given today: [facility] Heart Failure bundle folder-[facility] My Action Plan Living Well with Heart Failure book, Daily weight and symptom monitoring log, Zones magnet, [facility] contact information. Given scales and pill reminder box. Plan to call patient and schedule outpatient heart failure education when appropriate.
--- NOTE | 2020-04-23 13:16 | NUR ---
PATIENT RESTING IN BED. VITAL SIGNS AND I&O DONE. CALL LIGHT WITHIN REACH. NO OTHER NEEDS AT THIS TIME
--- NOTE | 2020-04-23 15:07 | NUR ---
IN PTS ROOM TO GIVE AFTERNOON MEDS AT THIS TIME. PT UP TO THE BATHROOM, STEADY ON HIS FEET WITH BATHROOM PRIVLAGES
--- NOTE | 2020-04-23 15:15 | NUR ---
DISCUSSED WITH PT ABOUT HIS WORRY ABOUT GOING HOME AND HIS STAIRS AT HOME. DISCUSSED WITH PT THAT WE ARE ALLOWING HIM TO GET UP TO THE BATHROOM SO WE THINK HE WILL BE SAFE AT HOME BUT THIS RN DISCUSSED WITH PT ABOUT HIS DRINKING PT STATES THAT THIS WILL NOT BE A PROBLEM BECAUSE HE DOESN'T WANT TO GO THROUGH THIS ORDEAL AGAIN PT STATES THAT HE NEEDS NOTHING AT THIS TIME
--- NOTE | 2020-04-23 17:51 | NUR ---
PATIENT SITTING UP IN BED. VITAL SIGNS AND I&O DONE. ICE WATER GIVEN. CALL LIGHT WITHIN REACH. NO OTHER NEEDS AT THIS TIME
--- NOTE | 2020-04-23 18:40 | NUR ---
PTOVIDED PT WITH AN ORANGE POPSICKLE PER PT REQUEST PT SITTING UP IN BED AND ASKING IF HE CAN HAVE HIS IV TAKEN OUT. THIS RN EDUCATED PT THAT IT NEEDED TO STAY IN UNTIL HE IS DISCHARGED
--- NOTE | 2020-04-23 21:00 | NUR ---
PATIENT JUST SITTING IN BED WATCHING TV, HAS BEEN CALLING APPROPRIATELY. GIVEN A GLASS OF GRAPE JUICE ON REQUEST. CALL LIGHT IN REACH.
--- NOTE | 2020-04-23 22:42 | NUR ---
CALL LIGHT ANSWERED. pt BACK IN BED AFTER VOID, URINE HAT EMPTIED. CALL LIGHT IN REACH.
--- NOTE | 2020-04-24 00:10 | NUR ---
PATIENT UP TO THE BATHROOM AND BACK TO BED ON HIS OWN AND CALLED APPROPRIATELY. CALL LIGHT IN REACH PATIENT WATCHING TV.
--- NOTE | 2020-04-24 01:55 | NUR ---
PATIENT RESTING QUIETLY ON HIS RIGHT SIDE, EYES CLOSED RESPIRATIONS REGULAR AND EVEN. CALL LIGHT IN REACH.
--- NOTE | 2020-04-24 05:00 | NUR ---
PATIENT HAS BEEN SLEEPING MOST OF THE NIGHT, AWAKE WATCHING TV NOW. HAS BEEN UP INDEPENDENTLY VOIDING AND USING HIS CALL LIGHT. PATIENT'S CALL LIGHT IS IN REACH.
--- NOTE | 2020-04-24 09:25 | NUR ---
Spoke with Martinez. He plans on going home. Updated I have sent an RX to [facility] for a walker yesterday. I was notified his insurance will not pay for a walker. Information given on [place] and rental agreement given with address so he can stop on his way home and picker / packer a walker. He states he will call his landlord when he gets home and he will help him into his apartment.
--- NOTE | 2020-04-24 09:30 | NUR ---
Called by Dr. Rangel. He states he was notified, pt does not want to go home. Ask I speak with pt about placement. Spoke with Martinez. He states he was a little unsteady walking in the key. Discussed placement in SNF, pt declines this. Asks I call his landlord to pick him up. Called and spoke with Arash and he will pick Martinez up in 10 min, take him to [place] and brick picker his walker, take him home and assist him into the house. If pt needs groceries he will pick them up for pt. Pt denies further needs.
--- NOTE | 2020-04-24 10:32 | NUR ---
PT HAS USED CALL LIGHT FREQUENTLY THIS AM ASKING FOR HIS IV TO BE DC'D AND NOT WANTING TO GO HOME. DISCHARGE INSTRUCTIONS GIVEN ALL QUESTIONS ANSWERED. PT DRESSED WHEN MAINFRAME PROGRAMMER ANALYST ZENY INTO THE HOSPITAL THIS AM 07;00. PT IS GIVEN [place] TICKETS TO BE ABLE TO OBTAIN A WALKER AND THEN TO HOME. PT WAS ABLE TO TELL STAFF THAT DATE AND TIME HIS FOLLOW-UP APPOINTMENT IS WHEN ASKED.
== END 2020-04-24 10:55 | disposition home or self-care (01) | DRG 92 ==
LOC: ED 08:14 → MS 14:00 → CCU 14:00 → MS 04-22 13:00
PROVIDERS: ADMIT Internal Medicine
DX: G72.1 Alcoholic myopathy (principal); F10.231 Alcohol dependence with withdrawal delirium; I42.6 Alcoholic cardiomyopathy; D61.818 Other pancytopenia; K70.10 Alcoholic hepatitis without ascites; Z20.828 Contact with and (suspected) exposure to other viral communicable diseases; E87.6 Hypokalemia; E83.42 Hypomagnesemia; E78.5 Hyperlipidemia, unspecified; I10 Essential (primary) hypertension; Z79.899 Other long term (current) drug therapy; Z87.891 Personal history of nicotine dependence
CPT/HCPCS: 36415; 80048; 80053; 81001; 82140; 82550; 83690; 83735; 83880; 84484; 85025; 85379; 93005; 93010; 96361; 96365; 96375; 96376; 97110; 97116; 97162; 99285-25; C9113; G0480; J1630; J1650; J1940; J2060; J2405; J3411; J3475; J3480; J7030; J7060; U0002

== ENCOUNTER 2020-05-12 09:57 | Inpatient (IN) | payer OTHER ==
[~2020-05-12] VITALS: Ht 175.3 cm; Wt 88.0 kg
--- OUTSIDE RECORDS SUMMARY | ~2020-05-12 | XMS | Encounter Summary ---
Demographics + + + | Address | [address] | | | [place] [address] | + + + | Home Phone | | + + + | Preferred Language | Unknown | + + + | Marital Status | Single | + + + | Episcopalian Affiliation | Unknown | + + + | Race | Unknown | + + + | Ethnic Group | Unknown | + + + Author + + + | Author | [facility] | | | and [place] | + + + | Organization | [facility] | | | and [place] | + + + | Address | Unknown | + + + | Phone | Unavailable | + + + Care Team Providers + +------+ + | Care Small Engine Trainer Name | Role | Phone | + +------+ + PCP | Unavailable | + +------+ + Encounter Details +--------+ + + + + | Date | Type | Department | Care Team | Description | +--------+ + + + + | 12/12/ | Hospital | [facility] | Conversion | Cardiomyopathy, | | 2016 | Encounter | [facility] | Transaction, | dilated (HCC) | | | | CLINICAL DECISION | Provider Unknown | | | | | [address] [facility] | [phone] | | | | | [place], [place] | | | | | | [address] | Oneal Rowe | | | | | [phone] | MD [address] | | | | | | [address] | | | | | | [place] [address] | | | | | | [phone] | | | | | | | | +--------+ + + + + Social History + +-------+ +--------+------+ | Tobacco Use | Types | Packs/Day | Years | Date | | | | | Used | | + +-------+ +--------+------+ | Never Assessed | | | | | + +-------+ +--------+------+ + + + | Sex Assigned at | Date Recorded | | | | + + + | Not on file | | + + + documented as of this encounter Last Filed Vital Signs + + + + + | Vital Sign | Reading | Time Taken | Comments | + + + + + | Blood Pressure | 105/65 | 12/12/2015 3:36 PM | | | | | PST | | + + + + + | Pulse | 82 | 12/12/2015 3:36 PM | | | | | PST | | + + + + + | Temperature | 36.9 C (98.4 F) | 12/12/2015 3:36 PM | | | | | PST | | + + + + + | Respiratory Rate | 16 | 12/12/2015 3:36 PM | | | | | PST | | + + + + + | Oxygen Saturation | - | - | | + + + + + | Inhaled Oxygen | - | - | | | Concentration | | | | + + + + + | Weight | 88.5 kg (195 lb) | 12/12/2015 3:36 PM | | | | | PST | | + + + + + | Height | 172.7 cm (5' 8") | 12/12/2015 3:36 PM | | | | | PST | | + + + + + | Body Mass Index | 29.65 | 12/12/2015 3:36 PM | | | | | PST | | + + + + + documented in this encounter Progress Notes Conversion Transaction, Provider Unknown - 12/12/2015 3:36 PM PSTFormatting of this note m ight be different from the original. Nurse Progress Note by Maria Guadalupe Wang RN at 12/12/151535 Author: Maria Guadalupe Wang RN Service: (none) Author Type: Registered Nurse Filed: 12/12/15 9343 Date of Service: 12/12/151535 Status: Signed Biotech Production Specialist: Maria Guadalupe Wang RN (Registered Nurse) Pt discharged home via private vehicle with family. Signed and stated understanding of dis charge instructions. All belongings with patient upon discharge. Tele notified and IV dc'd . onver sterling Transaction, Provider Unknown - 12/12/2015 2:30 PM PST Nurse Progress Note by Maria Guadalupe Wang RN at 12/12/15 1430 Author: Maria Guadalupe Wang RN Service: (none) Author Type: Registered Nurse Filed: 12/12/15 1557 Date of Service: 12/12/15 1430 Status: Signed Biotech Production Specialist: Maria Guadalupe Wang RN (Registered Nurse) Pt has ambulated, voided, and eaten. Site and vitals remain stable. docume nted in this encounter H&P Notes Smith Pulido MD - 12/12/2015 10:59 AM PSTFormatting of this note might be different fro m the original. H&P by Smith Pulido MD at 12/12/15 1059 Author: Smith Pulido MD Service: Cardiology Author Type: Physician Filed: 12/12/15 1109 Date of Service: 12/12/15 1059 Status: Signed Biotech Production Specialist: Smith Pulido MD (Physician) [facility] Service: Cardiology Admission History & Physical Date of Admission: 12/12/2015 Requesting Physician: Oneal Rowe DO, Cardiology Reason for Admission: Diagnostic cardiac catheterization History Obtained From: patient, chart review CHIEF COMPLAINT: edema HISTORY OF PRESENT ILLNESS The patient is a 45 y.o. male referred for elective diagnostic cardiac catheterization due to a dilated cardiomyopathy. Per Dr. Rowe's note from 12/01/15: "45yo WM, relatively new onset edema, 1-2 months ago. Apparently, he has a long history of hypertension, noncompliance. He was started on medications, echocardiogram was ordered along with lower extremity venous ultrasound. Negative for DVT, the echocardiogram shows cardiomy opathy with four-chamber enlargement, severe LV systolic dysfunction. He was started on medi cations, the lower extremity edema resolved. He is referred for further cardiac workup. He d enies any recent upper respiratory tract infections, colds, or flus. Unfortunately he does c onsume a significant amount of alcohol, he drinks fortified beers, 24 ounce cans, 4 nightly, however he states that he is down to 2 cans nightly. He quit smoking 4 months ago. Has quit using recreational drugs. He admits some degree of exertional shortness of breath and fatig ue, but no orthopnea, PND, chest discomfort, palpitations, or lightheadedness. There is no p rior history of coronary disease, myocardial infarction, congenital heart disease, rheumatic heart disease, palpitations, or syncope. His congestive heart failure is new diagnosis for him. As stated, he quit smoking 4 months ago, he has a long history of hypertension (at leas t 10 years), his family history is positive for coronary disease, myocardial infarction. He denies any history of CVA, diabetes. Today I told him he has to stop using recreational drug s, he must stop drinking alcohol. Today we increased carvedilol to 6.25 mg twice daily, we p angelica on titrating this up quickly." Diagnostic Cardiac Catheterization via femoral or radial artery approach: the procedure, w ith its associated alternatives, benefits, and risks, the latter including but not limited t o possible need for more than one vascular access site, , AK, CVA, bleeding (including the need for blood transfusion), vascular damage (including the need for emergent surgical r epair, including PCI/stent placement or CABG), renal failure (including the possible need fo r short or long-term use of hemodialysis), allergic reactions/anaphylaxis, and the risks of moderate anesthesia/sedation, were discussed in detail. No guarantees were given. All ques tions were answered. The patient verbalized understanding and gave informed consent for the procedure. REVIEW OF SYSTEMS Constitutional: Negative for fever. HENT: Negative for nosebleeds. Eyes: Negative for blurred vision and double vision. Respiratory: Negative for cough, hemoptysis, sputum production, shortness of breath and whe ezing. Gastrointestinal: Negative for heartburn, nausea, vomiting, abdominal pain, diarrhea, const ipation, blood in stool and melena. Genitourinary: Negative for dysuria and hematuria. Musculoskeletal: Negative for myalgias. Skin: Negative for rash. Neurological: Negative for dizziness, tingling, sensory change, speech change, focal weakne ss, seizures, loss of consciousness, weakness and headaches. Endo/Heme/Allergies: Does not bruise/bleed easily. Psychiatric/Behavioral: Negative for depression. Past Medical History Diagnosis Date Hypertension Cardiomyopathy (HCC) CHF (congestive heart failure) (HCC) Past Surgical History Procedure Laterality Date [place] tooth extraction Vasectomy No Known Allergies Prescriptions prior to admission Medication Sig Dispense Refill Last Dose aspirin 81 MG tablet Take 1 tablet by mouth daily. 100 tablet 3 12/12/2015 at Unknown ti me lisinopril-hydrochlorothiazide (ZESTORETIC) 10-12.5 MG per tablet Take 1 tablet by mout h every morning. 30 tablet 2 12/12/2015 at Unknown time carvedilol (COREG) 3.125 MG tablet Take 2 tablets by mouth 2 (two) times daily. 60 tabl et 1 Unknown at Unknown time fish oil omega-3 fatty acids 1000 MG capsule Take 3 g by mouth daily. 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 Social History Main Topics Smoking status: Current Some Day Smoker -- 1.00 packs/day for 20 years Types: Cigarettes Smokeless tobacco: Current User Types: Chew Alcohol Use: 8.4 oz/week 14 Not specified per week Comment: beer Drug Use: Yes Comment: marijuana, meth,cocaine Sexual Activity: Not on file Other Topics Concern Not on file Social History Narrative PHYSICAL EXAM BP 141/91 mmHg | Pulse 95 | Temp(Src) 98.4 F (36.9 C) (Temporal) | Resp 16 | Ht 1.727 m (5' 8") | Wt 88.451 kg (195 lb) | BMI 29.66 kg/m2 | SpO2 98% Constitutional: He is oriented to person, place, and time and well-developed, well-nourishe d, and in no distress. Eyes: EOM are normal. Neck: No JVD present. Cardiovascular: Normal rate, regular rhythm, S1 normal and S2 normal. No extrasystoles are present. PMI is not displaced. Exam reveals no S3, no S4 and no friction rub. Murmur heard. Systolic murmur is present with a grade of 1/6 No diastolic murmur is present Pulses: Carotid pulses are 2+ on the right side, and 2+ on the left side. Radial pulses are 2+ on the right side, and 2+ on the left side. Right ulnar pulse is 2+, n ormal Marlon test Femoral pulses are 2+ on the right side, and 2+ on the left side. Dorsalis pedis pulses are 2+ on the right side, and 2+ on the left side. Posterior tibial pulses are 2+ on the right side, and 2+ on the left side. Pulmonary/Chest: No respiratory distress. He has no wheezes. He has no rales. He exhibits n o tenderness. Diminished breath sounds, bilaterally. Abdominal: Bowel sounds are normal. He exhibits no distension and no mass. There is no tend erness. Musculoskeletal: He exhibits no edema. Neurological: He is alert and oriented to person, place, and time. Skin: Skin is warm and dry. No bruising, no ecchymosis and no rash noted. No cyanosis. Nail s show no clubbing. DATA CBC: Lab Results Component Value Date WBC 5.36 12/12/2015 RBC 5.20 12/12/2015 HGB 15.7 12/12/2015 HCT 46.9 12/12/2015 MCV 90.2 12/12/2015 MCH 30.1 12/12/2015 MCHC 33.4 12/12/2015 RDW 51.2 12/12/2015 PLT 274 12/12/2015 MPV 8.1 12/12/2015 DIFFTYPE AUTOMATED 12/12/2015 BMP: Lab Results Component Value Date NA 134* 12/12/2015 K 4.5 12/12/2015 CL 101 12/12/2015 CO2 22* 12/12/2015 ANIONGAP 15 12/12/2015 GLUF 91 12/12/2015 BUN 15 12/12/2015 CREATININE 1.0 12/12/2015 BCR 15 12/12/2015 CA 8.7 12/12/2015 EGFR >60 12/12/2015 PT/INR: Lab Results Component Value Date INR 1.0 12/12/2015 PROBLEM LIST Active Problems: * No active hospital problems. * ASSESSMENT & PLAN 1. New onset acute systolic heart failure due to a dilated cardiomyopathy, EF 30% on recent echo, with 4 chamber enlargement. 2. Essential HTN, with a long history of medical noncompliance 3. Alcoholism Disposition: Elective diagnostic cardiac catheterization to evaluate for an ischemic cause of his dilated cardiomyopathy. Code Status: Full code Primary Care Physician: Liyah Pulido MD 12/12/2015 documented in this e ncounter Plan of Treatment Not on filedocumented as of this encounter Procedures + +--------+ + + + | Procedure Name | Priori | Date/Time | Associated Diagnosis | Comments | | | ty | | | | + +--------+ + + + | EXTERNAL LAB: CBC | Routin | 12/12/2015 | | Results for this | | | e | 10:05 AM | | procedure are in the | | | | PST | | results section. | + +--------+ + + + | PROTIME INR | Routin | 12/12/2015 | | Results for this | | | e | 10:05 AM | | procedure are in the | | | | PST | | results section. | + +--------+ + + + | BASIC METABOLIC | Routin | 12/12/2015 | | Results for this | | PANEL | e | 10:05 AM | | procedure are in the | | | | PST | | results section. | + +--------+ + + + documented in this encounter Results Protime INR (12/12/2015 10:05 AM PST) + + + + + + | Component | Value | Ref Range | Performed | Pathologist | | | | | At | Signature | + + + + + + | INR | 1.0Comment: REFERENCE | | EXTERNAL | | | | RANGE:0.9 - 1.2 | | LAB | | | | NON-ANTICOAGULATED2.0 | | | | | | - 3.0 ALL OTHER | | | | | | THERAPEUTIC | | | | | | INDICATIONS2.5 - 3.5 | | | | | | MECHANICAL HEART VALVES, | | | | | | RECURRENT OR SYSTEMIC | | | | | | EMBOLISMTesting | | | | | | performed at [facility];[address] | | | | | | [address];[place], [place] | | | | | | [address] | | | | + + + + + + + + | Specimen | + + | Blood specimen | | (specimen) | + + + +---------+ + + | Performing | Address | City/State/Zipcode | Phone Number | | Organization | | | | + +---------+ + + | EXTERNAL LAB | | | | + +---------+ + + External Lab: [facility]AR (12/12/2015 10:05 AM PST) + + + + + + | Component | Value | Ref Range | Performed | Pathologist | | | | | At | Signature | + + + + + + | WBC | 5.36Comment: Testing | 3.80 - 11.00 | EXTERNAL | | | | performed at [facility];[address] | K/uL | LAB | | | | [address];[place] | | | | | | [address] | | | | + + + + + + | Red Blood | 5.20Comment: Testing | 4.20 - 5.70 | EXTERNAL | | | Cells | performed at [facility];[address] | M/uL | LAB | | | Counted | [address];[place] | | | | | | [address] | | | | + + + + + + | Hemoglobin | 15.7Comment: Testing | 13.2 - 17.0 | EXTERNAL | | | | performed at [facility];[address] | g/dL | LAB | | | | [address];[place] | | | | | | [address] | | | | + + + + + + | Hematocrit, | 46.9Comment: Testing | 39.0 - 50.0 % | EXTERNAL | | | POC | performed at [facility];[address] | | LAB | | | | [address];[place] | | | | | | [address] | | | | + + + + + + | MCV | 90.2Comment: Testing | 80.0 - 100.0 fl | EXTERNAL | | | | performed at [facility];[address] | | LAB | | | | [address];[place] | | | | | | [address] | | | | + + + + + + | MCH | 30.1Comment: Testing | 27.0 - 34.0 pg | EXTERNAL | | | | performed at [facility];[address] | | LAB | | | | [address];[place] | | | | | | [address] | | | | + + + + + + | MCHC | 33.4Comment: Testing | 32.0 - 35.5 | EXTERNAL | | | | performed at [facility];[address] | g/dL | LAB | | | | [address];[place] | | | | | | [address] | | | | + + + + + + | RDW-CV | 51.2Comment: Testing | 37 - 53 fl | EXTERNAL | | | | performed at [facility];[address] | | LAB | | | | [address];[place] | | | | | | [address] | | | | + + + + + + | Platelet | 274Comment: Testing | 150 - 400 K/uL | EXTERNAL | | | Count | performed at [facility];[address] | | LAB | | | Plasma | [address];[place] | | | | | | [address] | | | | + + + + + + | MPV | 8.1Comment: Testing | fl | EXTERNAL | | | | performed at [facility];[address] | | LAB | | | [address];[place] | | | | | | [address] | | | | + + + + + + | Differentia | AUTOMATEDComment: | | EXTERNAL | | | l Type | Testing performed at | | LAB | | | | [facility];[address];[place] [address] | | | | + + + + + + | % Segmented | 52.00Comment: Testing | % | EXTERNAL | | | | performed at [facility];[address] | | LAB | | | Neutrophils | [address];[place] | | | | | | [address] | | | | + + + + + + | % | 33.39Comment: Testing | % | EXTERNAL | | | Lymphocytes | performed at [facility];[address] | | LAB | | | | [address];[place] | | | | | | [address] | | | | + + + + + + | % Monocytes | 12.40Comment: Testing | % | EXTERNAL | | | | performed at [facility];[address] | | LAB | | | | [address];[place] | | | | | | [address] | | | | + + + + + + | % | 1.11Comment: Testing | % | EXTERNAL | | | Eosinophils | performed at [facility];[address] | | LAB | | | | [address];[place] | | | | | | [address] | | | | + + + + + + | % Basophils | 1.10Comment: Testing | % | EXTERNAL | | | | performed at [facility];[address] | | LAB | | | | [address];[place] | | | | | | [address] | | | | + + + + + + | Absolute | 2.79Comment: Testing | 1.90 - 7.40 | EXTERNAL | | | Segmented | performed at [facility];[address] | K/uL | LAB | | | Neutrophils | [address];[place] | | | | | | [address] | | | | + + + + + + | Absolute | 1.79Comment: Testing | 1.00 - 3.90 | EXTERNAL | | | Lymphocytes | performed at [facility];[address] | K/uL | LAB | | | | [address];[place] | | | | | | [address] | | | | + + + + + + | Absolute | 0.67Comment: Testing | 0.00 - 0.80 | EXTERNAL | | | Monocytes | performed at [facility];[address] | K/uL | LAB | | | | [address];[place] | | | | | | [address] | | | | + + + + + + | Absolute | 0.06Comment: Testing | 0.00 - 0.50 | EXTERNAL | | | Eosinophils | performed at [facility];[address] | K/uL | LAB | | | | [address];[place] | | | | | | [address] | | | | + + + + + + | Absolute | 0.06Comment: Testing | 0.00 - 0.10 | EXTERNAL | | | Basophils | performed at [facility];[address] | K/uL | LAB | | | | [address];[place], [place] | | | | | | [address] | | | | + + + + + + + + | Specimen | + + | Blood specimen | | (specimen) | + + + +---------+ + + | Performing | Address | City/State/Zipcode | Phone Number | | Organization | | | | + +---------+ + + | EXTERNAL LAB | | | | + +---------+ + + Basic Metabolic Panel (12/12/2015 10:05 AM PST) + + + + + + | Component | Value | Ref Range | Performed | Pathologist | | | | | At | Signature | + + + + + + | Na | 134 (L)Comment: Testing | 135 - 143 | EXTERNAL | | | | performed at [facility];[address] | mmol/L | LAB | | | | [address];[place] | | | | | | [address] | | | | + + + + + + | K | 4.5Comment: Testing | 3.5 - 4.9 | EXTERNAL | | | | performed at [facility];[address] | mmol/L | LAB | | | | [address];[place] | | | | | | [address] | | | | + + + + + + | Cl | 101Comment: Testing | 99 - 109 mmol/L | EXTERNAL | | | | performed at [facility];[address] | | LAB | | | | [address];[place] | | | | | | [address] | | | | + + + + + + | CO2 | 22 (L)Comment: Testing | 23 - 32 mmol/L | EXTERNAL | | | | performed at [facility];[address] | | LAB | | | | [address];[place] | | | | | | [address] | | | | + + + + + + | Anion Gap | 15Comment: Testing | 5 - 20 mmol/L | EXTERNAL | | | | performed at [facility];[address] | | LAB | | | | [address];[place] | | | | | | [address] | | | | + + + + + + | Glucose, | 91Comment: Testing | 65 - 99 mg/dL | EXTERNAL | | | Fasting | performed at [facility];[address] | | LAB | | | | [address];[place] | | | | | | [address] | | | | + + + + + + | BUN | 15Comment: Testing | 8 - 25 mg/dL | EXTERNAL | | | | performed at [facility];[address] | | LAB | | | | [address];[place] | | | | | | [address] | | | | + + + + + + | Creatinine | 1.0Comment: Testing | 0.70 - 1.30 | EXTERNAL | | | | performed at [facility];[address] | mg/dL | LAB | | | | [address];[place] | | | | | | [address] | | | | + + + + + + | BUN/Creatin | 15Comment: Testing | | EXTERNAL | | | ine Ratio | performed at [facility];[address] | | LAB | | | | [address];[place] | | | | | | [address] | | | | + + + + + + | Calcium | 8.7Comment: Testing | 8.5 - 10.5 | EXTERNAL | | | | performed at [facility];[address] | mg/dL | LAB | | | | [address];[place], [place] | | | | | | [address] | | | | + + + + + + | Estimated | >60Comment: GFR <60: | mL/min/1.73m2 | EXTERNAL | | | GFR | CHRONIC KIDNEY DISEASE, | | LAB | | | | IF FOUND OVER A 3 MONTH | | | | | | PERIOD.GFR <15: KIDNEY | | | | | | FAILURE.FOR | | | | | | AMERICANS, MULTIPLY THE | | | | | | CALCULATED GFR BY | | | | | | 1.210.Testing performed | | | | | | at [facility];[address];[place] [address] | | | | + + + + + + + + | Specimen | + + | Blood specimen | | (specimen) | + + + +---------+ + + | Performing | Address | City/State/Zipcode | Phone Number | | Organization | | | | + +---------+ + + | EXTERNAL LAB | | | | + +---------+ + + documented in this encounter Visit Diagnoses + + | Diagnosis | + + | Cardiomyopathy, dilated (HCC) | + + documented in this encounter
--- OUTSIDE RECORDS SUMMARY | ~2020-05-12 | XMS | Encounter Summary ---
Demographics + + + | Address | [address] | | | [place] [address] | + + + | Home Phone | | + + + | Preferred Language | Unknown | + + + | Marital Status | Single | + + + | Sabianism Affiliation | Unknown | + + + | Race | Unknown | + + + | Ethnic Group | Unknown | + + + Author + + + | Author | [facility] | | | and [place] | + + + | Organization | [facility] | | | and [place] | + + + | Address | Unknown | + + + | Phone | Unavailable | + + + Care Team Providers + +------+ + | Care Virtual Assistant For Advertisers Name | Role | Phone | + +------+ + | Cassidy Khan MD | PCP | | + +------+ + Encounter Details +--------+ + + + + | Date | Type | Department | Care Team | Description | +--------+ + + + + | 10/24/ | Orders Only | [facility] | Stephanie Hernandez | | | 2018 | | [address] | | | | | [address] | [address] | | | | | [place], [place] | [place] [address] | | | | | [address] | [phone] | | | | | [phone] | | | +--------+ + + + [...] | + +--------+ + + + | ECHO INTERPRETATION | Routin | 10/24/2018 | | Results for this | | OF OUTSIDE FILMS | e | 3:45 PM | | procedure are in the | | | | PST | | results section. | + +--------+ + + + documented in this encounter Results ECHO Interpretation of Outside Films (10/24/2018 3:45 PM PST) + + | Specimen | + + | | + + + + + | Impressions | Performed At | + + + | 1. The left ventricle is markedly dilated. Overall left | | | ventricular systolic function is moderate-severely impaired, with an | | | EF of 30%. 2. The diastolic filling pattern indicates impaired | | | relaxation consistent with mild dysfunction (Grade I). 3. The right | | | ventricle is mildly enlarged, but right ventricular systolic function | | | is normal. 4. Ukmv-yg-koxisqzz mitral regurgitation is present. 5. | | | There are several changes noted in comparison to the previous | | | echocardiographic study, done 06/09/17. | | + + + + + + | Narrative | Performed At | + + + | Patient Name: Martinez Xiong Date of : 1970 | | | Performing Physician: ETIENNE GEORGES MD | | | | | | INDICATIONS Cardiomyopathy CONCLUSIONS | | | 1. The left ventricle is markedly dilated. Overall left ventricular | | | systolic function is moderate-severely impaired, with an EF of 30%. | | | 2. The diastolic filling pattern indicates impaired relaxation | | | consistent with mild dysfunction (Grade I). 3. The right ventricle is | | | mildly enlarged, but right ventricular systolic function is normal. | | | 4. Bpej-hi-rxnzzdvw mitral regurgitation is present. 5. There are | | | several changes noted in comparison to the previous echocardiographic | | | study, done 06/09/17. FINDINGS -------- ECG rhythm: Sinus rhythm. | | | Study: A 2-dimensional transthoracic echocardiogram with m-mode, | | | spectral and color flow Doppler was perfomed at [facility]. Study: This was | | | a technically adequate study. Left Ventricle: Overall left | | | ventricular systolic function is moderate-severely impaired, with an | | | EF of 30%. The EF was estimated at 30 - 35% on the previous exam. | | | Left Ventricle: The left ventricle is markedly dilated, increased in | | | size compared to the prior study, when it was measured at 5.9 cm in | | | diameter at end-diastole. Left Ventricle: Left ventricular wall | | | thickness is normal. Left Ventricle: The diastolic filling pattern | | | indicates impaired relaxation consistent with mild dysfunction (Grade | | | I). Left Ventricle: Septal and inferior wall akinesia. Left | | | Ventricle: The following regional wall motion abnormalities include: | | | Left Ventricle: basal anteroseptal - severely hypokinetic; Left | | | Ventricle: mid anteroseptal - severely hypokinetic; Left Ventricle: | | | basal inferoseptal - dyskinetic; Left Ventricle: mid inferoseptal - | | | dyskinetic; Left Ventricle: basal inferior - akinetic; Left | | | Ventricle: mid inferior - severely hypokinetic; Left Ventricle: | | | lateral - mildly hypokinetic; Left Ventricle: basal inferolateral - | | | mildly hypokinetic; Left Ventricle: mid inferolateral - mildly | | | hypokinetic; Left Ventricle: The remaining left ventricular segments | | | are moderately hypokinetic. Right Ventricle: The right ventricle is | | | mildly enlarged. It was normal in size on the prior exam. Right | | | Ventricle: The right ventricular systolic function is normal. Left | | | Atrium: The left atrium is normal in size. It was moderately | | | enlarged on the prior study. Right Atrium: The right atrium is normal | | | in size. Aortic Valve: The aortic valve appears to be trileaflet. | | | Aortic Valve: There is mild aortic valve sclerosis without stenosis. | | | Aortic Valve: Trace amount of aortic regurgitation. Mitral Valve: The | | | mitral valve is normal. Mitral Valve: Swte-lr-skpabhai mitral | | | regurgitation is present. There was no MR seen on the previous | | | study. Mitral Valve: No evidence of MVP. Tricuspid Valve: The | | | tricuspid valve appears structurally normal. Tricuspid Valve: Trace | | | tricuspid regurgitation present. Tricuspid Valve: The poor TR signal | | | prevents accurate estimation of pulmonary pressures. Pulmonic Valve: | | | The pulmonic valve is normal. Pericardium: There is no pericardial | | | effusion. IVC/Hepatic Veins: The IVC is small (<1.5cm) and collapses | | | with sniff, consistent with central venous pressures of 0-5mmHg. | | | Aorta: The aortic root, ascending aorta and aortic arch are normal. | | | Mass: No mass visualized Thrombus: No clot visualized Thrombus: No | | | vegetation visualized. Septum: No ASD observed. Septum: No VSD | | | observed. MEASUREMENTS Ao asc: 3.44 cm Ao | | | Diam: 3.47 cm Ao sinus: 3.[address] junct: 3.04 cm IVC: | | | 1.16 cm LA Major: 4.64 cm EDV(Teich): 242.07 ml IVSd: | | | 1.06 cm LVIDd: 6.83 cm LVPWd: 1.10 cm LVOT Area: 3.96 cm2 | | | LVOT Diam: 2.24 cm %FS: 16.22 % EF(Teich): 33.17 % | | | ESV(Teich): 161.76 ml LVIDs: 5.72 cm SV(Teich): 80.31 ml | | | RV Major: 8.28 cm RV Minor: 3.90 cm RVIDd: 3.61 cm LVEF | | | MOD A2C: 34.93 % SV MOD A2C: 84.23 ml LVEF MOD A4C: 27.36 % | | | SV MOD A4C: 64.41 ml EF Biplane: 29.75 % LVEDV MOD BP: | | | 239.28 ml LVESV MOD BP: 168.09 ml LVEDV MOD A2C: 241.13 ml | | | LVLd A2C: 9.74 cm LVEDV MOD A4C: 235.37 ml LVLd A4C: 9.97 | | | cm LVESV MOD A2C: 156.90 ml LVLs A2C: 8.69 cm LVESV MOD A4C: | | | 170.95 ml LVLs A4C: 9.22 cm LAESV(A-L): 52.37 ml LAESV | | | Index (A-L): 25.30 ml/m2 LAAs A2C: 17.73 cm2 LAESV A-L A2C: | | | 56.19 ml LALs A2C: 4.75 cm LAAs A4C: 16.27 cm2 LAESV A-L | | | A4C: 48.06 ml LALs A4C: 4.67 cm RAAs: 15.74 cm2 RAESV A-L: | | | 44.83 ml RAESV MOD: 43.21 ml RALs: 4.69 cm TAPSE: 2.70 | | | cm AV maxP.79 mmHg AV meanP.61 mmHg AV Vmax: 1.39 | | | m/s AV Vmean: 1.01 m/s AV VTI: 28.31 cm FADI Vmax: 2.86 | | | cm2 FADI (VTI): 2.58 cm2 AVAI Vmax: 0.00 cm2/m2 AVAI (VTI): | | | 0.00 cm2/m2 LVOT maxP.05 mmHg LVOT meanP.18 mmHg | | | LVSI Dopp: 35.31 ml/m2 LVSV Dopp: 73.10 ml LVOT Vmax: 1.00 | | | m/s LVOT Vmean: 0.68 m/s LVOT VTI: 18.42 cm MV A Henry: 0.91 | | | m/s MV Dec Laporte: 3.53 m/s2 MV DecT: 205.32 ms MV E Henry: | | | 0.72 m/s MV E/A Ratio: 0.79 MV PHT: 59.54 ms MVA By PHT: | | | 3.69 cm2 Septal e': 0.04 m/s Septal E/e': 15.15 Lateral e': | | | 0.03 m/s Lateral E/e': 21.69 RAP: 5 mmHg RVSP: 22.41 | | | mmHg TR maxP.41 mmHg TR Vmax: 2.08 m/s Printing Table Hand: | | | DH Authenticated by: ETIENNE GEORGES MD Report Date/Time: -- | | | [id number] | | + + + + + | Procedure Note | + + | Wolfgang, Rad Conversion - 07/05/2019 4:35 PM PDT Patient Name: Benita Xiong of : | | 1970 Performing Physician: ETIENNE GEORGES, | | MD INDICATIONS C | | ardiomyopathy CONCLUSIONS 1. The left ventricle is markedly dilated. Overall | | left ventricular systolic function is moderate-severely impaired, with an EF of 30%.2. | | The diastolic filling pattern indicates impaired relaxation consistent with mild | | dysfunction (Grade I).3. The right ventricle is mildly enlarged, but right ventricular | | systolic function is normal.4. Iqhn-la-sgburymj mitral regurgitation is present. 5. | | There are several changes noted in comparison to the previous echocardiographic study, | | done 06/09/17. FINDINGS--------ECG rhythm: Sinus rhythm.Study: A 2-dimensional | | transthoracic echocardiogram with m-mode, spectral and color flow Doppler was perfomed | | at [facility].Study: This was a technically adequate study.Left Ventricle: Overall left | | ventricular systolic function is moderate-severely impaired, with an EF of 30%. The EF | | was estimated at 30 - 35% on the previous exam.Left Ventricle: The left ventricle is | | markedly dilated, increased in size compared to the prior study, when it was measured at | | 5.9 cm in diameter at end-diastole.Left Ventricle: Left ventricular wall thickness is | | normal.Left Ventricle: The diastolic filling pattern indicates impaired relaxation | | consistent with mild dysfunction (Grade I).Left Ventricle: Septal and inferior wall | | akinesia.Left Ventricle: The following regional wall motion abnormalities include:Left | | Ventricle: basal anteroseptal - severely hypokinetic;Left Ventricle: mid anteroseptal - | | severely hypokinetic;Left Ventricle: basal inferoseptal - dyskinetic;Left Ventricle: | | mid inferoseptal - dyskinetic;Left Ventricle: basal inferior - akinetic;Left Ventricle: | | mid inferior - severely hypokinetic;Left Ventricle: lateral - mildly hypokinetic;Left | | Ventricle: basal inferolateral - mildly hypokinetic;Left Ventricle: mid inferolateral - | | mildly hypokinetic;Left Ventricle: The remaining left ventricular segments are | | moderately hypokinetic.Right Ventricle: The right ventricle is mildly enlarged. It was | | normal in size on the prior exam.Right Ventricle: The right ventricular systolic | | function is normal.Left Atrium: The left atrium is normal in size. It was moderately | | enlarged on the prior study.Right Atrium: The right atrium is normal in size.Aortic | | Valve: The aortic valve appears to be trileaflet.Aortic Valve: There is mild aortic | | valve sclerosis without stenosis.Aortic Valve: Trace amount of aortic | | regurgitation.Mitral Valve: The mitral valve is normal.Mitral Valve: Kozz-ez-qvsrrdkk | | mitral regurgitation is present. There was no MR seen on the previous study.Mitral | | Valve: No evidence of MVP.Tricuspid Valve: The tricuspid valve appears structurally | | normal.Tricuspid Valve: Trace tricuspid regurgitation present.Tricuspid Valve: The poor | | TR signal prevents accurate estimation of pulmonary pressures.Pulmonic Valve: The | | pulmonic valve is normal.Pericardium: There is no pericardial effusion.IVC/Hepatic | | Veins: The IVC is small (<1.5cm) and collapses with sniff, consistent with central | | venous pressures of 0-5mmHg.Aorta: The aortic root, ascending aorta and aortic arch are | | normal.Mass: No mass visualizedThrombus: No clot visualizedThrombus: No vegetation | | visualized.Septum: No ASD observed.Septum: No VSD observed. MEASUREMENTS Ao | | asc: 3.44 cmAo Diam: 3.47 cmAo sinus: 3.[address] junct: 3.04 cmIVC: 1.16 | | cmLA Major: 4.64 cmEDV(Teich): 242.07 mlIVSd: 1.06 cmLVIDd: 6.83 cmLVPWd: 1.10 | | cmLVOT Area: 3.96 [id number] Diam: 2.24 cm%FS: 16.22 %EF(Teich): 33.17 | | %ESV(Teich): 161.76 mlLVIDs: 5.72 cmSV(Teich): 80.31 mlRV Major: 8.28 cmRV | | Minor: 3.90 cmRVIDd: 3.61 cmLVEF MOD A2C: 34.93 %SV MOD A2C: 84.23 mlLVEF MOD | | A4C: 27.36 %SV MOD A4C: 64.41 mlEF Biplane: 29.75 %LVEDV MOD BP: 239.28 mlLVESV | | MOD BP: 168.09 mlLVEDV MOD A2C: 241.13 mlLVLd A2C: 9.74 cmLVEDV MOD A4C: 235.37 | | mlLVLd A4C: 9.97 cmLVESV MOD A2C: 156.90 mlLVLs A2C: 8.69 cmLVESV MOD A4C: | | 170.95 mlLVLs A4C: 9.22 cmLAESV(A-L): 52.37 mlLAESV Index (A-L): 25.30 ml/m2LAAs | | A2C: 17.73 [id number] A-L A2C: 56.19 mlLALs A2C: 4.75 cmLAAs A4C: 16.27 [id number] | | A-L A4C: 48.06 mlLALs A4C: 4.67 cmRAAs: 15.74 [id number] A-L: 44.83 mlRAESV MOD: | | 43.21 mlRALs: 4.69 cmTAPSE: 2.70 cmAV maxP.79 mmHgAV meanP.61 mmHgAV | | Vmax: 1.39 m/Indra Vmean: 1.01 m/Indra VTI: 28.31 cmAVA Vmax: 2.86 cm2AVA (VTI): | | 2.58 [id number] Vmax: 0.00 cm2/m2AVAI (VTI): 0.00 cm2/m2LVOT maxP.05 mmHgLVOT | | meanP.18 mmHgLVSI Dopp: 35.31 ml/m2LVSV Dopp: 73.10 mlLVOT Vmax: 1.00 | | m/sLVOT Vmean: 0.68 m/sLVOT VTI: 18.42 cmMV A Henry: 0.91 m/sMV Dec Laporte: 3.53 | | m/s2MV DecT: 205.32 msMV E Henry: 0.72 m/sMV E/A Ratio: 0.79MV PHT: 59.54 msMVA By | | PHT: 3.69 [id number] e': 0.04 m/sSeptal E/e': 15.15Lateral e': 0.03 m/sLateral | | E/e': 21.69RAP: 5 mmHgRVSP: 22.41 mmHgTR maxP.41 mmHgTR Vmax: 2.08 m/s | | Printing Table Hand: DHAuthenticated by: Pema ELLISON Date/Time: -- | | [id number] IMPRESSION: 1. The left ventricle is markedly dilated. Overall | | left ventricular systolic function is moderate-severely impaired, with an EF of 30%.2. | | The diastolic filling pattern indicates impaired relaxation consistent with mild | | dysfunction (Grade I).3. The right ventricle is mildly enlarged, but right ventricular | | systolic function is normal.4. Ywtm-ds-saykghjd mitral regurgitation is present. 5. | | There are several changes noted in comparison to the previous echocardiographic study, | | done 06/09/17. | |Ao st junct: 3.04 cm | |IVC: 1.16 cm | |LA Major: 4.64 cm | |EDV(Teich): 242.07 ml | |IVSd: 1.06 cm | |LVIDd: 6.83 cm | |LVPWd: 1.10 cm | |LVOT Area: 3.96 cm2 | |LVOT Diam: 2.24 cm | |%FS: 16.22 % | |EF(Teich): 33.17 % | |ESV(Teich): 161.76 ml | |LVIDs: 5.72 cm | |SV(Teich): 80.31 ml | |RV Major: 8.28 cm | |RV Minor: 3.90 cm | |RVIDd: 3.61 cm | |LVEF MOD A2C: 34.93 % | |SV MOD A2C: 84.23 ml | |LVEF MOD A4C: 27.36 % | |SV MOD A4C: 64.41 ml | |EF Biplane: 29.75 % | |LVEDV MOD BP: 239.28 ml | |LVESV MOD BP: 168.09 ml | |LVEDV MOD A2C: 241.13 ml | |LVLd A2C: 9.74 cm | |LVEDV MOD A4C: 235.37 ml | |LVLd A4C: 9.97 cm | |LVESV MOD A2C: 156.90 ml | |LVLs A2C: 8.69 cm | |LVESV MOD A4C: 170.95 ml | |LVLs A4C: 9.22 cm | |LAESV(A-L): 52.37 ml | |LAESV Index (A-L): 25.30 ml/m2 | |LAAs A2C: 17.73 cm2 | |LAESV A-L A2C: 56.19 ml | |LALs A2C: 4.75 cm | |LAAs A4C: 16.27 cm2 | |LAESV A-L A4C: 48.06 ml | |LALs A4C: 4.67 cm | |RAAs: 15.74 cm2 | |RAESV A-L: 44.83 ml | |RAESV MOD: 43.21 ml | |RALs: 4.69 cm | |TAPSE: 2.70 cm | |AV maxP.79 mmHg | |AV meanP.61 mmHg | |AV Vmax: 1.39 m/s | |AV Vmean: 1.01 m/s | |AV VTI: 28.31 cm | |FADI Vmax: 2.86 cm2 | |FADI (VTI): 2.58 cm2 | |AVAI Vmax: 0.00 cm2/m2 | |AVAI (VTI): 0.00 cm2/m2 | |LVOT maxP.05 mmHg | |LVOT meanP.18 mmHg | |LVSI Dopp: 35.31 ml/m2 | |LVSV Dopp: 73.10 ml | |LVOT Vmax: 1.00 m/s | |LVOT Vmean: 0.68 m/s | |LVOT VTI: 18.42 cm | |MV A Henry: 0.91 m/s | |MV Dec Laporte: 3.53 m/s2 | |MV DecT: 205.32 ms | |MV E Henry: 0.72 m/s | |MV E/A Ratio: 0.79 | |MV PHT: 59.54 ms | |MVA By PHT: 3.69 cm2 | |Septal e': 0.04 m/s | |Septal E/e': 15.15 | |Lateral e': 0.03 m/s | |Lateral E/e': 21.69 | |RAP: 5 mmHg | |RVSP: 22.41 mmHg | |TR maxP.41 mmHg | |TR Vmax: 2.08 m/s | | | |Printing Table Hand: | |Authenticated by: ETIENNE GEORGES MD | |Report Date/Time: -[id number]:58:26 | | | |IMPRESSION: | |1. The left ventricle is markedly dilated. Overall left ventricular systolic function is m oderate-severely impaired, with an EF of 30%. | |2. The diastolic filling pattern indicates impaired relaxation consistent with mild dysfunc tion (Grade I). | |3. The right ventricle is mildly enlarged, but right ventricular systolic function is krish l. | |4. Bzfa-ye-qquhsuks mitral regurgitation is present. 5. There are several changes noted in comparison to the previous echocardiographic study, done 06/09/17. | + + documented in this encounter Visit Diagnoses Not on filedocumented in this encounter"
--- OUTSIDE RECORDS SUMMARY | ~2020-05-12 | XMS | Clinical Summary ---
Demographics + + + | Address | [address] | | | [place] [address] | + + + | Home Phone | | + + + | Preferred Language | Unknown | + + + | Marital Status | Single | + + + | Muslim Affiliation | Unknown | + + + | Race | Unknown | + + + | Ethnic Group | Unknown | + + + Author + + + | Author | [facility] | | | and [place] | + + + | Organization | [facility] | | | and [place] | + + + | Address | Unknown | + + + | Phone | Unavailable | + + + Care Team Providers + +------+ + | Care Machine Welder Name | Role | Phone | + +------+ + | Cassidy Khan MD | PCP | | + +------+ + Allergies No Known Allergies Medications + + + +---------+------+------+-------+ | Medication | Sig | Dispensed | Refills | Star | End | Statu | | | | | | t | Date | s | | | | | | Date | | | + + + +---------+------+------+-------+ | predniSONE | Take 3 tablets by | 15 | 0 | 06/2 | | Activ | | (DELTASONE) 20 mg | mouth Daily. | tablet | | 3/20 | | e | | tablet | | | | 18 | | | + + + +---------+------+------+-------+ | | Take 5-10 mLs by | 120 mL | 0 | 06/2 | | Activ | | guaiFENesin-codeine | mouth every 6 hours | | | 3/20 | | e | | (ROBITUSSIN AC) | as needed for Cough. | | | 18 | | | | 100-10 mg/5 mL | | | | | | | | liquid | | | | | | | + + + +---------+------+------+-------+ | albuterol 90 | Inhale 2 puffs into | 1 | 0 | 06/2 | | Activ | | mcg/puff inhaler | the lungs every 4 | Inhaler | | 3/20 | | e | | | hours as needed for | | | 18 | | | | | Wheezing or | | | | | | | | Shortness of Breath. | | | | | | | | Use with spacer | | | | | | | | device. | | | | | | + + + +---------+------+------+-------+ Active Problems + + + | Problem | Noted Date | + + + | Chronic combined systolic and diastolic heart failure | 11/24/2018 | + + + | Mixed hyperlipidemia | 11/23/2018 | + + + | ETOH abuse | 09/21/2018 | + + + | TIA (transient ischemic attack) | 09/21/2018 | + + + | Tobacco abuse | 09/21/2018 | + + + | Left arm weakness | 08/03/2018 | + + + | Numbness and tingling in left arm | 08/03/2018 | + + + | Dilated cardiomyopathy | 11/24/2015 | + + + + + | Overview: Last Assessment & Plan: Cardiomyopathy/4-chamber | | enlargement, LVEDd 63mm, LVEF 30%. 45yo WM, with a | | nonischemic dilated cardiomyopathy, history of heart failure. He | | continues to be relatively active, gainfully employed. He's | | doing relatively well, he does admit exertional shortness of | | breath and fatigue, but there is no edema, no orthopnea or PND. | | He is unaware of any chest discomfort or palpitations. He had | | been ordered an Echo but not done as he never received a call. | | Labs reviewed. Tolerating medications. Today we increased his [...] | + + + + + | Overview: Last Assessment & Plan: Hypertension, controlled, | | we'll be making changes in his medications for his | | cardiomyopathy. Labs reviewed with patient.Lab, 06/29/2016: K: | | 4.8, BUN/Cr: 10/0.9, glu: 87 | + + Family History + + +------+ + | [...] + + | Father | | | CA x 2, open heart surgery | | | | (Age | | | | | 64) | | + +------+ + + | Father | | | | + +------+ + + | Mother | | | DMII, Hyperlipiemia,CVA | | | | (Age | | | | | 72) | | + +------+ + + | Mother | | | | + +------+ + + Social History + +-------+ +--------+------+ | Tobacco Use | Types | Packs/Day | Years | Date | | | | | Used | | + +-------+ +--------+------+ | Former Smoker | | 1 | | | + +-------+ +--------+------+ + +---+---+---+ | Smokeless Tobacco: | | | | | Current User | | | | + +---+---+---+ + + +---------+ + | Alcohol Use | Drinks/Week | oz/Week | Comments | + + +---------+ + | Yes | | | Alcoholic | | | | | Drinks/day: beer | + + +---------+ + + + + | Sex Assigned at | Date Recorded | | | | + + + | Not on file | | + + + Last Filed Vital Signs + + + + + | Vital Sign | Reading | Time Taken | Comments | + + + + + | Blood Pressure | 140/72 | 02/22/2019 2:52 PM | | | | | PDT | | + + + + + | Pulse | 73 | 02/22/2019 2:52 PM | | | | | PDT | | + + + + + | Temperature | 36.6 C (97.9 F) | 05/06/2018 10:20 PM | | | | | PDT | | + + + + + | Respiratory Rate | 18 | 01/18/2019 3:27 PM | | | | | PST | | + + + + + | Oxygen Saturation | 96% | 08/03/2018 1:29 PM | | | | | PDT | | + + + + + | Inhaled Oxygen | - | - | | | Concentration | | | | + + + + + | Weight | 94.8 kg (209 lb) | 02/22/2019 2:52 PM | | | | | PDT | | + + + + + | Height | 172.7 cm (5' 8") | 02/22/2019 2:52 PM | | | | | PDT | | + + + + + | Body Mass Index | 31.78 | 02/22/2019 2:52 PM | | | | | PDT | | + + + + + Plan of Treatment + + +-------+ + | Health Maintenance | Due Date | Last | Comments | | | | Done | | + + +-------+ + | Vaccine: | | | | | Pneumococcal 19-64 | 5 | | | | (1 of 1 - PPSV23) | | | | + + +-------+ + | Vaccine: | | | | | Dtap/Tdap/Td (1 - | 8 | | | | Tdap) | | | | + + +-------+ + | Colorectal Cancer | | | | | Screening | 9 | | | | (Colonoscopy) | | | | + + +-------+ + | Vaccine: Zoster (1 | | | | | of 2) | 9 | | | + + +-------+ + | Vaccine: Influenza | | | | | (Season Ended) | 0 | | | + + +-------+ + Results Not on filefrom Last 3 Months Insurance +-------+--------+ +--------+-------+---------+------+ | Payer | Benefi | Subscriber | Effect | Phone | Address | Type | | | t Plan | ID | jazmin | | | | | | / | | Dates | | | | | | Group | | | | | | +-------+--------+ +--------+-------+---------+------+ | UMR | UMR | [id number] | 11/14/19 | | | PPO | | | PPO | | 18-Pre | | | | | | | | sent | | | | +-------+--------+ +--------+-------+---------+------+ + +--------+ +--------+ + + | Guarantor Name | Accoun | Relation to | Date | Phone | Billing Address | | | t Type | Patient | of | | | | | | | | | | + +--------+ +--------+ + + | Martinez Xiong | Person | Self [birth year] | [address] | | | al/[place] | | 1970 | [phone] | [address] [place], | | | [place] | | | [address] (Home) | [place] [address] | + +--------+ +--------+ + + Advance Directives + + + + + | Type | Date Recorded | Patient | Explanation | | | | 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
--- OUTSIDE RECORDS SUMMARY | ~2020-05-12 | XMS | Encounter Summary ---
Demographics + + + | Address | [address] | | | [place] [address] | + + + | Home Phone | | + + + | Preferred Language | Unknown | + + + | Marital Status | Single | + + + | Jewish Affiliation | Unknown | + + + | Race | Unknown | + + + | Ethnic Group | Unknown | + + + Author + + + | Author | [facility] | | | and [place] | + + + | Organization | [facility] | | | and [place] | + + + | Address | Unknown | + + + | Phone | Unavailable | + + + Care Team Providers + +------+ + | Care Hand Bobbin Cleaner Name | Role | Phone | + +------+ + | No, Physician | PCP | Unavailable | + +------+ + Reason for Visit + + + | Reason | Comments | + + + | Numbness | | + + + | Extremity Weakness | | + + + Encounter Details +--------+ + + + + | Date | Type | Department | Care Team | Description | +--------+ + + + + | 08/03/ | Emergency | [facility] | Dawit Lucas, | Transient cerebral | | 2018 | | [facility] | MD [address] | ischemia, | | | | CENTER [address] | [facility] | unspecified type | | | | [place] | [place] [address] | (Primary Dx); Left | | | | [address] | [phone] | arm weakness; | | | | [phone] | | Numbness and | | | | | | tingling in left arm | +--------+ + + + + Social [...] + + + | Blood Pressure | 154/92 | 08/03/2018 12:17 PM | | | | | PDT | | + + + + + | Pulse | 83 | 08/03/2018 1:29 PM | | | | | PDT | | + + + + + | Temperature | - | - | | + + + + + | Respiratory Rate | 18 | 08/03/2018 1:29 PM | | | | | PDT | | + + + + + | Oxygen Saturation | 96% | 08/03/2018 1:29 PM | | | | | PDT | | + + + + + | Inhaled Oxygen | - | - | | | Concentration | | | | + + + + + | Weight | 90.7 kg (200 lb) | 08/03/2018 12:15 PM | | | | | PDT | | + + + + + | Height | - | - | | + + + + + | Body Mass Index | 30.41 | 05/30/2017 10:52 AM | | | | | PDT | | + + + + + documented in this encounter Discharge Instructions Instructions Dawit Lucas MD - 08/03/2018Take an aspirin every day Establish a primary care provider Follow-up with your primary care provider regularly Return immediately if symptoms worsen or other concerns develop AttachmentsThe following attachments cannot be sent through Care Everywhere.TIA: Transient Ischemic Attack (Mongolian)documented in this encounter Medications at Time of Discharge + + + +---------+ + + | Medication | Sig | Dispensed | Refills | Start | End Date | | | | | | Date | | + + + +---------+ + + | albuterol 90 | Inhale 2 puffs into | 1 | 0 | 05/06/20 | | | mcg/puff inhaler | the lungs every 4 | Inhaler | | 18 | | | | hours as needed for | | | | | | | Wheezing or | | | | | | | Shortness of Breath. | | | | | | | Use with spacer | | | | | | | device. | | | | | + + + +---------+ + + | | Take 5-10 mLs by | 120 mL | 0 | 05/06/20 | | | guaiFENesin-codeine | mouth every 6 hours | | | 18 | | | (ROBITUSSIN AC) | as needed for Cough. | | | | | | 100-10 mg/5 mL | | | | | | | liquid | | | | | | + + + +---------+ + + | predniSONE | Take 3 tablets by | 15 | 0 | 05/06/20 | | | (DELTASONE) 20 mg | mouth Daily. | tablet | | 18 | | | tablet | | | | | | + + + +---------+ + + documented as of this encounter Progress Notes Jasiel Armstrong - 08/03/2018 12:23 PM PDT [facility] Telestroke Consultation Note This exam was conducted via a secure 128-bit AES encrypted bi-directional video session. All times are in [place] Standard Time (PST) unless specified. "You have chosen to receive care through the use of telemedicine. Telemedicine enables [facility] care providers at different locations to provide safe, effective and convenient care thro h the use of technology. As with any health care service, there are risks associated with the use of telemedicine, including equipment failure, poor image resolution and travel information center supervisor issues." "Do you understand the risks and benefits of telemedicine as I have explained them to you?" Unknown "Have your questions regarding telemedicine been answered?" Yes "Do you consent to the use of telemedicine in your medical care today?" Yes I, Dr Jasiel Armstrong MD, have reviewed and discussed the information above with the patient , Martinez Xiong. yes Chief Complaint: Left arm weakness History of Present Illness: I was asked for an emergent Telestroke evaluation by the attending ER physician, Dr. Dawit benton at [facility] History obtained from: Patient, Chart review and ED MD Limitations: None 47 y/o RH h/o dilated cardiomyopathy/CHF, htn not on anticoagulation last known well 08:45 today - vague onset intermittent b/l LE tingling and fairly sudden le ft arm weakness with 'weird' sensory change/novocaine left lateral arm Earlier in day vague headache not severe went to [place] [facility] locally- CT down - tx by lifeflight Stroke code alert ER exam notes rapid improvement- limited exam as sent directly to CT but minimal left arm d eficit On camera patient endorses baseline arm movement/sensation- denies deficits in: cognition/l anguage/vision, right side function, legs, trauma, neck pain, arm soreness/trauma Vague complaint of left arm forearm pain prior to arrival-odd quality/like novocaine Review of Systems: No history of recent seizure activity or severe headache Relevant Past Medical History: Past Medical History: Diagnosis Date CHF (congestive heart failure) (HCC) Hypertension Not obtained given decision of whether to give IV tPA made based on history, examination, o r both Relevant Past Surgical History: History reviewed. No pertinent surgical history. Not obtained given decision of whether to give IV tPA made based on history, examination, o r both Relevant Medication: No current facility-administered medications on file prior to encounter. Current Outpatient Prescriptions on File Prior to Encounter Medication Sig Dispense Refill albuterol 90 mcg/puff inhaler Inhale 2 puffs into the lungs every 4 hours as needed for Wheezing or Shortness of Breath. Use with spacer device. 1 Inhaler 0 guaiFENesin-codeine (ROBITUSSIN AC) 100-10 mg/5 mL liquid Take 5-10 mLs by mouth every 6 hours as needed for Cough. 120 mL 0 predniSONE (DELTASONE) 20 mg tablet Take 3 tablets by mouth Daily. 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 Examination: Vitals: Temp Readings from Last 3 Encounters: 05/06/18 36.6 C (97.9 F) (Oral) BP Readings from Last 3 Encounters: 08/03/18 (!) 154/92 05/07/18 128/65 Pulse Readings from Last 3 Encounters: 08/03/18 94 05/07/18 99 Neurologic Examination: Endorses at baseline motor/sensory M: 5/5 ue/le via [facility] ER Symmetric hand NOLAN open/close baseline movement/dexterity endorsed NIHSS: 1a. Level of consciousness: 0=alert; keenly responsive 1b. LOC questions: 0 --> Answers both questions correctly 1c. LOC commands: 0=Performs both tasks correctly 2. Best Gaze: 0=normal 3. Visual: 0=No visual loss 4. Facial Palsy: 0=Normal symmetric movement 5a. Motor right arm: 0=No drift, limb holds 90 (or 45) degrees for full 10 seconds 5b. Motor left arm: 0=No drift, limb holds 90 (or 45) degrees for full 10 seconds 6a. Motor right le=No drift, limb holds 90 (or 45) degrees for full 10 seconds 6b. Motor left le=No drift, limb holds 90 (or 45) degrees for full 10 seconds 7. Limb Ataxia: 0=Absent 8. Sensory: 0=Normal; no sensory loss 9. Best Language: 0=No aphasia, normal 10. Dysarthria: 0=Normal 11. Extinction and Inattention: 0=No abnormality Total: 0 Data: Imaging and labs were reviewed and Do not reveal contraindication to IV tPA. Ct head no ICH CTA no LVO Impression: #Transient left arm weakness with sensory deficit: TIA Reviewed etiologic, diagnostic, and treatment considerations with attention to ischemic str timothy noting other central/peripheral nervous system conditions are possibilities. Treatment options including IV tPA, medical management, and thrombectomy discussed with: Landon rosenberg, ED physician Reviewed risks/benefits of all treatment options with attention to potential for possible b enefit or worse morbidity/. I discussed risks of tPA including life-threatening complications/worsened morbidity, syste abner/intracranial bleeding (~7%), and (~4 %). They understand that giving Alteplase is the standard of care for ischemic stroke, but not all patients benefit from Alteplase. Patient endorsed understanding of treatment options presented and risks/benefits of altepla se. IV tPA not advised- NIHSS 0 with no stuttering deficits. ER in agreement with patient decli bella IV tPA Recommendations: Reason for non-treatment within 3 hours: resolved deficits; NHT/ER not advise with patient decline Reason for non-treatment within 3 to 4.5 hours: resolved deficits; NHT/ER not advise with patient decline Endovascular stroke treatment medical decision making: Baseline Modified Kenner Scale (MRS): 0 - No Symptoms CT ASPECTS score: 10 Patient is not considered for Endovascular Intervention because Non disabling neurologic sy mptoms with NIHSS of 0 IV tPA for Ischemic Stroke: -This patient is not a candidate for IV tPA -Risks and benefits of IV tPA were discussed with the Patient and ED physician Disposition: Admit to local hospital This emergent Telestroke consultation is requested for and focused on the assessment and tr eatment of possible acute ischemic stroke symptoms. These symptoms may be caused by or relat ed to other neurological and medical conditions. Further evaluation and management of this p atient are deferred to the provider(s) at the requesting facility. I have verbally signed out to the ER attending physician, Dr. Dawit Lucas. I have advised this provider/staff to stat page the Telestroke pager if any decline in the patient's condition, for new neurological symptoms, and when the final imaging reports are a vailable. The patient s condition, management, and disposition have been discussed today with other physicians and personnel in detail to assure best possible care. I have spent 50 minutes in performing Telehealth/Telestroke services. Jasiel Armstrong MD Code Stroke Data: Last known well time: 08:45 Stroke page time: 11:50 Call back time: 11:51 Beam in time: 11:58 P DTdocumented in this encounter ED Notes Dawit Lucas MD - 08/03/2018 1:10 PM PDTFormatting of this note might be different f rom the original. [facility] Martinez Xiong Emergency Department Encounter Note [address] [place] [id number] PCP:No Physician on file [phone] CHIEF COMPLAINT Chief Complaint Patient presents with Numbness Extremity Weakness HPI Martinez Xiong is a 47 y.o. male who presents to the emergency department with left arm weakness and bilateral leg numbness and tingling. This patient states this morning at work he was yee ving numbness and tingling in his legs. He gets that from time to time. He then developed sudden weakness in his left arm. He went to the hospital in [facility]. They did not have a CT scanner operational and transferred him emergently to us for further evaluation. He did complain of some chest heaviness as well. EKG prehospital showed a left bundle bran ch block which is chronic for this patient. Patient was transferred here by helicopter. Up on arrival here he states that his symptoms have been improving. He states he still does no t feel quite normal in his left arm. No chest heaviness at this time. PAST MEDICAL HISTORY Past Medical History: Diagnosis Date CHF (congestive heart failure) (HCC) Hypertension SURGICAL HISTORY History reviewed. No pertinent surgical history. CURRENT MEDICATIONS Discharge Medication List as of 08/03/2018 13:54 CONTINUE these medications which have NOT CHANGED Details albuterol 90 mcg/puff inhaler Inhale 2 puffs into the lungs every 4 hours as needed for Whe ezing or Shortness of Breath. Use with spacer device.Disp-1 Inhaler, R-0, Print guaiFENesin-codeine (ROBITUSSIN AC) 100-10 mg/5 mL liquid Take 5-10 mLs by mouth every 6 ho urs as needed for Cough.Disp-120 mL, R-0, Print predniSONE (DELTASONE) 20 mg tablet Take 3 tablets by mouth Daily.Disp-15 tablet, R-0, Prin t ALLERGIES No Known Allergies FAMILY HISTORY History reviewed. No pertinent family history. SOCIAL HISTORY Social History Social History Marital status: Single Spouse name: N/A Number of children: N/A Years of education: N/A Social History Main Topics Smoking status: Former Smoker Smokeless tobacco: Current User Alcohol use Yes Comment: daily ETOH Drug use: No Sexual activity: Not Asked Other Topics Concern None Social History Narrative None REVIEW OF SYSTEMS All systems reviewed and found negative except what is in the HPI PHYSICAL EXAM VITAL SIGNS: BP (!) 154/92 | Pulse 93 | Resp 22 | Wt 90.7 kg (200 lb) | SpO2 98% Constitutional: Well developed, Well nourished, No acute distress, Non-toxic appearance. Anxious. HENT: Normocephalic, Atraumatic, Bilateral external ears normal, Tympanic membranes normal , Mucous membranes are moist, Nasal mucosa is normal. Eyes: PERRL, EOMI, Conjunctiva normal, No discharge. Palpebral conjunctiva are pink. Neck: Normal range of motion, No tenderness, Supple, No stridor. Respiratory: Clear to auscultation bilaterally, No respiratory distress, No wheezing Chest: Non tender, no signs of trauma Cardiovascular: Normal heart rate, Normal rhythm, No murmurs appreciated. GI: Soft, Non tenderness, No peritoneal signs, No masses Extremities: Warm and well perfused, no edema, no joint swelling or deformity. Good ROM. Back: No CVAT, No tenderness of the thoracic or lumbar spine. Skin: Warm, Dry, No erythema, No induration, No rash. Neurologic: Alert & oriented x 3, No focal motor or sensory deficits. Speech is clear. G ait is not tested initially. EKG Twelve-lead EKG shows normal sinus rhythm at 85 beats per minute. He has a left bundle-bra nch block. MI interval is 170. QRS duration is 166. QT corrected is 499. This is an abno rmal EKG. In comparison to prior EKGs this is unchanged. RADIOLOGY Head and neck CT CTA, stroke protocol: IMPRESSION - 1. NO EVIDENCE OF ACUTE INTRACRANIAL DISEASE. THE INTRACRANIAL AND CERVICAL ARTERIAL SYSTEMS ARE WIDELY PATENT. 2. MILD TO MODERATE CEREBRAL ATROPHY. 3. BRONCHIAL WALL THICKENING IN THE IMAGED LUNGS, POTENTIALLY INFECTIOUS OR INFLAMMATORY. 4. SCOLIOSIS WITH REVERSAL OF THE CERVICAL LORDOSIS AND DEGENERATIVE DISC DISEASE DESCRIBED. PCXR: No acute pathology ED COURSE & MEDICAL DECISION MAKING Pertinent Labs & Imaging studies reviewed. (See chart for details) The patient was seen and examined shortly after arriving in the emergency department. Hist ory and physical were obtained, vital signs were noted. The patient's symptoms resolved. C T scan is unremarkable. I treated him with aspirin. Aspirin daily. Follow up with primary care. FINAL IMPRESSION 1. Transient cerebral ischemia, unspecified type 2. Left arm weakness 3. Numbness and tingling in left arm PLAN Follow-up Information Schedule an appointment as soon as possible for a visit with Adam Hughes MD. Specialty: Family Medicine Contact information: [address] [place] [address] Discharge Medication List as of 08/03/2018 13:54 Dawit Lucas MD 08/03/18 1850 aCedrick tang RN - 08/03/2018 12:06 PM PDTBilateral lower leg numbness and left arm weakness that started at 0 845 this morning. C/O headache. documented in this encounter Plan of Treatment Not on filedocumented as of this encounter Procedures + +--------+ + + + | Procedure Name | Priori | Date/Time | Associated Diagnosis | Comments | | | ty | | | | + +--------+ + + + | XR CHEST AP PORTABLE | STAT | 08/03/2018 | | Results for this | | | | 12:30 PM | | procedure are in the | | | | PDT | | results section. | + +--------+ + + + | TROPONIN I | STAT | 08/03/2018 | | Results for this | | | | 12:16 PM | | procedure are in the | | | | PDT | | results section. | + +--------+ + + + | SEDIMENTATION RATE | STAT | 08/03/2018 | | Results for this | | | | 12:16 PM | | procedure are in the | | | | PDT | | results section. | + +--------+ + + + | PTT | STAT | 08/03/2018 | | Results for this | | | | 12:16 PM | | procedure are in the | | | | PDT | | results section. | + +--------+ + + + | PROTIME INR | STAT | 08/03/2018 | | Results for this | | | | 12:16 PM | | procedure are in the | | | | PDT | | results section. | + +--------+ + + + | CBC WITH | STAT | 08/03/2018 | | Results for this | | DIFFERENTIAL | | 12:16 PM | | procedure are in the | | | | PDT | | results section. | + +--------+ + + + | COMPREHENSIVE | STAT | 08/03/2018 | | Results for this | | METABOLIC PANEL | | 12:16 PM | | procedure are in the | | | | PDT | | results section. | + +--------+ + + + | CT ANGIOGRAM HEAD | STAT | 08/03/2018 | | Results for this | | NECK ACUTE STROKE | | 12:03 PM | | procedure are in the | | | | PDT | | results section. | + +--------+ + + + | ECG 12 LEAD | STAT | 08/03/2018 | | Results for this | | | | 11:47 AM | | procedure are in the | | | | PDT | | results section. | + +--------+ + + + | POC GLUCOSE | Routin | 08/03/2018 | | Results for this | | | e | 11:43 AM | | procedure are in the | | | | PDT | | results section. | + +--------+ + + + | LABS - EXTERNAL SCAN | | 08/03/2018 | | Results for this | | | | 12:00 AM | | procedure are in the | | | | PDT | | results section. | + +--------+ + + + | ECG - EXTERNAL SCAN | | 08/03/2018 | | Results for this | | | | 12:00 AM | | procedure are in the | | | | PDT | | results section. | + +--------+ + + + documented in this encounter Results XR Chest AP Portable (08/03/2018 12:30 PM PDT) + + | Specimen | + + | | + + + + + | Narrative | Performed At | + + + | XR CHEST AP PORTABLE 08/03/2018 12:30 PM HISTORY: Code Stroke. | [facility] | | COMPARISON: 05/06/2018. Findings: Heart size is within normal | | | limits. Aorta is normal. Mediastinum is unremarkable. Central | | | pulmonary vasculature is normal. The bilateral lungs are clear with | | | no evidence for pleural effusion or pneumothorax. Mild spondylosis is | | | seen. IMPRESSION - No acute findings. Dictated and Signed | | | by: Deangelo Hernández MD Electronically signed: 08/03/2018 12:44 PM | | + + + + + | Procedure Note | + + | Wolfgang, Rad Results In - 08/03/2018 12:47 PM PDT XR CHEST AP PORTABLE 08/03/2018 12:30 PM | | | | HISTORY: Code Stroke. | | | | COMPARISON: 05/06/2018. | | | | Findings: | | Heart size is within normal limits. Aorta is normal. Mediastinum is | | unremarkable. Central pulmonary vasculature is normal. The bilateral lungs are | | clear with no evidence for pleural effusion or pneumothorax. Mild spondylosis is | | seen. | | | | IMPRESSION - | | No acute findings. | | | | Dictated and Signed by: Deangelo Hernández MD | | Electronically signed: 08/03/2018 12:44 PM | + + + +---------+ + + | Performing | Address | City/State/Zipcode | Phone Number | | Organization | | | | + +---------+ + + | [facility] | | | | + +---------+ + + Troponin I (08/03/2018 12:16 PM PDT) + + + + + + | Component | Value | Ref Range | Performed | Pathologist | | | | | At | Signature | + + + + + + | Troponin I | 0.01Comment: Reference | <0.06 ng/mL | [facility] | | | | Ranges:0.00-0.06 = | | [facility] | | | | NORMAL>0.06 = | | MEDICAL | | | | SUSPICIOUS FOR | | CENTER - | | | | MYOCARDIAL DAMAGE NOTE: | | LABORATORY | | | | Values greater than 0.50 | | | | | | ng/mL have been shown | | | | | | to be strongly | | | | | | associated with acute | | | | | | myocardial infarction. | | | | | | The [employer] | | | | | | Cardiology (ACC) | | | | | | recommends a decision | | | | | | limit of 0.06 ng/mL for | | | | | | this assay. Results | | | | | | greater than 0.06 can | | | | | | reflect a pre-infarct | | | | | | acute coronary syndrome, | | | | | | but can also reflect | | | | | | myocardial necrosis or | | | | | | injury that is not due | | | | | | to coronary artery | | | | | | disease. Some of these | | | | | | causes are sepsis, | | | | | | hypocolemia, atrial | | | | | | fibrillation, heart | | | | | | failure, pulmonary | | | | | | embolism, myocarditis, | | | | | | myocardial contusion, | | | | | | and renal failure. The | | | | | | diagnosis of myocardial | | | | | | infarction should be | | | | | | based on a combination | | | | | | of the patient's | | | | | | clinical presentation | | | | | | and the clinical | | | | | | laboratory test results | | | | | | (especially serial | | | | | | troponin levels). | | | | + + + + + + + + | Specimen | + + | Blood | + + + + + + + | Performing | Address | City/State/Zipcode | Phone Number | | Organization | | | | + + + + + | [facility] | [address] | [place] | [phone] | | [facility] | | [address] | | | - LABORATORY | | | | + + + + + Protime INR (08/03/2018 12:16 PM PDT) + + + + + + | Component | Value | Ref Range | Performed | Pathologist | | | | | At | Signature | + + + + + + | Prothrombin | 12.2 | 11.3 - 13.9 | [facility] | | | Time | | seconds | [facility] | | | | | | MEDICAL | | | | | | CENTER - | | | | | | LABORATORY | | + + + + + + | INR | 0.91Comment: Usual Oral | 0.90 - 1.10 | [facility] | | | | Anticoagulation Range: | | [facility] | | | | 2.0 - 3.0High | | MEDICAL | | | | Level Oral | | CENTER - | | | | Anticoagulation Range: | | LABORATORY | | | | 2.5 - 3.5 | | | | + + + + + + + + | Specimen | + + | Blood | + + + + + + + | Performing | Address | City/State/Zipcode | Phone Number | | Organization | | | | + + + + + | [facility] | [address] | [place] | [phone] | | [facility] | | [address] | | | - LABORATORY | | | | + + + + + PTT (08/03/2018 12:16 PM PDT) + +-------+ + + + | Component | Value | Ref Range | Performed | Pathologist | | | | | At | Signature | + +-------+ + + + | aPTT | 25 | 22 - 36 seconds | [facility] | | | | | | [facility] | | | | | | MEDICAL | | | | | | CENTER - | | | | | | LABORATORY | | + +-------+ + + + + + | Specimen | + + | Blood | + + + + + + + | Performing | Address | City/State/Zipcode | Phone Number | | Organization | | | | + + + + + | [facility] | [address] | [place] | [phone] | | [facility] | | [address] | | | - LABORATORY | | | | + + + + + Sedimentation Rate (08/03/2018 12:16 PM PDT) + +-------+ + + + | Component | Value | Ref Range | Performed | Pathologist | | | | | At | Signature | + +-------+ + + + | Erythrocyte | 4 | <15 mm/hr | [facility] | | | | | | [facility] | | | Sedimentati | | | MEDICAL | | | on Rate | | | CENTER - | | | | | | LABORATORY | | + +-------+ + + + + + | Specimen | + + | Blood | + + + + + + + | Performing | Address | City/State/Zipcode | Phone Number | | Organization | | | | + + + + + | [facility] | [address] | [place] | [phone] | | [facility] | | [address] | | | - LABORATORY | | | | + + + + + Comprehensive Metabolic Panel (08/03/2018 12:16 PM PDT) + + + + + + | Component | Value | Ref Range | Performed | Pathologist | | | | | At | Signature | + + + + + + | Na | 132 (L) | 136 - 149 | [facility] | | | | | mmol/L | [facility] | | | | | | MEDICAL | | | | | | CENTER - | | | | | | LABORATORY | | + + + + + + | K | 3.9 | 3.5 - 5.1 | [facility] | | | | | mmol/L | [facility] | | | | | | MEDICAL | | | | | | CENTER - | | | | | | LABORATORY | | + + + + + + | Cl | 99 | 98 - 109 mmol/L | [facility] | | | | | | [facility] | | | | | | MEDICAL | | | | | | CENTER - | | | | | | LABORATORY | | + + + + + + | CO2 | 19 (L) | 24 - 31 mmol/L | [facility] | | | | | | [facility] | | | | | | [facility] - | | | | | | LABORATORY | | + + + + + + | Anion Gap | 14 | 3 - 16 mmol/L | [facility] | [facility] | [facility] | [facility] | | | [facility] | [facility] - | | | | | | LABORATORY | | + + + + + + | Glucose | 106 | 70 - 109 mg/dL | [facility] | [facility] | | | | | | [facility] - | | | | | | LABORATORY | | + + + + + + | BUN | 9 | 7 - 18 mg/dL | [facility] | [facility] | [facility] | [facility] | | [facility] | | | | | | CENTER - | | | | | | LABORATORY | | + + + + + + | Creatinine | 1.06 | 0.60 - 1.30 | [facility] | | | | | mg/dL | [facility] | | | | | | [facility] | | | | | | CENTER - | | | | | | LABORATORY | | + + + + + + | eGFR if not | >60Comment: GLOMERULAR | >=60 | [facility] | | | | FILTRATION | mL/min/1.73m2 | [facility] | | | [place] | RATE,ESTIMATED | | MEDICAL | | | | mL/min/1.75h5Ambe than | | CENTER - | | | | 60 Chronic kidney | | LABORATORY | | | | disease,if found over a | | | | | | 3-month period.Less than | | | | | | 15 Kidney failureFor | | | | | | | | | | | | Americans,multiply the | | | | | | calculated GFR by 1.21. | | | | | | | | | | + + + + + + | Calcium | 8.5 | 8.3 - 10.5 | [facility] | | | | | mg/dL | [facility] | | | | | | [facility] | | | | | | CENTER - | | | | | | LABORATORY | | + + + + + + | Albumin | 4.1 | 3.2 - 5.0 g/dL | [facility] | | | | | | [facility] | | | | | | [facility] | | | | | | CENTER - | | | | | | LABORATORY | | + + + + + + | Bilirubin | 1.4Comment: This is an | 0.1 - 1.5 mg/dL | [facility] | | | Total | appended report. These | [facility] | | | | results have been | | MEDICAL | | | | appended to a previously | | CENTER - | | | | preliminary verified | | LABORATORY | | | | report. | | | | + + + + + + | Total | 6.8 | 6.0 - 7.8 g/dL | [facility] | | | Protein | | | [facility] | | | | | [facility] | | | | | | CENTER - | | | | | | LABORATORY | | + + + + + + | AST | 71 (H)Comment: This is | 10 - 42 U/L | [facility] | | | | an appended report. | | [facility] | | | | These results have been | | MEDICAL | | | | appended to a previously | | CENTER - | | | | preliminary verified | | LABORATORY | | | | report. | | | | + + + + + + | ALT | 111 (H)Comment: This is | 6 - 45 U/L | [facility] | | | | an appended report. | | [facility] | | | | These results have been | | MEDICAL | | | | appended to a previously | | CENTER - | | | | preliminary verified | | LABORATORY | | | | report. | | | | + + + + + + | Alkaline | 53Comment: This is an | 40 - 110 U/L | [facility] | | | Phosphatase | appended report. These | | [facility] | | | | results have been | | MEDICAL | | | | appended to a previously | | CENTER - | | | | preliminary verified | | LABORATORY | | | | report. | | | | + + + + + + | Globulin | 2.7 | 2.1 - 3.8 g/dL | [facility] | | | | | | [facility] | | | | | | [facility]ICAL | | | | | | CENTER - | | | | | | LABORATORY | | + + + + + + | Albumin/Rosmery | 1.5 | 0.8 - 2.0 | [facility] | | | bulin Ratio | | | [facility] | | | | | | [facility]ICAL | | | | | | CENTER - | | | | | | LABORATORY | | + + + + + + | BUN/Creatin | 8.5 | | [facility] | | | ine Ratio | | | [facility] | | | [facility] | | [facility]ICAL | | | | | | CENTER - | | | | | | LABORATORY | | + + + + + + + + | Specimen | + + | Blood | + + + + + + + | Performing | Address | City/State/Zipcode | Phone Number | | Organization | | | | + + + + + | [facility] | [address] | [place], [place] | [phone] | | [facility] | | [address] | | | - LABORATORY | | | | + + + + + CBC with Differential (08/03/2018 12:16 PM PDT) + + + + + + | Component | Value | Ref Range | Performed | Pathologist | | | | | At | Signature | + + + + + + | WBC | 7.5 | 4.0 - 11.0 K/uL | [facility] | | | | | [facility] | | | | | | [facility]ICAL | | | | | | CENTER - | | | | | | LABORATORY | | + + + + + + | RBC | 4.11 (L) | 4.30 - 5.70 | [facility] | | | | | M/uL | [facility] | | | | | | MEDICAL | | | | | | CENTER - | | | | | | LABORATORY | | + + + + + + | Hemoglobin | 14.0 | 13.5 - 18.0 | [facility] | | | | | g/dL | [facility] | | | | | | MEDICAL | | | | | | CENTER - | | | | | | LABORATORY | | + + + + + + | Hematocrit | 40.6 | 40.0 - 51.0 % | [facility] | | | | | | [facility] | | | | | | [facility] | | | | | | CENTER - | | | | | | LABORATORY | | + + + + + + | MCV | 98.8 | 83.0 - 101.0 fL | [facility] | | | | | | [facility] | | | | | | [facility]ICAL | | | | | | CENTER - | | | | | | LABORATORY | | + + + + + + | MCH | 34.0 | 28.0 - 35.0 pg | [facility] | | | | | | [facility] | | | | | | [facility]ICAL | | | | | | CENTER - | | | | | | LABORATORY | | + + + + + + | MCHC | 34.4 | 32.0 - 36.0 | [facility] | | | | | g/dL | [facility] | | | | | | MEDICAL | | | | | | CENTER - | | | | | | LABORATORY | | + + + + + + | RDW-CV | 13.3 | <15.0 % | [facility] | | | | | [facility] | | | | | | [facility] | | | | | | CENTER - | | | | | | LABORATORY | | + + + + + + | Platelet | 168 | 140 - 440 K/uL | [facility] | | | Count | | | [facility] | | [facility] | | | [facility]ICAL | | | | | | CENTER - | | | | | | LABORATORY | | + + + + + + | MPV | 9.2 | fL | [facility] | | | | | | [facility] | | | | | | [facility]ICAL | | | | | | CENTER - | | | | | | LABORATORY | | + + + + + + | % | 71.3 | 45.0 - 82.0 % | [facility] | | | Neutrophils | | | [facility] | | | | | | MEDICAL | | | | | | CENTER - | | | | | | LABORATORY | | + + + + + + | % | 15.3 (L) | 20.0 - 45.0 % | [facility] | | | Lymphocytes | | | [facility] | | | | | | MEDICAL | | | | | | CENTER - | | | | | | LABORATORY | | + + + + + + | % Monocytes | 12.4 (H) | 4.0 - 12.0 % | [facility] | | | | | | [facility] | | | | | | [facility] | | | | | | CENTER - | | | | | | LABORATORY | | + + + + + + | % | 0.4 | 0.0 - 5.0 % | [facility] | | | Eosinophils | | | [facility] | | | | | | MEDICAL | | | | | | CENTER - | | | | | | LABORATORY | | + + + + + + | % Basophils | 0.6 | 0.0 - 1.0 % | [facility] | | | | | | [facility] | | | | | | [facility] | | | | | | CENTER - | | | | | | LABORATORY | | + + + + + + | Absolute | 5.40 | 1.80 - 8.50 | [facility] | | | Neutrophils | | K/uL | [facility] | | | | | | MEDICAL | | | | | | CENTER - | | | | | | LABORATORY | | + + + + + + | Absolute | 1.20 | 0.60 - 3.20 | [facility] | | | Lymphocytes | | K/uL | [facility] | | | | | | MEDICAL | | | | | | CENTER - | | | | | | LABORATORY | | + + + + + + | Absolute | 0.90 | 0.00 - 1.00 | [facility] | | | Monocytes | | K/uL | [facility] | | | | | | MEDICAL | | | | | | CENTER - | | | | | | LABORATORY | | + + + + + + | Absolute | 0.00 | 0.00 - 0.40 | [facility] | | | Eosinophils | | K/uL | [facility] | | | | | | MEDICAL | | | | | | CENTER - | | | | | | LABORATORY | | + + + + + + | Absolute | 0.00 | 0.00 - 0.10 | [facility] | | | Basophils | | K/uL | [facility] | | | | | | MEDICAL | | | | | | CENTER - | | | | | | LABORATORY | | + + + + + + + + | Specimen | + + | Blood | + + + + + + + | Performing | Address | City/State/Zipcode | Phone Number | | Organization | | | | + + + + + | [facility] | [address] | [place] | [phone] | | [facility] | | [address] | | | - LABORATORY | | | | + + + + + CT Angiogram Head Neck Acute Stroke (08/03/2018 12:03 PM PDT) + + | Specimen | + + | | + + + + + | Narrative | Performed At | + + + | UNENHANCED AND ENHANCED CTA HEAD AND ENHANCED CTA NECK WITH | [facility] | | MULTIPLANAR REFORMATIONS AND THREE-DIMENSIONAL VASCULAR | | | RECONSTRUCTIONS 08/03/2018 11:51 AM CLINICAL HISTORY: Code Stroke | | | COMPARISON: None TECHNIQUE: Axial unenhanced images | | | were performed through the head. Following the uneventful | | | intravenous administration of mL Omnipaque-350 contrast, axial | | | images are performed from the aortic arch through the [place] of | | | [place]. Multiplanar reformations and three-dimensional vascular | | | reconstructions were also performed. HEAD FINDINGS: There is | | | mild to moderate, generalized atrophy. Mcguire-white differentiation | | | is maintained. The cerebral parenchyma, ventricles, brainstem and | | | cerebellum are otherwise unremarkable. There is no mass effect, | | | abnormal parenchymal enhancement, evidence of intracranial hemorrhage | | | or extra-axial abnormality. Healed fracture deformity of the left | | | orbital floor is suspected. There is minimal mucous membrane | | | thickening inferiorly in the maxillary sinuses. The bones and soft | | | tissues, including the paranasal sinuses, middle ear cavities and | | | mastoid air cells, are otherwise unremarkable. The basilar artery, | | | bilateral superior cerebellar arteries and bilateral anterior, | | | middle and posterior cerebral arteries are widely patent. Patent | | | anterior and right posterior communicating arteries are visible. | | | Patent anterior and posterior inferior cerebellar arteries are | | | present. No vessel occlusion, stenosis, aneurysm or dissection is | | | apparent. NECK FINDINGS: The aortic arch is widely patent. The | | | great vessels arise from the arch in the usual configuration. The | | | brachiocephalic artery, bilateral subclavian arteries and bilateral | | | common, internal and external carotid arteries are widely patent. | | | There is early calcified plaque formation at the origins of the | | | internal carotid arteries, without stenosis. The vertebral arteries | | | are codominant and widely patent. No vessel occlusion, stenosis, | | | aneurysm or dissection is apparent. The visible venous structures | | | appear patent. The pharynx, larynx and trachea are unremarkable | | | along with the thyroid, submandibular and parotid glands. No | | | pathologic lymph node enlargement is evident. Bronchial wall | | | thickening is suggested within the imaged lungs, without evident | | | airway occlusion. Subthreshold sized mediastinal lymph nodes are | | | present. There is mild reversal of the cervical lordosis with | | | S-shaped cervical thoracic curvature. Degenerative disc disease, | | | spondylosis and mild to moderate stenosis are present at C5-6. | | | IMPRESSION - 1. NO EVIDENCE OF ACUTE INTRACRANIAL DISEASE. THE | | | INTRACRANIAL AND CERVICAL ARTERIAL SYSTEMS ARE WIDELY PATENT. 2. | | | MILD TO MODERATE CEREBRAL ATROPHY. 3. BRONCHIAL WALL | | | THICKENING IN THE IMAGED LUNGS, POTENTIALLY INFECTIOUS OR | | | INFLAMMATORY. 4. SCOLIOSIS WITH REVERSAL OF THE CERVICAL | | | LORDOSIS AND DEGENERATIVE DISC DISEASE DESCRIBED. Images were | | | provided for interpretation on August 03, 2018 at 1205 hours. | | | Results were finalized at 1220 hours. Dictated and Signed by: Ortega Garay | | MD Doc Electronically signed: 08/03/2018 12:19 PM | | + + + + + | Procedure Note | + + | Wolfgang, Rad Results In - 08/03/2018 12:22 PM PDT UNENHANCED AND ENHANCED CTA HEAD AND | | ENHANCED CTA NECK WITH MULTIPLANARREFORMATIONS AND THREE-DIMENSIONAL VASCULAR | | RECONSTRUCTIONS 08/03/2018 11:51 AMCLINICAL HISTORY: Code Stroke COMPARISON: | | NoneTECHNIQUE: Axial unenhanced images were performed through the head. Followingthe | | uneventful intravenous administration of mL Omnipaque-350 contrast,axial images are | | performed from the aortic arch through the [place] of [place].Multiplanar reformations and | | three-dimensional vascular reconstructions werealso performed.HEAD FINDINGS: There is | | mild to moderate, generalized atrophy. Mcguire-whitedifferentiation is maintained. The | | cerebral parenchyma, ventricles, brainstemand cerebellum are otherwise unremarkable. | | There is no mass effect, abnormalparenchymal enhancement, evidence of intracranial | | hemorrhage or extra-axialabnormality. Healed fracture deformity of the left orbital | | floor is suspected. There is minimal mucous membrane thickening inferiorly in the | | maxillary sinuses. The bones and soft tissues, including the paranasal sinuses, middle | | earcavities and mastoid air cells, are otherwise unremarkable.The basilar artery, | | bilateral superior cerebellar arteries and bilateralanterior, middle and posterior | | cerebral arteries are widely patent. Patentanterior and right posterior communicating | | arteries are visible. Patentanterior and posterior inferior cerebellar arteries are | | present. No vesselocclusion, stenosis, aneurysm or dissection is apparent.NECK | | FINDINGS: The aortic arch is widely patent. The great vessels arise fromthe arch in | | the usual configuration. The brachiocephalic artery, bilateralsubclavian arteries and | | bilateral common, internal and external carotid arteriesare widely patent. There is | | early calcified plaque formation at the origins ofthe internal carotid arteries, without | | stenosis. The vertebral arteries arecodominant and widely patent. No vessel | | occlusion, stenosis, aneurysm ordissection is apparent. The visible venous structures | | appear patent.The pharynx, larynx and trachea are unremarkable along with the | | thyroid,submandibular and parotid glands. No pathologic lymph node enlargement | | isevident. Bronchial wall thickening is suggested within the imaged lungs,without | | evident airway occlusion. Subthreshold sized mediastinal lymph nodesare present. There | | is mild reversal of the cervical lordosis with S-shapedcervical thoracic curvature. | | Degenerative disc disease, spondylosis and mild tomoderate stenosis are present at | | C5-6.IMPRESSION -1. NO EVIDENCE OF ACUTE INTRACRANIAL DISEASE. THE INTRACRANIAL AND | | CERVICALARTERIAL SYSTEMS ARE WIDELY PATENT.2. MILD TO MODERATE CEREBRAL ATROPHY.3. | | BRONCHIAL WALL THICKENING IN THE IMAGED LUNGS, POTENTIALLY INFECTIOUS ORINFLAMMATORY.4. | | SCOLIOSIS WITH REVERSAL OF THE CERVICAL LORDOSIS AND DEGENERATIVE DISCDISEASE | | DESCRIBED.Images were provided for interpretation on August 03, 2018 at 1205 hours. | | Results were finalized at 1220 hours.Dictated and Signed by: Ortega Roach MD | | Electronically signed: 08/03/2018 12:19 PM | |submandibular and parotid glands. No pathologic lymph node enlargement is | |evident. Bronchial wall thickening is suggested within the imaged lungs, | |without evident airway occlusion. Subthreshold sized mediastinal lymph nodes | |are present. There is mild reversal of the cervical lordosis with S-shaped | |cervical thoracic curvature. Degenerative disc disease, spondylosis and mild to | |moderate stenosis are present at C5-6. | | | |IMPRESSION - | | | |1. NO EVIDENCE OF ACUTE INTRACRANIAL DISEASE. THE INTRACRANIAL AND CERVICAL | |ARTERIAL SYSTEMS ARE WIDELY PATENT. | | | |2. MILD TO MODERATE CEREBRAL ATROPHY. | | | |3. BRONCHIAL WALL THICKENING IN THE IMAGED LUNGS, POTENTIALLY INFECTIOUS OR | |INFLAMMATORY. | | | |4. SCOLIOSIS WITH REVERSAL OF THE CERVICAL LORDOSIS AND DEGENERATIVE DISC | |DISEASE DESCRIBED. | | | |Images were provided for interpretation on August 03, 2018 at 1205 hours. | |Results were finalized at 1220 hours. | | | |Dictated and Signed by: Ortega Roach MD | | Electronically signed: 08/03/2018 12:19 PM | + + + +---------+ + + | Performing | Address | City/State/Zipcode | Phone Number | | Organization | | | | + +---------+ + + | [facility] | | | | + +---------+ + + ECG 12 lead (08/03/2018 11:47 AM PDT) + + + + + + | Component | Value | Ref Range | Performed | Pathologist | | | | | At | Signature | + + + + + + | VENTRICULAR | 85 | BPM | [facility] | | | RATE EKG | | | | | + + + + + + | ATRIAL RATE | 85 | BPM | [facility] | | + + + + + + | P-R | 170 | ms | [facility] | | | INTERVAL | | | | | + + + + + + | QRS | 166 | ms | [facility] | | | DURATION | | | | | + + + + + + | Q-T | 420 | ms | [facility] | | | INTERVAL | | | | | + + + + + + | Q-T | 499 | ms | [facility] | | | INTERVAL | | | | | | (CORRECTED) | | | | | + + + + + + | P WAVE AXIS | 58 | degrees | [facility] | | + + + + + + | QRS AXIS | -2 | degrees | [facility] | | + + + + + + | T AXIS | 103 | degrees | [facility] | | + + + + + + | INTERPRETAT | Normal sinus rhythmLeft | | [facility] | | | ION TEXT | bundle branch | | | | | | blockVoltage criteria | | | | | | for left ventricular | | | | | | hypertrophyAbnormal | | | | | | ECGNo previous ECGs | | | | | | availableConfirmed by | | | | | | ANDER PRUITT MD ([id number]) | | | | | | on 08/04/2018 8:31:07 AM | | | | + + + + + + + + | Specimen | + + | | + + + + + | Narrative | Performed At | + + + | | | + + + + +---------+ + + | Performing | Address | City/State/Zipcode | Phone Number | | Organization | | | | + +---------+ + + | [facility] | | | | + +---------+ + + POC Glucose (08/03/2018 11:43 AM PDT) + +---------+ + + + | Component | Value | Ref Range | Performed | Pathologist | | | | | At | Signature | + +---------+ + + + | Glucose, | 121 (H) | 70 - 109 mg/dL | [facility] | | | POC | | | [facility] | | | | | | MEDICAL | | | | | | CENTER - | | | | | | LABORATORY | | + +---------+ + + + + + | Specimen | + + | Blood | + + + + + + + | Performing | Address | City/State/Zipcode | Phone Number | | Organization | | | | + + + + + | [facility] | [address] | [place] | [phone] | | [facility] | | [address] | | | - LABORATORY | | | | + + + + + LABS - EXTERNAL SCAN (08/03/2018 12:00 AM PDT) + + + | Narrative | Performed At | + + + | Ordered by an | | | unspecified provider. | | + + + ECG - EXTERNAL SCAN (08/03/2018 12:00 AM PDT) + + + | Narrative | Performed At | + + + | Ordered by an | | | unspecified provider. | | + + + documented in this encounter Visit Diagnoses + + | Diagnosis | + + | Transient cerebral ischemia, unspecified type - Primary | + + | Left arm weakness Other musculoskeletal symptoms referable to limbs | + + | Numbness and tingling in left arm Disturbance of skin sensation | + + documented in this encounter Administered Medications + +--------+ +--------+------+------+ | Medication Order | MAR | Action | Dose | Rate | Site | | | Action | Date | | | | + +--------+ +--------+------+------+ | aspirin tablet 325 mg 325 mg, | Given | 08/03/20 | 325 mg | | | | Oral, ONCE, Marilee 08/03/18 at 1355, | | 18 1:58 | | | | | For 1 dose | | PM PDT | | | | + +--------+ +--------+------+------+ +---+---+ | | | +---+---+ + +-------+ +---------+---+---+ | iohexol (OMNIPAQUE 350) 350 | Given | 08/03/20 | 135 mLs | | | | mg/mL injection 135 mL 135 mL, | | 18 12:03 | | | | | Intravenous, ONCE PRN, Other, | | PM PDT | | | | | Starting Marilee 08/03/18 at 1203, For | | | | | | | 1 dose, Cat Scanner | | | | | | + +-------+ +---------+---+---+ +---+---+ | | | +---+---+ + +------+ +--------+-------+---+ | sodium chloride 0.9% (NS) bolus | Push | 08/03/20 | 95 mLs | 5700 | | | 95 mL 95 mL, Intravenous, | | 18 12:03 | | mL/hr | | | Administer over 1 Minutes, ONCE | | PM PDT | | | | | PRN, for contrast study, Starting | | | | | | | Marilee 08/03/18 at 1203, For 1 dose, | | | | | | | May infuse at a different rate | | | | | | | per protocol., Cat Scanner | | | | | | + +------+ +--------+-------+---+ +---+---+ | | | +---+---+ documented in this encounter
--- OUTSIDE RECORDS SUMMARY | ~2020-05-12 | XMS | Encounter Summary ---
Demographics + + + | Address | [address] | | | [place] [address] | + + + | Home Phone | | + + + | Preferred Language | Unknown | + + + | Marital Status | Single | + + + | Yazidi Affiliation | Unknown | + + + | Race | Unknown | + + + | Ethnic Group | Unknown | + + + Author + + + | Author | [facility] | | | and [place] | + + + | Organization | [facility] | | | and [place] | + + + | Address | Unknown | + + + | Phone | Unavailable | + + + Care Team Providers + +------+ + | Care Aquatic Facility Manager Name | Role | Phone | + [...] | | | | CENTER [address] | [facility] | unspecified type | | | | [place] | [place] [address] | (Primary Dx); Left | | | | [address] | [phone] | arm weakness; | | | | [phone] | | Numbness and | | | [...] sent through Care Everywhere.TIA: Transient Ischemic Attack (Turkish)documented in this encounter Medications at Time of [...] Jasiel Armstrong - 08/03/2018 12:23 PM PDT [facility] Telestroke Consultation Note This exam was conducted via a secure 128-bit AES encrypted bi-directional video session. All times are in [place] Standard Time (PST) unless specified. "You have chosen to receive care through the use of telemedicine. Telemedicine enables [facility] care providers at different locations to provide safe, effective and convenient care thro h the use of technology. As with any health care service, there are risks associated with the use of telemedicine, including equipment failure, poor image resolution and information technology program manager issues." "Do you understand the risks and [...] attending ER physician, Dr. 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 [facility] Emergency Department Encounter Note [address] [place] [id number] PCP:No Physician on file [id number] CHIEF COMPLAINT [...] arm. He went to the hospital in [facility]. They did not have a CT scanner [...] He has a left bundle-bra nch block. PA interval is 170. QRS duration is 166. [...] Specialty: Family Medicine Contact information: [address] [place] [address] Discharge Medication List as of 08/03/2018 13:54 [...] | Procedure Note | + + | Wolfgnag, Rad Results In - 08/03/2018 12:47 PM [...] | | | | | | [employer] | | | | | [...] [address] | [place] | [phone] | | [facility] | | [address] | | | - LABORATORY | | [...] [address] | [place] | [phone] | | [facility] | | [address] | | | - LABORATORY | | [...] [address] | [place] | [phone] | | [facility] | | [address] | | | - LABORATORY | | [...] [address] | [place] | [phone] | | [facility] | | [address] | | | - LABORATORY | | [...] mL/min/1.73m2 | [facility] | | | [place] | RATE,ESTIMATED | | MEDICAL | | | | mL/min/1.74o5Fgma than | | CENTER - | | [...] ST. | [address] | [place], [place] | [phone] | | [facility] | | [address] | | | - LABORATORY | | [...] [address] | [place] | [phone] | | [facility] | | [address] | | | - LABORATORY | | [...] performed from the aortic arch through the [place] of | | | [place]. Multiplanar reformations [...] performed from the aortic arch through the [place] of [place].Multiplanar reformations and | | three-dimensional [...] | | | | ANDER PRUITT MD ([id number]) | | | | | | on [...] [address] | [place] | [phone] | | [facility] | | [address] | | | - LABORATORY | | [...]
--- OUTSIDE RECORDS SUMMARY | ~2020-05-12 | XMS | Encounter Summary ---
Demographics + + + | Address | [address] | | | [place] [address] | + + + | Home Phone | | + + + | Preferred Language | Unknown | + + + | Marital Status | Single | + + + | Nondenominational Affiliation | Unknown | + + + | Race | Unknown | + + + | Ethnic Group | Unknown | + + + Author + + + | Author | [facility] | | | and [place] | + + + | Organization | [facility] | | | and [place] | + + + | Address | Unknown | + + + | Phone | Unavailable | + + + Care Team Providers + +------+ + | Care Sales And Merchandising Representative Name | Role | Phone | + +------+ + | No, Physician | PCP | Unavailable | + +------+ + Encounter Details +--------+ + + + + | Date | Type | Department | Care Team | Description | +--------+ + + + + | 06/19/ | Orders Only | [facility] | Provider, | Dilated | | 2019 | | SYSTEM GENERIC OP | MD [address] | cardiomyopathy | | | | CONVERSION [address] | [address] | (HCC); Transient | | | | [address] [place], [place] | [place] [address] | cerebral ischemic | | | | [address] | | attack; Essential | | | | [phone] | | (primary) | | | | | | hypertension; | | | | | | Uncomplicated | | | | | | alcohol abuse; Mixed | | | | | | hyperlipidemia | +--------+ + + + + Social [...] as of this encounter Plan of Treatment + +------+--------+ + + | Name | Type | Priori | Associated Diagnoses | Order Schedule | | | | ty | | | + +------+--------+ + + | Magnesium | Lab | Routin | Dilated | Expected: | | | | e | cardiomyopathy (HCC) | 09/21/2018, Expires: | | | | | Transient cerebral | 09/21/2019 | | | | | ischemic attack | | | | | | Essential (primary) | | | | | | hypertension | | | | | | Uncomplicated | | | | | | alcohol abuse | | + +------+--------+ + + | Basic Metabolic | Lab | Routin | Dilated | Expected: | | Panel | | e | cardiomyopathy (HCC) | 12/07/2018, Expires: | | | | | Essential | 11/23/2019 | | | | | (primary) | | | | | | hypertension | | | | | | Uncomplicated | | | | | | alcohol abuse | | + +------+--------+ + + | Comprehensive | Lab | Routin | Essential | Expected: | | Metabolic Panel | | e | (primary) | 02/18/2019, Expires: | | | | | hypertension Mixed | 07/21/2020 | | | | | hyperlipidemia | | + +------+--------+ + + | Lipid Panel | Lab | Routin | Mixed | Expected: | | | | e | hyperlipidemia | 02/18/2019, Expires: | | | | | | 07/21/2020 | + +------+--------+ + + documented as of this encounter Visit Diagnoses + + | Diagnosis | + + | Dilated cardiomyopathy (HCC) Other primary cardiomyopathies | + + | Transient cerebral ischemic attack Unspecified transient cerebral ischemia | + + | Essential (primary) hypertension Unspecified essential hypertension | + + | Uncomplicated alcohol abuse Alcohol abuse, unspecified | + + | Mixed hyperlipidemia | + + documented in this encounter"
--- OUTSIDE RECORDS SUMMARY | ~2020-05-12 | XMS | Encounter Summary ---
Demographics + + + | Address | [address] | | | [place] [address] | + + + | Home Phone [...] + + + | Author | [facility] | | | and [place] | + + + | Organization | [facility] | | | and [place] | + + + | Address | Unknown | + + + | Phone | Unavailable | + + + Care Team Providers + +------+ + | Care Embedded Software Programmer Name | Role | Phone | + +------+ + | No, Physician | PCP | Unavailable | + +------+ + Encounter Details +--------+ + + + + | Date | Type | Department | Care Team | Description | +--------+ + + + + | 12/28/ | Orders Only | [facility] | Conversion | | | 2019 | | CARDIOLOGY [place] | Transaction, | | | | | [address] | Provider Unknown | | | | | [place] | [phone] | | | | | [address] | | | | | | [phone] | | | +--------+ + + + [...]
--- OUTSIDE RECORDS SUMMARY | ~2020-05-12 | XMS | Encounter Summary ---
Demographics + + + | Address | [address] | | | [place] [address] | + + + | Home Phone [...] + | Author | [facility] | | | and [place] | + + + | Organization | [facility] | | | and [place] | + + + | Address | Unknown | + + + | Phone | Unavailable | + + + Care Team Providers + +------+ + | Care Hospital Laboratory Technician Name | Role | Phone | + +------+ + PCP | Unavailable | + +------+ + Encounter Details +--------+ + + + + | Date | Type | Department | Care Team | Description | +--------+ + + + + | 12/12/ | Hospital | [facility] | Conversion | Cardiomyopathy, | | 2016 | Encounter | [facility] | Transaction, | dilated (HCC) | | | | CLINICAL DECISION | Provider Unknown | | | | | [address] [facility] | [phone] | | | | | [place], [place] | | | | | | [address] | Oneal Rowe | | | | | [phone] | MD [address] | | | | | | [address] | | | | | | [place] [address] | | | | | | [phone] | | | | | | | [...] (none) Author Type: Registered Nurse Filed: 12/12/15 4810 Date of Service: 12/12/151535 Status: Signed Cafeteria Operator: Maria Guadalupe Wang RN (Registered Nurse) Pt [...] (none) Author Type: Registered Nurse Filed: 12/12/15 1551 Date of Service: 12/12/15 1430 Status: Signed Cafeteria Operator: Maria Guadalupe Wang RN (Registered Nurse) Pt [...] Date of Service: 12/12/15 1059 Status: Signed Cafeteria Operator: Smith Pulido MD (Physician) [facility] Service: Cardiology Admission History & Physical Date [...] more than one vascular access site, , [place], CVA, bleeding (including the need for blood [...] (HCC) Past Surgical History Procedure Laterality Date [place] tooth extraction Vasectomy No Known Allergies Prescriptions [...] N/A Years of Education: N/A 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 Social History Main Topics Smoking status: Current [...] | | | | | performed at [facility] [place] | | | | | | [address];[place], [place] | | | | | | [address] | | | | + + + [...] EXTERNAL | | | | performed at [facility];[address] | K/uL | LAB | | | | [address];[place] | | | | | | [address] | | | | + + + + + + | Red Blood | 5.20Comment: Testing | 4.20 - 5.70 | EXTERNAL | | | Cells | performed at [facility] [place] | M/uL | LAB | | | Counted | [address];[place] | | | | | | [address] | | | | + + + + + + | Hemoglobin | 15.7Comment: Testing | 13.2 - 17.0 | EXTERNAL | | | | performed at [facility] [place] | g/dL | LAB | | | | [address];[place] | | | | | | [address] | | | | + + + + + + | Hematocrit, | 46.9Comment: Testing | 39.0 - 50.0 % | EXTERNAL | | | POC | performed at [facility] [place];[address] | | LAB | | | | [address];[place] | | | | | | [address] | | | | + + + + + + | MCV | 90.2Comment: Testing | 80.0 - 100.0 fl | EXTERNAL | | | | performed at [facility] [place];[address] | | LAB | | | | [address];[place] | | | | | | [address] | | | | + + + + + + | MCH | 30.1Comment: Testing | 27.0 - 34.0 pg | EXTERNAL | | | | performed at [facility] [place];[address] | | LAB | | | | [address];[place] | | | | | | [address] | | | | + + + + + + | MCHC | 33.4Comment: Testing | 32.0 - 35.5 | EXTERNAL | | | | performed at [facility] | g/dL | LAB | | | | [address];[place] | | | | | | [address] | | | | + + + + + + | RDW-CV | 51.2Comment: Testing | 37 - 53 fl | EXTERNAL | | | | performed at [facility] [place];[address] | | LAB | | | | [address];[place] | | | | | | [address] | | | | + + + + + + | Platelet | 274Comment: Testing | 150 - 400 K/uL | EXTERNAL | | | Count | performed at [facility] [place];[address] | | LAB | | | Plasma | [address];[place] | | | | | | [address] | | | | + + + + + + | MPV | 8.1Comment: Testing | fl | EXTERNAL | | | | performed at [facility];[address] | | LAB | | | | [address];[place] | | | | | | [address] | | | | + + + + + + | Differentia | AUTOMATEDComment: | | EXTERNAL | | | l Type | Testing performed at | | LAB | | | | [facility];[address];[place] [address] | | | | + + + + + + | % Segmented | 52.00Comment: Testing | % | EXTERNAL | | | | performed at [facility];[address] | | LAB | | | Neutrophils | [address];[place] | | | | | | [address] | | | | + + + + + + | % | 33.39Comment: Testing | % | EXTERNAL | | | Lymphocytes | performed at [facility];[address] | | LAB | | | | [address];[place] | | | | | | [address] | | | | + + + + + + | % Monocytes | 12.40Comment: Testing | % | EXTERNAL | | | | performed at [facility];[address] | | LAB | | | | [address];[place] | | | | | | [address] | | | | + + + + + + | % | 1.11Comment: Testing | % | EXTERNAL | | | Eosinophils | performed at [facility];[address] | | LAB | | | | [address];[place] | | | | | | [address] | | | | + + + + + + | % Basophils | 1.10Comment: Testing | % | EXTERNAL | | | | performed at [facility];[address] | | LAB | | | | [address];[place] | | | | | | [address] | | | | + + + + + + | Absolute | 2.79Comment: Testing | 1.90 - 7.40 | EXTERNAL | | | Segmented | performed at [facility] [place];[address] | K/uL | LAB | | | Neutrophils | [address];[place] | | | | | | [address] | | | | + + + + + + | Absolute | 1.79Comment: Testing | 1.00 - 3.90 | EXTERNAL | | | Lymphocytes | performed at [facility] [place];[address] | K/uL | LAB | | | | [address];[place] | | | | | | [address] | | | | + + + + + + | Absolute | 0.67Comment: Testing | 0.00 - 0.80 | EXTERNAL | | | Monocytes | performed at [facility] [place];[address] | K/uL | LAB | | | | [address];[place] | | | | | | [address] | | | | + + + + + + | Absolute | 0.06Comment: Testing | 0.00 - 0.50 | EXTERNAL | | | Eosinophils | performed at [facility];[address] | K/uL | LAB | | | | [address];[place] | | | | | | [address] | | | | + + + + + + | Absolute | 0.06Comment: Testing | 0.00 - 0.10 | EXTERNAL | | | Basophils | performed at [facility];[address] | K/uL | LAB | | | | [address];[place], [place] | | | | | | [address] | | | | + + + [...] EXTERNAL | | | | performed at [facility];[address] | mmol/L | LAB | | | | [address];[place] | | | | | | [address] | | | | + + + + + + | K | 4.5Comment: Testing | 3.5 - 4.9 | EXTERNAL | | | | performed at [facility];[address] | mmol/L | LAB | | | | [address];[place] | | | | | | [address] | | | | + + + + + + | Cl | 101Comment: Testing | 99 - 109 mmol/L | EXTERNAL | | | | performed at [facility];[address] | | LAB | | | | [address];[place] | | | | | | [address] | | | | + + + + + + | CO2 | 22 (L)Comment: Testing | 23 - 32 mmol/L | EXTERNAL | | | | performed at [facility];[address] | | LAB | | | | [address];[place] | | | | | | [address] | | | | + + + + + + | Anion Gap | 15Comment: Testing | 5 - 20 mmol/L | EXTERNAL | | | | performed at [facility];[address] | | LAB | | | | [address];[place] | | | | | | [address] | | | | + + + + + + | Glucose, | 91Comment: Testing | 65 - 99 mg/dL | EXTERNAL | | | Fasting | performed at [facility];[address] | | LAB | | | | [address];[place] | | | | | | [address] | | | | + + + + + + | BUN | 15Comment: Testing | 8 - 25 mg/dL | EXTERNAL | | | | performed at [facility];[address] | | LAB | | | | [address];[place] | | | | | | [address] | | | | + + + + + + | Creatinine | 1.0Comment: Testing | 0.70 - 1.30 | EXTERNAL | | | | performed at [facility];[address] | mg/dL | LAB | | | | [address];[place] | | | | | | [address] | | | | + + + + + + | BUN/Creatin | 15Comment: Testing | | EXTERNAL | | | ine Ratio | performed at [facility];[address] | | LAB | | | | [address];[place] | | | | | | [address] | | | | + + + + + + | Calcium | 8.7Comment: Testing | 8.5 - 10.5 | EXTERNAL | | | | performed at [facility];[address] | mg/dL | LAB | | | | [address];[place], [place] | | | | | | [address] | | | | + + + [...] | | | | | | at [facility];[address] [place] | | | | [address];[place] [address] | | | | + + + [...]
--- OUTSIDE RECORDS SUMMARY | ~2020-05-12 | XMS | Encounter Summary ---
Demographics + + + | Address | [address] | | | [place] [address] | + + + | Home Phone | | + + + | Preferred Language | Unknown | + + + | Marital Status | Single | + + + | Taoism Affiliation | Unknown | + + + | Race | Unknown | + + + | Ethnic Group | Unknown | + + + Author + + + | Author | [facility] | | | and [place] | + + + | Organization | [facility] | | | and [place] | + + + | Address | Unknown | + + + | Phone | Unavailable | + + + Care Team Providers + +------+ + | Care Communication Technician Name | Role | Phone | [...] [address] | | | | | [place], [place] | [place] [address] | | | | | [address] | [phone] | | | | | [phone] | | | +--------+ + + + [...] function | | | is normal. 4. Vszs-nu-hhinmcgx mitral regurgitation is present. 5. | | [...] function is normal. | | | 4. Qnso-qn-smhmwged mitral regurgitation is present. 5. There are | | | several changes noted in comparison to the previous echocardiographic | | | study, done 06/09/17. FINDINGS -------- ECG rhythm: Sinus rhythm. | | | Study: A 2-dimensional transthoracic echocardiogram with m-mode, | | | spectral and color flow Doppler was perfomed at [facility]. Study: This was | | | [...] | mitral valve is normal. Mitral Valve: Ysjn-mr-mwoecnnh mitral | | | regurgitation is present. [...] 0.91 | | | m/s MV Dec [place]: 3.53 m/s2 MV DecT: 205.32 ms MV E Henry: | | | 0.72 m/s MV E/A Ratio: 0.79 MV PHT: 59.54 ms MVA By PHT: | | | 3.69 cm2 Septal e': 0.04 m/s Septal E/e': 15.15 Lateral e': | | | 0.03 m/s Lateral E/e': 21.69 RAP: 5 mmHg RVSP: 22.41 | | | mmHg TR maxP.41 mmHg TR Vmax: 2.08 m/s Contact Lens Technician: | | | DH Authenticated by: ETIENNE GEORGES MD Report Date/Time: -- | | | [id number] | | + + + + + [...] ventricular | | systolic function is normal.4. Uuff-cn-naeocgho mitral regurgitation is present. 5. | | There are several changes noted in comparison to the previous echocardiographic study, | | done 06/09/17. FINDINGS--------ECG rhythm: Sinus rhythm.Study: A 2-dimensional | | transthoracic echocardiogram with m-mode, spectral and color flow Doppler was perfomed | | at [facility].Study: This was a technically adequate study.Left [...] Valve: The mitral valve is normal.Mitral Valve: Remo-qz-gidmndvj | | mitral regurgitation is present. There [...] cmLVPWd: 1.10 | | cmLVOT Area: 3.96 sr1IAEB Diam: 2.24 cm%FS: 16.22 %EF(Teich): 33.17 | [...] (A-L): 25.30 ml/m2LAAs | | A2C: 17.73 [id number] A-L A2C: 56.19 mlLALs A2C: 4.75 cmLAAs A4C: 16.27 [id number] | | A-L A4C: 48.06 mlLALs A4C: 4.67 cmRAAs: 15.74 [id number] A-L: 44.83 mlRAESV MOD: | | 43.21 mlRALs: 4.69 cmTAPSE: 2.70 cmAV maxP.79 mmHgAV meanP.61 mmHgAV | | Vmax: 1.39 m/Indra Vmean: 1.01 m/Indra VTI: 28.31 cmAVA Vmax: 2.86 cm2AVA (VTI): | | 2.58 gy3IGEB Vmax: 0.00 cm2/m2AVAI (VTI): 0.00 cm2/m2LVOT maxP.05 mmHgLVOT | | meanP.18 mmHgLVSI Dopp: 35.31 ml/m2LVSV Dopp: 73.10 mlLVOT Vmax: 1.00 | | m/sLVOT Vmean: 0.68 m/sLVOT VTI: 18.42 cmMV A Henry: 0.91 m/sMV Dec [place]: 3.53 | | m/s2MV DecT: 205.32 msMV E Henry: 0.72 m/sMV E/A Ratio: 0.79MV PHT: 59.54 msMVA By | | PHT: 3.69 bo1Gylafw e': 0.04 m/sSeptal E/e': 15.15Lateral e': 0.03 m/sLateral | | E/e': 21.69RAP: 5 mmHgRVSP: 22.41 mmHgTR maxP.41 mmHgTR Vmax: 2.08 m/s | | Contact Lens Technician: DHAuthenticated by: Pema ELLISON Date/Time: -- | | [id number] IMPRESSION: 1. The left ventricle is markedly dilated. Overall | | left ventricular systolic function is moderate-severely impaired, with an EF of 30%.2. | | The diastolic filling pattern indicates impaired relaxation consistent with mild | | dysfunction (Grade I).3. The right ventricle is mildly enlarged, but right ventricular | | systolic function is normal.4. Pins-xy-tyolpbtw mitral regurgitation is present. 5. | | [...] A Henry: 0.91 m/s | |MV Dec [place]: 3.53 m/s2 | |MV DecT: 205.32 ms [...] |TR Vmax: 2.08 m/s | | | |Contact Lens Technician: | |Authenticated by: ETIENNE GEORGES MD | |Report Date/Time: -[id number] | | | |IMPRESSION: | |1. The left ventricle is markedly dilated. Overall left ventricular systolic function is m oderate-severely impaired, with an EF of 30%. | |2. The diastolic filling pattern indicates impaired relaxation consistent with mild dysfunc tion (Grade I). | |3. The right ventricle is mildly enlarged, but right ventricular systolic function is krish l. | |4. Wrmi-mg-fnwgmhrq mitral regurgitation is present. 5. There are several changes noted in comparison to the previous echocardiographic study, done 06/09/17. | + + documented in this encounter Visit Diagnoses Not on filedocumented in this encounter"
--- OUTSIDE RECORDS SUMMARY | ~2020-05-12 | XMS | Encounter Summary ---
Demographics + + + | Address | [address] | | | [place] [address] | + + + | Home Phone | | + + + | Preferred Language | Unknown | + + + | Marital Status | Single | + + + | Anabaptism Affiliation | Unknown | + + + | Race | Unknown | + + + | Ethnic Group | Unknown | + + + Author + + + | Author | [facility] | | | and [place] | + + + | Organization | [facility] | | | and [place] | + + + | Address | Unknown | + + + | Phone | Unavailable | + + + Care Team Providers + +------+ + | Care Guide Changer Name | Role | Phone | + +------+ + | Cassidy Khan MD | PCP | | + +------+ + Encounter Details +--------+ + + + + | Date | Type | Department | Care Team | Description | +--------+ + + + + | 12/12/ | Orders Only | [facility] | Oneal Rowe | | | 2015 | | CARDIOLOGY [place] | MD [address] | | | | | [address] | [address] [facility] | | | | | [place], [place] | [place] [address] | | | | | [address] | [phone] | | | | | [phone] | | | +--------+ + + + [...] for local anesthesia. Using Seldinger technique, a 5-Khmer | | | hydrophilic introducer sheath was [...] direct fluoroscopic | | | visualization, a 5-Khmer multipurpose catheter was advanced to the | | | aortic root. The patient was noted to be hypotensive and IV fluids | | | were started. The sedation was reversed with Romazicon 0.2 mg and | | | Narcan 0.4 mg. The multipurpose catheter was then used to perform | | | selective angiography of both [place] coronary systems, in multiple | | | [...] | | | There are numerous septal primary substance abuse counselor branches which are normal in | | [...] | Procedure Note | + + | WolfgangJavier Conversion - 07/06/2019 10:22 AM PDT | | [...] | | anesthesia. Using Seldinger technique, a 5-Khmer hydrophilic introducer | | sheath was inserted into the right radial artery. The radial artery | | "cocktail" (verapamil 2 mg, heparin 2000 units and nitroglycerin 200 mcg) | | was administered through the introducer sheath side port. | | | | With the use of a 260 cm 0.035-inch J-tipped guidewire for catheter | | advanced under direct fluoroscopic visualization, a 5-Khmer multipurpose | | catheter was advanced to the aortic root. The patient was noted to be | | hypotensive and IV fluids were started. The sedation was reversed with | | Romazicon 0.2 mg and Narcan 0.4 mg. The multipurpose catheter was then | | used to perform selective angiography of both [place] coronary systems, in | | multiple views, [...] free of disease. There are numerous septal primary substance abuse counselor branches | | which are normal in [...]
--- OUTSIDE RECORDS SUMMARY | ~2020-05-12 | XMS | Encounter Summary ---
Demographics + + + | Address | [address] | | | [place] [address] | + + + | Home Phone | | + + + | Preferred Language | Unknown | + + + | Marital Status | Single | + + + | Moravian Affiliation | Unknown | + + + | Race | Unknown | + + + | Ethnic Group | Unknown | + + + Author + + + | Author | [facility] | | | and [place] | + + + | Organization | [facility] | | | and [place] | + + + | Address | Unknown | + + + | Phone | Unavailable | + + + Care Team Providers + +------+ + | Care Lithographic Etcher Name | Role | Phone | + +------+ + | Cassidy Khan MD | PCP | | + +------+ + Encounter Details +--------+ + + + + | Date | Type | Department | Care Team | Description | +--------+ + + + + | 11/28/ | Orders Only | [facility] | Oneal Rowe | | | 2015 | | CARDIOLOGY [place] | MD [address] | | | | | [address] | [address] [facility] | | | | | [place], [place] | [place] [address] | | | | | [address] | [phone] | | | | | [phone] | | | +--------+ + + + [...]
--- OUTSIDE RECORDS SUMMARY | ~2020-05-12 | XMS | Clinical Summary ---
Demographics + + + | Address | [address] | | | [place] [address] | + + + | Home Phone | | + + + | Preferred Language | Unknown | + + + | Marital Status | Single | + + + | Pentecostal Affiliation | Unknown | + + + | Race | Unknown | + + + | Ethnic Group | Unknown | + + + Author + + + | Author | [facility] | | | and [place] | + + + | Organization | [facility] | | | and [place] | + + + | Address | Unknown | + + + | Phone | Unavailable | + + + Care Team Providers + +------+ + | Care Gas Distribution Plant Operator Name | Role | Phone [...] + + | Father | | | [place] x 2, open heart surgery | | [...] +-------+--------+ +--------+-------+---------+------+ | U[employer] | UMR | [id number] | 11/14/19 | | | PPO | [...] | | | [address] (Home) | [place] [address] | + +--------+ +--------+ + + Advance Directives + + + + + | Type | Date Recorded | Patient | Explanation | | | | Trading Floor Operator | | + + + + + | Power of | | | | | Data Migration Consultant | | | | + + + + + | Advance | 08/03/2018 12:41 | | | | Directive | PM | | | + + + + +
--- OUTSIDE RECORDS SUMMARY | ~2020-05-12 | XMS | Encounter Summary ---
Demographics + + + | Address | [address] | | | [place] [address] | + + + | Home Phone | | + + + | Preferred Language | Unknown | + + + | Marital Status | Single | + + + | Congregational Affiliation | Unknown | + + + | Race | Unknown | + + + | Ethnic Group | Unknown | + + + Author + + + | Author | [facility] | | | and [place] | + + + | Organization | [facility] | | | and [place] | + + + | Address | Unknown | + + + | Phone | Unavailable | + + + Care Team Providers + +------+ + | Care Junior Legal Secretary Name | Role | Phone | + [...] + + | 05/06/ | Emergency | [facility] | Behzad Mcmillan | Cough in adult | | 2018 - | | [facility] | Brett Lee MD | patient (Primary Dx) | | | | CENTER [address] | [address] | | | 05/07/ | | [place] | [place] | | | 2018 | | [phone] | [address] | | | | | [phone] | | | +--------+ + + + [...] + + documented as of this encounter ED Notes Behzad Mcmillan MD - 05/06/2018 11:49 PM PDTFormatting of this note might be d ifferent from the original. [facility] Martinez Xiong Emergency Department Encounter Note [address] [place] [address] PCP:No primary care provider on file. x2500 eMERGENCY dEPARTMENT eNCOUnter CHIEF COMPLAINT Chief Complaint Patient presents with Pleuritic Chest Pain (Adult) TRIAGE ED Triage Notes, ED Triage Notes Mary Lou Jimenez RN 05/06/2018 22:16 Pt here c/o pleuritic chest pain after completing course of abx 3 weeks ago, and cough. Rep hannah MOCTEZUMA told him it was probably viral. HPI Martinez Xiong is a 47 y.o. male who presents ongoing cough. Patient has some pleuritic chest pa in and cough. His cough started approximately 3 weeks ago. Apparently he's had weight loss and cough. He started a course of "penicillin" he states that his cough persisted. He's h ere for further evaluation. Patient with ongoing cough and slight shortness of breath. PAST MEDICAL HISTORY Past Medical History: Diagnosis Date CHF (congestive heart failure) (HCC) SURGICAL HISTORY History reviewed. No pertinent surgical history. CURRENT MEDICATIONS Previous Medications No medications on file ALLERGIES No Known Allergies FAMILY HISTORY History reviewed. No pertinent family history. SOCIAL HISTORY Social History Social History Marital status: N/A Spouse name: N/A Number of children: N/A Years of education: N/A Social History Main Topics Smoking status: Former Smoker Smokeless tobacco: Current User Alcohol use Yes Comment: daily ETOH Drug use: No Sexual activity: Not Asked Other Topics Concern None Social History Narrative None REVIEW OF SYSTEMS Please see HPI, All systems negative except as marked. Twelve point review of system comp leted my me. PHYSICAL EXAM VITAL SIGNS: Temp: 36.6 C (97.9 F) Pulse: 108 Resp: 20 SpO2: 98 % BP: (!) 171/106 Constitutional: Well developed, Well nourished, Non-toxic appearance. HENT: Normocephalic, Atraumatic, Bilateral external ears normal, Oropharynx moist, No oral exudates, Nose normal. Neck- Normal range of motion, No tenderness, Supple, No stridor. Eyes: PERRL, EOMI, Conjunctiva normal, No discharge. Respiratory: Normal breath sounds, increased rhonchi bilaterally, No chest tenderness. Cardiovascular: Normal heart rate, Normal rhythm, No murmurs, No rubs, No gallops. GI: Bowel sounds normal, Soft, No tenderness, No masses, No pulsatile masses. Musculoskeletal: Intact distal pulses, No edema, No tenderness, No cyanosis, No clubbing. Good range of motion in all major joints. No tenderness to palpation or major deformities no govind. Neurologic: Alert & oriented x 3, Normal motor function, Normal sensory function, No focal deficits noted, no facial assymetry noted. 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 No results found. ED COURSE & MEDICAL DECISION MAKING Pertinent Labs & Imaging studies reviewed. (See chart for details) Nursing notes reviewed. Patient with ongoing difficulty breathing. We gave him a breathing treatment here in the e mergency room. He feels much better. Patient had a chest x-ray with no sign of acute pneumonia. I'm starting him on a course of steroids as well as albuterol inhaler. He is encouraged follow-up with his primary care ph ysician. He does not appear to be in acute distress at this time. Patient is otherwise hem odynamically stable. New Prescriptions ALBUTEROL 90 MCG/PUFF INHALER Inhale 2 puffs into the lungs every 4 hours as needed for Wheezing or Shortness of Breath. Use with spacer device. GUAIFENESIN-CODEINE (ROBITUSSIN AC) 100-10 MG/5 ML LIQUID Take 5-10 mLs by mouth every 6 hours as needed for Cough. PREDNISONE (DELTASONE) 20 MG TABLET Take 3 tablets by mouth Daily. Discharge Instructions Please follow-up with your primary care physician. Return for severe symptoms symptoms. FINAL IMPRESSION 1. Cough in adult patient Portions of this chart may have been created with [employer] voice recognition software. Occasi onal wrong-word or sound-alike substitutions may have occurred due to the inherent mathis itations of voice recognition software. Please read the chart carefully and recognize, using context, where these substitutions have occurred Behzad Mcmillan MD 05/06/18 [id number] avy, Fiorella Beck RN - 05/06/2018 10:16 PM PDTPt here c/o pleuritic chest pain after completing cours e of abx 3 weeks ago, and cough. Reports told him it was probably viral. Electronically s igned by Mary Lou Jimenez RN at 05/06/2018 10:16 PM PDTdocumented in this encounter Plan of Treatment Not [...]
--- OUTSIDE RECORDS SUMMARY | ~2020-05-12 | XMS | Encounter Summary ---
Demographics + + + | Address | [address] | | | [place] [address] | + + + | Home Phone | | + + + | Preferred Language | Unknown | + + + | Marital Status | Single | + + + | Roman Catholic Affiliation | Unknown | + + + | Race | Unknown | + + + | Ethnic Group | Unknown | + + + Author + + + | Author | [facility] | | | and [place] | + + + | Organization | [facility] | | | and [place] | + + + | Address | Unknown | + + + | Phone | Unavailable | + + + Care Team Providers + +------+ + | Care Shipping/Receiving Clerk Name | Role | Phone | [...] | | | 2015 | | CARDIOLOGY [place] | MD [address] | | | | | [address] | [address] [facility] | | | | | [place], [place] | [place] [address] | | | | | [address] | [phone] | | | | | [phone] | | | +--------+ + + + [...]
--- OUTSIDE RECORDS SUMMARY | ~2020-05-12 | XMS | Encounter Summary ---
Demographics + + + | Address | [address] | | | [place] [address] | + + + | Home Phone | | + + + | Preferred Language | Unknown | + + + | Marital Status | Single | + + + | Amish Affiliation | Unknown | + + + | Race | Unknown | + + + | Ethnic Group | Unknown | + + + Author + + + | Author | [facility] | | | and [place] | + + + | Organization | [facility] | | | and [place] | + + + | Address | Unknown | + + + | Phone | Unavailable | + + + Care Team Providers + +------+ + | Care Travel Rn Name | Role | Phone | + [...] [address] | | | | | [place], [place] | [place] [address] | | | | | [address] | [phone] | | | | | [phone] | | | +--------+ + + + [...] | + + + | Patient Name: Maritnez Xiong Date of : 1970 | | [...] TR | | | Vmax: 1.16 m/s Border Patrol Agent: LI Authenticated by: John | | | [facility] Report Date/Time: 06-06-2017 19:16:57 | | + + + + + | Procedure Note | + + | Javier Goss Conversion - 07/05/2019 7:27 PM PDT Patient Name: Benita Xiong of : | | 1970 Performing Physician: John | | Alsamara ------REPORT | | ADDENDED------INDICATIONS Ischemic cardiomyopathy CONCLUSIONS [...] cmLVIDd: 5.94 cmLVPWd: 0.90 cmLVOT Area: 3.86 [id number] Diam: 2.21 | | cm%FS: 5.98 %EF(Teich): [...] | | (A-L): 40.67 ml/m2LAAs A2C: 18.45 [id number] A-L A2C: 57.80 mlLALs A2C: 5.00 | | cmLAAs A4C: 26.61 [id number] A-L A4C: 95.55 mlLALs A4C: 6.29 cmRAAs: 17.13 | | [id number] A-L: 46.89 mlRAESV MOD: 45.03 mlRALs: 5.31 cmTAPSE: 2.60 cmAV maxPG: | | 10.02 mmHgAV meanP.45 mmHgAV Vmax: 1.58 m/Indra Vmean: 1.12 m/Indra VTI: 28.27 | | cmAVA Vmax: 2.87 cm2AVA (VTI): 2.94 [id number] Vmax: 0.00 cm2/m2AVAI (VTI): 0.00 | | cm2/m2LVOT maxP.55 mmHgLVOT meanP.25 mmHgLVSI Dopp: 40.55 ml/m2LVSV Dopp: | | 83.13 mlLVOT Vmax: 1.17 m/sLVOT Vmean: 0.84 m/sLVOT VTI: 21.49 cmMV A Henry: | | 0.88 m/sMV DecT: 179.30 msMV E Henry: 0.66 m/sMV E/A Ratio: 0.75MV PHT: 51.99 | | msMVA By PHT: 4.23 [id number] e': 0.03 m/sSeptal E/e': 17.18Lateral e': 0.09 | | m/sLateral E/e': 7.38RV S': 0.12 m/sTR maxP.41 mmHgTR Vmax: 1.16 m/s | | Border Patrol Agent: NICOLASuthenticated by: John [facility] Date/Time: 06-06-2017 19:16:57 | | IMPRESSION: 1. [...] |TR Vmax: 1.16 m/s | | | |Border Patrol Agent: | |Authenticated by: John Rea | |Report [...]
--- OUTSIDE RECORDS SUMMARY | ~2020-05-12 | XMS | Encounter Summary ---
Demographics + + + | Address | [address] | | | [place] [address] | + + + | Home Phone | | + + + | Preferred Language | Unknown | + + + | Marital Status | Single | + + + | Church Affiliation | Unknown | + + + | Race | Unknown | + + + | Ethnic Group | Unknown | + + + Author + + + | Author | [facility] | | | and [place] | + + + | Organization | [facility] | | | and [place] | + + + | Address | Unknown | + + + | Phone | Unavailable | + + + Care Team Providers + +------+ + | Care Turbo Generator Oiler Name | Role | Phone | + +------+ + | No, Physician | PCP | Unavailable | + +------+ + Encounter Details +--------+ + + + + | Date | Type | Department | Care Team | Description | +--------+ + + + + | 12/28/ | Orders Only | [facility] | Conversion | | | 2019 | | CARDIOLOGY [place] | Transaction, | | | | | [address] | Provider Unknown | | | | | [place] | [phone] | | | | | [address] | | | | | | [phone] | | | +--------+ + + + [...]
--- OUTSIDE RECORDS SUMMARY | ~2020-05-12 | XMS | Encounter Summary ---
Demographics + + + | Address | [address] | | | [place] [address] | + + + | Home Phone [...] | Author | [facility] | | | and [place] | + + + | Organization | [facility] | | | and [place] | + + + | Address | Unknown | + + + | Phone | Unavailable | + + + Care Team Providers + +------+ + | Care Customer Leader Name | Role | Phone | + +------+ + | No, Physician | PCP | Unavailable | + +------+ + Encounter Details +--------+ + + + + | Date | Type | Department | Care Team | Description | +--------+ + + + + | 06/19/ | Orders Only | [facility] | Provider, | Dilated | | 2019 | | SYSTEM GENERIC OP | MD [address] | cardiomyopathy | | | | CONVERSION [address] | [address] | (HCC); Transient | | | | [address] [place], [place] | [place] [address] | cerebral ischemic | | | | [address] | | attack; Essential | | | | [phone] | | (primary) | | | | [...]
--- OUTSIDE RECORDS SUMMARY | ~2020-05-12 | XMS | Encounter Summary ---
Demographics + + + | Address | [address] | | | [place] [address] | + + + | Home Phone | | + + + | Preferred Language | Unknown | + + + | Marital Status | Single | + + + | Rastafari Affiliation | Unknown | + + + | Race | Unknown | + + + | Ethnic Group | Unknown | + + + Author + + + | Author | [facility] | | | and [place] | + + + | Organization | [facility] | | | and [place] | + + + | Address | Unknown | + + + | Phone | Unavailable | + + + Care Team Providers + +------+ + | Care Ski Lift Attendant Name | Role | Phone | + [...] + + | 05/06/ | Emergency | [facility] | Behzad Mcmillan | Cough in adult | | 2018 - | | MED CTR EMERGENCY | Brett Lee MD | patient (Primary Dx) | | | | CENTER [address] | [address] | | | 05/07/ | | [place] | [place] | | | 2018 | | [address] | [address] | | | | | [phone] | | | +--------+ + + + [...] might be d ifferent from the original. [facility] Martinez Xiong Emergency Department Encounter Note [address] [place] [address] PCP:No primary care provider on file. x2500 [...] deficits noted, no facial assymetry noted. Equal swimming pool maintenance supervisor in all extremities RADIOLOGY chest x-ray no [...] this chart may have been created with [employer] voice recognition software. Occasi onal wrong-word or sound-alike substitutions may have occurred due to the inherent mathis itations of voice recognition software. Please read the chart carefully and recognize, using context, where these substitutions have occurred Behzad Mcmillan MD 05/06/18 [id number] avy, Fiorella Beck RN - 05/06/2018 10:16 [...]
--- OUTSIDE RECORDS SUMMARY | ~2020-05-12 | XMS | Encounter Summary ---
Demographics + + + | Address | [address] | | | [place] [address] | + + + | Home Phone | | + + + | Preferred Language | Unknown | + + + | Marital Status | Single | + + + | Presybeterian Affiliation | Unknown | + + + | Race | Unknown | + + + | Ethnic Group | Unknown | + + + Author + + + | Author | [facility] | | | and [place] | + + + | Organization | [facility] | | | and [place] | + + + | Address | Unknown | + + + | Phone | Unavailable | + + + Care Team Providers + +------+ + | Care Assistant Baseball Coach Name | Role | Phone | + +------+ + | Cassidy Khan MD | PCP | | + +------+ + Encounter Details +--------+ + + + + | Date | Type | Department | Care Team | Description | +--------+ + + + + | 12/12/ | Orders Only | [facility] | Oneal Rowe | | | 2015 | | CARDIOLOGY [place] | MD [address] | | | | | [address] | [address] [facility] | | | | | [place], [place] | [place] [address] | | | | | [address] | [phone] | | | | | [phone] | | | +--------+ + + + [...] for local anesthesia. Using Seldinger technique, a 5-Kazakh | | | hydrophilic introducer sheath was [...] direct fluoroscopic | | | visualization, a 5-Kazakh multipurpose catheter was advanced to the | | | aortic root. The patient was noted to be hypotensive and IV fluids | | | were started. The sedation was reversed with Romazicon 0.2 mg and | | | Narcan 0.4 mg. The multipurpose catheter was then used to perform | | | selective angiography of both [place] coronary systems, in multiple | | | [...] | | | There are numerous septal reinforcing iron worker helper branches which are normal in | | [...] | | anesthesia. Using Seldinger technique, a 5-Kazakh hydrophilic introducer | | sheath was inserted into the right radial artery. The radial artery | | "cocktail" (verapamil 2 mg, heparin 2000 units and nitroglycerin 200 mcg) | | was administered through the introducer sheath side port. | | | | With the use of a 260 cm 0.035-inch J-tipped guidewire for catheter | | advanced under direct fluoroscopic visualization, a 5-Kazakh multipurpose | | catheter was advanced to the aortic root. The patient was noted to be | | hypotensive and IV fluids were started. The sedation was reversed with | | Romazicon 0.2 mg and Narcan 0.4 mg. The multipurpose catheter was then | | used to perform selective angiography of both [place] coronary systems, in | | multiple views, [...] free of disease. There are numerous septal reinforcing iron worker helper branches | | which are normal in [...]
--- OUTSIDE RECORDS SUMMARY | ~2020-05-12 | XMS | Encounter Summary ---
Demographics + + + | Address | [address] | | | [place] [address] | + + + | Home Phone | | + + + | Preferred Language | Unknown | + + + | Marital Status | Single | + + + | Jain Affiliation | Unknown | + + + | Race | Unknown | + + + | Ethnic Group | Unknown | + + + Author + + + | Author | [facility] | | | and [place] | + + + | Organization | [facility] | | | and [place] | + + + | Address | Unknown | + + + | Phone | Unavailable | + + + Care Team Providers + +------+ + | Care Breastfeeding Educator Name | Role | Phone | + [...] [address] | | | | | [place], [place] | [place] [address] | | | | | [address] | [phone] | | | | | [phone] | | | +--------+ + + + [...] TR | | | Vmax: 1.16 m/s Grain Shipper: LI Authenticated by: John | | | [facility] Report Date/Time: 06-06-2017 19:16:57 | | + [...] cmLVIDd: 5.94 cmLVPWd: 0.90 cmLVOT Area: 3.86 [id number] Diam: 2.21 | | cm%FS: 5.98 %EF(Teich): [...] | | (A-L): 40.67 ml/m2LAAs A2C: 18.45 [id number] A-L A2C: 57.80 mlLALs A2C: 5.00 | | cmLAAs A4C: 26.61 [id number] A-L A4C: 95.55 mlLALs A4C: 6.29 cmRAAs: 17.13 | | [id number] A-L: 46.89 mlRAESV MOD: 45.03 mlRALs: 5.31 cmTAPSE: 2.60 cmAV maxPG: | | 10.02 mmHgAV meanP.45 mmHgAV Vmax: 1.58 m/Indra Vmean: 1.12 m/Indra VTI: 28.27 | | cmAVA Vmax: 2.87 cm2AVA (VTI): 2.94 [id number] Vmax: 0.00 cm2/m2AVAI (VTI): 0.00 | | cm2/m2LVOT maxP.55 mmHgLVOT meanP.25 mmHgLVSI Dopp: 40.55 ml/m2LVSV Dopp: | | 83.13 mlLVOT Vmax: 1.17 m/sLVOT Vmean: 0.84 m/sLVOT VTI: 21.49 cmMV A Henry: | | 0.88 m/sMV DecT: 179.30 msMV E Henry: 0.66 m/sMV E/A Ratio: 0.75MV PHT: 51.99 | | msMVA By PHT: 4.23 [id number] e': 0.03 m/sSeptal E/e': 17.18Lateral e': 0.09 | | m/sLateral E/e': 7.38RV S': 0.12 m/sTR maxP.41 mmHgTR Vmax: 1.16 m/s | | Grain Shipper: NICOLASuthenticated by: John [facility]tharry [facility] Date/Time: 06-06-2017 19:16:57 | | IMPRESSION: 1. [...] |TR Vmax: 1.16 m/s | | | |Grain Shipper: | |Authenticated by: John Rea | |Report [...]
[~2020-05-12 09:57] MED LIST changes: +LISINOPRIL20 MG PO; +ULTRA-LIGHT RO1 EACH MISC
--- OUTSIDE RECORDS SUMMARY | 2020-05-12 10:00 | XMS ---
PreManage Notification: FELIPE KEANE Security Home Care Manager Events No recent Security Events currently on file CRITERIA MET - [facility] - Has Care Guidelines - [facility] - 2 Visits in 30 Days CARE PROVIDERS LAN CARIAS Internal Medicine: Pulmonary Disease 03/12/2019-Current PHONE: Unknown Sandi has no Care Guidelines for this patient. Care History Medical/Surgical 04/21/2020 [facility] Patient last saw Dr Khan, PCP on 12/09/2019 re: [facility] reinstatement paperwork. Was N/S for next appt.12/16/2019. 03/12/2019 [facility] - PATIENT ESTABLISHED CARE WITH DR KHAN ON 12/12/18. NEXT FOLLOW UP APT IS ON 05/10/2019. - Patient is currently established with [facility]. If patient is seen in the ED during business hours. Please contact CHWs at [facility]. Care Recommendation: This patient has had 5 [...] providing care. E.D. VISIT COUNT (12 MO.) 2 [facility] TOTAL 2 NOTE: Visits indicate total known visits. ED/UCC VISIT TRACKING (12 MO.) 05/12/2020 09:57 [facility] [place] TYPE: Emergency COMPLAINT: - LEG PAIN 04/19/2020 08:15 [facility] [place] TYPE: Emergency COMPLAINT: - LEG PAIN, NON INJ INPATIENT VISIT TRACKING (12 MO.) 04/19/2020 14:00 [facility] [place] TYPE: Medical Surgical COMPLAINT: - RHABDOMYOLYSIS DIAGNOSES: - Personal history of nicotine dependence - Essential (primary) hypertension - Alcoholic myopathy - Alcohol dependence with withdrawal delirium - Contact with and (suspected) exposure to other viral communic - Other senior care (current) drug therapy - Alcoholic cardiomyopathy - Alcoholic hepatitis without ascites - Hypokalemia - Rhabdomyolysis - Hypomagnesemia - Other pancytopenia - Hyperlipidemia, unspecified [email or web address]
--- NOTE | 2020-05-12 17:45 | NUR ---
Patient arrives to unit via stretcher. Patient transfered to hospital bed with nursing assistance. Vital signs taken, assessment complete. Patient HR in the 130-140's. Reports "I'm scared." Therapeutic communication used. 260 mg of IV phenobarbitol given, along with other medications (see MAR). Patient reports the shakiness is "a little better." Dinner delivered. LR infusing at 125 mls/hr. Call light within reach.
--- NOTE | 2020-05-12 18:18 | NUR ---
TALKED WITH PHARMACY PRIOR TO DRAWING UP AND GIVING IV THIAMINE. WILL BE GIVEN AN IV PUSH OVER 25 MINUTES.
--- NOTE | 2020-05-12 19:00 | NUR ---
Patient restless in bed, reports need to use urinal. Patient sitting up at edge of bed with feet on floor. Patient unable to void. 130 mg of phenobarbitol given. Patient denies needs at this time, call light within reach.
--- NOTE | 2020-05-12 19:34 | NUR ---
REPORT RECIEVED FROM CCU RN, CARE OF PT ASSUMED AT THIS TIME.
--- NOTE | 2020-05-12 19:43 | NUR ---
pt CALLED OUT "I NEED SOME HELP". HE WANTED TO TRY TO USE THE URINAL WITH NO LUCK. pt STATES "IM DRINKING A TON OF WATER, I DONT KNOW WHY I CANT PEE". BED ALARM SET.
--- NOTE | 2020-05-12 19:56 | NUR ---
PT REQUESTING A SECOND NICOTINE PATCH. EDUCATED PT ABOUT PRN MEDICATION FOR NICOTINE WITHDRAWAL. GIVEN A LOZENGE AT THIS TIME
--- NOTE | 2020-05-12 20:15 | NUR ---
DR SOLANO IN ROOM TO CHECK ON PT. ALL QUESTIONS ANSWERED. NEW ORDERS RECIEVED AT THIS TIME.
--- NOTE | 2020-05-12 20:37 | NUR ---
BLADDER SCANNED PT FOR [address] SOLANO AWARE.
--- NOTE | 2020-05-12 20:46 | NUR ---
ASSESSMENT COMPLETED. PT SEEMED TO HAVE INCREASED CONFUSION AND AGGITATION. STATES HE KEEPS SEEING PEOPLE WALK BY AND " I THOUGHT NO ONE WAS HOME" REORIENTED PT, DISCUSSED PLAN OF CARE. WILL CLOSELY MONITOR.
--- NOTE | 2020-05-12 21:15 | NUR ---
CIWA SCORE OF 8. PT RESTLESS IN THE BED, MILD AGGITAION AND ANXIETY. BED ALARM IN PLACE. WILL CONTINUE TO CLOSELY MONITOR.
--- NOTE | 2020-05-12 21:59 | NUR ---
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 All these were applied, nothing further needed from RN or pt.
--- NOTE | 2020-05-12 22:15 | NUR ---
PT UP TO BSC WITH TWO PERSON ASSIST. PT UNSTEADY ON FEET, IMPULSIVE, PULLING AT LINES AND CORDS. BACK IN BED. GIVEN 4 MG OF IV ATIVAN FOR A CIWA OF 12. BED ALARM IN PLACE. PT VISIBLE FROM NURSES STATION. WILL CONINUE TO CLOSELY MONITOR.
--- NOTE | 2020-05-12 22:29 | NUR ---
pt used call light to ask where his bags were, this QUALITY ASSURANCE NURSE showed him they are on the couch. He asked for some more ice water, and said he appreciated the "positive attitudes us nurses have". Nothing further needed at this time.
--- NOTE | 2020-05-12 23:09 | NUR ---
PT PULLED OF MANAGER REVIEW. REORIENTED PT AT THIS TIME. REMOVED SPO2 MONITOR AND BLOOD PRESSURE CUFF. BED ALARM REMAINS IN PLACE, PT VISIBLE FROM NURSES STATION.
--- NOTE | 2020-05-12 23:25 | NUR ---
BED ALARM GOING OFF, PT ATTEMPTING TO GET OUT OF BED. STATES "I WANTED TO MAKE SURE THE DOOR WAS LOCKED. i KEEP FORGETTING I AM AT THE HOSPITAL." PT GIVEN 2 MG OF IV ATIVAN FOR CIWA OF 12. BED ALARM ON, VISIBLE FROM NURSES STATION.
--- NOTE | 2020-05-12 23:49 | NUR ---
BED ALARM GOING OFF, PT DISORIENTED TO LOCATION. REDIRECTED. PT DIAPHORETIC, AND HAS MILD TREMORS NOTED IN BOTH ARMS. 2 MG IV ATIVAN GIVEN. BED ALARM IN PLACE
--- NOTE | 2020-05-13 01:20 | NUR ---
PT ATTEMPTING TO EXIT BED, ALARM GOING OFF. TWO PERSON ASSIST TO GET PT TO BSC. PT HAD MEDIUM SOFT BM. NOW BACK IN BED. STATES HE IS WORRIED THAT HIS FEET WILL NOT BE WORKING, DISORIENTED TO DATE, TIME, AND SITUATION. REORIENTED AT THIST TIME. GIVEN 2 MG IV ATIVAN FOR CIWA OF 12. SECURITY AT BEDSIDE FOR ONE TO ONE SUPERVISION DUE TO PT IMPULSIVENESS.
--- NOTE | 2020-05-13 01:57 | NUR ---
pt was trying to get out of bed, security trainer, Chris went to help pt. This DINING CAR HOP took over (pt had to pee). He voided 50ccs. pt repositioned and back in bed. Bed alarm set.
--- NOTE | 2020-05-13 02:07 | NUR ---
guardian ad litemChris went into pt room because pt was "grabbing at cords". pt reoriented.
--- NOTE | 2020-05-13 02:12 | NUR ---
IV PUMP BEEPING. NEW BAG OF FLUIDS HUNG. pt RESTING IN BED SNORING. RESPIRATIONS REGULAR AND UNLABORED.
--- NOTE | 2020-05-13 03:00 | NUR ---
PT IV DISLODGED IN RIGHT HAND. 20 G IV STARTED IN LEFT HAND. WRAPPED IN COBAN. WELL TOLERATED BY PT. PT UP TO BSC TO VOID. 2 PERSON ASSIST REQUIRED. PT REMAINS UNSTEADY ON FEET. BED ALARM ON. CORROSION CONTROL TECHNICIAN AT BEDSIDE. BED ALARM ON.
--- NOTE | 2020-05-13 04:15 | NUR ---
ASSESSMENT COMPLETED. PT STARTLES AWAKE, DISORIENTED TO LOCATION. PT SLIGHTLY DIAPHORETIC. NO VISIBLE TREMORS, DENIES NAUSEA OR AUDITORY HALLUCINATIONS. PT ATTEMPTING TO DRINK FROM SPO2 MONITOR AND SUCKING ON PORT TO IV. REORIENTED PT. BED ALARM ON, VISIBLE FROM NURSES STATION.
--- NOTE | 2020-05-13 07:30 | NUR ---
REPORT RECIEVED. OOB TO COMMODE TO EXPELL URINE WITH LIQUID STOOL. IS UNSTEADY ON FEET. BACK TO BED WITH ASSIST. ASSESSMENT DONE. PATIENT C/O BUTTOCKS DISCOMFORT R/T THE BED. ENCOURAGED PATIENT TO MOVE IN BED FREQUENTLY, LAUREN IS NOW DOING THIS..
--- NOTE | 2020-05-13 07:50 | NUR ---
ATIVAN 2 MG IV GIVEN PATIENT STATES HE IS VERY NERVOUS, MILD TREMORS.
--- NOTE | 2020-05-13 08:10 | NUR ---
MORE RELAXED POST ATIVAN ADMINSTRATION.
--- NOTE | 2020-05-13 08:30 | NUR ---
SITTING UP IN BED FOR BREAKFAST. IS COOPERATIVE AT THIS TIME.
--- NOTE | 2020-05-13 09:30 | NUR ---
TYLENOL 650 MG PO GIVEN PER R/O FOR BUTTOCKS DISCOMFORTS.
--- NOTE | 2020-05-13 09:37 | NUR ---
RESTING AT THIS TIME. NO DISTESS NOTED. IV PATENT.
--- NOTE | 2020-05-13 10:07 | NUR ---
PHYS THERAPY HERE TO WORK WITH PATIENT.
--- NOTE | 2020-05-13 10:30 | NUR ---
OT HERE TO WORK WITH PATIENT.
--- NOTE | 2020-05-13 11:10 | NUR ---
AGITATED WITH TREMORS. FRUSTRATED. ATIVAN 2 MG IV GIVEN.
--- NOTE | 2020-05-13 11:20 | NUR ---
BACK UP TO COMMODE REMAINS VERY UNSTEADY ON FEET. REMAINS IMPULSIVE. WHILE ON COMMODE, VOIDED AND HAD ANOTHER LOOSE STOOL.
[2020-05-13] MEDS ORDERED: FISH OIL 1,0001 EAC2 PO (12:09)
[2020-05-13] MEDS ORDERED: ADULT ASPIRIN R81 MG PO (12:09)
--- NOTE | 2020-05-13 12:10 | NUR ---
MED REC COMPLETE
--- NOTE | 2020-05-13 12:58 | NUR ---
PHENOBARB 130 MG IV GIVEN PER ORDERS.
--- NOTE | 2020-05-13 13:35 | NUR ---
ATIVAN 2 MG IV GIVEN. PATIENT REMAINS VERY RESTLESS. HAS BEEN UP TO COMMODE MANY TIMES.
--- NOTE | 2020-05-13 16:00 | NUR ---
ASSESSMENT DONE. REMAINS VERY IMPLUSIVE. CONTINUES TO BE UP TO COMMODE FREQUENTLY.IS UNSTEADY ON FEET. NEEDS MUCH FIRM DIRECTION.
--- NOTE | 2020-05-13 16:40 | NUR ---
ATIVAN 4 MG IV REPEATED.
--- NOTE | 2020-05-13 18:25 | NUR ---
ATIVAN 4 MG IV GIVEN PATIENT VERY RESTLESS AND AGITATED.
--- NOTE | 2020-05-13 18:58 | NUR ---
DR. SOLANO UPDATED ON PATIENT MEDICATION REQUIREMENT, ALSO AWARE OF FREQUENT URINATION.
--- NOTE | 2020-05-13 19:00 | NUR ---
Spoke briefly with Martinez. Asked where he wants to go on dc. He is unsure. States he cannot walk. Wants to go to a SNF. Informed I contacted [facility] last night and they declined him. Will fu after detox.
--- NOTE | 2020-05-13 19:00 | NUR ---
BED ALARM REMAINS ON.
--- NOTE | 2020-05-13 19:25 | NUR ---
pt report recieved care of patient assumed at this time.
--- NOTE | 2020-05-13 19:59 | NUR ---
pt attempting to get out of bed. two person assist to bed side commode. pt weak and makes impulsive movements but is able to follow some commands. given 2 mg of prn ativan for CIWA OF 10. pt pulled out left hand IV. right forearm IV still working. pt in bed with fluids and magnesium infusing. bed alarm on and pt remains visible from nurses station. asessment completed.
--- NOTE | 2020-05-13 20:55 | NUR ---
ALARM GOING OFF, PT STATES HE WANTS TO GO TO THE STORE. ASSISTED TO BSC, PT VOIDED. BACK IN BED, CALL LIGHT WITHIN REACH. NO FURTHER NEEDS AT THIS TIME.
--- NOTE | 2020-05-13 22:32 | NUR ---
IN TO ROOM, PT ATTEMPTING TO SIT UP IN BED. ASKED PT TO REMAIN IN BED, HE STATES "I CAN'T SLEEP ANYMORE."PT ADVISED OKAY TO SIT IP AT BEDSIDE, BUT NOT TO ATTEMPT TO STAND AT THIS TIME HE IS UNSTEADY ON FEET. PT SITTING AT SIDE OF BED. PT STATES "NOWI AM TIRED." PT ASSISTED BACK IN TO BED. WATER GIVEN PER REQUEST. CALL LIGHT IN REACH. BED ALARM ON.
--- NOTE | 2020-05-13 22:50 | NUR ---
PT UP AND DOWN TO BED TO BATHROOM. PT DISORIENTED TO TIME AND EVENT. ORIENTED TO SELF. PT WILL FOLLOW BASIC COMMANDS. GIVEN ATIVAN FOR CIWA OF 13. WILL CONTINUE TO CLOSELY MONITOR.
--- NOTE | 2020-05-13 23:27 | NUR ---
BED ALARM SOUNDING, 1PA TO BSC FOR VOID AND BACK TO BED. IVF INFUSING WNL ORDERED. BED ALARM ON. CALL LIGHT IN REACH. ICE WATER PROVIDED.
--- NOTE | 2020-05-14 00:04 | NUR ---
pt SITTING UP AT SIDE OF BED. ASSESSMENT COMPLETE. CIWA SCORE 11. REORIENATION TO LOCATION, EVENT PROVIDED. pt FIDGETING IN BED. PRN ATIVAN ADMINISTERED. IV SL WNL. CALL LIGHT IN REACH. BED ALARM ON.
--- NOTE | 2020-05-14 00:29 | NUR ---
BED ALARM SOUNDING. 2PA TO BSC FOR VOID AND SMEAR. WEAK GAIT. BACK IN BED, WATER PROVIDED. BED ALARM ON.
--- NOTE | 2020-05-14 01:18 | NUR ---
pt RESTING IN BED WITH EYES CLOSED, APPEARS TO BE SLEEPING, BREATHING UNLABORED. BED ALARM ON.
--- NOTE | 2020-05-14 02:00 | NUR ---
CHECKED ON pt. RESTING IN BED WITH EYES CLOSED, BREATHING UNLABORED. BED ALARM ON.
--- NOTE | 2020-05-14 02:43 | NUR ---
pt APPEARS TO BE SLEEPING, RESTING IN BED WITH EYES CLOSED, NO TREMORS NOTED, pt NOT DIAPHORETIC. HR 80, RR 14. LIGHTS OFF IN ROOM, BED ALARM ON.
--- NOTE | 2020-05-14 03:00 | NUR ---
pt TRIED GETTING OUT OF BED TO USE THE RESTROOM. THRASHING HIS ARMS AND LEGS AROUND. HE VOIDED 475ccs OF URINE. pt BACK IN ROOM. BED ALARM SET. FRESH ICE WATER GIVEN.
--- NOTE | 2020-05-14 03:41 | NUR ---
pt ATTEMPTING TO GET OUT OF BED, LEGS OVER SIDE RAIL. DISORIENTED TO EVENT, PLACE, REORIENTATION PROVIDED. ASSESSMENT COMPLETE. CIWA SCORE 11. PRN ATIVAN ADMINISTERED, NICOTINE LOZANGE PROVIDED. BED ALARM ON. CALL LIGHT IN REACH.
--- NOTE | 2020-05-14 05:14 | NUR ---
pt ATTEMPTING TO GET OUT OF BED, FOLLOWS INSTRUCTIONS BY RNS TO WAIT FOR ASSISTANCE. 2PA TO BSC FOR VOID AND BACK TO BED. pt IS ORIENTED TO LOCATION, EVENT AT THIS TIME. DENIES SANDOVAL, NAUSEA. BACK IN BED RESTING WITH EYES CLOSED. IV SL. BED ALARM ON.
--- NOTE | 2020-05-14 05:50 | NUR ---
pt ATTEMPTING TO GET OUT OF BED, 2PA TO BSC FOR VOID. LEGS UNSTEADY, WEAK, SHAKING. pt IS BACK IN BED. ORIENTED AT THIS TIME TO ALL. ABLE TO HOLD CONVERSATION. REQUESTING FOOD, PUDDING PROVIDED. BED ALARM ON. CALL LIGHT, PO FLUID IN REACH.
--- NOTE | 2020-05-14 06:25 | NUR ---
pt MORE ALERT IN MORNING HOURS, ORIENTED TO ALL, ABLE TO HOLD CONVERSATION. SLURRED SPEECH NOTED. pt UNSTEADY ON FEET, 2PA TO BSC FOR QS VOIDS. ADEQUATE PO INTAKE. IV SL. PRN ATIVAN ADMINISTERED PER EMAR THIS SHIFT FOR CIWA SCORES >8. BED ALARM ON. .
--- NOTE | 2020-05-14 06:37 | NUR ---
CALL LIGHT ANSWERED. NICOTINE LOZANGE PROVIDED REQUESTED. pt DENIES ADDITIONAL NEEDS. STATES "I JUST NEED TO GET OUT OF HERE, I'M BORED". EDUCATED ON PLAN FOR DAY. COOPERATIVE. CALL LIGHT IN REACH. BED ALARM ON.
--- NOTE | 2020-05-14 07:30 | NUR ---
PATIENT SHIFT REPORT RECIEVED FROM DISCOUNT CLERK RN. PATIENT RESTING IN BED SLEEPING AT THIS TIME. WILL CONTINUE TO CLOSELY MONITOR.
--- NOTE | 2020-05-14 08:30 | NUR ---
PATIENT RESTING IN BED. ALLOWING PATIENT TO REST AT THIS TIME. WILL WAKE HIM UP BEFORE BREAKFAST. WILL CONTINUE TO CLOSELY MONITOR.
--- NOTE | 2020-05-14 10:00 | NUR ---
WOKE PATIENT UP AND ASSESSMENT COMPLETED. PATIENT WOKE A LITTLE GRUMPY. PATIENT ASSISTED UP TO THE [facility] WITH 2 PERSON ASSIST. PATIENT IS WOBBELY WITH STANDING. PATIENT ASSISTED TO THE CHAIR FOR BREAKFAST. PATIENT IS IMPULSIVE WITH GOING TO THE BATHROOM. PATIENT BREATH SOUNDS CLEAR AND BOWEL TONES ACTIVE. NO OTHER NEEDS AT THIS TIME. WILL CONTINUE TO CLOSELY MONITOR.
--- NOTE | 2020-05-14 12:00 | NUR ---
PATIENT HAS BEEN UP SSEVERAL TIMES TO THE [facility] WITH 2 PERSON ASSIST. PATIENT IS MORE STABLE THE DAY HAS GONE ON. NEW IV WAS STARTED THIS AM D/T INFILTRATED IV SITE ON HIS RIGHT FOREARM. PATIENT HAS BEEN PLEASANT. NO OTHER NEEDS AT THIS TIME. PATINET IN THE CHAIR AWAITING LUNCH. WILL CONTINUE TO CLOSELY MONITOR.
--- NOTE | 2020-05-14 12:47 | NUR ---
PT ASLEEP, RN CANDICE REQUESTED I LET HIM SLEEP FOR THE MOMENT
--- NOTE | 2020-05-14 13:32 | NUR ---
PT UP TO BSC WITH 2PA. STOOL. REQUESTS TO MOVE TO BED. TO BED WITH ASSIST. CONT TO EAT REG LUNCH.
--- NOTE | 2020-05-14 15:30 | NUR ---
REPORT GIVEN TO BEAU HAWLEY. ALL QUESTIONS ANSWERED. PATIENT IS RESTING IN BED AT THIS TIME. BEDBATH WAS GIVEN. MEDICATIONS ADMINISTERED. PATIENT HAS BEEN PLEASANT WITH STAFF BUT CAN BE IMPULSIVE AT TIMES. WILL CONTINUE TO CLOSELY MONITOR.
--- NOTE | 2020-05-14 15:32 | NUR ---
NICOTINE LOZENGE PER REQUEST. SCHED MEDS, SEE EMAR.
--- NOTE | 2020-05-14 15:47 | NUR ---
LATE ENTRY: PT TRANSFERRED TO ROOM 121 VIA BED AT 1545 . CARE GIVEN TO BEAU MCGEE RN.
--- NOTE | 2020-05-14 16:13 | EKG ---
[facility] [address] [place], [place] [address] Signed Sinus tachycardia Possible Left atrial enlargement Left bundle branch block Abnormal ECG When compared with ECG of 19-APR-2020 15:33, No significant change was found Confirmed by FREDDIE SOLANO DO ([id number]) on 05/14/2020 4:13:27 PM Electronically Signed By: FREDDIE SOLANO DO 05/14/20 1613 PATIENT NAME: FELIPE KEANE Electrocardiogram DATE OF : 68 PHYSICIAN: FREDDIE SOLANO DO REPORT #: [id number] REPORT IS CONFIDENTIAL AND NOT TO BE RELEASED WITHOUT AUTHORIZATION
--- NOTE | 2020-05-14 16:44 | NUR ---
PT UP TO THE BATHROOM TWO PERSONA ASSIST NEEDED TO WALK INTO THE BATHROOM. PT HAD BM AND THEN BACK TO BED WITH FWW WITH 2 PEOPLE ASSISTANCE.
--- NOTE | 2020-05-14 17:08 | NUR ---
pt trying to climb out of bed and set off bed alarm. pt ambulated to bathroom with 2 person assistance.
--- NOTE | 2020-05-14 17:49 | NUR ---
PT UP TO THE BATHROOM AT THIS TIME, IT HAS BEEN REPORTED THAT PT BP IS INCREASED. DR SOLANO NOTIFIED AND NO NEW ORDERS AT THIS TIME.
--- NOTE | 2020-05-14 19:07 | NUR ---
PT HAS BEEN UP AND DOWN TO THE BATHROOM MANY TIMES, HAS POOR INPULES CONTROL AND WILL JUMP OUT OF BED. PT STATES "I HAVE BAD THOUGHTS SOMTHINGS IS GOING TO GET ME" MEDICATED WITH 4MG ATAVIN AND THEN BACK TO THE BATHROOM.
--- NOTE | 2020-05-14 19:10 | NUR ---
SHIFT REPORT RECEIVED FROM AUDREY YANEZ AT BEDSIDE. PT AWAKE AND RESTING IN BED, ALARM RECENTLY GOING OFF. ALARM ON, [place] DENIES NEEDS, RECENTLY MEDICATED WITH PRN ATIVAN BY AUDREY HAWLEY (SEE EMAR). WILL MONITOR.
--- NOTE | 2020-05-14 19:41 | NUR ---
BED ALARM WENT OFF , I WENT TO TURN IT OFF AND SEE WHAT PT NEEDED. HE SAID HE WANTED TO PUT HIS FEET ON THE FLOOR. ALSO HE WANTS MORE WATER. I HAD HIM GET BACK INTO HIS BED, SET HIS BED ALARM AND GOT HIS FRESH ICE WATER.
--- NOTE | 2020-05-14 19:52 | NUR ---
BED ALARM WENT OFF AGAIN. I TURNED THE ALARM OFF AND HELPED HIM TO THE BATHROOM AND BACK TO BED WITH HIS FWW. CHANGED HIS ATTEND. BEDSIDE TABLE AND CALL LIGHT IN REACH. BED ALARM SET.
--- NOTE | 2020-05-14 20:53 | NUR ---
VITALS AND I&OS DONE AND CHARTED. BEDSIDE TABLE AND CALL LIGHT IN REACH. PT NEEDS NOTHING MORE AT THIS TIME. BED ALARM SET.
--- NOTE | 2020-05-14 20:55 | NUR ---
ASSESSMENT COMPLETE, SCHEDULED MEDS GIVEN (SEE EMAR) ALONG WITH PRN TYLENOL FOR BACK PAIN. CIWA SCORE OF 8, DUE TO ANXIETY, RESTLESSS, AND SOME IRRITATION. DISCUSSED WITH RESIDENTIAL DIRECT SUPPORT PROFESSIONAL DIEGO, 4MG PO ATIVAN GIVEN. WILL MONITOR. PT APPEARS ORIENTED, BUT REMAINS IMPULSIVE. BED ALARM ON FOR SAFETY, PT IN VIEW OF RN STATION. VSS, PT DENIES NAUSEA. DBP TRENDING IN 90'S, WILL MONITOR. PT IN BED WITH ALARM ON, NO FURTHER NEEDS. CALL LIGHT IN REACH.
--- NOTE | 2020-05-14 21:28 | NUR ---
BED ALARM WENT OFF, I WENT IN TO SEE WHAT PT NEEDED. HE SAID HE JUST TURNED AROUND. PT NEEDS NOTHING AT THIS TIME.
--- NOTE | 2020-05-14 21:35 | NUR ---
BED ALARM SOUNDING. PT UP TO USE BATHROOM, UNSTEADY ON FEET. PASSED GAS, VOIDED. BACK TO BED USING FWW. COVERED WITH BLANKETS, SR UP X 2, BED ALARM PLACED.
--- NOTE | 2020-05-14 22:25 | NUR ---
PATIENT AMBULATED TO BATHROOM AND BACK TO BED WITH ASSISTANCE. WHILE SITTING ON TOILET, PATIENT LEANS BACKWARD ABRUPTLY AND HITS HIS BACK ON BACK OF TOILET. NO SIGNS OF INJURY. RN NOTIFIED. PATIENT AMBULATES BACK TO BED. BED ALARM ON. PATIENT REQUESTING GRAPE JUICE. CALL LIGHT IN REACH. VISIBLE FROM NURSES STATION. NO FURTHER NEEDS AT THIS TIME.
--- NOTE | 2020-05-14 23:12 | NUR ---
BED ALARM WENT OFF, I WENT IN TO CHECK ON HIM. HE SAID HE WAS JUST SITTING UP. ALSO HE MIGHT WELL GO TO THE BATHROOM NOW. I HELPED HIM TO THE BATHROOM AND BACK TO BED WITH HIS FWW. BED ALARM SET. BLOOD PRESSURE AND HEART RATE DONE PER REQUEST OF MARLEEN BRITT.
--- NOTE | 2020-05-14 23:14 | NUR ---
PT RETURNING TO THE BATHROOM WITH JEWEL INSPECTOR [employer]ARY, RESTING IN BED. ALARM ON. VSS, PT APPEARS TO BE RELAXING AFTER VOIDING. WILL MONITOR.
--- NOTE | 2020-05-14 23:39 | NUR ---
THIS RN IN ROOM TO ANSWER CALL LIGHT. PT REQUESTING MORE GRAPE JUICE AND ICECREAM. JUICE AND POPSICLE PROVIDED, NO FURTHER NEEDS. PT APPEARS RELAXED AT THIS TIME, NO TREMORS OR AGITATION NOTED. CALL LIGHT IN REACH, BED ALARM REMAINS ON.
--- NOTE | 2020-05-15 00:38 | NUR ---
PT RESTING IN BED WITH EYES CLOSED, RR EVEN AND UNLABORED. NO DISTRESS NOTED, PT APPEARS COMFORTABLE. CALL LIGHT IN REACH AND BED ALARM ON.
--- NOTE | 2020-05-15 00:47 | NUR ---
BED ALARM WENT OFF, I WENT IN THERE TO SEE WHAT HE NEEDED. HE NEEDED TO GO TO THE BATHROOM. I HELPED HIM IN THERE AND BACK TO BED WITH HIS FWW. BED ALARM SET. PT NEEDS NOTHING MORE AT THIS TIME.
--- NOTE | 2020-05-15 01:58 | NUR ---
BED ALARM WENT OFF. I WENT IN TO SEE WHAT HE NEEDED. HE WAS ALMOST OUT OF BED. I ASKED WHAT HE NEEDED? HE REPLIED TO GO TO THE BATHROOM. I HELPED HIM GET THERE AND BACK TO BED WITH HIS FWW. PT ASKED FOR HIS PERSONAL BELONGINGS. I GOT HIS BAG OUT OF THE CLOSET FOR HIM. HE TOOK HIS WALLET AND KEYS OUT OF HIS PANTS POCKET AND PUT THEM IN THE SIDE TABLE ,TOP DRAWER. HE SAID THAT "SOMEONE WAS GOING TO TAKE IT UNLESS HE PUT IT THERE". I SAID OK. BEDSIDE TABLE AND CALL LIGHT IN REACH. BED ALARM SET.
--- NOTE | 2020-05-15 02:05 | NUR ---
PT RESTING IN BED, RECENTLY VOIDED WITH HELP FROM CARDIOPULMONARY TECHNOLOGIST FEBRUARY. EYES CLOSED, RR EVEN AND UNLABORED. NO OUTWARD SIGNS OF ANXIETY OR DISTRESS NOTED. CALL LIGHT IN REACH.
--- NOTE | 2020-05-15 03:24 | NUR ---
PT CONTINUES TO REST QUIETLY IN BED, ALARM ON. EYES CLOSED, RESPIRATIONS EVEN AND UNLABORED, NO OUTWARD SIGNS OF PAIN NOTED. NO TREMORS OR HALLUCINATIONS NOTED EITHER AT THIS TIME. CALL LIGHT IN REACH.
--- NOTE | 2020-05-15 04:22 | NUR ---
PT IMPULSIVE AT TIMES, BED/CHAIR ALARM ON TO ENSURE SAFETY. USES CALL LIGHT INTERMITTENTLY DURING THE SHIFT. CIWA SCORES, PRN ATIVAN. OVERALL FOLLOWED COMMANDS AND COMPLIANT WITH CARE. VSS, 1-2PA WITH FWW. UNSTEADY ON FEET. PAIN CONTROLLED WITH PRN TYLENOL. REGULAR DIET, TOLERATING WELL. NO NAUSEA REPORTED THIS SHIFT. GOOD PO INTAKE, VOIDING QS. BM FREQUENCY DECREASING, LAST BM TODAY. PT/OT ORDERS.
--- NOTE | 2020-05-15 05:43 | NUR ---
PATIENT AMBULATED TO BATHROOM AND BACK TO BED, DAILY WEIGHT TAKEN. PATIENT CALL LIGHT IN REACH. BED ALARM ON. NO FURTHER NEEDS AT THIS TIME.
--- NOTE | 2020-05-15 06:41 | NUR ---
PT RESTING IN BED, FOCUSED ASSESSMENT COMPLETE. UNABLE TO LISTEN TO LUNGS AND HEART PT IS RESTING AND IMPULSIVE WHEN AWAKE. VSS ALREADY TAKEN AND STABLE. RR EVEN AND UNLABORED. NO DISTRESS, TREMORS, OR DIAPHORESIS NOTED. BED ALARM ON FOR SAFETY.
--- NOTE | 2020-05-15 07:15 | NUR ---
HELPED PT TO THE BATHROOM, HE WAS STANDING UP WITH HIS FWW HE LOST HIS BALANCE AND HIT UP AGAINST THE WALL BEHIND HIM AND SLID TO THE FLOOR. HE SAID HE WAS OK. MARLEEN BEST CHECKED HIM OUT.
--- NOTE | 2020-05-15 07:16 | NUR ---
Report received from Rivera Shankar RN. Patient sitting on edge of bed, assist back into bed at this time. Coffee provided per patient request. Denies other needs at this time. Call light in reach, bed rails up X2, bed alarm activated.
--- NOTE | 2020-05-15 07:26 | NUR ---
INFORMED BY TRISTAN FEBRUARY THAT PT BECAME UNSTEADY IN BATHROOM WHILE WITH FILTER PRESS SUPERVISOR FEBRUARY. PER FILTER PRESS SUPERVISOR FEBRUARY PT BEGAN LEANING BACKWARDS, HIT BACK AGAINST WALL AND HAD CONTROLLED SLIDE TO GROUND. THIS RN IN ROOM TO ASSESS ALONG WITH DAYSHIFT RN JANEY. VSS, PT REPORTS PAIN IN "BUTT" AT TIME OF FALL BUT DENIES PAIN ONCE BACK IN BED. INFORMED TO NOTIFY VEHICLE COST ENGINEER IF PAIN RETURNS, PT VERBALIZES UNDERSTANDING. REDDNESS NOTED TO LEFT MID BACK ALONG LATERAL. PT DENIES HITTING HEAD. ORIENTED TO SELF, DATE, PLACE, AND REASON FOR HOSPITALIZATION. DR SOLANO MADE AWARE, NO NEW ORDERS.
--- NOTE | 2020-05-15 08:48 | NUR ---
LOW BP OBTAINED BY MONITOR, TAKEN MANUALLY. ASSESSMENT COMPLETED. STATES PAIN IN LEFT ARM 20/10 AT THIS TIME. ANALGESIC GIVEN. WITH AM MEDICATIONS. SEE MAR.
--- NOTE | 2020-05-15 10:07 | NUR ---
ASSESSMENT COMPLETED. AM MEDICATIONS PROVIDED. DENIES PAIN AT THIS TIME. LYING IN BED WITH HEAD OF BED ELEVATED. CALL LIGHT IN REACH, BED ALARM ACTIVATED, BED RAILS UP X2.
--- NOTE | 2020-05-15 11:00 | NUR ---
SPOKE WITH PATIENT IN ROOM. PATIENT IS ORIENTED TO SELF AND PLACE, NOT DATE. PATIENT STATES HE IS "NOT SURE" HOW HE IS FEELING. STATES "I JUST WANT MY LEGS TO WORK". DISCUSSED AT LENGTH THE REPEAT ADMISSIONS FOR DETOX WITH PATIENT AND THAT HE IS VERY WEAK AND DR AND THERAPISTS DO NOT FEEL IT IS SAFE FOR PATIENT TO GO HOME. ASKED IF PATIENT INTENDS TO STOP DRINKING. HE STATES "I DON'T HAVE ANYTHING SO I GUESS I STOPPED". DISCUSSED THAT HIS APARTMENT HAS MANY STEPS. HE STATES HE "CAN'T GET UP THERE". ASKED IF PATIENT WOULD BE INTERESTED IN DOING A REHAP STAY TO BE ABLE TO STAY SOBER LONG ENOUGH TO WORK ON HIS STRENGTH. ASKED WHAT HIS ASSISTANT DIRECTOR OF FINANCIAL AID GOALS ARE. HE STATES "I WANT TO GET BETTER AND GO BACK TO WORK". PATIENT STATES HE IS WILLING TO GO TO REHAB. DISCUSSED POSSIBLE REHAB PLACES, HE STATES HE ONLY WANTS TO GO IN [place]. DISCUSSED [facility] IS THE ONLY ONE HERE, HE IS AGREEABLE TO POSSIBLY GOING THERE. DISCUSSED I WILL CALL THEM AND TRY TO ARRANGE THIS. PATIENT DENIES QUESTIONS AT THIS TIME. PATIENT HAS A VERY FLAT AFFECT, BUT IS VERY COOPERATIVE.
--- NOTE | 2020-05-15 13:14 | NUR ---
PT IS SITTING IN CHAIR, RATHER FLAT AFFECT. ANSWERS QUESTIONS, SPEECH SLURRED SLIGHTLY. GAVE BLESSING, PT WAVED AND THANKED ME
--- NOTE | 2020-05-15 14:03 | NUR ---
CLINICALS FAXED TO [facility]. FAX CONFIRMATION RECEIVED AT [phone].
--- NOTE | 2020-05-15 14:14 | NUR ---
RECEIVED A CALL FROM MARLEEN NINO WHO IS COVERING FOR ADMITTING. SHE HAS REVIEWED CHART AND THINKS THEY COULD TAKE HIM NEXT WEEK. ASKS FOR CLINICAL UPDATE ON TUESDAY.
--- NOTE | 2020-05-15 18:13 | NUR ---
Up frequently, ambulating in room to bathroom frequently. Becoming increasingly agitated as the day progresses. PRN Ativan given per order. Toward end of shift, states he wants to go home and feels like a prisoner. Relaxes after this nurse speaks with him for a few minutes regarding his stay and need to ensure his safety prior to his being discharged from the facility. Verbalizes understanding.
--- NOTE | 2020-05-15 19:50 | NUR ---
UP TO BR FOR 3RD TIME SINCE BEGINING OF SHIFT, VOIDED SMALL AMOUNTS OF URINE, NO BM. BACK TO BED. 1PA/FWW, IMPULSIVE, BED ALARM ON. ON ROOM AIR, NO C/O PAIN, POULSE 117 AND RESP 20-24 ON RETURN. NICORETTE GUM GIVEN ON REQUEST. UNABLE TO FIND NICORRETTE PATCH ON FRONT OR BACK CHEST. PT IN BED, TOLERATING FLUIDS WELL. INSTRUCTED ON HS MEDS, STATED UNDERSTANDING. TOLERATING FLUIDS AND DIET WELL. CALL LIGHT AT BEDSIDE
--- NOTE | 2020-05-15 20:27 | NUR ---
BED ALARM SOUNDED, PT WAS TRYING TO GET UP AND GO TO THE BATHROOM. 1PA WITH FWW TO RESTROOM AND BACK AGAIN. BED ALARM IS ON AND CALL LIGHT IS CLOSE.
--- NOTE | 2020-05-15 21:20 | NUR ---
BED ALARM WENT OFF, I WENT INTO HIS ROOM TO TURN IT OFF. PT NEEDS TO USE THE BATHROOM. HELPED HIM THERE AND BACK WITH HIS FWW. BED ALARM SET. BEDSIDE TABLE AND CALL LIGHT IN REACH.
--- NOTE | 2020-05-15 21:30 | NUR ---
BED ALARM WENT OFF, I WENT INTO TURN IT OFF. PT NEEDED TO USE THE BATHROOM. I HELPED HIM IN THERE AND BACK TO BED WITH HIS FWW. BED ALARM SET. BEDSIDE TABLE AND CALL LIGHT IN REACH.
--- NOTE | 2020-05-15 21:45 | NUR ---
BED ALARM SOUNDED, ASSISTED PT TO RESTROOM AND BACK TO BED. HE KEEPS ASKING FOR MORE WATER BUT THEN STATES HE CANNOT STOP PEEING. TALKED ABOUT SLOWING DOWN OF THE WATER INTAKE AND USING THE URINAL IN BED. HE DOES NOT WANT TO DO THIS. BED ALARM IS ON AND CALL LIGHT IS CLOSE.
--- NOTE | 2020-05-15 21:57 | NUR ---
BED ALARM GOING OFF, GETTING OPUT OF BED, UP TO BR W1PA/FWW, VOIDED SMALL AMOUNTS OF URINE, BACK TO BED, BED ALARM ON. DOES NOT USE CALL LIGHT, RETURN DEMONSTRATION DONE SEVERAL TIMES, UNABLE TO RETAIN INFORMATION
--- NOTE | 2020-05-15 22:05 | NUR ---
BED ALARM SOUNDED, ASSISTED PT TO RESTROOM AND BACK TO BED. CALL LIGHT IS CLOSE AND BED ALARM IS ON.
--- NOTE | 2020-05-15 22:25 | NUR ---
BED ALARM WENT OFF. I WENT INTO TURN IT OFF. PT NEEDED HELP GOING TO THE BATHROOM. I HELPED HIM THERE AND BACK TO BED WITH HIS FWW. BED ALARM SET. BEDSIDE TABLE AND CALL LIGHT IN REACH.
--- NOTE | 2020-05-15 22:51 | NUR ---
Bed alarm going off. up to br 1pa/fww. voided, back to bed. bed alarm on. calm, follows instructions, unable to use call light.
--- NOTE | 2020-05-16 00:02 | NUR ---
bed alarm went off again. pt needs to use the bathroom. helped him there and back to bed with his fww. bed alarm set. bedside table and call light in reach.
--- NOTE | 2020-05-16 00:43 | NUR ---
alarm going off, pt out of bed, up to br, fww, improved gait, still unable to use call light. back to bed bed alarm on
--- NOTE | 2020-05-16 01:16 | NUR ---
sitting up in edge of bed with legs between rails, respositioned self to bed after several cues, vasiliy sim given on request
--- NOTE | 2020-05-16 01:51 | NUR ---
BED ALARM SOUNDED, ASSISTED PT TO RESTROOM AND BACK TO BED 1PA FWW. PT DENIES FURTHER NEEDS. CALL LIGHT IS CLOSE AND BED ALARM IS ON.
--- NOTE | 2020-05-16 02:52 | NUR ---
Bed alarm going off, standing between rails, up to br, voided, back to bed, 1PA/FWW, unsteady gait, impulsive. unable to use call light, Back to bed, Bed alarm on, tolerating fluids well.
--- NOTE | 2020-05-16 03:58 | NUR ---
BED ALARM WENT OFF. HELPED HIM GO TO THE BATHROOMA ND BACK TO BED WITH HIS FWW. BED ALARM SET. BEDSIDE TABLE AND CALL LIGHT IN REACH.
--- NOTE | 2020-05-16 04:44 | NUR ---
Pt has been awake mos of this shift, Initial CIWA score 7. Impulsive, unable to use call light, Bed and chair alarm in place. Up to br voiding small amounts of urine multiple times. SL intact. Pleasant, tolerating liquids well, no c/o pain. Unable to find nicotine patch. has requiered Nicotine lozengers x3. Easily redirectable,
--- NOTE | 2020-05-16 06:33 | NUR ---
UP TO BR, VOIDED, BACK TO BED, 1PA/FWW, DAILY STANDING WEIGHT 88.8KG. NICORETTE LOZENGER GIVEN ON REQUESTS. PT VOIDING LARGE AMOUNTS OF URINE, TOLERATING LIQUIDS WELL. CIWA 2 AT THIS TIME, PLEASNT AND COOP THIS AM, NO S/SX WITHDRAWAL. UNABLE TO USE CALL LIGHT EVEN WHEN PROMPTED AND WITH RETURN DEMONSTRATION. CONTINUE TO REINFORCE USE OF CALL LIGHT. BED ALARM IN PLACE, IMPULSIVITY AND FALL PRECAUTIONS
--- NOTE | 2020-05-16 07:46 | NUR ---
0730: Report recieved from May HAWLEY. Pt resting in his bed with no complaints and call jane within reach and bed alarm is on.
--- NOTE | 2020-05-16 08:27 | NUR ---
PT IN NO DISTRESS AT THIS TIME, VSS. PT NOT ORIENTED TO DATE, ABLE TO ANSWER OTHER ORIENTATION QUESTIONS CORRECTLY. BED ALARM REMAINS ON AND CALL CASTILLO WITHIN REACH. CIWA =2 AT THIS TIME. SEE ASSESSMENT.
--- NOTE | 2020-05-16 11:26 | NUR ---
I STOPPED TO CHECK ON PT, HE WAS IN BED AND DECIDED TO TRY AND GET OUT ON THE OPPOSITE SIDE-SETTING OFF BED ALARM.PT MADE A COMMENT ABOUT HIS $$ ALARM TRISTAN ÁLVAREZ RAN TO HIS AID. GAVE BLESSING HE SAID I JUST WANT TO SLEEP
--- NOTE | 2020-05-16 11:27 | NUR ---
Pt ambulating with physical therapy at this time.
--- NOTE | 2020-05-16 12:20 | NUR ---
Pt has climbed out his bed several times without calling for assistance and the bed alarm or chair alarm goes off. Pt was reminded every time to call and he states he will not remember to call. Alarm remains on and call jane within reach.
--- NOTE | 2020-05-16 13:23 | NUR ---
PT STATES HE FEELS THAT HE IS GETTING STRONGER. CIWA =1 AT THIS TIME. PT RESTING IN HIS BED WATCHING TV, VSS. CALL CASTILLO WITHIN REACH AND BED ALARM IS ON. SEE ASSESSMENT.
--- NOTE | 2020-05-16 15:00 | NUR ---
SPOKE AT LENGTH WITH PATIENT IN ROOM REGARDING HIS DRINKING AND WHAT HE WANTS GOING FORWARD. HE STATES HE WANTS TO GO BACK TO WORK SOMEDAY AND HE KNOWS HE CAN'T IF HE IS "LIKE THIS". DISCUSSED THE FACT THAT HE HAS DETOXED SEVERAL TIMES AND GOES HOME AND DRINKS AGAIN. ASKED IF HE WOULD CONSIDER A REHAB STAY INPATIENT TYPE. HE DOESN'T KNOW IF HE CAN BECAUSE HE NEEDS TO WORK. I POINTED OUT HE HAS NOT BEEN WORKING FOR A FEW MONTHS AND MAYBE DOING THIS WILL GIVE HIM A CHANCE TO BE SOBER TO GET HIS LIFE BACK ON TRACK. ASKED IF HE WOULD TALK WITH SOMEONE FROM [facility]. HE STATES HE WANTS TO THINK ABOUT IT. HIGHLY ENCOURAGED HIM TO CONSIDER THIS GOING HE IS AGES HIM FAST AND CAN KILL HIM BEFORE HIS NATURAL TIME. PATIENT THOUGHTFUL ABOUT THE CONVERSATION. REMINDED HIM THAT THE PLAN IS FOR HIM TO GO TO REHAB FACILITY TUESDAY. HE STATES "I'M DOING LOTS BETTER SO MAYBE BY TUESDAY I WILL BE OK". I STRESSED AGAIN THAT GOING STRAIGHT HOME WILL LIKELY PUT HIM AT HIGH RISK TO DRINK AGAIN SOON. HE AGREED WITH THIS.
--- NOTE | 2020-05-16 19:20 | NUR ---
used call lights, up to br 1pa/fww, voided, used batOvonyxm call light appropriately too, back toa bed, much improved mentality and gait, bed alarm on. fluids at bedside
--- NOTE | 2020-05-16 19:45 | NUR ---
Up to br voided QS, back to bed 1pa/fww. used bed and bathroom call light appropriately. Bed alarm on.
--- NOTE | 2020-05-16 19:59 | NUR ---
PATIENT UP TO THE BATHROOM AGAIN WITH 1PA AND FWW AND BACK TO BED.
--- NOTE | 2020-05-16 20:35 | NUR ---
PATIENT JUST BACK FROM THE BATHROOM AGAIN.
--- NOTE | 2020-05-16 20:49 | NUR ---
Charge nurse rounding note:, calmer, following instructions better, using call light and bathroom light appropriately, much improved mentality and gait, . Up to br frequently, voids QS each time, tolerating large amounts of fluids, no n/v. Bed and chair alrms in place. no s/sx etoh withdrawal.
--- NOTE | 2020-05-16 20:57 | NUR ---
Up to br, voided QS, back to bed, appropriately used both bed and br call lights, 1pa/fww, back to bed, bed alarm on, improved gait, following instructions, calm, able to carry an appropriate conversation
--- NOTE | 2020-05-16 21:26 | NUR ---
Up to br, voided, back to bed, 1PA/FWW, bed alarm on,
--- NOTE | 2020-05-16 22:31 | NUR ---
PATIENT JUST UP TO THE BATHROOM AND BACK TO BED. NO NEEDS AT THIS TIME.
--- NOTE | 2020-05-16 23:22 | NUR ---
PATIENT CALLED APPROPRIATELY TO USE BATHROOM. PATIENT AMBULATED TO BATHROOM, STANDS AT SINK AND PERFORMS ORAL CARE AND PM CARES. PATIENT BACK IN BED, CALL LIGHT IN REACH, BED ALARM ON, NO FURTHER NEEDS AT THIS TIME.
--- NOTE | 2020-05-17 00:27 | NUR ---
PATIENT RESTING IN BED, EYES CLOSED. VISIBLE FROM NURSES STATION. CALL LIGHT IN REACH.
--- NOTE | 2020-05-17 00:41 | NUR ---
PATIENT BACK TO THE BATHROOM AND BACK TO BED, NO MORE NEEDS AT THIS TIME. CALL LIGHT IN REACH.
--- NOTE | 2020-05-17 00:42 | NUR ---
PATIENT AMBULATED TO BATHROOM AND BACK TO BED, CALL LIGHT IN REACH, BED ALARM ON.
--- NOTE | 2020-05-17 03:05 | NUR ---
PATIENT UP TO THE BATHROOM AGAIN AND VOIDED 1PA WITH FWW AND THEN BACK TO BED. CALL LIGHT IN REACH.
--- NOTE | 2020-05-17 05:53 | NUR ---
PATIENT REALLY HAS NOT SLEPT TONIGHT, HE HS HAD TO URINATE TO MANY TIMES TO GO TO SLEEP AND HE WAS WATCHING A [place] MARATHON. PATIENT HAS NOT NEEDED ANY MEDICATION FOR WITHDRAWL TONIGHT. HE IS FAIRLY STEADY ON HIS FEET TO THE BATHROOM WITH FWW. PATIENT WILL DRINK AND DRINK FLUID SO YOU HAVE TO MONITOR WHAT HE TAKES IN. VOIDING WELL. PATIENT IN BED WATCHING TV. BED ALARM ON. CALL LIGHT IN REACH.
--- NOTE | 2020-05-17 05:55 | NUR ---
PATIENT CALLED FOR ASSISTANCE TO AMBULATE TO BATHROOM. PATIENT BACK IN BED, CALL LIGHT IN REACH. NO FURTHER NEEDS AT THIS TIME.
--- NOTE | 2020-05-17 07:07 | NUR ---
0702: Report received from Deangelo HAWLEY. Pt resting in bed and he states he is "okay". Call lucinda within reach.
--- NOTE | 2020-05-17 08:44 | NUR ---
Pt resting in his bed with no complaints at this time. He did call and reqeusted to get up without the alarm going off. Pt cleaned up and returned to his bed. Alarm turned back tour conductor jane within reach. CIWA =1 at this time. VSS, see assessment.
--- NOTE | 2020-05-17 10:16 | NUR ---
AFTER I GOT HIS VITALS DONE. I ASKED PATIENT IF HE WOULD LIKE TO TAKE A SHOWER AND HE SAID YES. SO I SET IT UP TURNED ON THE WATER FOR HIM AND WALKED HIM IN THERE. PATIENT TOOK HIS OWN SHOWER. CHECKED ON HIM TO MAKE SURE HE WAS OK. NOW PATIENT IS SITTING UP IN HIS CHAIR WATCHING TV WITH CHAIR ALARM ON.
--- NOTE | 2020-05-17 13:33 | NUR ---
PT RESTING IN HIS BED WITH HIS ONLY COMPLAINT IS THAT HE IS BORED. HE WILL BE TAKEN FOR ANOTHER WALK AFTER THIS ASSESSMENT IS COMPLETED PER HIS REQEUST. LILO REMAINS A 1. SEE ASSESSMENT.
--- NOTE | 2020-05-17 13:37 | NUR ---
PT WALKED ABOUT 2/3 OF A LAP AND RETURNED TO HIS ROOM. HE DID THE WALK WITHOUT THE USE OF THE WALKER AND JUST A GAIT BELT AND A SBA. PT'S GAIT SLIGHTLY UNSTEADY AND HE BECAME WEAK PART WAY THROUGH THE WALK. PT RETURNED TO HIS ROOM AND HE IS NOW WATCHING TV. SEE VS.
--- NOTE | 2020-05-17 14:29 | NUR ---
Pt resting in his bed with no complaints at this time, alarm on and call jane within reach.
--- NOTE | 2020-05-17 16:18 | NUR ---
Pt states his legs "feel sore like I worked out to hard". Pt medicated as ordered, see emar. Pt denies calf pain with flexion, pedal pulses +2.
--- NOTE | 2020-05-17 19:28 | NUR ---
PATIENT BACK FROM THE BATHROOM, HAVING SOME GENERALIZED BILAT LEG DISCOMFORT OF 6/10 AND REQUESTING TYLENOL. CALL LIGHT IN PLACE.
--- NOTE | 2020-05-17 21:44 | NUR ---
PATIENT RESTING QUIETLY IN BED WATCHING TV. LEG PAIN GONE. CALL LIGHT IN REACH. PATIENT CAN BE SEEN FROM NURSING DESK.
--- NOTE | 2020-05-17 22:56 | NUR ---
PATIENT RESTING IN BED AND WATCHING TV. CALL LIGHT IN REACH, NO NEEDS AT THIS TIME.
--- NOTE | 2020-05-18 01:10 | NUR ---
PATIENT UP TO THE BATHROOM AND BACK TO BED WITH 1PSBA AND FWW. CALL LIGHT IN REACH.
--- NOTE | 2020-05-18 03:05 | NUR ---
PATIENT RESTING QUIETLY IN LOW FOWLERS POSITION, EYES CLOSED, RESPIRATIONS REGULAR AND EVEN, CALL LIGHT IN PLACE.
--- NOTE | 2020-05-18 04:39 | NUR ---
PATIENT HAS SLEPT PART OF THE NIGHT, NOT UP USING THE BATHROOM MUCH LAST NIGHT. PATIENT DID JUST GET BACK INTO BED AFTER HAVING A BM AND VOIDING IN THE BATHROOM. PATIENT NOT HAVING ANY PAIN AT THIS TIME AND IS BACK IN BED RESTING WATCHING TV. CALL LIGHT IN REACH.
--- NOTE | 2020-05-18 08:07 | NUR ---
0655: Report received from Deangelo HAWLEY. Pt sleeping, call jane within reach.
--- NOTE | 2020-05-18 08:21 | NUR ---
PATIENT IS EATING BREAKFAST, WILL ENCOURAGE PATIENT TO GO ON A WALK TODAY, PATIENT NEEDED NO OTHER ASSISTANCE, ALL AM CARE DONE BY PATIENT HIMSELF
--- NOTE | 2020-05-18 09:06 | NUR ---
CIWA =1 AT THIS TIME. PT DENIES ANY NEW PROBLEMS. HE CALLED THIS AM BEFORE ATTEMPTING TO GET OUT BED. HE IS ALERT TO PERSON, PLACE AND TIME. HE DENIES ANY PAIN OR SOB. SEE ASSESSMENT FOR A FULL UPDATE. CALL CASTILLO WITHIN REACH AND BED ALARM IS ON.
--- NOTE | 2020-05-18 12:48 | NUR ---
PT STATES HE WALKED ABOUT 1 1/2 LAPS WITH THE PIPELINE INTEGRITY ENGINEER AND THE USE OF HIS FWW AND FELT STEADY WITH THE WALKER. HE STATES HE TOLERATED THE WALK WELL. HE STATES HE WILL WALK AGAIN THIS AFTERNOON. CIWA 1 AT THIS TIME. HE DENIES ANY SOB OR PAIN OR ANY NEW PROBLEMS. SEE ASSESSMENT.
--- NOTE | 2020-05-18 13:55 | NUR ---
Pt recently walked with physical therapy and states he did "pretty good". He now states he has joint pain in his ankles and hands at a 6 and was medicated with tylenol. See emar. Pt reminded that he needs to wear his mask when anyone enters his room, he put his mask on at this time.
--- NOTE | 2020-05-18 14:09 | NUR ---
Pt has a temp of 99.7. He was given an IS and instructed in it's use and he is using correclty at this time. Pt has also recently been given some tylenol for joint pain. Will continue to monitor his temp.
--- NOTE | 2020-05-18 16:07 | NUR ---
Pt watching tv with no complaints at this time.
--- NOTE | 2020-05-18 18:17 | NUR ---
PATIENT HAS BEEN DOING VERY WELL ALL DAY WITH USING HIS CALL LIGHT IN BED, WELL WHEN HE IS FINIISHED WITH THE RESTROOM, PATIENT WENT ON 2 WALKS THROUGHOUT THE DAY WITH THIS CNA2 AND TOLERATED VERY WELL WITH A WALKER, PATIENT NEEDED LITTLE ASSISTANCE TODAY, PATIENT SHOWERED YESTERDAY, SO THERE WAS NO SHOWER TODAY, BUT ALL CARE WAS DONE ON PATIENT.
--- NOTE | 2020-05-18 18:50 | NUR ---
PT WATCHING TV WITH NO COMPLAINTS AT THIS TIME.
--- NOTE | 2020-05-18 19:47 | NUR ---
REPORT RECEIVED FROM NURSE ALFORD. PT LAYING IN BED WATCHING TV. PT ALERT AND AND RESPONSIVE. NO REQUESTS AT THIS TIME.
--- NOTE | 2020-05-18 21:00 | NUR ---
ASSESSMENT COMPLETE. PT IN BED ALERT, ORIENTED AND COOPERATIVE. VSS. AFEBRILE. PT REQUESTS TO TAKE A SHOWER. CUTTER GRINDER WILL ASSIST. CALL LIGHT WITHIN REACH.
--- NOTE | 2020-05-18 22:00 | NUR ---
PT UP TO SHOWER WITH TRISTAN HUERTA. PT THEN RETURNED TO BED. CALL LIGHT WITHIN REACH.
--- NOTE | 2020-05-18 22:00 | NUR ---
PATIENT TOOK SHOWER. BED LINEN CHANGED.
--- NOTE | 2020-05-18 23:57 | NUR ---
CALL LIGHT ANSWERED. PT UP TO TOILET AND RETURNED TO BED. PT STATES HE HAD A BM BUT HAD FLUSHED THE TOILET BEFORE THIS NURSE COULD SEE. PT STATES THE BM WAS "NOT BIG I WANTED". CALL LIGHT WITHIN REACH. NO FURTHER NEEDS AT THIS TIME.
--- NOTE | 2020-05-19 01:29 | NUR ---
CALL LIGHT ANSWERED. PT UP TO BATHROOM. SMALL AMOUNT OF URINE AND SMALL AMOUNT OF LOOSE STOOL IN TOILET. PT RETURNED TO BED AND PLANS ON WATCHING TV LONGER. NO OTHER REQUESTS AT THIS TIME. CALL LIGHT WITHIN REACH.
--- NOTE | 2020-05-19 04:54 | NUR ---
ROUND COMPLETE. PT SLEEPING. EVEN UNLABORED BREATHING; NO APPARENT SIGNS OF DISTRESS AT THIS TIME.
--- NOTE | 2020-05-19 06:00 | NUR ---
PT HAD A GOOD NIGHT. CALLED APPROPRIATELY AND AMBULATED VERY WELL WITH A FWW AND SBA. PT TOOK A SHOWER AROUND 2200 AND THEN WAS LAYING PEACEFULLY IN BED UNTIL AROUND 0200 AND THEN SLEPT. VSS, AFEBRILE.
--- NOTE | 2020-05-19 06:02 | NUR ---
ASSESSMENT COMPLETE. PT SLEPT WELL FROM AROUND 0200 UNTIL NOW. PT CALLED APPROPRIATELY AND AMBULATED WITH LITTLE ASSISTANCE ON FWW. VSS. PT SOMEWHAT FIXATED ON BOWEL MOVEMENT. PT WAS ALSO UP TO TOILET TO VOID. NO FURTHER NEEDS AT THIS TIME. CALL LIGHT WITHIN REACH.
--- NOTE | 2020-05-19 07:36 | NUR ---
REPORT RECEIVED. PT IN BED AWAKE. JEREMIAS NEEDS. CALL LIGHT IN REACH.
[2020-05-19] MEDS ORDERED: TAMSULOSIN HCL0.4 MG PO (09:35)
[2020-05-19] MEDS ORDERED: TYLENOL325 MG PO (09:36)
[2020-05-19] MEDS ORDERED: NICOTINE PATCH1 EAC1 TD (09:36)
[2020-05-19] MEDS ORDERED: GABAPENTIN100 MG PO (09:36)
[2020-05-19] MEDS ORDERED: VITAMIN B-1100 M1 PO (09:37)
[2020-05-19] MEDS ORDERED: THERA TABLET400 MCG PO (09:37)
--- NOTE | 2020-05-19 10:00 | NUR ---
ASSESSMENT COMPLETED. PT IN BED, SBA TO BATHROOM. VOIDEDTHEN BACK TO BED. CALL LIGHT IN REACH.
--- NOTE | 2020-05-19 10:00 | NUR ---
SPOKE WITH OUTBOUND SALES PROFESSIONAL AT [facility]. SHE STATES SHE NEEDS TO RUN INSURANCE. TO FAX UPDATED CLINICALS.
--- NOTE | 2020-05-19 11:10 | NUR ---
FAXED UPDATED CLINICALS, FAX CONFIRMATION AT 1052. FAXED ORDERS AND PASSR. FAX CONFIRMATION AT 1101.
--- NOTE | 2020-05-19 11:55 | NUR ---
[place] DINKEY MOTOR OPERATOR CALLED. SHE STATES SHE SPOKE WITH INSURANCE. PATIENT HAS A $1200 DEDUCTIBLE HE HAS NOT MET. THEN THEY WILL PAY 80% FOR THERAPY IF HE MEETS NECESSITY. SHE STATES LAST THERAPY NOTE STATES HE IS WALKING OVER 800FT. SHE STATES THEY WILL TAKE HIM, BUT HE NEEDS TO KNOW WHAT HE NEEDS TO PAY. DISCUSSED THIS WITH PATIENT. HE STATES "I DON'T HAVE THAT MONEY". PATIENT STATES HE THINKS HE CAN WALK GOOD ENOUGH NOW. PATIENT ASKS IF HE CAN STAY HERE. EXPLAINED THAT HE HAS MET MEDICAL DISCHARGE AND THAT HE IS DISCHARGED FROM THE HOSPITAL. ASKED IF HE HAS SOMEONE HE CAN STAY WITH. HE DENIES THIS. ASKED IF SOMEONE CAN COME STAY WITH HIM. HE STATES "NO". ASKED IF HE FEELS HE WOULD BE SAFE TO GO HOME. PATIENT GOT UP AND WALKED AROUND ROOM STATING HE THINKS HE CAN. ASKED IF HE HAS SOMEONE WHO CAN GET HIM GROCERIES, HE STATES HIS LANDLORD WILL DO THAT. ASKED IF HE CAN CALL HIM ABOUT IT. STATES HE DOESN'T KNOW THE NUMBER. ASKED IF HE WILL STAY SOBER. HE STATES "I'M NEVER DRINKING AGAIN. THIS LAST TIME SCARED ME, I COULDN'T USE MY LEGS". EXPLAINED WE HAVE A PEER TO PEER PROGRAM THROUGH [facility]. ASKED IF HE WOULD BE WILLING TO MEET WITH THEM TODAY BEFORE HE GOES HOME TO MAKE A PLAN FOR SUPPORT ONCE HE GETS HOME FOR SOBRIETY. HE IS VERY INTERESTED IN THIS. CALLED [employer] [phone] AND SPOKE WITH TAN. SHE STATES SHE HAS A MEETING BUT WILL BE UP AROUND 2PM TO MEET WITH PATIENT.
--- NOTE | 2020-05-19 12:00 | NUR ---
PT SITTING UP IN CHAIR FOR LUNCH. CALL LIGHT IN REACH.
--- NOTE | 2020-05-19 13:45 | NUR ---
SPOKE AT LENGTH AGAIN WITH PATIENT ABOUT PLAN. HE UNDERSTANDS PEER TO PEER WILL COME SEE HIM AROUND 2-3PM. HE STATES HE FEELS HE CAN GO HOME. HE IS ADAMANT HE WILL NOT DRINK. HE STATES HE HAS NO ALCOHOL AT HOME. THAT HE QUIT 12 DAYS BEFORE COMING HERE WHEN HIS LEGS STOPPED WORKING. WENT OVER AGAIN THE EFFECTS OF ALCOHOL ON HIS BODY, HIS LIFE. HE FEELS HE "REALLY GETS IT NOW". PATIENT IS JUST FINISHING EATING LUNCH. PATIENT IS GETTING UP AROUND ROOM ON HIS OWN. STAFF UPDATED.
--- NOTE | 2020-05-19 15:08 | NUR ---
PATIENT SITTING ON EDGE OF BED WAITING TO DC, RT IN ROOM TALKING TO PATIENT. CALL LIGHT IN REACH. NO FURTHER NEEDS AT THIS TIME.
== END 2020-05-19 15:29 | disposition home or self-care (01) | DRG 897 ==
LOC: ED 09:57 → CCU 09:58 → MS 05-14 15:45
PROVIDERS: ADMIT Student in an Organized Health Care Education/Training Program
DX: F10.239 Alcohol dependence with withdrawal, unspecified (principal); I42.6 Alcoholic cardiomyopathy; E87.3 Alkalosis; F19.10 Other psychoactive substance abuse, uncomplicated; Z20.828 Contact with and (suspected) exposure to other viral communicable diseases; K70.10 Alcoholic hepatitis without ascites; E78.5 Hyperlipidemia, unspecified; F17.200 Nicotine dependence, unspecified, uncomplicated; M62.81 Muscle weakness (generalized); Z79.899 Other long term (current) drug therapy
CPT/HCPCS: 36415; 51798; 80048; 80053; 80076; 82533; 82550; 82803; 82977; 83615; 83735; 83880; 84100; 85025; 85610; 93005; 93010; 96372; 96375; 96376; 97110; 97116; 97162; 97165; 97535; 99285-25; 99406; C9803; G0378; J1650; J2060; J2405; J2560; J3411; J3475; J7030; J7121; U0002

== ENCOUNTER 2021-03-17 15:52 | Emergency (ER) | payer OTHER ==
[~2021-03-17] VITALS: Ht 175.3 cm; Wt 106.1 kg
[~2021-03-17 15:52] MED LIST changes: +ADULT ASPIRIN R81 MG PO; +FISH OIL 1,0001 EAC2 PO; +GABAPENTIN100 MG PO; +NICOTINE PATCH1 EAC1 TD; +TAMSULOSIN HCL0.4 MG PO; +THERA TABLET400 MCG PO; +TYLENOL325 MG PO; +VITAMIN B-1100 M1 PO
--- OUTSIDE RECORDS SUMMARY | 2021-03-17 15:58 | XMS ---
PreManage Notification: FELIPE KEANE Security Residential Director Events No recent Security Events currently on file CRITERIA MET - [facility] - Has Care Guidelines CARE PROVIDERS LAN CARIAS Internal Medicine: Pulmonary Disease 03/12/2019-Current PHONE: Unknown Sandi has no Care Guidelines for this patient. Care History Medical/Surgical 05/13/2020 [facility] Patient was admitted.\T\nbsp; Prescribed physical and/or occupational therapy.\ T\nbsp; No showed for PCP visit on 04/27/2020.\T\nbsp; No follow up scheduled yet. 04/21/2020 [facility] Patient last saw DALI Griggs on 12/09/2019 re: EARNEST reinstatement paperwork. Was N/S for next appt.12/16/2019. 03/12/2019 [facility] - PATIENT ESTABLISHED CARE WITH DR MONTENEGRO ON 12/12/18. NEXT FOLLOW UP APT IS ON 05/10/2019. - Patient is currently established with [facility]. If patient is seen in the ED during business hours. Please contact CHWs at [facility]. Care Recommendation: This patient has had 5 or more Emergency Department visits in the last 12 months.\T\nbsp; Patient requires education on the scope and purpose of the ED as an acute care provider not a Primary Care Provider and should not be utilized for chronic conditions.\T\nbsp; These are guidelines and the provider should exercise clinical judgment when providing care. Zane VISIT COUNT (12 MO.) 3 JENNIFER Barrow TOTAL 3 NOTE: Visits indicate total known visits. 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 - Hyperlipidemia, unspecified - Alcohol dependence with withdrawal, unspecified - Contact with and (suspected) exposure to other viral communicable diseases - Other psychoactive substance abuse, uncomplicated - Alcoholic hepatitis without ascites - Muscle weakness (generalized) - Alcoholic cardiomyopathy - Muscle weakness (generalized) - Nicotine dependence, unspecified, uncomplicated - Hyperlipidemia, unspecified - Nicotine dependence, unspecified, uncomplicated - Alkalosis - Contact with and (suspected) exposure to other viral communicable diseases - Other psychoactive substance abuse, uncomplicated - Alcoholic cardiomyopathy - Other under cutting machine operator (current) drug therapy 04/19/2020 14:00 [facility] Michelle [place] TYPE: Medical Surgical COMPLAINT: - RHABDOMYOLYSIS DIAGNOSES: - Personal history of nicotine dependence - Essential (primary) hypertension - Alcoholic myopathy - Alcohol dependence with withdrawal delirium - Contact with and (suspected) exposure to other viral communicable diseases - Other usp (current) drug therapy - Alcoholic cardiomyopathy - Alcoholic hepatitis without ascites - Hypokalemia - Rhabdomyolysis - Hypomagnesemia - Other pancytopenia - Hyperlipidemia, unspecified [email or web address]
[2021-03-17] MEDS ORDERED: AMOXICILLIN500 MG PO (16:08)
[2021-03-17] MEDS ORDERED: LISINOPRIL30 MG PO (18:16)
== END 2021-03-17 22:00 | disposition short-term general hospital (02) ==
LOC: ED 15:52
DX: K04.7 Periapical abscess without sinus (principal); Z20.822 Contact with and (suspected) exposure to COVID-19; I11.0 Hypertensive heart disease with heart failure; I50.9 Heart failure, unspecified; F17.200 Nicotine dependence, unspecified, uncomplicated; Z79.899 Other long term (current) drug therapy; Z79.82 Long term (current) use of aspirin
CPT/HCPCS: 70491; 80053; 82150; 85025; 99284-25; C9803; J1885; J3490; J7030; Q9967; U0003